=== PATIENT | female | born 1960 | race Caucasian/White ===

== ENCOUNTER → 2017-12-06 14:31 | Outpatient (CLI) | payer OTHER, SELFPAY ==
[2017-12-06 15:58] LABS: Add Manual Diff / Slide Review NO; Basophils Percent Auto 0.3 % (0-2); Eosinophils Percent Auto 2.3 % (2-4); Hematocrit 41.6 % (36-46); Hemoglobin 13.9 g/dL (12.0-16.0); Lymphocytes Percent Auto 26.9 % (25-40); Mean Corpuscular HGB Conc 33.5 % (30-36); Mean Corpuscular Hemoglobin 28.2 PG (26-34); Mean Corpuscular Volume 84.3 fL (80-100); Monocytes Percent Auto 8.2 % (3-14); Neutrophils Absolute Auto 4700 /uL (3000-5900); Neutrophils Percent Auto 62.3 % (50-75); Platelet Count 353 X10^3/uL (150-400); Red Blood Cell Count 4.94 X10^6/uL (4.0-5.2); Red Cell Distribution Width 15.6 % (11.6-14.8); White Blood Cell Count 7.5 X10^3/uL (4.5-11.0)
[2017-12-06 16:22] LABS: Alanine Aminotransferase 30 IU/L (9-52); Albumin 4.1 g/dL (3.5-5.0); Albumin Globulin Ratio 0.9 (1.0-2.8); Alkaline Phosphatase 181 U/L (38-126); Aspartate Aminotransferase 30 IU/L (14-36); BUN Creatinine Ratio 15.7 (6-22); Bilirubin Total 0.6 mg/dL (0.2-1.3); Blood Urea Nitrogen 11 mg/dL (7-17); Calcium 8.6 mg/dL (8.4-10.2); Carbon Dioxide 31 mmol/L (22-32); Chloride 101 mmol/L (98-107); Cholesterol 222 mg/dL (140-199); Estimated Glomerular Filt Rate > 60.0 mL/min (>60); Globulin 4.4 g/dL (1.7-4.1); Glucose 97 mg/dL (70-100); HDL Cholesterol 51 mg/dL (40-60); HEMOLYSIS 18 (0-50); LDL Cholesterol Calculated 147 mg/dL (<100); Potassium 3.6 mmol/L (3.4-5.1); Sodium 144 mmol/L (137-145); Total Protein 8.5 g/dL (6.3-8.2); Triglycerides 122 mg/dL (35-150)
[2017-12-06 16:34] LABS: Vitamin D 25 Hydroxy (D3) 22.7 ng/mL (30.0-100.0)
== END ==
PROVIDERS: Family Provider Family Medicine; PCP Family Medicine; Visit Provider Family Medicine
DX: E03.9 Hypothyroidism, unspecified (principal); E66.01 Morbid (severe) obesity due to excess calories; Z68.41 Body mass index [BMI] 40.0-44.9, adult; K57.32 Diverticulitis of large intestine without perforation or abscess without bleeding; I10 Essential (primary) hypertension; E78.5 Hyperlipidemia, unspecified; E55.9 Vitamin D deficiency, unspecified
CPT/HCPCS: 36415; 80053; 80061; 82306; 84443; 85025

== ENCOUNTER 2018-01-01 10:10 | Emergency (ER) | payer OTHER, SELFPAY ==
--- NOTE | 2018-01-01 10:16 | ED_ITS ---
HPI - General Adult General Chief complaint: Psychiatric Symptoms Stated complaint: mental health eval Time Seen by Provider: 01/01/18 10:11 Source: patient Mode of arrival: other ( police) Limitations: no limitations History of Present Illness HPI narrative: patient is a 57-year-old female brought in by the police after she called the crisis line for suicidal ideations this morning. Patient states that earlier this year she lost her job and since then she has had occasional thoughts of suicide. She states that she has thought of running her car off the road. She states she has been on Zoloft in the past but stopped it for approximately 1 month and then restarted it 3 weeks ago. She states she has been taking it daily for the past 3 weeks. She states that she has daily thoughts of depression. She states that this morning she became more depressed. She states that the thoughts are stemming because since she lost her job she has had several job interviews and job offers but she has turn them all down because she is scared she then looked this morning and found out she had 7 weeks of on appointment left and that made her more depressed. She called the crisis line and while she was on the phone the police arrived. She came willingly. She denied taking any ingestions this morning or trying to hurt herself this morning. Has never tried to hurt herself in the past. Has never been admitted to the hospital in the past. She states that she has anxiety that she hides from others. Related Data Previous Rx's Medication Instructions Recorded cholecalciferol (vitamin D3) 50,000 unit PO QWEEK #12 cap 06/18/17 diazepam [Valium] 10 mg PO Q DAY PRN PRN #10 tab 06/18/17 amlodipine 5 mg tablet 5 mg PO BID #180 tab 12/07/17 furosemide 40 mg tablet 40 mg PO BID #180 tab 12/07/17 levothyroxine 200 mcg tablet 200 mcg PO QAM #90 tab 12/07/17 sertraline 100 mg tablet 150 mg PO SEE INSTRUCTIONS #135 tab 12/07/17 Allergies Allergy/AdvReac Type Severity Reaction Status Date / Time iodine Allergy Severe to Unverified 09/12/17 11:45 contrast dye-congestion, hives lisinopril Allergy Unknown COUGH Unverified 09/12/17 11:45 shellfish derived Allergy Unknown Unverified 09/12/17 11:45 Review of Systems Constitutional Denies fatigue, Denies fever(s) and Denies headache(s) ENT Ears, Nose, Mouth, and Throat: Denies dizziness and Denies headache(s) Cardiovascular Denies chest pain and Denies dyspnea Respiratory Denies dyspnea Gastrointestinal Gastrointestinal: Denies abdominal pain, Denies nausea and Denies vomiting Integumentary/Breasts Denies lesions and Denies rash Neurologic Denies confusion, Denies dizziness and Denies headache(s) Psychiatric Reports anxiety, Denies confusion, Reports depression, Reports hopelessness and Reports suicidal ideation Endocrine Denies fatigue Hematologic/Lymphatic Denies easy bleeding and Denies easy bruising PFSH Medical History Anxiety (Acute) Surgical History History of thyroidectomy Family History Mother Age: 82 Hypertension Social History Smoking Status: Never smoker Comment: reviewed patient's past medical surgical family and social history Exam Initial Vital Signs Initial Vital Signs: Vital Signs Temperature 98.6 F 01/01/18 10:22 Pulse Rate 106 H 01/01/18 10:22 Respiratory Rate 20 01/01/18 10:22 Blood Pressure 186/112 H 01/01/18 10:22 Pulse Oximetry 95 01/01/18 10:22 Const General: cooperative, healthy appearing, comfortable, well developed, well groomed and acute distress Orientation: alert, awake and oriented x3 Resp Effort & Inspection: normal respiratory effort Auscultation: clear to auscultation bilaterally Cardio Palpation: normal PMI Rhythm: regular rhythm Pulses: radial pulses present GI Inspection: non-distended Palpation: soft, No firm and No tender Skin Lesions: no lesions Rashes: no rashes Neuro General: alert, awake and oriented x3 Speech: speech normal Motor: muscle tone normal throughout Sensory Exam: no sensory deficits noted Extrem General: normal to inspection Psych Appearance: grossly normal, well kempt and not disheveled Mood: dysthymic mood, not manic, not labile and No angry Affect: sad Attitude: cooperative Thought Process: normal Thought Content: normal Judgment: judgment good Course Orders Ordered: ED Orders 01/01/18 10:45 Consult to Food Clerk Stat Vital Signs - 8 hr 01/01/18 10:22 Temperature 98.6 F Pulse Rate 106 H Respiratory Rate 20 Blood Pressure 186/112 H Pulse Oximetry 95 Medical Decision Making MDM Narrative Medical decision making narrative: Patient has no signs of trauma or toxic ingestion. She denies current suicidal ideation however I feel that given her situation she is on a decline with regard to her mood. Social work did see the patient here in the emergency department. We were able to get the patient set up with an appointment with her primary doctor later this afternoon. Patient does not inpatient meet involuntary inpatient criteria. Patient does not want to be admitted to the hospital. The professor of social work was also able to get the patient set up with a mental health provider at the beginning of February. She was also given crisis line numbers. She was also given other information for counselors. Patient was given return precautions. She expressed understanding and agreement with plan. Discharge Plan Departure Patient Disposition: Home, Self-Care Clinical Impression: Adjustment disorder, Anxiety Instructions: Depression (Mild to Moderate) (Alternative Therapy), Adjustment Disorder, Can Depression Be Treated Without Medication? Activity Restrictions/Additional Instructions: you have an appointment with your primary doctor this afternoon. Highly recommend that you keep this appointment. You also given information regarding a follow-up with the mental health provider at the beginning of February. I also highly recommend that you keep this appointment. Continue all of your medications as directed. You may return to the emergency department at any time for thoughts of hurting herself or others and I encourage you to do this. Prescriptions: No Action diazepam [Valium] 10 MG tablet 10 mg PO Q DAY PRN PRNQty: 10 RF: 0 cholecalciferol (vitamin D3) 50,000 UNIT capsule 50,000 unit PO QWEEK Qty: 12 RF: 0 levothyroxine 200 mcg tablet 200 mcg PO QAM Qty: 90 RF: 0 furosemide 40 mg tablet 40 mg PO BID Qty: 180 RF: 0 sertraline 100 mg tablet 150 mg PO SEE INSTRUCTIONS Qty: 135 RF: 0 amlodipine [Norvasc] 5 mg tablet 5 mg PO BID Qty: 180 RF: 0
[2018-01-01 10:22] VITALS: BP 186/112; PULSE 106; RESP 20; TEMP 37; O2SAT 95; BMI 46.3
--- NOTE | 2018-01-01 11:06 | PC.NURSE ---
Called [facility] for urgent appt w/ Dr. Zamora for medication evaluation. (Dr. Zamora has been the prescriber for pt's meds.) given pt's number for call back. Will call ED if can call within reasonable time.
[2018-01-01 13:54] VITALS: BP 180/99; PULSE 80; RESP 14; O2SAT 97
--- NOTE | 2018-01-01 16:17 | CM.SWNOTE ---
CESSPOOL CLEANER Note: Received call from ED staff this afternoon requesting consult for mental health. CESSP[employer] CLEANER reviewed notes. Patient brought in by [employer] after she called the crisis line from home indicating that she had suicidal ideations. Patient is a 57yr old female. Primary payor is 1)[facility]. PCP is Dr. Zamora. Patient currently resides in [place] with her Mother/Margarita. Met with patient explained [employer] CLEANER role. Patient reports that she is currently having difficulty with panic attacks/anxiety. Patient also admits to feelings of depression. Patient seeks no outpatient mental health counseling at this time. Patient does take Zoloft and Valium for anxiety. Patient reports that both prescriptions written by PCP/Dr. Zamora. Patient reports that she has seen a counselor once throughout her lifetime. Patient open to seeking help anxiety and depression. Patient reports that she lost her job of 20yr in August of this year. Patient was laid off and believes that her panic attacks have gotten worse. Patient denies current suicidal or homicidal ideations but does admit to having feelings on non-existence on occasion. Last thought was over the weekend. Patient denies having access to any weapons. Patient in hopes to get some assistance with services. ED staff made same day appointment for patient to be seen by Dr. Zamora today at 4:00pm. CESSPO[employer] CLEANER placed call to [facility]. Appointment made for patient to see psychiatrist on Feb.05 in [place]. Appointment with Dr. Epps ph# [phone]. In addition, resources provided to patient to call for outpatient counseling contracted with [facility] in [facility]. Patient reports that she has started that process and expects to be getting return phone call from local counselor Jacinda Kapoor. Patient reports no immediate concerns and or crisis. [employer] CLEANER encouraged patient to discuss her panic attacks/anxiety and depression with MD today. Patient may need medication adjustment. P: Home today. Patient has needed outpatient follow up appointments arranged for both mental health and PCP. Patient denies that she is suicidal or homicidal at this time. Crisis resources provided as well. MINA Rudolph
== END 2018-01-01 13:59 | disposition home or self-care (01) ==
PROVIDERS: Emergency Provider Emergency Medicine; Family Provider Family Medicine; PCP Family Medicine
DX: F43.20 Adjustment disorder, unspecified (principal); F41.9 Anxiety disorder, unspecified
CPT/HCPCS: 99282

== ENCOUNTER → 2018-04-16 09:37 | Outpatient (CLI) | payer OTHER, MEDICAID, SELFPAY ==
[2018-04-16 10:49] LABS: Alanine Aminotransferase 23 IU/L (9-52); Albumin 4.1 g/dL (3.5-5.0); Albumin Globulin Ratio 1.1 (1.0-2.8); Alkaline Phosphatase 176 U/L (38-126); Aspartate Aminotransferase 24 IU/L (14-36); BUN Creatinine Ratio 23.3 (6-22); Bilirubin Total 0.3 mg/dL (0.2-1.3); Blood Urea Nitrogen 14 mg/dL (7-17); Calcium 8.4 mg/dL (8.4-10.2); Carbon Dioxide 30 mmol/L (22-32); Chloride 103 mmol/L (98-107); Cholesterol 173 mg/dL (140-199); Estimated Glomerular Filt Rate > 60.0 mL/min (>60); Globulin 3.9 g/dL (1.7-4.1); Glucose 116 mg/dL (70-100); HDL Cholesterol 45 mg/dL (40-60); HEMOLYSIS < 15 (0-50); LDL Cholesterol Calculated 112 mg/dL (<100); Potassium 3.5 mmol/L (3.4-5.1); Sodium 145 mmol/L (137-145); Triglycerides 79 mg/dL (35-150)
[2018-04-16 10:57] LABS: Free T3, Triiodothyronine Free 3.22 pg/mL (2.77-5.27); Free T4, Direct Thyroxine 1.67 ng/dL (0.78-2.19)
[2018-04-16 11:11] LABS: Thyroid Stimulating Hormone 0.97 uIU/mL (0.47-4.68)
== END ==
PROVIDERS: PCP Family Medicine; Visit Provider Family Medicine
DX: E03.9 Hypothyroidism, unspecified (principal); E78.5 Hyperlipidemia, unspecified; I10 Essential (primary) hypertension
CPT/HCPCS: 36415; 80053; 80061; 84439; 84443; 84481

== ENCOUNTER 2018-05-09 13:16 | Emergency (ER) | payer OTHER, MEDICAID, SELFPAY ==
[2018-05-09 13:30] VITALS: BP 168/113; PULSE 106; RESP 18; TEMP 37.8; O2SAT 96; BMI 48.0
--- NOTE | 2018-05-09 13:46 | DI.RAD.S_ITS ---
PROCEDURE: XR CHEST 2V INDICATIONS: cough new onset a.fib TECHNIQUE: 2 views of the chest were acquired. COMPARISON: [facility], , CHEST 2 VIEW, 12/17/2013, 10:07. [facility], CR, CHEST 2 VIEW, 03/12/2014, 16:57. [facility], CT, ABDOMEN/PELVIS WITHOUT CONTRAS, 10/01/2016, 16:55. FINDINGS: Surgical changes and devices: None. Lungs and pleura: Shallow inspiration. No pleural effusions or pneumothorax. Lungs are clear. Mediastinum: Mediastinal contours are normal. Heart size is mildly increased. Bones and chest wall: No suspicious bony abnormalities. Soft tissues appear unremarkable. IMPRESSION: Mild cardiomegaly. Dictated by: Vanessa Gaming M.D. on 05/09/2018 at 14:56 Approved by: Vanessa Gaming M.D. on 05/09/2018 at 15:05
--- NOTE | 2018-05-09 13:51 | ED_ITS ---
HPI - Arrhythmia/Palpitations General Chief Complaint: Arrhythmia/Palpitations Stated Complaint: Thinks AFIB Time Seen by Provider: 05/09/18 13:27 Source: patient Mode of arrival: ambulatory Limitations: no limitations History of Present Illness HPI narrative: The patient is a 57-year-old presents from walk in clinic for new onset a.fib. She complains of sore throat body aches and cough on going for 2 days. Denies history of a.fib, heart palpitations. She overall feels weak and lethargic. Patient says that she has felt her heart is being abnormal a few times in the past but has just blown off. She really does not have symptoms now she overall just feels sick with head cold throat. Related Data Home Medications Medication Instructions Recorded Confirmed cholecalciferol (vitamin D3) 5,000 units PO DAILY 05/09/18 05/09/18 [Vitamin D3] Previous Rx's Medication Instructions Recorded amlodipine 5 mg tablet 5 mg PO BID #180 tab 04/16/18 diazepam 10 mg tablet 10 mg PO Q DAY PRN PRN #10 tab 04/16/18 furosemide 40 mg tablet 40 mg PO BID #180 tab 04/16/18 levothyroxine 200 mcg tablet 200 mcg PO QAM #30 tab 04/16/18 sertraline 100 mg tablet 150 mg PO DAILY 90 Days #135 tab 04/22/18 metoprolol tartrate 12.5 mg PO BID #30 tab 05/09/18 Allergies Allergy/AdvReac Type Severity Reaction Status Date / Time iodine Allergy Severe to Verified 05/09/18 12:13 contrast dye-congestion, hives lisinopril Allergy Unknown COUGH Verified 05/09/18 12:13 shellfish derived Allergy Unknown Verified 05/09/18 12:13 buspirone AdvReac Intermediate felt Verified 05/09/18 12:13 spaced out bupropion [From Wellbutrin] AdvReac Mild Weird Verified 05/09/18 12:13 feeling Review of Systems Review of Systems All systems reviewed & are unremarkable except as noted in HPI and below Constitutional Reports body ache(s), Reports chills and Reports fever(s) Eyes Denies change in vision, Denies eye discharge, Denies irritation and Denies loss of vision ENT Ears, Nose, Mouth, and Throat: Reports as per HPI, Denies dizziness, Reports nasal congestion, Reports sore throat and Reports throat swelling Cardiovascular Reports as per HPI, Denies dyspnea and Denies dyspnea on exertion Respiratory Denies cough, Denies dyspnea, Denies dyspnea on exertion and Denies wheezing Gastrointestinal Gastrointestinal: Denies abdominal pain, Denies change in bowel habits, Denies diarrhea, Denies nausea and Denies vomiting Integumentary/Breasts Denies pruritus, Denies erythema, Denies rash and Denies wounds Neurologic Denies dizziness and Denies loss of vision Allergic/Immunologic Reports throat swelling and Denies wheezing [facility] Medical History Anxiety (Chronic) Depression (Chronic) Diverticular disease (Chronic) GERD (gastroesophageal reflux disease) (Chronic) Hypertension (Chronic) Hypothyroidism (Chronic) Mitral insufficiency (Chronic) Hyperlipemia (Resolved ~2010) Surgical History History of back surgery (Resolved 07/2015) History of thyroidectomy (1976) Family History Mother Age: 82 Hypertension Father No problems noted. Grandfather Cancer Grandmother No problems noted. Grandfather No problems noted. Grandmother Cancer Sister No problems noted. Social History Smoking Status: Never smoker alcohol intake: never substance use type: does not use Exam Initial Vital Signs Initial Vital Signs: Vital Signs Temperature 100.0 F H 05/09/18 13:30 Pulse Rate 106 H 05/09/18 13:30 Respiratory Rate 18 05/09/18 13:30 Blood Pressure 168/113 H 05/09/18 13:30 Pulse Oximetry 96 05/09/18 13:30 Const General: cooperative and comfortable Nutritional Appearance: overweight Orientation: alert, awake and oriented x3 Eyes General: appearance normal, both eyes and all related structures Neck Neck: normal visual inspection, full ROM, no meningeal signs, supple and lymphadenopathy Chest Chest: normal inspection of the chest Resp Effort & Inspection: normal respiratory effort, able to speak in complete sentences, no respiratory distress and no use of accessory muscles Auscultation: clear to auscultation bilaterally, no rales, no rhonchi and no wheezes Cardio Rate: regular rate Rhythm: abnormal rhythm Heart Sounds: S1 normal and S2 normal Skin General: no rashes or lesions noted, No jaundice and No petechiae Neuro General: alert, oriented x3, gait normal and no focal motor deficits Speech: speech normal Extrem General: full ROM, no clubbing, cyanosis or edema, no pedal edema and no calf tenderness Scores CHADS-VASc Congestive heart failure: no Hypertension: yes Age 75 years or older: no Diabetes mellitus: no Stroke, TIA, or TE: no Vascular disease: no Age 65 to 74 years: no Sex category (female): Female CHADS-VASc Score: 2 Course Orders Ordered: ED Orders 05/09/18 13:25 Complete Blood Count AUTO DIFF Stat Comprehensive Metabolic Panel Stat Lactate (Lactic Acid) Stat Magnesium Stat Thyroid Stimulating Hormone Stat Troponin & CK Cardiac Panel Stat 05/09/18 13:27 B Type Natriuretic Peptide Stat 05/09/18 13:43 Influenza A and B by PCR Rapid Stat 05/09/18 13:44 EKG-12 Lead Stat 05/09/18 13:46 XR chest 2V Stat 05/09/18 13:59 Strep Grp A by PCR Rapid Stat 05/09/18 14:34 Blood Culture Stat 05/09/18 15:41 EKG-12 Lead Stat Discontinued Medications Aspirin (Aspirin Chew) 324 mg PO NOW ONE Stop: 05/09/18 16:03 Last Admin: 05/09/18 16:17 Dose: 324 mg Diltiazem HCl (Cardizem) 10 mg IV NOW ONE Stop: 05/09/18 13:45 Last Admin: 05/09/18 14:13 Dose: 10 mg Sodium Chloride (Normal Saline 0.9%) 1,000 mls @ 150 mls/hr IV CONT MELINDA Last Infusion: 05/09/18 16:41 Dose: 0 mls/hr Admin: 05/09/18 14:13 Dose: 150 mls/hr Vital Signs - 8 hr 05/09/18 13:30 05/09/18 14:59 05/09/18 16:41 Temperature 100.0 F H 99.7 F H Pulse Rate 106 H 90 88 Respiratory Rate 18 14 21 Blood Pressure 168/113 H 111/71 Blood Pressure [Right Wrist] 155/106 H Pulse Oximetry 96 96 94 MDM - Arrhythmia/Palpitations Lab Data Attestation: I reviewed the patient's lab results. Result diagrams: 05/09/18 13:25 05/09/18 13:25 Lab Results 05/09/18 05/09/18 05/09/18 Range/Units 13:25 13:25 13:25 WBC 6.9 (4.5-11.0) X10^3/uL RBC 5.29 H (4.0-5.2) X10^6/uL Hgb 13.4 (12.0-16.0) g/dL Hct 41.7 (36-46) % MCV 78.8 L (80-100) fL MCH 25.3 L (26-34) PG MCHC 32.1 (30-36) % RDW 16.6 H (11.6-14.8) % Plt Count 276 (150-400) X10^3/uL Neut % (Auto) 73.2 (50-75) % Lymph % (Auto) 18.1 L (25-40) % [facility] % (Auto) 6.6 (3-14) % Eos % (Auto) 1.8 L (2-4) % Baso % (Auto) 0.3 (0-2) % Neut # (Auto) 5100 (9855-9841) /uL Sodium 143 (137-145) mmol/L Potassium 4.2 (3.4-5.1) mmol/L Chloride 103 (98-107) mmol/L Carbon Dioxide 30 (22-32) mmol/L BUN 12 (7-17) mg/dL Creatinine 0.70 (0.52-1.04) mg/dL Estimated GFR > 60.0 (>60) mL/min BUN/Creatinine Ratio 17.1 (6-22) Glucose 120 H (70-100) mg/dL Lactate 1.2 (0.7-2.1) mmol/L Calcium 8.1 L (8.4-10.2) mg/dL Magnesium 2.1 (1.6-2.3) mg/dL Total Bilirubin 0.8 (0.2-1.3) mg/dL AST 47 H (14-36) IU/L ALT 35 (9-52) IU/L Alkaline Phosphatase 181 H (38-126) U/L Total Creatine Kinase 60 (30-135) U/L CK-MB (CK-2) TNP CK-MB (CK-2) Rel Index TNP Troponin I < 0.012 (0.01-0.034) ng/mL B-Natriuretic Peptide (<100) Total Protein 8.7 H (6.3-8.2) g/dL Albumin 4.3 (3.5-5.0) g/dL Globulin 4.4 H (1.7-4.1) g/dL Albumin/Globulin Ratio 1.0 (1.0-2.8) TSH (0.47-4.68) uIU/mL Influenza A & B (PCR) (Negative) Group A Strep (PCR) 05/09/18 05/09/18 05/09/18 Range/Units 13:25 13:27 13:43 WBC (4.5-11.0) X10^3/uL RBC (4.0-5.2) X10^6/uL Hgb (12.0-16.0) g/dL Hct (36-46) % MCV (80-100) fL MCH (26-34) PG MCHC (30-36) % RDW (11.6-14.8) % Plt Count (150-400) X10^3/uL Neut % (Auto) (50-75) % Lymph % (Auto) (25-40) % [facility] % (Auto) (3-14) % Eos % (Auto) (2-4) % Baso % (Auto) (0-2) % Neut # (Auto) (5440-0440) /uL Sodium (137-145) mmol/L Potassium (3.4-5.1) mmol/L Chloride (98-107) mmol/L Carbon Dioxide (22-32) mmol/L BUN (7-17) mg/dL Creatinine (0.52-1.04) mg/dL Estimated GFR (>60) mL/min BUN/Creatinine Ratio (6-22) Glucose (70-100) mg/dL Lactate (0.7-2.1) mmol/L Calcium (8.4-10.2) mg/dL Magnesium (1.6-2.3) mg/dL Total Bilirubin (0.2-1.3) mg/dL AST (14-36) IU/L ALT (9-52) IU/L Alkaline Phosphatase (38-126) U/L Total Creatine Kinase (30-135) U/L CK-MB (CK-2) CK-MB (CK-2) Rel Index Troponin I (0.01-0.034) ng/mL B-Natriuretic Peptide 96.0 (<100) Total Protein (6.3-8.2) g/dL Albumin (3.5-5.0) g/dL Globulin (1.7-4.1) g/dL Albumin/Globulin Ratio (1.0-2.8) TSH 0.52 (0.47-4.68) uIU/mL Influenza A & B (PCR) Negative (Negative) Group A Strep (PCR) 05/09/18 Range/Units 13:59 WBC (4.5-11.0) X10^3/uL RBC (4.0-5.2) X10^6/uL Hgb (12.0-16.0) g/dL Hct (36-46) % MCV (80-100) fL MCH (26-34) PG MCHC (30-36) % RDW (11.6-14.8) % Plt Count (150-400) X10^3/uL Neut % (Auto) (50-75) % Lymph % (Auto) (25-40) % [facility] % (Auto) (3-14) % Eos % (Auto) (2-4) % Baso % (Auto) (0-2) % Neut # (Auto) (4489-7849) /uL Sodium (137-145) mmol/L Potassium (3.4-5.1) mmol/L Chloride (98-107) mmol/L Carbon Dioxide (22-32) mmol/L BUN (7-17) mg/dL Creatinine (0.52-1.04) mg/dL Estimated GFR (>60) mL/min BUN/Creatinine Ratio (6-22) Glucose (70-100) mg/dL Lactate (0.7-2.1) mmol/L Calcium (8.4-10.2) mg/dL Magnesium (1.6-2.3) mg/dL Total Bilirubin (0.2-1.3) mg/dL AST (14-36) IU/L ALT (9-52) IU/L Alkaline Phosphatase (38-126) U/L Total Creatine Kinase (30-135) U/L CK-MB (CK-2) CK-MB (CK-2) Rel Index Troponin I (0.01-0.034) ng/mL B-Natriuretic Peptide (<100) Total Protein (6.3-8.2) g/dL Albumin (3.5-5.0) g/dL Globulin (1.7-4.1) g/dL Albumin/Globulin Ratio (1.0-2.8) TSH (0.47-4.68) uIU/mL Influenza A & B (PCR) (Negative) Group A Strep (PCR) Negative Imaging Data Chest x-ray: Radiologist's impression: PROCEDURE: XR CHEST 2V INDICATIONS: cough new onset a.fib TECHNIQUE: 2 views of the chest were acquired. COMPARISON: [facility], , CHEST 2 VIEW, 12/17/2013, 10:07. [facility], CR, CHEST 2 VIEW, 03/12/2014, 16:57. [facility], CT, ABDOMEN/PELVIS WITHOUT CONTRAS, 10/01/2016, 16:55. FINDINGS: Surgical changes and devices: None. Lungs and pleura: Shallow inspiration. No pleural effusions or pneumothorax. Lungs are clear. Mediastinum: Mediastinal contours are normal. Heart size is mildly increased. Bones and chest wall: No suspicious bony abnormalities. Soft tissues appear unremarkable. IMPRESSION: Mild cardiomegaly. Dictated by: Vanessa Gaming M.D. on 05/09/2018 at 14:56 ECG Data Attestation: I personally reviewed and interpreted this ECG as follows: Prior ECG tracings: available for review Interpretation: New onset atrial fibrillation rate [address] depression EKG 2.: AFib rate [address] changes depressions in precordial leads no ST elevations MDM Narrative Medical decision making narrative: TSH is slightly low at 0.5. 1 month ago 0.9. This may or may not be contributing to her AFib. She is completely asymptomatic for her AFib. I will start her on metoprolol to help control her rate is and start her on aspirin. I did discuss risk of stroke with her. She is agreeable to take aspirin. I have called and spoken with Ana Montiel who will help get patient in next week for evaluation of atrial fibrillation. She has cardiomegaly on her x-ray she will likely need echocardiogram and further evaluation. And possible adjustment to her thyroid medication. Discharge Plan Departure Patient Disposition: Home Clinical Impression: Upper respiratory infection, viral, Atrial fibrillation Discharge Date/Time: 05/09/18 16:42 Interventions: ED Discharge Assessment Last Done: 05/09/18 16:41 Instructions: Atrial Fibrillation, DI for Viral Upper Respiratory Infection -- Adult Activity Restrictions/Additional Instructions: *You have been diagnosed with upper respiratory infection, atrial fibrillation *What to do: No of infection or need for antibiotics at this time. Your influenza is negative. You will need further cardiac evaluation and workup. You're primary care provider's office is aware of this and they will follow up with you *Continue to take medications as directed: Faxed to [facility] in [place] -STOP Amlodipine metoprolol 25 mg twice a day Aspirin 81 mg once a day *Follow up with your primary care provider in 2-3 days *Return to ER if you should have worsening fever, increasing shortness of breath heart palpitations chest pain or any new, worsening or concerning symptoms Prescriptions: New metoprolol tartrate 25 mg tablet 12.5 mg PO BID Qty: 30 RF: 0 No Action amlodipine [Norvasc] 5 mg tablet 5 mg PO BID Qty: 180 RF: 0 diazepam [Valium] 10 mg tablet 10 mg PO Q DAY PRN PRN (Reason: anxiety) Qty: 10 RF: 0 furosemide 40 mg tablet 40 mg PO BID Qty: 180 RF: 0 levothyroxine 200 mcg tablet 200 mcg PO QAM Qty: 30 RF: 2 sertraline 100 mg tablet 150 mg PO DAILY 90 Days Qty: 135 RF: 1 cholecalciferol (vitamin D3) [Vitamin D3] 5,000 unit Tablet 5,000 units PO DAILY RF: 0 Referrals: Cary Zamora DO [Primary Care Provider] - Stand Alone Forms: Work Release Note
[2018-05-09 14:10] LABS: Strep Grp A by PCR Rapid Negative
[2018-05-09] MEDS: SODIUM CHLORIDE 0.9% 1,000 ML 150 ML IV (14:13)
[2018-05-09] MEDS: dilTIAZem 5 MG/ML SDV 10 MG IV (14:13)
[2018-05-09 14:19] LABS: Add Manual Diff / Slide Review NO; Basophils Percent Auto 0.3 % (0-2); Eosinophils Percent Auto 1.8 % (2-4); Hematocrit 41.7 % (36-46); Hemoglobin 13.4 g/dL (12.0-16.0); Lymphocytes Percent Auto 18.1 % (25-40); Mean Corpuscular HGB Conc 32.1 % (30-36); Mean Corpuscular Hemoglobin 25.3 PG (26-34); Mean Corpuscular Volume 78.8 fL (80-100); Monocytes Percent Auto 6.6 % (3-14); Neutrophils Absolute Auto 5100 /uL (3000-5900); Neutrophils Percent Auto 73.2 % (50-75); Platelet Count 276 X10^3/uL (150-400); Red Blood Cell Count 5.29 X10^6/uL (4.0-5.2); Red Cell Distribution Width 16.6 % (11.6-14.8); White Blood Cell Count 6.9 X10^3/uL (4.5-11.0)
[2018-05-09 14:27] LABS: Lactate (Lactic Acid) 1.2 mmol/L (0.7-2.1)
[2018-05-09 14:28] LABS: Influenza A and B by PCR Rapid Negative (Negative)
[2018-05-09 14:29] LABS: Alanine Aminotransferase 35 IU/L (9-52); Albumin 4.3 g/dL (3.5-5.0); Alkaline Phosphatase 181 U/L (38-126); Aspartate Aminotransferase 47 IU/L (14-36); BUN Creatinine Ratio 17.1 (6-22); Bilirubin Total 0.8 mg/dL (0.2-1.3); Blood Urea Nitrogen 12 mg/dL (7-17); Calcium 8.1 mg/dL (8.4-10.2); Carbon Dioxide 30 mmol/L (22-32); Chloride 103 mmol/L (98-107); Creatine Kinase 60 U/L (30-135); Estimated Glomerular Filt Rate > 60.0 mL/min (>60); Globulin 4.4 g/dL (1.7-4.1); Glucose 120 mg/dL (70-100); HEMOLYSIS 98 (0-50); Magnesium 2.1 mg/dL (1.6-2.3); Sodium 143 mmol/L (137-145); Total Protein 8.7 g/dL (6.3-8.2)
[2018-05-09 14:31] LABS: Potassium 4.2 mmol/L (3.4-5.1)
[2018-05-09 14:46] LABS: Troponin I < 0.012 ng/mL (0.01-0.034)
[2018-05-09 14:59] VITALS: BP 155/106; PULSE 90; RESP 14; TEMP 37.6; O2SAT 96
[2018-05-09 15:36] LABS: Thyroid Stimulating Hormone 0.52 uIU/mL (0.47-4.68)
[2018-05-09] MEDS: ASPIRIN 81 MG TAB 324 MG PO (16:17)
[2018-05-09 16:41] VITALS: BP 111/71; PULSE 88; RESP 21; O2SAT 94
== END 2018-05-09 16:42 | disposition home or self-care (01) ==
PROVIDERS: Emergency Provider Emergency Medicine; PCP Family Medicine
DX: J06.9 Acute upper respiratory infection, unspecified (principal); I48.91 Unspecified atrial fibrillation
CPT/HCPCS: 36415; 36591; 71046; 80053; 82550; 83605; 83735; 83880; 84443; 84484; 85025; 87040; 87400; 87651; 93005; 93010; 96361; 96374; 99283; 99285

== ENCOUNTER → 2018-05-20 11:58 | Outpatient (CLI) | payer OTHER, MEDICAID, SELFPAY ==
[2018-05-20 13:00] LABS: Prothrombin Time 66.2 SECONDS (10.1-12.7)
[2018-05-20 13:09] LABS: INR 5.5 (0.9-1.3)
== END ==
PROVIDERS: PCP Family Medicine; Visit Provider Family Medicine
DX: I48.91 Unspecified atrial fibrillation (principal)
CPT/HCPCS: 36415; 85610

== ENCOUNTER 2018-06-10 15:32 | Emergency (ER) | payer OTHER, MEDICAID, SELFPAY ==
[2018-06-10 15:37] VITALS: BP 169/89; PULSE 99; RESP 14; TEMP 36.3; O2SAT 97; BMI 48.0
--- NOTE | 2018-06-10 15:42 | DI.RAD.S_ITS ---
PROCEDURE: XR CHEST 1V INDICATIONS: chest pain TECHNIQUE: One view of the chest was acquired. COMPARISON: [facility], , CHEST 2 VIEW, 03/12/2014, 16:57. [facility], , XR CHEST 2V, 05/09/2018, 14:32. FINDINGS: Surgical changes and devices: None. Lungs and pleura: No pleural effusions or pneumothorax. Lungs are clear. Mediastinum: Mediastinal contours appear normal. Heart size is mildly increased. Bones and chest wall: No suspicious bony lesions. Overlying soft tissues appear unremarkable. IMPRESSION: Mild cardiomegaly. Dictated by: Vanessa Gaming M.D. on 06/10/2018 at 16:09 Approved by: Vanessa Gaming M.D. on 06/10/2018 at 16:10
[2018-06-10 16:10] VITALS: BP 127/70; PULSE 87; RESP 17; O2SAT 95
[2018-06-10 16:37] LABS: Add Manual Diff / Slide Review NO; Basophils Percent Auto 0.4 % (0-2); Eosinophils Percent Auto 2.9 % (2-4); Hematocrit 37.9 % (36-46); Hemoglobin 12.3 g/dL (12.0-16.0); Lymphocytes Percent Auto 19.3 % (25-40); Mean Corpuscular HGB Conc 32.6 % (30-36); Mean Corpuscular Hemoglobin 25.6 PG (26-34); Mean Corpuscular Volume 78.4 fL (80-100); Monocytes Percent Auto 6.8 % (3-14); Neutrophils Absolute Auto 5800 /uL (1500-7000); Neutrophils Percent Auto 70.6 % (50-75); Platelet Count 330 X10^3/uL (150-400); Red Blood Cell Count 4.83 X10^6/uL (4.0-5.2); Red Cell Distribution Width 17.4 % (11.6-14.8); White Blood Cell Count 8.3 X10^3/uL (4.5-11.0)
[2018-06-10 16:44] LABS: Prothrombin Time 35.3 SECONDS (10.1-12.7)
[2018-06-10 16:47] LABS: PTT Partial Thromboplastin Tim 48 SECONDS (26.4-36.2)
[2018-06-10 16:50] LABS: Alanine Aminotransferase 17 IU/L (9-52); Albumin Globulin Ratio 0.9 (1.0-2.8); Alkaline Phosphatase 163 U/L (38-126); Aspartate Aminotransferase 22 IU/L (14-36); BUN Creatinine Ratio 18.8 (6-22); Bilirubin Total 0.9 mg/dL (0.2-1.3); Blood Urea Nitrogen 15 mg/dL (7-17); Calcium 8.8 mg/dL (8.4-10.2); Carbon Dioxide 31 mmol/L (22-32); Chloride 100 mmol/L (98-107); Creatine Kinase 57 U/L (30-135); Estimated Glomerular Filt Rate > 60.0 mL/min (>60); Globulin 4.3 g/dL (1.7-4.1); Glucose 175 mg/dL (70-100); HEMOLYSIS < 15 (0-50); Lipase 65 U/L (23-300); Sodium 142 mmol/L (137-145); Total Protein 8.3 g/dL (6.3-8.2)
--- NOTE | 2018-06-10 16:54 | ED_ITS ---
HPI - Chest Pain General Chief Complaint: Chest Pain Stated Complaint: SOB AFIB LEFT SIDE PAIN TIGHTNESS CHEST Time Seen by Provider: 06/10/18 16:51 Source: patient Mode of arrival: ambulatory Limitations: no limitations History of Present Illness HPI narrative: Patient is a 57-year-old female who presents with shortness of breath and chest discomfort ongoing for the last 2-3 days. She gets short of breath worse with exertion she has noted she needed to increase the incline of her bed due to sleeping at night. Says she has had increasing orthopnea. She denies any swelling in her legs. No fever or lower extremity edema. She does have a history of atrial fibrillation and CHF. She has also noted some left shoulder pain worse with certain movements. This is also been ongoing for the last couple of days. She has no numbness or tingling in her hand. MD complaint: chest pain Related Data Home Medications Medication Instructions Recorded Confirmed cholecalciferol (vitamin D3) 5,000 units PO DAILY 05/09/18 06/10/18 [Vitamin D3] levothyroxine 150 mcg PO DAILY 06/10/18 06/10/18 warfarin 2.5 mg PO Q OTHER DAY 06/10/18 06/10/18 warfarin [Coumadin] 5 mg PO Q OTHER DAY 06/10/18 06/10/18 Previous Rx's Medication Instructions Recorded diazepam 10 mg tablet 10 mg PO Q DAY PRN PRN #10 tab 04/16/18 furosemide 40 mg tablet 40 mg PO BID #180 tab 04/16/18 sertraline 100 mg tablet 150 mg PO DAILY 90 Days #135 tab 04/22/18 metoprolol tartrate 12.5 mg PO BID #30 tab 05/09/18 potassium chloride 20 meq PO DAILY #10 cap 06/10/18 Allergies Allergy/AdvReac Type Severity Reaction Status Date / Time iodine Allergy Severe to Verified 06/10/18 15:41 contrast dye-congestion, hives lisinopril Allergy Unknown COUGH Verified 06/10/18 15:41 shellfish derived Allergy Unknown Verified 06/10/18 15:41 buspirone AdvReac Intermediate felt Verified 06/10/18 15:41 spaced out bupropion [From Wellbutrin] AdvReac Mild Weird Verified 06/10/18 15:41 feeling Review of Systems Review of Systems All systems reviewed & are unremarkable except as noted in HPI and below Constitutional Denies chills, Denies fatigue, Denies fever(s), Denies lethargy and Denies weakness Cardiovascular Reports as per HPI Respiratory Reports as per HPI Gastrointestinal Gastrointestinal: Denies abdominal pain, Denies change in bowel habits, Denies diarrhea, Denies nausea and Denies vomiting Genitourinary Denies hematuria, Denies flank pain, Denies urinary incontinence and Denies urinary urgency Musculoskeletal Reports system reviewed and no additional complaints, except as docu Integumentary/Breasts Denies pruritus, Denies erythema, Denies rash and Denies wounds Neurologic Denies weakness Endocrine Denies fatigue and Denies flushing [facility] Social History Smoking Status: Never smoker alcohol intake: never substance use type: does not use Exam Initial Vital Signs Initial Vital Signs: Vital Signs Temperature 97.4 F L 06/10/18 15:37 Pulse Rate 99 H 06/10/18 15:37 Respiratory Rate 14 06/10/18 15:37 Blood Pressure 169/89 H 06/10/18 15:37 Pulse Oximetry 97 06/10/18 15:37 GENERAL: Overweight female alert oriented x3 no acute distress HEENT: Head atraumatic,EOMI, pupils reactive, neck is supple no JVD CARDIOVASCULAR: Regular rate and rhythm without murmurs, rubs or gallops. RESPIRATORY: Breath sounds equal bilaterally, no wheezes rales or rhonchi. Speaks in full sentences without difficulty ABDOMEN: Soft, nontender. Normoactive bowel sounds all 4 quadrants. No guarding or rebound. EXTREMITIES: Normal range of motion, no clubbing or edema. Neurovascularly intact NEUROLOGICAL: Alert and oriented x4.Normal gait and speech. Cranial nerves II through XII grossly intact. SKIN: Warm, dry, no laceration, no petechiae, no rashes or lesions. Course Orders Ordered: ED Orders 06/10/18 15:42 XR chest 1V Stat EKG-12 Lead Stat 06/10/18 16:10 B Type Natriuretic Peptide Stat Complete Blood Count AUTO DIFF Stat Comprehensive Metabolic Panel Stat Lipase Stat Partial Thromboplastin Time Stat Prothrombin Time INR Stat Troponin & CK Cardiac Panel Stat Discontinued Medications Albuterol/Ipratropium (Duoneb) 3 ml INH NOW ONE Stop: 06/10/18 17:36 Last Admin: 06/10/18 17:38 Dose: 3 ml Furosemide (Lasix) 40 mg IV NOW ONE Stop: 06/10/18 18:21 Last Admin: 06/10/18 18:37 Dose: 40 mg Potassium Chloride (Klor-Con M20) 40 meq PO NOW ONE Stop: 06/10/18 17:37 Last Admin: 06/10/18 17:58 Dose: 40 meq Vital Signs - 8 hr 06/10/18 15:37 06/10/18 16:10 06/10/18 17:00 Temperature 97.4 F L Pulse Rate 99 H 87 80 Respiratory Rate 14 17 21 Blood Pressure 169/89 H Blood Pressure [Right Wrist] 127/70 167/107 H Pulse Oximetry 97 95 95 06/10/18 17:39 06/10/18 18:00 06/10/18 18:30 Temperature Pulse Rate 81 85 82 Respiratory Rate 13 24 22 Blood Pressure Blood Pressure [Right Wrist] 110/61 137/106 H Pulse Oximetry 96 93 95 MDM - Chest Pain Lab Data Attestation: I reviewed the patient's lab results. Result diagrams: 06/10/18 16:10 06/10/18 16:10 Lab Results 06/10/18 06/10/18 06/10/18 Range/Units 16:10 16:10 16:10 WBC 8.3 (4.5-11.0) X10^3/uL RBC 4.83 (4.0-5.2) X10^6/uL Hgb 12.3 (12.0-16.0) g/dL Hct 37.9 (36-46) % MCV 78.4 L (80-100) fL MCH 25.6 L (26-34) PG MCHC 32.6 (30-36) % RDW 17.4 H (11.6-14.8) % Plt Count 330 (150-400) X10^3/uL Neut % (Auto) 70.6 (50-75) % Lymph % (Auto) 19.3 L (25-40) % [place] % (Auto) 6.8 (3-14) % Eos % (Auto) 2.9 (2-4) % Baso % (Auto) 0.4 (0-2) % Neut # (Auto) 5800 (3941-8652) /uL PT 35.3 H (10.1-12.7) SECONDS INR 3.0 H (0.9-1.3) APTT 48 H (26.4-36.2) SECONDS Sodium 142 (137-145) mmol/L Potassium 3.0 L (3.4-5.1) mmol/L Chloride 100 (98-107) mmol/L Carbon Dioxide 31 (22-32) mmol/L BUN 15 (7-17) mg/dL Creatinine 0.80 (0.52-1.04) mg/dL Estimated GFR > 60.0 (>60) mL/min BUN/Creatinine Ratio 18.8 (6-22) Glucose 175 H (70-100) mg/dL Calcium 8.8 (8.4-10.2) mg/dL Total Bilirubin 0.9 (0.2-1.3) mg/dL AST 22 (14-36) IU/L ALT 17 (9-52) IU/L Alkaline Phosphatase 163 H (38-126) U/L Total Creatine Kinase 57 (30-135) U/L CK-MB (CK-2) TNP CK-MB (CK-2) Rel Index TNP Troponin I < 0.012 (0.01-0.034) ng/mL B-Natriuretic Peptide (<100) Total Protein 8.3 H (6.3-8.2) g/dL Albumin 4.0 (3.5-5.0) g/dL Globulin 4.3 H (1.7-4.1) g/dL Albumin/Globulin Ratio 0.9 L (1.0-2.8) Lipase 65 (23-300) U/L 06/10/18 Range/Units 16:10 WBC (4.5-11.0) X10^3/uL RBC (4.0-5.2) X10^6/uL Hgb (12.0-16.0) g/dL Hct (36-46) % MCV (80-100) fL MCH (26-34) PG MCHC (30-36) % RDW (11.6-14.8) % Plt Count (150-400) X10^3/uL Neut % (Auto) (50-75) % Lymph % (Auto) (25-40) % [place] % (Auto) (3-14) % Eos % (Auto) (2-4) % Baso % (Auto) (0-2) % Neut # (Auto) (2039-8441) /uL PT (10.1-12.7) SECONDS INR (0.9-1.3) APTT (26.4-36.2) SECONDS Sodium (137-145) mmol/L Potassium (3.4-5.1) mmol/L Chloride (98-107) mmol/L Carbon Dioxide (22-32) mmol/L BUN (7-17) mg/dL Creatinine (0.52-1.04) mg/dL Estimated GFR (>60) mL/min BUN/Creatinine Ratio (6-22) Glucose (70-100) mg/dL Calcium (8.4-10.2) mg/dL Total Bilirubin (0.2-1.3) mg/dL AST (14-36) IU/L ALT (9-52) IU/L Alkaline Phosphatase (38-126) U/L Total Creatine Kinase (30-135) U/L CK-MB (CK-2) CK-MB (CK-2) Rel Index Troponin I (0.01-0.034) ng/mL B-Natriuretic Peptide 251 H (<100) Total Protein (6.3-8.2) g/dL Albumin (3.5-5.0) g/dL Globulin (1.7-4.1) g/dL Albumin/Globulin Ratio (1.0-2.8) Lipase (23-300) U/L Imaging Data Chest x-ray: Radiologist's impression: PROCEDURE: XR CHEST 1V INDICATIONS: chest pain TECHNIQUE: One view of the chest was acquired. COMPARISON: [facility], CHEST 2 VIEW, 03/12/2014, 16:57. [facility], XR CHEST 2V, 05/09/2018, 14:32. FINDINGS: Surgical changes and devices: None. Lungs and pleura: No pleural effusions or pneumothorax. Lungs are clear. Mediastinum: Mediastinal contours appear normal. Heart size is mildly increased. Bones and chest wall: No suspicious bony lesions. Overlying soft tissues appear unremarkable. IMPRESSION: Mild cardiomegaly. Dictated by: Vanessa Gaming M.D. on 06/10/2018 at 16:09 ECG Data Attestation: I personally reviewed and interpreted this ECG as follows: Prior ECG tracings: available for review Interpretation: Atrial fibrillation rate 94 similar to previous EKGs no ST changes MDM Narrative Medical decision making narrative: Patient's BNP is elevated at 255 previously and May 2018. Signs and symptoms consistent with congestive heart failure. She is also noted to have low potassium. Her she is taking Lasix 40 mg twice a day recommend she increase it to 3 times a day for the next few days. I have also given her prescription for potassium supplement while having increased Lasix. She is not hypoxic no significant respiratory distress may be treated as outpatient at this time. Discharge Plan Departure Patient Disposition: Home Clinical Impression: CHF (congestive heart failure), Acute hypokalemia Discharge Date/Time: 06/10/18 18:51 Interventions: ED Discharge Assessment Last Done: 06/10/18 18:50 Instructions: DI for Heart Failure Activity Restrictions/Additional Instructions: *You have been diagnosed with CHF *What to do: You will need to have her potassium recheck with her primary care doctor *Continue to take medications as directed: FAXED TO [facility] IN [place] Increase Lasix to 40 mg 3 times a day for 3 days Potassium 20mEq once a day *Follow up with your primary care provider in 2-3 days *Return to ER if you should have increasing shortness of breath, chest pain, heart palpitation or any new, worsening or concerning symptoms Prescriptions: New potassium chloride 10 mEq capsule, extended release 20 meq PO DAILY Qty: 10 RF: 0 No Action diazepam [Valium] 10 mg tablet 10 mg PO Q DAY PRN PRN (Reason: anxiety) Qty: 10 RF: 0 furosemide 40 mg tablet 40 mg PO BID Qty: 180 RF: 0 sertraline 100 mg tablet 150 mg PO DAILY 90 Days Qty: 135 RF: 1 cholecalciferol (vitamin D3) [Vitamin D3] 5,000 unit Tablet 5,000 units PO DAILY RF: 0 metoprolol tartrate 25 mg tablet 12.5 mg PO BID Qty: 30 RF: 0 levothyroxine 150 mcg tablet 150 mcg PO DAILY RF: 0 warfarin [Coumadin] 5 mg tablet 5 mg PO Q OTHER DAY RF: 0 warfarin 2.5 mg tablet 2.5 mg PO Q OTHER DAY RF: 0
[2018-06-10 17:00] VITALS: BP 167/107; PULSE 80; RESP 21; O2SAT 95
[2018-06-10 17:02] LABS: Troponin I < 0.012 ng/mL (0.01-0.034)
[2018-06-10 17:30] LABS: B Type Natriuretic Peptide 251 (<100)
[2018-06-10] MEDS: ALBUTEROL/IPRATROPIUM 3 ML AMPUL INH (17:38)
[2018-06-10 17:39] VITALS: PULSE 81; RESP 13; O2SAT 96
[2018-06-10] MEDS: POTASSIUM CHLORIDE 20 MEQ TAB 40 MEQ PO (17:58)
[2018-06-10 18:00] VITALS: BP 110/61; PULSE 85; RESP 24; O2SAT 93
[2018-06-10 18:30] VITALS: BP 137/106; PULSE 82; RESP 22; O2SAT 95
[2018-06-10] MEDS: FUROSEMIDE 40 MG/4 ML VIAL IV (18:37)
== END 2018-06-10 18:51 | disposition home or self-care (01) ==
PROVIDERS: Emergency Provider Emergency Medicine; PCP Family Medicine
DX: I50.9 Heart failure, unspecified (principal); E87.6 Hypokalemia
CPT/HCPCS: 71045; 80053; 82550; 83690; 83880; 84484; 85025; 85610; 85730; 93005; 94640; 96374; 99283; 99285; J1940

== ENCOUNTER → 2018-07-03 10:08 | Outpatient (CLI) | payer OTHER, MEDICAID, SELFPAY ==
[2018-07-03 11:49] LABS: Alanine Aminotransferase 26 IU/L (9-52); Albumin 4.3 g/dL (3.5-5.0); Albumin Globulin Ratio 1.1 (1.0-2.8); Alkaline Phosphatase 175 U/L (38-126); Aspartate Aminotransferase 23 IU/L (14-36); BUN Creatinine Ratio 18.8 (6-22); Bilirubin Total 0.7 mg/dL (0.2-1.3); Blood Urea Nitrogen 15 mg/dL (7-17); Carbon Dioxide 34 mmol/L (22-32); Chloride 97 mmol/L (98-107); Estimated Glomerular Filt Rate > 60.0 mL/min (>60); Glucose 122 mg/dL (70-100); HEMOLYSIS < 15 (0-50); Potassium 3.7 mmol/L (3.4-5.1); Sodium 141 mmol/L (137-145); Total Protein 8.3 g/dL (6.3-8.2)
== END ==
PROVIDERS: PCP Family Medicine; Visit Provider Family Medicine
DX: I48.91 Unspecified atrial fibrillation (principal); I50.9 Heart failure, unspecified
CPT/HCPCS: 36415; 80053

== ENCOUNTER → 2018-08-23 15:16 | Outpatient (CLI) | payer OTHER, MEDICAID, SELFPAY ==
[2018-08-23 16:05] LABS: BUN Creatinine Ratio 24.3 (6-22); Blood Urea Nitrogen 17 mg/dL (7-17); Calcium 8.5 mg/dL (8.4-10.2); Carbon Dioxide 30 mmol/L (22-32); Chloride 99 mmol/L (98-107); Estimated Glomerular Filt Rate > 60.0 mL/min (>60); Glucose 104 mg/dL (70-100); HEMOLYSIS < 15 (0-50); Potassium 3.4 mmol/L (3.4-5.1); Sodium 139 mmol/L (137-145)
== END ==
PROVIDERS: PCP Family Medicine; Visit Provider Internal Medicine Cardiovascular Disease
DX: I48.91 Unspecified atrial fibrillation (principal); I48.1 Persistent atrial fibrillation
CPT/HCPCS: 36415; 80048

== ENCOUNTER → 2018-11-15 14:04 | Outpatient (CLI) | payer OTHER, MEDICAID, SELFPAY ==
[2018-11-15 14:52] LABS: Alanine Aminotransferase 18 IU/L (9-52); Albumin 4.1 g/dL (3.5-5.0); Alkaline Phosphatase 190 U/L (38-126); Aspartate Aminotransferase 21 IU/L (14-36); BUN Creatinine Ratio 21.7 (6-22); Bilirubin Total 0.5 mg/dL (0.2-1.3); Blood Urea Nitrogen 13 mg/dL (7-17); Calcium 8.9 mg/dL (8.4-10.2); Carbon Dioxide 32 mmol/L (22-32); Chloride 102 mmol/L (98-107); Cholesterol 157 mg/dL (140-199); Estimated Glomerular Filt Rate > 60.0 mL/min (>60); Glucose 102 mg/dL (70-100); HDL Cholesterol 42 mg/dL (40-60); HEMOLYSIS < 15 (0-50); LDL Cholesterol Calculated 96 mg/dL (<100); Potassium 3.7 mmol/L (3.4-5.1); Sodium 140 mmol/L (137-145); Total Protein 8.1 g/dL (6.3-8.2); Triglycerides 95 mg/dL (35-150)
== END ==
PROVIDERS: PCP Family Medicine; Visit Provider Family Medicine
DX: Z13.220 Encounter for screening for lipoid disorders (principal)
CPT/HCPCS: 36415; 80053; 80061

== ENCOUNTER → 2018-11-22 16:08 | Outpatient (CLI) | payer OTHER, MEDICAID, SELFPAY ==
[2018-11-22 18:30] LABS: Free T3, Triiodothyronine Free 3.38 pg/mL (2.77-5.27)
[2018-11-22 18:44] LABS: Thyroid Stimulating Hormone 0.67 uIU/mL (0.47-4.68)
== END ==
PROVIDERS: PCP Family Medicine; Visit Provider Family Medicine
DX: E03.9 Hypothyroidism, unspecified (principal); E66.01 Morbid (severe) obesity due to excess calories; Z68.41 Body mass index [BMI] 40.0-44.9, adult
CPT/HCPCS: 36415; 84439; 84443; 84481

== ENCOUNTER → 2018-11-29 15:10 | Outpatient (CLI) | payer OTHER, MEDICAID, SELFPAY ==
--- NOTE | 2018-11-29 15:19 | DI.RAD.S_ITS ---
PROCEDURE: XR CHEST 2V INDICATIONS: cough TECHNIQUE: 2 views of the chest were acquired. COMPARISON: [facility], CR, XR CHEST 1V, 06/10/2018, 16:08. FINDINGS: Surgical changes and devices: None. Lungs and pleura: Mildly increased perihilar interstitial markings are present. No lobar consolidation, effusion, or pneumothorax is evident. Mediastinum: Mediastinal contours are normal. Heart size is normal. Bones and chest wall: No suspicious bony abnormalities. Soft tissues appear unremarkable. IMPRESSION: Mildly increased perihilar lung markings may be within normal limits. However, bronchitis or pulmonary edema may also have this appearance. Please correlate clinically. Dictated by: Jono Mata M.D. on 11/29/2018 at 14:49 Approved by: Jono Mata M.D. on 11/29/2018 at 14:50
== END ==
PROVIDERS: PCP Family Medicine; Visit Provider Physician Assistant
DX: R05 Cough (principal)
CPT/HCPCS: 71046

== ENCOUNTER 2019-02-11 17:27 | Emergency (ER) | payer OTHER, MEDICAID, SELFPAY ==
[2019-02-11 17:38] VITALS: BP 177/122; PULSE 82; RESP 16; TEMP 37; O2SAT 97
[2019-02-11 17:54] LABS: Bacteria Urine None Seen; RBC Urine None Seen (0-5/HPF)
[2019-02-11 17:57] LABS: Add Manual Diff / Slide Review NO; Basophils Absolute Auto 0 /uL (0-100); Basophils Percent Auto 0.4 % (0-2); Eosinophils Absolute Auto 200 /uL (0-450); Eosinophils Percent Auto 2.4 % (2-4); Hematocrit 40.6 % (36-46); Hemoglobin 13.3 g/dL (12.0-16.0); Lymphocytes Absolute Auto 2100 /uL (1100-4500); Lymphocytes Percent Auto 24.7 % (25-40); Mean Corpuscular HGB Conc 32.8 % (30-36); Mean Corpuscular Hemoglobin 26.3 PG (26-34); Monocytes Absolute Auto 700 /uL (0-900); Neutrophils Absolute Auto 5400 /uL (1500-7000); Neutrophils Percent Auto 64.5 % (50-75); Platelet Count 336 X10^3/uL (150-400); Red Blood Cell Count 5.08 X10^6/uL (4.0-5.2); Red Cell Distribution Width 17.5 % (11.6-14.8); White Blood Cell Count 8.3 X10^3/uL (4.5-11.0)
[2019-02-11 18:07] LABS: Urine Amphetamines Negative (Negative); Urine Barbiturates Negative (Negative); Urine Benzodiazepines Positive (Negative); Urine Cocaine Negative (Negative); Urine MDMA Negative (Negative); Urine Methadone Negative (Negative); Urine Methamphetamines Negative (Negative); Urine Morphine/Opi cutoff 2000 Negative (Negative); Urine Oxycodone Negative (Negative); Urine Phencyclidine Negative (Negative); Urine Tetrahydrocannabinol Negative (Negative); Urine Tricyclic Antidepressant Negative (Negative)
[2019-02-11 18:09] LABS: Acetaminophen < 10 ug/mL (10-30); Alanine Aminotransferase 23 IU/L (9-52); Albumin 4.3 g/dL (3.5-5.0); Alkaline Phosphatase 209 U/L (38-126); Aspartate Aminotransferase 30 IU/L (14-36); Bilirubin Total 0.7 mg/dL (0.2-1.3); Blood Urea Nitrogen 12 mg/dL (7-17); Calcium 8.9 mg/dL (8.4-10.2); Carbon Dioxide 31 mmol/L (22-32); Chloride 101 mmol/L (98-107); Estimated Glomerular Filt Rate > 60.0 mL/min (>60); Ethanol (ETOH) < 10 mg/dL; Globulin 4.3 g/dL (1.7-4.1); Glucose 95 mg/dL (70-100); HEMOLYSIS < 15 (0-50); Potassium 3.6 mmol/L (3.4-5.1); Salicylate < 1.0 mg/dL (<20); Sodium 141 mmol/L (137-145); Total Protein 8.6 g/dL (6.3-8.2)
[2019-02-11 18:09] LABS: Culture Indicated Urine Cult Not Indicated; Squamous Epithelial Cell Urine 5-10 /HPF (0-5/HPF); Transitional Epi Cells Urine 1-5/HPF (0-5/HPF); WBC Urine 5-10/HPF (0-5/HPF)
[2019-02-11 18:35] LABS: Free T4, Direct Thyroxine 1.44 ng/dL (0.78-2.19)
[2019-02-11 18:49] LABS: Thyroid Stimulating Hormone 2.79 uIU/mL (0.47-4.68)
[2019-02-11 18:50] VITALS: BP 164/100; PULSE 72; RESP 14; O2SAT 95
--- NOTE | 2019-02-11 20:15 | ED.PSYCH ---
HPI - Psych <JUDI Garcia - Last Filed: 02/11/19 22:33> General Chief Complaint: Psychiatric Symptoms Stated Complaint: SI and mood swings Time Seen by Provider: 02/11/19 17:52 Source: patient Mode of arrival: ambulatory Limitations: no limitations History of Present Illness HPI Narrative: This is a 58-year-old female, nonsmoker, who presents to ED alone with anxiety, depression. She had increased in suicidal ideation for last 2 days. She reports is under stress and feeling overwhelmed from her new job. She has been having increase negative thoughts and more depressed. She is afraid not doing well at her new job and disappointing her mother. She felt trapped and made her lives to be over to escape from her current situation. She also had car trouble and purchase new car and had unexpected expenses and monthly car payments. [place], and overdosing with medications but she states I doubt I have balls to to it and reports no active plans. Patient is currently taking Zoloft from 100 mg to 200 mg per her mood and also takes diazepam as needed for anxiety/panic attacks. However this has been making her feel very tired as well. She also has a history of eating disorders. When she was younger she had anorexia but now she cope her stressed with overeating. She is currently not seeing any counselors since her previous counselor not taking her current medical insurance. Her PCP instructed to follow up with psychiatric is to follow up make adjustment on her antidepressant medication but the wait period was about a month she was not able to follow-up at that time. She had tried different medications in the past but he did and work with her mood disorder. She also has history of high blood pressure, AFib and she thinks this was caused due to she was upping her Zoloft dose too much. She reports her [id number] was involuntarily admitted to [facility] and she is afraid this happening to her. She states she is not able to afford losing her job at this time. She has been communicating with her brother which has been helpful. She denies chest pain, breathing difficulty, feeling dizziness at this time. She denies other illicit drug use. Related Data Home Medications Medication Instructions Recorded Confirmed cholecalciferol (vitamin D3) 5,000 units PO DAILY 05/09/18 12/26/18 [Vitamin D3] carvedilol 6.25 mg PO BID 02/11/19 02/11/19 Previous Rx's Medication Instructions Recorded amlodipine 5 mg tablet 5 mg PO BID #180 tab 11/19/18 furosemide 40 mg tablet 40 mg PO BID #180 tab 11/19/18 levothyroxine 150 mcg tablet 150 mcg PO DAILY #90 tab 11/19/18 potassium chloride 10 mEq 10 meq PO DAILY #90 cap 11/19/18 capsule,extended release sertraline 100 mg tablet 150 mg PO DAILY #135 tab 11/19/18 benzonatate 100 mg capsule 100 mg PO BID PRN #30 cap 12/26/18 diazepam 10 mg tablet 10 mg PO Q DAY PRN PRN #10 tab 02/07/19 Allergies Allergy/AdvReac Type Severity Reaction Status Date / Time iodine Allergy Severe to Verified 12/26/18 09:11 contrast dye-congestion, hives lisinopril Allergy Unknown COUGH Verified 12/26/18 09:11 shellfish derived Allergy Unknown Verified 12/26/18 09:11 buspirone AdvReac Intermediate felt Verified 12/26/18 09:11 spaced out bupropion [From Wellbutrin] AdvReac Mild Weird Verified 12/26/18 09:11 feeling Review of Systems <JUDI Garcia - Last Filed: 02/11/19 22:33> Review of Systems ROS Unobtainable: All systems reviewed & are unremarkable except as noted in HPI and below PFSH <JUDI Garcia - Last Filed: 02/11/19 22:33> Medical History Anxiety (Chronic) Depression (Chronic) Diverticular disease (Chronic) GERD (gastroesophageal reflux disease) (Chronic) Hyperlipemia (Resolved ~2010) Hypertension (Chronic) Hypothyroidism (Chronic) Mitral insufficiency (Chronic) Surgical History History of back surgery (Resolved 07/2015) History of thyroidectomy (1976) Family History Mother Age: 83 Hypertension Father No problems noted. Grandfather Cancer Grandmother No problems noted. Grandfather No problems noted. Grandmother Cancer Sister No problems noted. Social History Smoking Status: Never smoker alcohol intake: never substance use type: does not use Family History Mother Age: 83 Hypertension Father No problems noted. Grandfather Cancer Grandmother No problems noted. Grandfather No problems noted. Grandmother Cancer Sister No problems noted. Social History Smoking Status: Never smoker alcohol intake: never substance use type: does not use Exam <JUDI Garcia - Last Filed: 02/11/19 22:33> Narrative Exam Narrative: General appearance: well developed, well nourished, in no acute distress. Head: normocephalic, atraumatic, no scalp lesions, non-tender. Eye: pupil equal, round. EOMI. Nose: nares patent. Oral: mucosa moist. Neck/Thyroid: neck supple, full range of motion, no visible masses. Skin: no suspicious rashes, lesions over visible areas. Warm and dry. Heart: no clubbing, no cyanosis, no edema. Lungs: Breathing even and unlabored. No stridor. No accessory muscles used. Chest: normal shape and expansion. Abdomen: non-obese, non-distended. Neurologic: alert and oriented. Cognitive exam, ASSEMBLER ERECTOR and PNS grossly intact on informal exam. Psych: good eye contact, flat affect, at times tearful, has suicidal ideation, cooperative. Initial Vital Signs Initial Vital Signs: Vital Signs Temperature 98.6 F 02/11/19 17:38 Pulse Rate 82 02/11/19 17:38 Respiratory Rate 16 02/11/19 17:38 Blood Pressure 177/122 H 02/11/19 17:38 Pulse Oximetry 97 02/11/19 17:38 <Radha De La Torre DO - Last Filed: 02/12/19 04:15> Initial Vital Signs Initial Vital Signs: Vital Signs Temperature 98.6 F 02/11/19 17:38 Pulse Rate 82 02/11/19 17:38 Respiratory Rate 16 02/11/19 17:38 Blood Pressure 177/122 H 02/11/19 17:38 Pulse Oximetry 97 02/11/19 17:38 Course <JUDI Garcia - Last Filed: 02/11/19 22:33> Orders Ordered: ED Orders 02/11/19 17:42 Urine Drug Screen, Rapid Stat Urine Microscopic Stat 02/11/19 17:47 Acetaminophen Stat Complete Blood Count AUTO DIFF Stat Comprehensive Metabolic Panel Stat Ethanol (ETOH) Stat Free T4 Free Thyroxine Stat Salicylate Stat Thyroid Stimulating Hormone Stat Vital Signs Vital signs: Vital Signs - 8 hr 02/11/19 20:43 Pulse Rate 80 Respiratory Rate 18 Blood Pressure [Left Arm] 196/124 H Pulse Oximetry 97 <Radha De La Torre DO - Last Filed: 02/12/19 04:15> Orders Ordered: ED Orders 02/11/19 17:42 Urine Drug Screen, Rapid Stat Urine Microscopic Stat 02/11/19 17:47 Acetaminophen Stat Complete Blood Count AUTO DIFF Stat Comprehensive Metabolic Panel Stat Ethanol (ETOH) Stat Free T4 Free Thyroxine Stat Salicylate Stat Thyroid Stimulating Hormone Stat Vital Signs Vital signs: Vital Signs - 8 hr 02/11/19 20:43 Pulse Rate 80 Respiratory Rate 18 Blood Pressure [Left Arm] 196/124 H Pulse Oximetry 97 MDM - Psych <JUDI Garcia - Last Filed: 02/11/19 22:33> Differential Diagnosis Differential diagnosis: Likely suicidal ideation, depression, acute anxiety and other (Situational stress disorder) Medical Records Attestation: I reviewed the patient's medical records. Lab Data Attestation: I reviewed the patient's lab results. Result diagrams: 02/11/19 17:47 02/11/19 17:47 Labs: Lab Results 02/11/19 02/11/19 02/11/19 Range/Units 17:42 17:42 17:47 WBC 8.3 (4.5-11.0) X10^3/uL RBC 5.08 (4.0-5.2) X10^6/uL Hgb 13.3 (12.0-16.0) g/dL Hct 40.6 (36-46) % MCV 80.0 (80-100) fL MCH 26.3 (26-34) PG MCHC 32.8 (30-36) % RDW 17.5 H (11.6-14.8) % Plt Count 336 (150-400) X10^3/uL Neut % (Auto) 64.5 (50-75) % Lymph % (Auto) 24.7 L (25-40) % [place] % (Auto) 8.0 (3-14) % Eos % (Auto) 2.4 (2-4) % Baso % (Auto) 0.4 (0-2) % Neut # (Auto) 5400 (7473-0004) /uL Lymph # (Auto) 2100 (7082-7097) /uL [place] # (Auto) 700 (0-900) /uL Eos # (Auto) 200 (0-450) /uL Baso # (Auto) 0 (0-100) /uL Sodium (137-145) mmol/L Potassium (3.4-5.1) mmol/L Chloride (98-107) mmol/L Carbon Dioxide (22-32) mmol/L BUN (7-17) mg/dL Creatinine (0.52-1.04) mg/dL Estimated GFR (>60) mL/min BUN/Creatinine Ratio (6-22) Glucose (70-100) mg/dL Calcium (8.4-10.2) mg/dL Total Bilirubin (0.2-1.3) mg/dL AST (14-36) IU/L ALT (9-52) IU/L Alkaline Phosphatase (38-126) U/L Total Protein (6.3-8.2) g/dL Albumin (3.5-5.0) g/dL Globulin (1.7-4.1) g/dL Albumin/Globulin Ratio (1.0-2.8) TSH (0.47-4.68) uIU/mL Free T4 (0.78-2.19) ng/dL Urine RBC None seen (0-5/HPF) Urine WBC 5-10/hpf H (0-5/HPF) Ur Squamous Epith Cells 5-10 /hpf H (0-5/HPF) Ur Transition Epith Cell 1-5/hpf (0-5/HPF) Urine Bacteria None seen (None) Ur Culture Indicated? Cult not indicated Salicylates (<20) mg/dL Urine Opiates Screen Negative (Negative) Ur Oxycodone Screen Negative (Negative) Urine Methadone Screen Negative (Negative) Acetaminophen (10-30) ug/mL Ur Barbiturates Screen Negative (Negative) U Tricyclic Antidepress Negative (Negative) Ur Phencyclidine Scrn Negative (Negative) Ur Amphetamines Screen Negative (Negative) U Methamphetamines Scrn Negative (Negative) Ur MDMA Scrn (Ecstasy) Negative (Negative) U Benzodiazepines Scrn Positive H (Negative) Urine Cocaine Screen Negative (Negative) U Marijuana (THC) Screen Negative (Negative) Ethyl Alcohol ( - 10) mg/dL 02/11/19 02/11/19 Range/Units 17:47 17:47 WBC (4.5-11.0) X10^3/uL RBC (4.0-5.2) X10^6/uL Hgb (12.0-16.0) g/dL Hct (36-46) % MCV (80-100) fL MCH (26-34) PG MCHC (30-36) % RDW (11.6-14.8) % Plt Count (150-400) X10^3/uL Neut % (Auto) (50-75) % Lymph % (Auto) (25-40) % [place] % (Auto) (3-14) % Eos % (Auto) (2-4) % Baso % (Auto) (0-2) % Neut # (Auto) (3446-6920) /uL Lymph # (Auto) (1942-3596) /uL [place] # (Auto) (0-900) /uL Eos # (Auto) (0-450) /uL Baso # (Auto) (0-100) /uL Sodium 141 (137-145) mmol/L Potassium 3.6 (3.4-5.1) mmol/L Chloride 101 (98-107) mmol/L Carbon Dioxide 31 (22-32) mmol/L BUN 12 (7-17) mg/dL Creatinine 0.60 (0.52-1.04) mg/dL Estimated GFR > 60.0 (>60) mL/min BUN/Creatinine Ratio 20.0 (6-22) Glucose 95 (70-100) mg/dL Calcium 8.9 (8.4-10.2) mg/dL Total Bilirubin 0.7 (0.2-1.3) mg/dL AST 30 (14-36) IU/L ALT 23 (9-52) IU/L Alkaline Phosphatase 209 H (38-126) U/L Total Protein 8.6 H (6.3-8.2) g/dL Albumin 4.3 (3.5-5.0) g/dL Globulin 4.3 H (1.7-4.1) g/dL Albumin/Globulin Ratio 1.0 (1.0-2.8) TSH 2.79 (0.47-4.68) uIU/mL Free T4 1.44 (0.78-2.19) ng/dL Urine RBC (0-5/HPF) Urine WBC (0-5/HPF) Ur Squamous Epith Cells (0-5/HPF) Ur Transition Epith Cell (0-5/HPF) Urine Bacteria (None) Ur Culture Indicated? Salicylates < 1.0 (<20) mg/dL Urine Opiates Screen (Negative) Ur Oxycodone Screen (Negative) Urine Methadone Screen (Negative) Acetaminophen < 10 L (10-30) ug/mL Ur Barbiturates Screen (Negative) U Tricyclic Antidepress (Negative) Ur Phencyclidine Scrn (Negative) Ur Amphetamines Screen (Negative) U Methamphetamines Scrn (Negative) Ur MDMA Scrn (Ecstasy) (Negative) U Benzodiazepines Scrn (Negative) Urine Cocaine Screen (Negative) U Marijuana (THC) Screen (Negative) Ethyl Alcohol < 10 ( - 10) mg/dL Urine Dip Bedside Urine Glucose 100 mg/dl Bedside Urine Bilirubin + 1 Bedside Urine Ketone - Negative Urine Specific [place] 1.025 Bedside Urine Occult Blood - Negative Bedside Urine pH 6.0 Bedside Urine Protein +/- 15 Bedside Urine Urobilinogen +/- 1mg Bedside Urine Nitrite - Negative Bedside Urine Leukocytes ++ 125 Esterase MDM Narrative Medical decision making narrative: This patient has history of eating disorders, depression, anxiety, panic attacks, suicidal ideation but no suicidal attempts in the past. 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 She has other situational stresses in her life at this time and she has been feeling increased depression and anxiety. She takes daily medication of Zoloft which she has been titrating dose and occasional Valium. Patient came in to ED with suicidal ideation for last 2 days and she was advised by her brother and her primary care physician's office check in to ED. 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 The lab tests were unremarkable. UDS shows benzodiazepine. Patient had flat affect but has been cooperative, contract for safety. During ED stay, patient expressed that she feels and will be safe at home. The [facility] (suicide crisis line) was contacted and provided patient's information. They will be contacting patient tomorrow afternoon and will set up an appointment to meet up with her later tomorrow after her workup hours. Informed the patient to follow up appointment with the [facility] tomorrow and patient agrees with the treatment plan. She contracted with safety and advise to call crisis line the time when she needs to talk to someone and return to ED with recurring suicidal thoughts and when she feels unsafe at home and verbalized understanding. She thanked for the care. No further questions were expressed at this time. Patient also advised to follow up with her primary care physician for elevated blood pressure and verbalized understanding. Patient reports her blood pressure has been always high and as high as 210s over 120s. Patient does not have symptoms at this time due to high blood pressure. <Radha De La Torre, DO - Last Filed: 02/12/19 04:15> Lab Data Attestation: I reviewed the patient's lab results. Labs: Lab Results 02/11/19 02/11/19 02/11/19 Range/Units 17:42 17:42 17:47 WBC 8.3 (4.5-11.0) X10^3/uL RBC 5.08 (4.0-5.2) X10^6/uL Hgb 13.3 (12.0-16.0) g/dL Hct 40.6 (36-46) % MCV 80.0 (80-100) fL MCH 26.3 (26-34) PG MCHC 32.8 (30-36) % RDW 17.5 H (11.6-14.8) % Plt Count 336 (150-400) X10^3/uL Neut % (Auto) 64.5 (50-75) % Lymph % (Auto) 24.7 L (25-40) % [place] % (Auto) 8.0 (3-14) % Eos % (Auto) 2.4 (2-4) % Baso % (Auto) 0.4 (0-2) % Neut # (Auto) 5400 (9026-6419) /uL Lymph # (Auto) 2100 (5820-1843) /uL [place] # (Auto) 700 (0-900) /uL Eos # (Auto) 200 (0-450) /uL Baso # (Auto) 0 (0-100) /uL Sodium (137-145) mmol/L Potassium (3.4-5.1) mmol/L Chloride (98-107) mmol/L Carbon Dioxide (22-32) mmol/L BUN (7-17) mg/dL Creatinine (0.52-1.04) mg/dL Estimated GFR (>60) mL/min BUN/Creatinine Ratio (6-22) Glucose (70-100) mg/dL Calcium (8.4-10.2) mg/dL Total Bilirubin (0.2-1.3) mg/dL AST (14-36) IU/L ALT (9-52) IU/L Alkaline Phosphatase (38-126) U/L Total Protein (6.3-8.2) g/dL Albumin (3.5-5.0) g/dL Globulin (1.7-4.1) g/dL Albumin/Globulin Ratio (1.0-2.8) TSH (0.47-4.68) uIU/mL Free T4 (0.78-2.19) ng/dL Urine RBC None seen (0-5/HPF) Urine WBC 5-10/hpf H (0-5/HPF) Ur Squamous Epith Cells 5-10 /hpf H (0-5/HPF) Ur Transition Epith Cell 1-5/hpf (0-5/HPF) Urine Bacteria None seen (None) Ur Culture Indicated? Cult not indicated Salicylates (<20) mg/dL Urine Opiates Screen Negative (Negative) Ur Oxycodone Screen Negative (Negative) Urine Methadone Screen Negative (Negative) Acetaminophen (10-30) ug/mL Ur Barbiturates Screen Negative (Negative) U Tricyclic Antidepress Negative (Negative) Ur Phencyclidine Scrn Negative (Negative) Ur Amphetamines Screen Negative (Negative) U Methamphetamines Scrn Negative (Negative) Ur MDMA Scrn (Ecstasy) Negative (Negative) U Benzodiazepines Scrn Positive H (Negative) Urine Cocaine Screen Negative (Negative) U Marijuana (THC) Screen Negative (Negative) Ethyl Alcohol ( - 10) mg/dL 02/11/19 02/11/19 Range/Units 17:47 17:47 WBC (4.5-11.0) X10^3/uL RBC (4.0-5.2) X10^6/uL Hgb (12.0-16.0) g/dL Hct (36-46) % MCV (80-100) fL MCH (26-34) PG MCHC (30-36) % RDW (11.6-14.8) % Plt Count (150-400) X10^3/uL Neut % (Auto) (50-75) % Lymph % (Auto) (25-40) % [place] % (Auto) (3-14) % Eos % (Auto) (2-4) % Baso % (Auto) (0-2) % Neut # (Auto) (0265-5124) /uL Lymph # (Auto) (1446-6207) /uL [place] # (Auto) (0-900) /uL Eos # (Auto) (0-450) /uL Baso # (Auto) (0-100) /uL Sodium 141 (137-145) mmol/L Potassium 3.6 (3.4-5.1) mmol/L Chloride 101 (98-107) mmol/L Carbon Dioxide 31 (22-32) mmol/L BUN 12 (7-17) mg/dL Creatinine 0.60 (0.52-1.04) mg/dL Estimated GFR > 60.0 (>60) mL/min BUN/Creatinine Ratio 20.0 (6-22) Glucose 95 (70-100) mg/dL Calcium 8.9 (8.4-10.2) mg/dL Total Bilirubin 0.7 (0.2-1.3) mg/dL AST 30 (14-36) IU/L ALT 23 (9-52) IU/L Alkaline Phosphatase 209 H (38-126) U/L Total Protein 8.6 H (6.3-8.2) g/dL Albumin 4.3 (3.5-5.0) g/dL Globulin 4.3 H (1.7-4.1) g/dL Albumin/Globulin Ratio 1.0 (1.0-2.8) TSH 2.79 (0.47-4.68) uIU/mL Free T4 1.44 (0.78-2.19) ng/dL Urine RBC (0-5/HPF) Urine WBC (0-5/HPF) Ur Squamous Epith Cells (0-5/HPF) Ur Transition Epith Cell (0-5/HPF) Urine Bacteria (None) Ur Culture Indicated? Salicylates < 1.0 (<20) mg/dL Urine Opiates Screen (Negative) Ur Oxycodone Screen (Negative) Urine Methadone Screen (Negative) Acetaminophen < 10 L (10-30) ug/mL Ur Barbiturates Screen (Negative) U Tricyclic Antidepress (Negative) Ur Phencyclidine Scrn (Negative) Ur Amphetamines Screen (Negative) U Methamphetamines Scrn (Negative) Ur MDMA Scrn (Ecstasy) (Negative) U Benzodiazepines Scrn (Negative) Urine Cocaine Screen (Negative) U Marijuana (THC) Screen (Negative) Ethyl Alcohol < 10 ( - 10) mg/dL Urine Dip Bedside Urine Glucose 100 mg/dl Bedside Urine Bilirubin + 1 Bedside Urine Ketone - Negative Urine Specific [place] 1.025 Bedside Urine Occult Blood - Negative Bedside Urine pH 6.0 Bedside Urine Protein +/- 15 Bedside Urine Urobilinogen +/- 1mg Bedside Urine Nitrite - Negative Bedside Urine Leukocytes ++ 125 Esterase MDM Narrative Medical decision making narrative: Case was discussed at length, patient contracts for safety, she feels more comfortable with some resource options in place. Discharge Plan Departure Patient Disposition: Home Clinical Impression: Passive suicidal ideations, Anxiety and depression Discharge Date/Time: 02/11/19 20:53 Instructions: DI for Anxiety -- Adult, DI for Suicidal Ideation-Adult Activity Restrictions/Additional Instructions: You have been diagnosed with [depression, anxiety, suicidal ideation and you contract for safety at this time. Your blood pressure has been elevated while in ED]. What to do: *Take your medications as directed. Please keep the Zolof medication does consistently at this time. You can continue to use diazepam as needed for acute anxiety. Please contact [facility] by calling and speak with a counselor anytime 25/12. Please return to ED if suicidal ideation recurs or you feel unsafe at your living environment. They will contact you tomorrow afternoon by phone call and to set up an appointment. If you do not hear from them tomorrow afternoon please contact [facility] with provided number. *Follow up with your primary care provider in 2-3 days, call for an appointment to address hypertension. Let them know you were seen in the ED and that we asked you to be seen in follow up. *Return to ED if you have any new, worsening, or concerning symptoms, such as [chest pain, breathing difficulty, fainting episode, dizziness, vision change, nausea or vomiting, recurring suicide and does and feeling unsafe at home, any other acute concerns]. Prescriptions: No Action diazepam [Valium] 10 mg tablet 10 mg PO Q DAY PRN PRN (Reason: anxiety) Qty: 10 RF: 0 amlodipine 5 mg tablet 5 mg PO BID Qty: 180 RF: 1 furosemide 40 mg tablet 40 mg PO BID Qty: 180 RF: 1 sertraline 100 mg tablet 150 mg PO DAILY Qty: 135 RF: 1 levothyroxine 150 mcg tablet 150 mcg PO DAILY Qty: 90 RF: 1 potassium chloride 10 mEq capsule, extended release 10 meq PO DAILY Qty: 90 RF: 1 benzonatate 100 mg capsule 100 mg PO BID PRN (Reason: cough) Qty: 30 RF: 0 carvedilol 6.25 mg tablet 6.25 mg PO BID RF: 0 cholecalciferol (vitamin D3) [Vitamin D3] 5,000 unit Tablet 5,000 units PO DAILY RF: 0 Referrals: Cary Zamora DO [Primary Care Provider] -
[2019-02-11 20:43] VITALS: BP 196/124; PULSE 80; RESP 18; O2SAT 97
== END 2019-02-11 20:53 | disposition home or self-care (01) ==
PROVIDERS: Emergency Medicine; Emergency Provider Nurse Practitioner Family; PCP Family Medicine
DX: F41.9 Anxiety disorder, unspecified (principal); F32.9 Major depressive disorder, single episode, unspecified; R45.851 Suicidal ideations
CPT/HCPCS: 36415; 80053; 80305; 80320; 80329; 81003; 81015; 84439; 84443; 85025; 99283; G0480

== ENCOUNTER → 2019-07-15 13:39 | Outpatient (CLI) | payer OTHER, MEDICAID, SELFPAY ==
[2019-07-15 14:16] LABS: Add Manual Diff / Slide Review NO; Basophils Absolute Auto 0 /uL (0-100); Basophils Percent Auto 0.3 % (0-2); Eosinophils Absolute Auto 300 /uL (0-450); Eosinophils Percent Auto 3.8 % (2-4); Hematocrit 41.1 % (36-46); Hemoglobin 13.7 g/dL (12.0-16.0); Lymphocytes Absolute Auto 1600 /uL (1100-4500); Lymphocytes Percent Auto 21.6 % (25-40); Mean Corpuscular HGB Conc 33.2 % (30-36); Mean Corpuscular Volume 81.3 fL (80-100); Monocytes Absolute Auto 500 /uL (0-900); Neutrophils Absolute Auto 5000 /uL (1500-7000); Neutrophils Percent Auto 67.3 % (50-75); Platelet Count 312 X10^3/uL (150-400); Red Blood Cell Count 5.06 X10^6/uL (4.0-5.2); Red Cell Distribution Width 17.1 % (11.6-14.8); White Blood Cell Count 7.5 X10^3/uL (4.5-11.0)
[2019-07-15 14:34] LABS: Alanine Aminotransferase 19 IU/L (<35); Albumin 4.2 g/dL (3.5-5.0); Alkaline Phosphatase 180 U/L (38-126); Aspartate Aminotransferase 26 IU/L (14-36); Bilirubin Total 0.5 mg/dL (0.2-1.3); Blood Urea Nitrogen 14 mg/dL (7-17); Calcium 8.9 mg/dL (8.4-10.2); Carbon Dioxide 35 mmol/L (22-32); Chloride 101 mmol/L (98-107); Cholesterol 208 mg/dL (140-199); Estimated Glomerular Filt Rate > 60.0 mL/min (>60); Globulin 4.2 g/dL (1.7-4.1); Glucose 124 mg/dL (70-100); HDL Cholesterol 48 mg/dL (40-60); HEMOLYSIS < 15 (0-50); LDL Cholesterol Calculated 139 mg/dL (<100); Potassium 3.6 mmol/L (3.4-5.1); Sodium 143 mmol/L (137-145); Total Protein 8.4 g/dL (6.3-8.2); Triglycerides 103 mg/dL (35-150)
[2019-07-15 15:04] LABS: HEMOLYSIS < 15 (0-50); Iron 58 ug/dL (37-170)
[2019-07-15 15:15] LABS: Percent Iron Saturation 14 % (15-50); Total Iron Binding Capacity 413 ug/dL (265-497); Transferrin 350 mg/dL (206-381)
== END ==
PROVIDERS: PCP Family Medicine; Referring Provider Family Medicine; Visit Provider Family Medicine
DX: E03.9 Hypothyroidism, unspecified (principal); I10 Essential (primary) hypertension; F50.89 Other specified eating disorder
CPT/HCPCS: 36415; 80053; 80061; 83540; 83550; 84443; 85025

== ENCOUNTER → 2019-08-05 14:23 | Outpatient (CLI) | payer OTHER, MEDICAID, SELFPAY ==
--- NOTE | 2019-08-05 14:26 | DI.RAD.S_ITS ---
PROCEDURE: XR KNEE RT 3V INDICATIONS: Progressive anterior compartment knee pain TECHNIQUE: 3 views of the knee were acquired. COMPARISON: [facility], , KNEE 3VW (RT), 02/27/2013, 13:59. FINDINGS: Bones: No fractures or dislocations. No suspicious bony lesions. Mild narrowing of the medial and lateral joint spaces. Scattered degenerative subchondral sclerosis and spurring. Mild narrowing of the lateral patellofemoral joint space. Soft tissues: Trace joint effusion IMPRESSION: Mild right knee joint degeneration. No definite interval change Trace joint effusion. If the patient's pain or other symptoms persist, consider further evaluation with MRI Dictated by: Thompson Nguyen M.D. on 08/05/2019 at 17:32 Approved by: Thomspon Nguyen M.D. on 08/05/2019 at 17:35
== END ==
PROVIDERS: PCP Family Medicine; Referring Provider Family Medicine; Visit Provider Family Medicine
DX: M25.561 Pain in right knee (principal); M17.11 Unilateral primary osteoarthritis, right knee
CPT/HCPCS: 73562

== ENCOUNTER → 2019-09-26 15:27 | Outpatient (CLI) | payer OTHER, MEDICAID, SELFPAY ==
[2019-09-26 17:03] LABS: Alanine Aminotransferase 18 IU/L (<35); Albumin 4.4 g/dL (3.5-5.0); Alkaline Phosphatase 190 U/L (38-126); Aspartate Aminotransferase 27 IU/L (14-36); BUN Creatinine Ratio 19.7 (6-22); Bilirubin Total 0.7 mg/dL (0.2-1.3); Blood Urea Nitrogen 14 mg/dL (7-17); Calcium 8.9 mg/dL (8.4-10.2); Carbon Dioxide 30 mmol/L (22-32); Chloride 100 mmol/L (98-107); Estimated Glomerular Filt Rate > 60.0 mL/min (>60); Globulin 4.5 g/dL (1.7-4.1); Glucose 121 mg/dL (70-100); HEMOLYSIS < 15 (0-50); Potassium 3.3 mmol/L (3.4-5.1); Sodium 139 mmol/L (137-145); Total Protein 8.9 g/dL (6.3-8.2)
[2019-09-26 17:18] LABS: Free T3, Triiodothyronine Free 2.96 pg/mL (2.77-5.27)
[2019-09-26 17:19] LABS: Free T4, Direct Thyroxine 1.69 ng/dL (0.78-2.19)
[2019-09-26 17:32] LABS: Thyroid Stimulating Hormone 5.54 uIU/mL (0.47-4.68)
[2019-09-26 19:04] LABS: Vitamin D 25 Hydroxy (D3) 18.9 ng/mL (30.0-100.0)
== END ==
PROVIDERS: PCP Family Medicine; Referring Provider Family Medicine; Visit Provider Family Medicine
DX: E03.9 Hypothyroidism, unspecified (principal); E55.9 Vitamin D deficiency, unspecified; E66.01 Morbid (severe) obesity due to excess calories; I10 Essential (primary) hypertension; R73.9 Hyperglycemia, unspecified; Z68.41 Body mass index [BMI] 40.0-44.9, adult
CPT/HCPCS: 36415; 80053; 82306; 83036; 84439; 84443; 84481

== ENCOUNTER → 2019-10-08 14:06 | Outpatient (CLI) | payer OTHER, MEDICAID, SELFPAY ==
--- NOTE | 2019-10-08 14:08 | DI.RAD.S_ITS ---
PROCEDURE: XR HIP W PEL IF DONE LT 2V INDICATIONS: left hip pain TECHNIQUE: AP pelvis with lateral view(s) of the left hip(s). COMPARISON: [facility], CT, ABDOMEN/PELVIS WITHOUT CONTRAS, 10/01/2016, 16:55. [facility], CR, HIP 2V LEFT, 04/15/2012, 12:51. FINDINGS: Bones: No fractures or dislocations. Pelvic ring appears intact. No suspicious bony lesions. Mild bilateral hip sclerosis and spurring. No definite joint space narrowing Soft tissues: The visualized bowel gas pattern is normal. No suspicious soft tissue calcifications. Urinary catheter noted IMPRESSION: Mild bilateral hip degenerative changes as above Dictated by: Thompson Nguyen M.D. on 10/08/2019 at 15:28 Approved by: Thompson Nguyen M.D. on 10/08/2019 at 15:31
== END ==
PROVIDERS: PCP Family Medicine; Referring Provider Nurse Practitioner Family; Visit Provider Nurse Practitioner Family
DX: M25.552 Pain in left hip (principal)
CPT/HCPCS: 73502

== ENCOUNTER 2019-12-10 12:25 | Emergency (ER) | payer OTHER, MEDICAID, SELFPAY ==
[2019-12-10] VITALS (13 sets, daily range): BP systolic 178–235; BP diastolic 94–113; PULSE 72–98; RESP 12–23; TEMP 36.6; O2SAT 94–99; BMI 49.8
--- NOTE | 2019-12-10 12:40 | ED_ITS ---
HPI - General Adult General Chief complaint: Hypertension Stated complaint: high blood pressure,visual issues,head pressure Time Seen by Provider: 12/10/19 12:27 Source: patient Mode of arrival: Ambulatory Limitations: no limitations History of Present Illness HPI narrative: 59F non smoker with history of morbid obesity and hypertension presents with a chief complaint somewhere between 4 and 10 days of some vague symptoms including headache, the occasional visual spots or floaters and overall fatigue. She denies any focal neurologic findings such as numbness, tingling or weakness. She denies chest pain or shortness of breath. She denies any abdominal pain, nausea or vomiting. Initially she denies any noncompliance with her medications and states she has been taking her amlodipine religiously. Upon further questioning she admits that she has not been taking her furosemide as prescribed. She has been taking her blood pressure lately and noting it has been elevated into the 190s over 110s. She admits that her symptoms seemed to develop after the of her mother and all of the stress associated Onset (ago): day(s) Location: head Quality: aching Pain Consistency: intermittent Relieving factors: none Exacerbating factors: none Associated symptoms: other Treatments prior to arrival: none Related Data Home Medications Medication Instructions Recorded Confirmed cholecalciferol (vitamin D3) 5,000 units PO DAILY 05/09/18 12/10/19 [Vitamin D3] sertraline 100 mg tablet 200 mg PO DAILY tab 07/31/19 12/10/19 naproxen 500 mg tablet 500 mg PO BID PRN tab 10/08/19 12/10/19 Previous Rx's Medication Instructions Recorded potassium chloride 10 mEq 10 meq PO DAILY #90 cap 11/19/18 capsule,extended release furosemide 40 mg tablet 40 mg PO DAILY #90 tab 03/17/19 amlodipine 5 mg tablet 5 mg PO BID #180 tab 10/24/19 levothyroxine 175 mcg tablet See Rx Instructions .ROUTE 11/14/19 .COMPLEX #60 tab clonidine HCl 0.1 mg PO BEDTIME #30 tab 12/10/19 Allergies Allergy/AdvReac Type Severity Reaction Status Date / Time iodine Allergy Severe to Verified 12/10/19 13:18 contrast dye-congestion, hives lisinopril Allergy Unknown COUGH Verified 12/10/19 13:18 shellfish derived Allergy Unknown Verified 12/10/19 13:18 buspirone AdvReac Intermediate felt Verified 12/10/19 13:18 spaced out bupropion [From Wellbutrin] AdvReac Mild Weird Verified 12/10/19 13:18 feeling Review of Systems Constitutional Constitutional: Denies chills, Denies fatigue, Denies fever(s), Denies frequent falls, Reports headache(s), Denies lethargy and Denies weakness Eyes Eyes: Denies change in vision, Denies eye discharge, Reports floaters, Denies irritation and Denies loss of vision ENT Ears, Nose, Mouth, and Throat: Denies change in voice, Denies dizziness, Reports headache(s), Denies neck pain, Denies sore throat and Denies throat swelling Cardiovascular Cardiovascular: Denies chest pain, Denies irregular heart rhythm, Denies lightheadedness, Denies palpitations, Denies dyspnea, Denies dyspnea on exertion and Denies orthopnea Respiratory Respiratory: Denies cough, Denies dyspnea, Denies dyspnea on exertion and Denies wheezing Gastrointestinal Gastrointestinal: Denies abdominal pain, Denies change in bowel habits, Denies diarrhea, Denies nausea and Denies vomiting Musculoskeletal Musculoskeletal: Denies neck pain and Denies numbness Integumentary/Breasts Skin/Breast: Denies pruritus, Denies erythema, Denies rash and Denies wounds Neurologic Neurologic: Denies behavioral changes, Denies confusion, Denies dizziness, Denies frequent falls, Reports headache(s), Denies loss of vision, Denies numbness and Denies weakness Psychiatric Psychiatric: Denies anxiety, Denies behavioral changes, Denies confusion, Denies depression, Denies homicidal ideation and Denies suicidal ideation Endocrine Endocrine: Denies fatigue, Denies flushing and Denies palpitations Hematologic/Lymphatic Hematologic/Lymphatic: Denies easy bruising Allergic/Immunologic Allergic/Immunologic: Denies urticaria, Denies throat swelling and Denies wheezing Patient History Medical History Acute pain of right knee (Acute) Anxiety (Chronic) BMI 50.0-59.9, adult (Acute) Depression (Chronic) Diverticular disease (Chronic) Elevated CO2 level (Acute) Fasting hyperglycemia (Acute) GERD (gastroesophageal reflux disease) (Chronic) Hyperlipemia (Resolved ~2010) Hypertension (Chronic) Hypothyroidism (Chronic) Left hip pain (Acute) Mitral insufficiency (Chronic) Patellar tendinitis (Acute) Vitamin D deficiency (Acute) Surgical History History of back surgery (Resolved 07/2015) History of thyroidectomy (1976) Family History Mother Age: 84 Hypertension Father No problems noted. Grandfather Cancer Grandmother No problems noted. Grandfather No problems noted. Grandmother Cancer Sister No problems noted. Social History Smoking Status: Never smoker alcohol intake: never substance use type: does not use Smoking Status: Never smoker alcohol intake frequency: 0-2 drinks per day Substance Use Type: does not use Exam Narrative Exam Narrative: GENERAL: [59] year old patient appears stated age. Well- nourished, well-developed patient, in mild distress. Anxious HEAD: Atraumatic. Normocephalic. EYES: Pupils equal round and reactive. Extraocular motions intact. No scleral icterus. No injection or drainage. ENT: Nose without bleeding, purulent drainage. Throat without erythema, tonsillar hypertrophy or exudate. Airway patent. NECK: Trachea midline. Non tender CARDIOVASCULAR: Regular rate and rhythm without murmurs, gallops, or rubs. RESPIRATORY: Clear to auscultation. Breath sounds equal bilaterally. No wheezes, rales, or rhonchi. GASTROINTESTINAL: Abdomen soft, non-tender, nondistended. EXTREMITIES: No edema or joint tenderness. BACK: Nontender without deformity or crepitance. No flank tenderness. NEURO: AOx3. SKIN: No rash or erythema of visible areas NIH Stroke Scale 1a. LOC: Patient is alert and keenly responsive (0) 1b. LOC Questions: Patient answers both LOC questions accurately (0) 1c. LOC Commands: Patient performs both tasks correctly (0) 2. Best Gaze: Normal (0) 3. Visual: No visual loss (0) 4. Facial palsy: Normal symmetrical movements (0) 5. Motor arm: No drift (0) 6. Motor leg: No drift (0) 7. Limb ataxia: Absent (0) 8. Sensory: Normal (0) 9. Best language: No aphasia; normal (0) 10. Dysarthria: Normal (0) 11. Extinction and inattention: No abnormality (0) NIHSS: 0 Initial Vital Signs Initial Vital Signs: Vital Signs Temperature 97.9 F 12/10/19 12:34 Pulse Rate 88 12/10/19 12:34 Respiratory Rate 18 12/10/19 12:34 Blood Pressure 184/110 H 12/10/19 12:34 Pulse Oximetry 96 12/10/19 12:34 Course Course Course Narrative: Patient reports multiple allergies or intolerance to various antihypertensives. For this reason, I called her PCP and we discussed a plan moving forward which includes a discussion regarding medical noncompliance and the addition of clonidine. Patient has had her questions answered to her apparent satisfaction and understands the plan moving forward, and is in agreement. Orders Ordered: ED Orders 12/10/19 12:36 EKG-12 Lead Stat 12/10/19 12:48 Complete Blood Count AUTO DIFF Stat Comprehensive Metabolic Panel Stat NT-proBNP (BNP-Adult 18+) Stat Troponin & CK Cardiac Panel Stat Sodium Chloride (Normal Saline 0.9%) 1,000 mls @ 125 mls/hr IV CONT MELINDA Last Infusion: 12/10/19 14:16 Dose: 0 mls/hr Documented by: Admin: 12/10/19 13:09 Dose: 125 mls/hr Documented by: LUIZ Discontinued Medications Hydralazine HCl (Apresoline) 10 mg IV NOW ONE Stop: 12/10/19 12:52 Last Admin: 12/10/19 13:09 Dose: 10 mg Documented by: LUIZ Vital Signs Vital signs: Vital Signs - 8 hr 12/10/19 12:34 12/10/19 13:00 12/10/19 13:07 Temperature 97.9 F Pulse Rate 88 81 78 Respiratory Rate 18 Blood Pressure 184/110 H 183/97 H Pulse Oximetry 96 95 94 12/10/19 13:09 12/10/19 13:15 12/10/19 13:16 Temperature Pulse Rate 78 72 77 Respiratory Rate Blood Pressure 183/97 H 189/94 H Pulse Oximetry 96 96 12/10/19 13:30 12/10/19 13:31 12/10/19 13:45 Temperature Pulse Rate 85 84 84 Respiratory Rate 12 Blood Pressure 202/95 H Pulse Oximetry 97 97 98 12/10/19 13:46 12/10/19 13:49 12/10/19 14:04 Temperature Pulse Rate 83 82 Respiratory Rate Blood Pressure 235/97 H 205/113 H 178/96 H Pulse Oximetry 98 99 12/10/19 14:05 Temperature Pulse Rate 98 H Respiratory Rate 23 Blood Pressure Pulse Oximetry Medical Decision Making Lab Data Result diagrams: 12/10/19 12:48 12/10/19 12:48 Labs: Lab Results 12/10/19 12/10/19 Range/Units 12:48 12:48 WBC 7.1 (4.5-11.0) X10^3/uL RBC 4.65 (4.0-5.2) X10^6/uL Hgb 12.0 (12.0-16.0) g/dL Hct 36.8 (36-46) % MCV 79.1 L (80-100) fL MCH 25.8 L (26-34) PG MCHC 32.6 (30-36) % RDW 15.5 H (11.6-14.8) % Plt Count 294 (150-400) X10^3/uL Neut % (Auto) 67.5 (50-75) % Lymph % (Auto) 18.0 L (25-40) % Sampson % (Auto) 10.0 (3-14) % Eos % (Auto) 4.2 H (2-4) % Baso % (Auto) 0.3 (0-2) % Neut # (Auto) 4800 (1116-4418) /uL Lymph # (Auto) 1300 (5808-5708) /uL Sampson # (Auto) 700 (0-900) /uL Eos # (Auto) 300 (0-450) /uL Baso # (Auto) 0 (0-100) /uL Sodium 137 (137-145) mmol/L Potassium 3.4 (3.4-5.1) mmol/L Chloride 101 (98-107) mmol/L Carbon Dioxide 33 H (22-32) mmol/L BUN 12 (7-17) mg/dL Creatinine 0.58 (0.52-1.04) mg/dL Estimated GFR > 60.0 (>60) mL/min BUN/Creatinine Ratio 20.7 (6-22) Glucose 111 H (70-100) mg/dL Calcium 8.5 (8.4-10.2) mg/dL Total Bilirubin 0.5 (0.2-1.3) mg/dL AST 22 (14-36) IU/L ALT 17 (<35) IU/L Alkaline Phosphatase 153 H (38-126) U/L Total Creatine Kinase 79 (30-135) U/L CK-MB (CK-2) TNP CK-MB (CK-2) Rel Index TNP Troponin I < 0.012 (0.01-0.034) ng/mL NT-Pro-B Natriuret Pep 766 H (<125) pg/mL Total Protein 7.6 (6.3-8.2) g/dL Albumin 3.8 (3.5-5.0) g/dL Globulin 3.8 (1.7-4.1) g/dL Albumin/Globulin Ratio 1.0 (1.0-2.8) Urine Dip Bedside Urine Glucose Negative Bedside Urine Bilirubin - Negative Bedside Urine Ketone - Negative Urine Specific [place] 1.015 Bedside Urine Occult Blood - Negative Bedside Urine pH 7 Bedside Urine Protein - Negative Bedside Urine Urobilinogen - Negative Bedside Urine Nitrite - Negative Bedside Urine Leukocytes - Negative Esterase Point of care testing: Urine Dip Bedside Urine Glucose Negative Bedside Urine Bilirubin - Negative Bedside Urine Ketone - Negative Urine Specific [place] 1.015 Bedside Urine Occult Blood - Negative Bedside Urine pH 7 Bedside Urine Protein - Negative Bedside Urine Urobilinogen - Negative Bedside Urine Nitrite - Negative Bedside Urine Leukocytes - Negative Esterase Discharge Plan Departure Patient Disposition: Home Clinical Impression: Hypertension Qualifiers: Hypertension type: essential hypertension Qualified Code(s): I10 - Essential (primary) hypertension Activity Restrictions/Additional Instructions: *You have been diagnosed with [hypertension] *What to do: *Take medications as directed: Please continue taking your normal medications at previously recommended dosing. You have a new prescription to start after discussion with Dr. Lucio. Please take Clonidine 0.1mg daily for 1 week and then increase to 0.2mg daily. The prescription was sent to [facility] *Follow up with your primary care provider in 5-7 days, call for an appointment. Let them know you were seen in the Emergency Department and that we ask that you be seen in follow up *Return to ER if you should have any new, worsening or concerning symptoms, Prescriptions: New clonidine HCl 0.1 mg tablet 0.1 mg PO BEDTIME Qty: 30 RF: 0 No Action amlodipine 5 mg tablet 5 mg PO BID Qty: 180 RF: 0 levothyroxine 175 mcg tablet See Rx Instructions .ROUTE .COMPLEX Qty: 60 RF: 0 sertraline 100 mg tablet 200 mg PO DAILY RF: 0 naproxen [Naprosyn] 500 mg tablet 500 mg PO BID PRN (Reason: Pain (Scale Score 7-10)) RF: 0 potassium chloride 10 mEq capsule, extended release 10 meq PO DAILY Qty: 90 RF: 1 furosemide 40 mg tablet 40 mg PO DAILY Qty: 90 RF: 1 cholecalciferol (vitamin D3) [Vitamin D3] 5,000 unit Tablet 5,000 units PO DAILY RF: 0 Referrals: Matthew Lucio DO [Primary Care Provider] -
[2019-12-10 12:57] LABS: Add Manual Diff / Slide Review NO; Basophils Absolute Auto 0 /uL (0-100); Basophils Percent Auto 0.3 % (0-2); Eosinophils Absolute Auto 300 /uL (0-450); Eosinophils Percent Auto 4.2 % (2-4); Hematocrit 36.8 % (36-46); Lymphocytes Absolute Auto 1300 /uL (1100-4500); Mean Corpuscular HGB Conc 32.6 % (30-36); Mean Corpuscular Hemoglobin 25.8 PG (26-34); Mean Corpuscular Volume 79.1 fL (80-100); Monocytes Absolute Auto 700 /uL (0-900); Neutrophils Absolute Auto 4800 /uL (1500-7000); Neutrophils Percent Auto 67.5 % (50-75); Platelet Count 294 X10^3/uL (150-400); Red Blood Cell Count 4.65 X10^6/uL (4.0-5.2); Red Cell Distribution Width 15.5 % (11.6-14.8); White Blood Cell Count 7.1 X10^3/uL (4.5-11.0)
[2019-12-10 13:07] LABS: Alanine Aminotransferase 17 IU/L (<35); Albumin 3.8 g/dL (3.5-5.0); Alkaline Phosphatase 153 U/L (38-126); Aspartate Aminotransferase 22 IU/L (14-36); BUN Creatinine Ratio 20.7 (6-22); Bilirubin Total 0.5 mg/dL (0.2-1.3); Blood Urea Nitrogen 12 mg/dL (7-17); Calcium 8.5 mg/dL (8.4-10.2); Carbon Dioxide 33 mmol/L (22-32); Chloride 101 mmol/L (98-107); Creatine Kinase 79 U/L (30-135); Estimated Glomerular Filt Rate > 60.0 mL/min (>60); Globulin 3.8 g/dL (1.7-4.1); Glucose 111 mg/dL (70-100); HEMOLYSIS < 15 (0-50); Potassium 3.4 mmol/L (3.4-5.1); Sodium 137 mmol/L (137-145); Total Protein 7.6 g/dL (6.3-8.2)
[2019-12-10] MEDS: HYDRALAZINE 20 MG/ML VIAL 10 MG IV (13:09)
[2019-12-10] MEDS: SODIUM CHLORIDE 0.9% 1,000 ML 125 ML IV (13:09)
[2019-12-10 13:19] LABS: NT-proBNP (BNP-Adult 18+) 766 pg/mL (<125); Troponin I < 0.012 ng/mL (0.01-0.034)
== END 2019-12-10 14:28 | disposition home or self-care (01) ==
PROVIDERS: Emergency Provider Emergency Medicine; PCP Family Medicine
DX: I10 Essential (primary) hypertension (principal); R51 Headache; E66.01 Morbid (severe) obesity due to excess calories
CPT/HCPCS: 36415; 80053; 81003; 82550; 83880; 84484; 85025; 93005; 93010; 96361; 96374; 99284; J0360

== ENCOUNTER → 2020-03-09 | Outpatient (CLI) | payer OTHER, MEDICAID, SELFPAY | PROVIDERS: PCP Family Medicine; Referring Provider Internal Medicine; Visit Provider Internal Medicine | DX: Z23 Encounter for immunization (principal) | CPT/HCPCS: 90471; 90686 ==

== ENCOUNTER → 2020-03-26 11:23 | Outpatient (CLI) | payer OTHER, MEDICAID, SELFPAY ==
--- NOTE | 2020-03-26 11:25 | DI.RAD.S_ITS ---
PROCEDURE: XR HIP W PEL IF DONE LT 2V INDICATIONS: Chronic, worsening left hip pain TECHNIQUE: AP pelvis with lateral view(s) of the left hip(s). COMPARISON: [facility], , XR HIP W PEL IF DONE LT 2V, 10/08/2019, 14:01. FINDINGS: Bones: No fractures or dislocations. Pelvic ring appears intact. No suspicious bony lesions. Mild bilateral degenerative hip joint space narrowing with areas of small periarticular osteophytes. Subchondral sclerosis is present. Overall, stable compared to prior exam. Soft tissues: The visualized bowel gas pattern is normal. No suspicious soft tissue calcifications. IMPRESSION: Stable mild bilateral hip arthritis. Dictated by: Kelsey Espinal M.D. on 03/26/2020 at 13:56 Approved by: Kelsey Espinal M.D. on 03/26/2020 at 13:56
== END ==
PROVIDERS: PCP Family Medicine; Referring Provider Family Medicine; Visit Provider Family Medicine
DX: M25.552 Pain in left hip (principal); M16.0 Bilateral primary osteoarthritis of hip
CPT/HCPCS: 73502

== ENCOUNTER → 2020-04-06 17:01 | Outpatient (CLI) | payer OTHER, MEDICAID, SELFPAY ==
--- NOTE | 2020-04-06 17:03 | DI.MRI.S_ITS ---
PROCEDURE: MR HIP LT WO/W CON INDICATIONS: Chronic, worsening left hip pain TECHNIQUE: Noncontrast coronal T1 spin echo and STIR through the bony pelvis. Coronal and axial T2 fast spin echo with fat saturation, axial T1 spin echo with fat saturation, sagittal T1 spin echo, and oblique axial T2 fast spin echo with fat saturation through the hip. Post-contrast axial, coronal, and sagittal spin echo with fat saturation through the hip. COMPARISON: None. FINDINGS: Image quality: Excellent. Bones and joints: No suspicious osseous enhancement. Bone marrow of the pelvic ring and proximal femurs show normal signal throughout. No intraosseous lesions or fractures. No avascular necrosis of the femoral heads. The visualized lower lumbar spine appears normally aligned. There is mild hip joint osteoarthritis symmetric bilaterally. Tendons and ligaments: The gluteus medius and minimus tendons appear intact, without associated muscle atrophy. The nearby proximal iliotibial band also appears intact. The iliopsoas tendon appears intact, without adjacent bursal fluid collections or evidence for impingement syndrome. The origin of the hamstring tendon is intact at the ischial tuberosity, as well as the associated sacrotuberous ligament. The straight and reflected heads of the rectus femoris muscle origin appear intact, as well as the conjoint tendon. The ligamentum teres appears intact where visualized. Labrum and cartilage: The acetabular labrum appears intact in the absence of intra-articular contrast. Cartilage surface of the femoral head appears of normal thickness. The alpha angle of the femur is within normal limits at less than 55 degrees. Soft tissues: There is mild asymmetric soft tissue enhancement at the greater trochanteric bursal regions, left greater than right.. Visualized muscles demonstrate normal bulk and internal signal. Quadratus femoris muscle demonstrates no internal edema to suggest ischiofemoral impingement. The proximal sciatic neurovascular bundle appears normal adjacent to the hamstring tendons. No free pelvic fluid. Bladder wall thickness is normal. Genitourinary structures and bowel loops appear normal where visualized. IMPRESSION: No bone marrow bruising or hidden fracture found, no sign of muscular or tendon tear. Note is made of asymmetric greater trochanteric bursal edema on STIR imaging pulse sequence (series 4, image 17), left greater than right. Trochanteric bursitis is the presumed cause. Mild symmetric hip joint osteoarthritis. Dictated by: Mesfin To M.D. on 04/07/2020 at 10:23 Approved by: Mesfin To M.D. on 04/07/2020 at 10:36
== END ==
PROVIDERS: PCP Family Medicine; Referring Provider Family Medicine; Visit Provider Family Medicine
DX: M25.552 Pain in left hip (principal); M16.12 Unilateral primary osteoarthritis, left hip
CPT/HCPCS: 73723

== ENCOUNTER → 2020-06-10 14:05 | Outpatient (CLI) | payer OTHER, MEDICAID, SELFPAY ==
[2020-06-10] MEDS: COVID-19 VACC(MODERNA-1)/PF 100 MCG/0.5 ML VIAL IM (14:11)
== END ==
PROVIDERS: PCP Family Medicine; Visit Provider Internal Medicine
DX: Z23 Encounter for immunization (principal)
CPT/HCPCS: 0011A; 91301

== ENCOUNTER → 2020-06-18 08:40 | Outpatient (CLI) | payer OTHER, MEDICAID, SELFPAY ==
--- NOTE | 2020-06-18 08:41 | DI.RAD.S_ITS ---
PROCEDURE: XR KNEE LT 3V INDICATIONS: Right and left knee pain TECHNIQUE: 3 views of the knee were acquired. COMPARISON: [facility], CR, XR KNEE RT 3V, 08/05/2019, 14:21. FINDINGS: Bones: No fractures or dislocations. No suspicious bony lesions. There is symmetric mild reduction in joint space narrowing, seen at the right and left knee symmetrically. No trauma found. Soft tissues: No joint effusion. No suspicious soft tissue calcifications. IMPRESSION: Mild degenerative osteoarthritis narrowing the joint space is at each knee symmetrically. There is also mild degenerative joint space narrowing at each lateral facet of the patellofemoral joints. Dictated by: Mesfin To M.D. on 06/18/2020 at 12:06 Approved by: Mesfin To M.D. on 06/18/2020 at 12:07
--- NOTE | 2020-06-18 08:41 | DI.RAD.S_ITS ---
PROCEDURE: XR KNEE RT 3V INDICATIONS: Right and left knee pain TECHNIQUE: 3 views of the right knee were acquired. COMPARISON: [facility], , XR KNEE RT 3V, 08/05/2019, 14:21. FINDINGS: Bones: No fractures or dislocations. No suspicious bony lesions. The joint space narrowing at the medial and lateral compartments and the lateral facet of the patellofemoral joint are symmetric with that on the left. Soft tissues: No joint effusion. No suspicious soft tissue calcifications. IMPRESSION: Symmetric knee joint degenerative osteoarthritic joint space narrowing. No trauma found. Dictated by: Mesfin To M.D. on 06/18/2020 at 12:07 Approved by: Mesfin To M.D. on 06/18/2020 at 12:08
== END ==
PROVIDERS: PCP Family Medicine; Referring Provider Family Medicine; Visit Provider Family Medicine
DX: M25.561 Pain in right knee (principal); M25.562 Pain in left knee; M17.0 Bilateral primary osteoarthritis of knee
CPT/HCPCS: 73562

== ENCOUNTER → 2020-07-07 12:10 | Outpatient (CLI) | payer OTHER, MEDICAID, SELFPAY ==
[2020-07-07] MEDS: COVID-19 VACC #2, MRNA(MOD) 100 MCG/0.5 ML VIAL IM (12:16)
== END ==
PROVIDERS: PCP Family Medicine; Visit Provider Internal Medicine
DX: Z23 Encounter for immunization (principal)
CPT/HCPCS: 0012A; 91301

== ENCOUNTER → 2020-08-30 10:23 | Outpatient (CLI) | payer OTHER, MEDICAID, SELFPAY ==
[2020-08-30 11:46] LABS: Influenza A - CEPHEID Flu A NEGATIVE (NEGATIVE); Influenza B - CEPHEID Flu B NEGATIVE (NEGATIVE)
[2020-08-30 11:47] LABS: COVID19 -Nasal RAPID Negative (Negative)
== END ==
PROVIDERS: PCP Family Medicine; Visit Provider Family Medicine
DX: Z20.822 Contact with and (suspected) exposure to COVID-19 (principal); R05 Cough
CPT/HCPCS: 87502; 87635

== ENCOUNTER 2020-10-10 15:25 | Emergency (ER) | payer OTHER, MEDICAID, SELFPAY ==
[2020-10-10 15:46] VITALS: PULSE 108; O2SAT 96
[2020-10-10 15:47] VITALS: BP 186/110; PULSE 116; O2SAT 95
[2020-10-10 16:00] VITALS: BP 185/120; PULSE 98; O2SAT 95
[2020-10-10 16:05] VITALS: BP 180/100; PULSE 104; RESP 16; TEMP 37.7; O2SAT 95; BMI 48.0
--- NOTE | 2020-10-10 16:05 | DI.CT.S_ITS ---
PROCEDURE: CT ABDOMEN PELVIS WO CON INDICATIONS: llq pian with gi bleed TECHNIQUE: Noncontrast 5 mm thick sections acquired from the diaphragms to the symphysis. 5 mm coronal and sagittal reformats were then performed. For radiation dose reduction, the following was used: automated exposure control, adjustment of mA and/or kV according to patient size. No IV contrast was given, secondary to the patient's reported history of a severe iodine allergy. COMPARISON: [facility], CT, ABDOMEN/PELVIS WITHOUT CONTRAST, 04/19/2011, 13:48. [facility], CT, ABDOMEN/PELVIS WITHOUT CONTRAS, 10/01/2016, 16:55. FINDINGS: Image quality: Excellent. ABDOMEN: Lung bases: Lung bases are clear. Heart size is mildly enlarged. Solid organs: Liver is normal in size. Gallbladder demonstrates a gallstone within its lumen, as on series 2, image 29. Pancreas is normal in contours. Spleen is normal in size. There is a stable right adrenal nodule, which measures 21 Hounsfield units and 3 cm on this noncontrast study. No left adrenal nodules. Kidneys are normal in size, without hydronephrosis or nephrolithiasis. Peritoneum and bowel: Moderate wall thickening is seen involving the sigmoid colon, with moderate surrounding inflammatory change. Diverticula formation can be seen within this region. There is milder colonic thickening seen elsewhere more proximally. No focal fluid collections can be seen to suggest abscess. No free air or significant free fluid can be seen. No dilated loops of small bowel are seen. Nodes and vessels: Borderline prominent mesenteric lymph nodes can be seen throughout. No enlarged retroperitoneal lymph nodes are seen. Aorta and inferior vena cava are normal in caliber. Miscellaneous: There is a moderately sized fat containing periumbilical hernia PELVIS: Genitourinary: Bladder wall thickness is normal. This patient is status post hysterectomy. No adnexal masses are seen. Miscellaneous: No inguinal hernias or adenopathy. Bones: No suspicious bony lesions. No vertebral body compression fractures. IMPRESSION: These imaging findings are most compatible with sigmoid diverticulitis. No findings of perforation or abscess can be seen. However, colonic wall thickening can be seen more proximally within the colon and please consider other causes of colitis. Compared to 2017, the extent of colonic involvement is not as severe. Incidental note is made of: Mild cardiomegaly Gallstone Stable right adrenal nodule Fat containing periumbilical hernia Borderline prominent lymph nodes seen throughout the mesentery Hysterectomy Dictated by: Giovanni Stanton M.D. on 10/10/2020 at 16:05 Approved by: Giovanni Stanton M.D. on 10/10/2020 at 16:11
--- NOTE | 2020-10-10 16:08 | ED.GIBLEED ---
HPI - GI Bleed General Chief complaint: Abdominal Pain Stated complaint: states lower GI bleeding, Diarrhea Time Seen by Provider: 10/10/20 15:48 Source: patient Mode of arrival: Ambulatory Limitations: no limitations History of Present Illness HPI Narrative: Patient is a 60-year-old female with history of congestive heart failure, hypertension, hyperlipidemia, hypothyroid diverticular disease presenting today with all left lower quadrant pain ongoing for the last 4 days. She says on evening she actually started having bright red bloody bowel movements. She says since then she has had at least 4-5 daily. She now gets a little dizzy and lightheaded when she stands and she is slightly short of breath. She continues to have some left lower quadrant pain similar to her previous diverticulitis attacks. She denies any nausea or vomiting. She has no chest pain. MD complaint: blood streaked stool Related Data Home Medications Medication Instructions Recorded Confirmed cholecalciferol (vitamin D3) 5,000 units PO DAILY 05/09/18 08/30/20 [Vitamin D3] naproxen 500 mg tablet 500 mg PO BID PRN tab 10/08/19 08/30/20 Previous Rx's Medication Instructions Recorded potassium chloride 10 mEq 10 meq PO DAILY #90 cap 11/19/18 capsule,extended release amlodipine 5 mg tablet See Rx Instructions .ROUTE 03/26/20 .COMPLEX #180 tab clonidine HCl 0.1 mg tablet 0.1 mg PO BEDTIME #30 tab 03/26/20 furosemide 40 mg tablet 40 mg PO DAILY #90 tab 03/26/20 levothyroxine 175 mcg tablet See Rx Instructions .ROUTE 03/26/20 .COMPLEX #90 tab sertraline 100 mg tablet 200 mg PO DAILY #180 tab 03/26/20 tramadol 50 mg tablet 100 mg PO DAILY PRN #20 tab 07/19/20 cephalexin 500 mg capsule 500 mg PO QID #28 cap 08/30/20 ciprofloxacin HCl [Cipro] 500 mg PO BID #20 tab 10/10/20 metronidazole [Flagyl] 500 mg PO Q8H #30 tab 10/10/20 Allergies Allergy/AdvReac Type Severity Reaction Status Date / Time iodine Allergy Severe to Verified 08/30/20 10:19 contrast dye-congestion, hives lisinopril Allergy Unknown COUGH Verified 08/30/20 10:19 shellfish derived Allergy Unknown Verified 08/30/20 10:19 buspirone AdvReac Intermediate felt Verified 08/30/20 10:19 spaced out bupropion [From Wellbutrin] AdvReac Mild Weird Verified 08/30/20 10:19 feeling Review of Systems Review of Systems ROS Unobtainable: All systems reviewed & are unremarkable except as noted in HPI and below Constitutional Constitutional: Denies chills, Denies fever(s), Denies frequent falls, Denies lethargy and Denies weakness Cardiovascular Cardiovascular: Denies chest pain, Denies irregular heart rhythm, Reports lightheadedness (Mild), Denies palpitations, Reports dyspnea on exertion and Denies orthopnea Respiratory Respiratory: Denies chest congestion, Denies cough and Reports dyspnea on exertion Gastrointestinal Gastrointestinal: Reports as per HPI, Reports change in stool character and Denies nausea Musculoskeletal Musculoskeletal: Denies back pain and Denies myalgias Integumentary/Breasts Skin/Breast: Denies pruritus, Denies erythema, Denies rash and Denies wounds Neurologic Neurologic: Denies abnormal speech, Denies frequent falls and Denies weakness Endocrine Endocrine: Denies palpitations Patient History Medical History Abscess Anxiety BMI 50.0-59.9, adult Depression Diverticular disease Elevated CO2 level Fasting hyperglycemia GERD (gastroesophageal reflux disease) Hyperlipemia (~2010) Hypertension Hypothyroidism Left hip pain Mitral insufficiency Osteoarthritis of left knee Osteoarthritis of right knee Patellar tendinitis Retina disorder, left URI (upper respiratory infection) Vitamin D deficiency Surgical History History of back surgery (07/2015) History of thyroidectomy (1976) Family History Mother Age: 85 Hypertension Father No problems noted. Grandfather Cancer Grandmother No problems noted. Grandfather No problems noted. Grandmother Cancer Sister No problems noted. Social History Smoking Status: Never smoker alcohol intake: never substance use type: does not use Smoking Status: Never smoker alcohol intake frequency: 0-2 drinks per day Substance Use Type: does not use Exam Initial Vital Signs Initial Vital Signs: Vital Signs Pulse Rate 108 H 10/10/20 15:46 Pulse Oximetry 96 10/10/20 15:46 GENERAL: Alert 60-year-old female and in no acute distress. HEENT: Head atraumatic,EOMI, pupils reactive, face symmetric, moist mucous membranes CARDIOVASCULAR: Regular rate and rhythm without murmurs, rubs or gallops. RESPIRATORY: Breath sounds equal bilaterally, no wheezes rales or rhonchi. ABDOMEN: Soft, tender left lower quadrant no guarding or rebound small umbilical hernia noted RECTAL: Hemoccult-negative, no hemorrhoids, she does have some skin breakdown between her buttocks. EXTREMITIES: Normal range of motion, no clubbing or edema. Neurovascularly intact NEUROLOGICAL: Alert and oriented x4.Normal gait and speech. Cranial nerves II through XII grossly intact. SKIN: Warm, dry, no laceration, no petechiae, no rashes or lesions. Course Orders Ordered: ED Orders 10/10/20 16:04 Complete Blood Count AUTO DIFF Stat Comprehensive Metabolic Panel Stat Lactate (Lactic Acid) Stat Lipase Stat Partial Thromboplastin Time Stat Prothrombin Time INR Stat Troponin & CK Cardiac Panel Stat Type and Screen Stat 10/10/20 16:05 CT abdomen pelvis wo con Stat 10/10/20 16:06 EKG-12 Lead Stat Sodium Chloride (Normal Saline 0.9%) 1,000 mls @ 150 mls/hr IV CONT MELINDA Last Admin: 10/10/20 16:40 Dose: 150 mls/hr Documented by: MERRITT Discontinued Medications Levofloxacin (Levofloxacin 250 Mg Tablet) 750 mg PO NOW ONE Stop: 10/10/20 17:55 Last Admin: 10/10/20 17:59 Dose: 750 mg Documented by: MERRITT Metronidazole (Metronidazole 500 Mg Tablet) 500 mg PO NOW ONE Stop: 10/10/20 17:55 Last Admin: 10/10/20 17:59 Dose: 500 mg Documented by: MERRITT Vital Signs Vital signs: Vital Signs - 8 hr 10/10/20 15:46 10/10/20 15:47 10/10/20 16:00 Temperature Pulse Rate 108 H 116 H 98 H Respiratory Rate Blood Pressure 186/110 H 185/120 H Pulse Oximetry 96 95 95 10/10/20 16:05 10/10/20 16:30 Temperature 100 F H Pulse Rate 104 H 97 H Respiratory Rate 16 Blood Pressure 180/100 H Pulse Oximetry 95 96 MDM - GI Bleed Lab Data Attestation: I reviewed the patient's lab results. Result diagrams: 10/10/20 16:04 10/10/20 16:04 Labs: Lab Results 10/10/20 10/10/20 10/10/20 Range/Units 16:04 16:04 16:04 WBC 9.9 (4.5-11.0) X10^3/uL RBC 4.47 (4.0-5.2) X10^6/uL Hgb 11.1 L (12.0-16.0) g/dL Hct 33.8 L (36-46) % MCV 75.5 L (80-100) fL MCH 24.9 L (26-34) PG MCHC 33.0 (30-36) % RDW 17.0 H (11.6-14.8) % Plt Count 402 H (150-400) X10^3/uL Neut % (Auto) 66.9 (50-75) % Lymph % (Auto) 14.4 L (25-40) % [place] % (Auto) 14.5 H (3-14) % Eos % (Auto) 4.0 (2-4) % Baso % (Auto) 0.2 (0-2) % Neut # (Auto) 6600 (7222-4693) /uL Lymph # (Auto) 1400 (0753-1910) /uL [place] # (Auto) 1400 H (0-900) /uL Eos # (Auto) 400 (0-450) /uL Baso # (Auto) 0 (0-100) /uL PT 14.5 H (10.1-12.7) SECONDS INR 1.3 (0.9-1.3) APTT 39 H D (26.4-36.2) SECONDS Sodium (137-145) mmol/L Potassium (3.4-5.1) mmol/L Chloride (98-107) mmol/L Carbon Dioxide (22-32) mmol/L BUN (7-17) mg/dL Creatinine (0.52-1.04) mg/dL Estimated GFR (>60) mL/min BUN/Creatinine Ratio (6-22) Glucose (70-100) mg/dL Lactate 1.0 (0.7-2.1) mmol/L Calcium (8.4-10.2) mg/dL Total Bilirubin (0.2-1.3) mg/dL AST (14-36) IU/L ALT (<35) IU/L Alkaline Phosphatase (38-126) U/L Total Creatine Kinase (30-135) U/L CK-MB (CK-2) CK-MB (CK-2) Rel Index Troponin I (0.01-0.034) ng/mL Total Protein (6.3-8.2) g/dL Albumin (3.5-5.0) g/dL Globulin (1.7-4.1) g/dL Albumin/Globulin Ratio (1.0-2.8) Lipase (23-300) U/L Blood Type Antibody Screen 10/10/20 10/10/20 Range/Units 16:04 16:04 WBC (4.5-11.0) X10^3/uL RBC (4.0-5.2) X10^6/uL Hgb (12.0-16.0) g/dL Hct (36-46) % MCV (80-100) fL MCH (26-34) PG MCHC (30-36) % RDW (11.6-14.8) % Plt Count (150-400) X10^3/uL Neut % (Auto) (50-75) % Lymph % (Auto) (25-40) % [place] % (Auto) (3-14) % Eos % (Auto) (2-4) % Baso % (Auto) (0-2) % Neut # (Auto) (8026-1089) /uL Lymph # (Auto) (6414-0994) /uL [place] # (Auto) (0-900) /uL Eos # (Auto) (0-450) /uL Baso # (Auto) (0-100) /uL PT (10.1-12.7) SECONDS INR (0.9-1.3) APTT (26.4-36.2) SECONDS Sodium 138 (137-145) mmol/L Potassium 3.2 L (3.4-5.1) mmol/L Chloride 101 (98-107) mmol/L Carbon Dioxide 31 (22-32) mmol/L BUN 8 (7-17) mg/dL Creatinine 0.83 (0.52-1.04) mg/dL Estimated GFR > 60.0 (>60) mL/min BUN/Creatinine Ratio 9.6 (6-22) Glucose 106 H (70-100) mg/dL Lactate (0.7-2.1) mmol/L Calcium 8.5 (8.4-10.2) mg/dL Total Bilirubin 0.5 (0.2-1.3) mg/dL AST 22 (14-36) IU/L ALT 16 (<35) IU/L Alkaline Phosphatase 118 (38-126) U/L Total Creatine Kinase 90 (30-135) U/L CK-MB (CK-2) TNP CK-MB (CK-2) Rel Index TNP Troponin I < 0.012 (0.01-0.034) ng/mL Total Protein 7.9 (6.3-8.2) g/dL Albumin 3.6 (3.5-5.0) g/dL Globulin 4.3 H (1.7-4.1) g/dL Albumin/Globulin Ratio 0.8 L (1.0-2.8) Lipase 86 (23-300) U/L Blood Type A Positive Antibody Screen Negative Imaging Data CT scan - abdomen/pelvis: Radiologist's Impression: PROCEDURE: CT ABDOMEN PELVIS WO CON INDICATIONS: llq pian with gi bleed TECHNIQUE: Noncontrast 5 mm thick sections acquired from the diaphragms to the symphysis. 5 mm coronal and sagittal reformats were then performed. For radiation dose reduction, the following was used: automated exposure control, adjustment of mA and/or kV according to patient size. No IV contrast was given, secondary to the patient's reported history of a severe iodine allergy. COMPARISON: [facility], CT, ABDOMEN/PELVIS WITHOUT CONTRAST, 04/19/2011, 13:48. [facility], CT, ABDOMEN/PELVIS WITHOUT CONTRAS, 10/01/2016, 16:55. FINDINGS: Image quality: Excellent. ABDOMEN: Lung bases: Lung bases are clear. Heart size is mildly enlarged. Solid organs: Liver is normal in size. Gallbladder demonstrates a gallstone within its lumen, as on series 2, image 29. Pancreas is normal in contours. Spleen is normal in size. There is a stable right adrenal nodule, which measures 21 Hounsfield units and 3 cm on this noncontrast study. No left adrenal nodules. Kidneys are normal in size, without hydronephrosis or nephrolithiasis. Peritoneum and bowel: Moderate wall thickening is seen involving the sigmoid colon, with moderate surrounding inflammatory change. Diverticula formation can be seen within this region. There is milder colonic thickening seen elsewhere more proximally. No focal fluid collections can be seen to suggest abscess. No free air or significant free fluid can be seen. No dilated loops of small bowel are seen. Nodes and vessels: Borderline prominent mesenteric lymph nodes can be seen throughout. No enlarged retroperitoneal lymph nodes are seen. Aorta and inferior vena cava are normal in caliber. Miscellaneous: There is a moderately sized fat containing periumbilical hernia PELVIS: Genitourinary: Bladder wall thickness is normal. This patient is status post hysterectomy. No adnexal masses are seen. Miscellaneous: No inguinal hernias or adenopathy. Bones: No suspicious bony lesions. No vertebral body compression fractures. IMPRESSION: These imaging findings are most compatible with sigmoid diverticulitis. No findings of perforation or abscess can be seen. However, colonic wall thickening can be seen more proximally within the colon and please consider other causes of colitis. Compared to 2017, the extent of colonic involvement is not as severe. Incidental note is made of: Mild cardiomegaly Gallstone Stable right adrenal nodule Fat containing periumbilical hernia Borderline prominent lymph nodes seen throughout the mesentery Hysterectomy Dictated by: Giovanni Stanton M.D. on 10/10/2020 at 16:05 Approved by: Giovanni Stanton M.D. on 10/10/2020 at 16:11 ECG Data Attestation: I personally reviewed and interpreted this ECG as follows: Interpretation: Atrial fibrillation rate [address] changes similar to multiple prior EKGs [facility] Narrative Medical decision making narrative: Patient states that she actually has a known history of atrial fibrillation but is not on any anticoagulation and is supposed to be taking aspirin but has not been. She is guaiac negative her hemoglobin hematocrit are stable and actually appear her baseline despite having multiple bloody bowel been ongoing for days. CT does confirm diverticulitis without perforation. She has no leukocytosis. She has not required anything for pain at this time. Discharge Plan Departure Patient Disposition: Home Clinical Impression: Diverticulitis Instructions: DI for Diverticulitis Activity Restrictions/Additional Instructions: *You have been diagnosed with diverticulitis *What to do: At this time you have been diagnosed with diverticulitis is likely causing some of your diarrhea in likely bloody stools. However your blood work today does not show that you have lost significant amount of blood and you can go home. *Continue to take medications as directed--> SENT TO [facility] [place] Cipro 500 mg twice a day for 10 days Flagyl 500 mg 3 times a day for 10 days Tylenol 1000 mg every 6 hours if needed for [id number] pain Please resume your aspirin to help with stroke prevention from her atrial fibrillation *Follow up with your primary care provider in 2-3 days *Return to ER if you should have increasing abdominal pain, increasing bloody stools, shortness of breath his dizziness lightheadedness or any new, worsening or concerning symptoms Prescriptions: New ciprofloxacin HCl [Cipro] 500 mg tablet 500 mg PO BID Qty: 20 RF: 0 metronidazole [Flagyl] 500 mg tablet 500 mg PO Q8H Qty: 30 RF: 0 No Action tramadol 50 mg tablet 100 mg PO DAILY PRN (Reason: pain) Qty: 20 RF: 0 naproxen [Naprosyn] 500 mg tablet 500 mg PO BID PRN (Reason: Pain (Scale Score 7-10)) RF: 0 triamcinolone acetonide [Kenalog] 40 mg/mL suspension 40 mg intra-articular ONCE Qty: 1 RF: 0 cephalexin 500 mg capsule 500 mg PO QID Qty: 28 RF: 0 potassium chloride 10 mEq capsule, extended release 10 meq PO DAILY Qty: 90 RF: 1 clonidine HCl 0.1 mg tablet 0.1 mg PO BEDTIME Qty: 30 RF: 0 amlodipine 5 mg tablet See Rx Instructions .ROUTE .COMPLEX Qty: 180 RF: 1 furosemide 40 mg tablet 40 mg PO DAILY Qty: 90 RF: 1 levothyroxine 175 mcg tablet See Rx Instructions .ROUTE .COMPLEX Qty: 90 RF: 0 sertraline 100 mg tablet 200 mg PO DAILY Qty: 180 RF: 3 cholecalciferol (vitamin D3) [Vitamin D3] 5,000 unit Tablet 5,000 units PO DAILY RF: 0 Referrals: Flaquito Yee MD [Primary Care Provider] - Stand Alone Forms: Work Release Note
[2020-10-10 16:21] LABS: Add Manual Diff / Slide Review NO; Basophils Absolute Auto 0 /uL (0-100); Basophils Percent Auto 0.2 % (0-2); Eosinophils Absolute Auto 400 /uL (0-450); Hematocrit 33.8 % (36-46); Hemoglobin 11.1 g/dL (12.0-16.0); Lymphocytes Absolute Auto 1400 /uL (1100-4500); Lymphocytes Percent Auto 14.4 % (25-40); Mean Corpuscular Hemoglobin 24.9 PG (26-34); Mean Corpuscular Volume 75.5 fL (80-100); Monocytes Absolute Auto 1400 /uL (0-900); Monocytes Percent Auto 14.5 % (3-14); Neutrophils Absolute Auto 6600 /uL (1500-7000); Neutrophils Percent Auto 66.9 % (50-75); Platelet Count 402 X10^3/uL (150-400); Red Blood Cell Count 4.47 X10^6/uL (4.0-5.2); White Blood Cell Count 9.9 X10^3/uL (4.5-11.0)
[2020-10-10 16:29] LABS: INR 1.3 (0.9-1.3); Prothrombin Time 14.5 SECONDS (10.1-12.7)
[2020-10-10 16:30] VITALS: PULSE 97; O2SAT 96
[2020-10-10 16:32] LABS: PTT Partial Thromboplastin Tim 39 SECONDS (26.4-36.2)
[2020-10-10 16:33] LABS: Alanine Aminotransferase 16 IU/L (<35); Albumin 3.6 g/dL (3.5-5.0); Albumin Globulin Ratio 0.8 (1.0-2.8); Alkaline Phosphatase 118 U/L (38-126); Aspartate Aminotransferase 22 IU/L (14-36); BUN Creatinine Ratio 9.6 (6-22); Bilirubin Total 0.5 mg/dL (0.2-1.3); Blood Urea Nitrogen 8 mg/dL (7-17); Calcium 8.5 mg/dL (8.4-10.2); Carbon Dioxide 31 mmol/L (22-32); Chloride 101 mmol/L (98-107); Creatine Kinase 90 U/L (30-135); Estimated Glomerular Filt Rate > 60.0 mL/min (>60); Globulin 4.3 g/dL (1.7-4.1); Glucose 106 mg/dL (70-100); HEMOLYSIS < 15 (0-50); Lipase 86 U/L (23-300); Potassium 3.2 mmol/L (3.4-5.1); Sodium 138 mmol/L (137-145); Total Protein 7.9 g/dL (6.3-8.2)
[2020-10-10] MEDS: SODIUM CHLORIDE 0.9% 1,000 ML 150 ML IV (16:40)
[2020-10-10 16:44] LABS: Troponin I < 0.012 ng/mL (0.01-0.034)
[2020-10-10] MEDS: levoFLOXacin 250 MG TABLET 750 MG PO (17:59)
[2020-10-10] MEDS: metroNIDAZOLE 500 MG TABLET PO (17:59)
== END 2020-10-10 18:22 | disposition home or self-care (01) ==
PROVIDERS: Emergency Provider Emergency Medicine; PCP Family Medicine
DX: K57.92 Diverticulitis of intestine, part unspecified, without perforation or abscess without bleeding (principal); R06.00 Dyspnea, unspecified
CPT/HCPCS: 36415; 74176; 80053; 82550; 83605; 83690; 84484; 85025; 85610; 85730; 86850; 86900; 86901; 93005; 93010; 96360; 99284; 99285

== ENCOUNTER → 2020-12-10 09:23 | Outpatient (CLI) | payer OTHER, MEDICAID, SELFPAY ==
--- NOTE | 2020-12-10 09:24 | DI.MG.S_ITS ---
BILATERAL DIGITAL DIAGNOSTIC MAMMOGRAM 3D/2D: 12/10/2020 CLINICAL: Right breast lump. Comparison is made to exams dated: 05/22/2016 mammogram - [facility], 11/10/2014 mammogram, and 08/09/2011 mammogram - [facility]. There are scattered fibroglandular elements in both breasts. There is an irregular low density asymmetry with indistinct margins in the right axilla. This correlates as palpated. No other significant masses, calcifications, or other findings are seen in either breast. IMPRESSION: INCOMPLETE: NEEDS ADDITIONAL IMAGING EVALUATION The irregular low density asymmetry in the right axilla is indeterminate. An ultrasound is recommended. Ultrasound will be performed immediately following the current exam. This exam was interpreted at Station ID: [id number]. NOTE: For mammograms, a report in lay terms will be sent to the patient. Approximately 15% of breast malignancies will not be visualized mammographically. In the management of a palpable breast mass, a negative mammogram must not discourage biopsy of a clinically suspicious lesion. Electronically Signed By: Dean Fernando M.D. ddp/:12/10/2020 12:38:41 ACR BI-RADS Category 0: Incomplete [id number]
--- NOTE | 2020-12-10 09:24 | DI.US.S_ITS ---
ULTRASOUND OF RIGHT AXILLA: 12/10/2020 CLINICAL: Palpable right axilla lump. Comparison is made to exams dated: 12/10/2020 mammogram, 05/22/2016 mammogram - [facility], 11/10/2014 mammogram, 08/09/2011 mammogram, 07/31/2011 mammogram - [facility], and 03/16/2010 mammogram - [facility]. Color flow and real-time ultrasound of the right axilla were performed on the areas of interest. There is a 2.5 cm x 0.5 cm x 1.1 cm irregular fluid collection with a thickened wall within the skin of the right axilla. There is a tract extending to the skin. This irregular fluid collection is hypoechoic and isoechoic but of mixed echogenicity with a hyperechoic rim and internal echoes. This correlates as palpated. Color flow imaging demonstrates that there is adjacent vascularity. IMPRESSION: PROBABLY BENIGN The 2.5 cm x 0.5 cm x 1.1 cm irregular fluid collection within the skin has a differential diagnosis of an infected or inflamed sebaceous cyst versus a phlegmon and is probably benign. Clinical correlation and followup are recommended. A follow-up ultrasound in 3 months is also recommended to demonstrate resolution or stability. This exam was interpreted at Station ID: [id number]. Electronically Signed By: Dean razo/:12/10/2020 12:58:38 letter sent: Clinical Evaluation Ultrasound BI-RADS: 3 Probably benign
== END ==
PROVIDERS: PCP Family Medicine; Referring Provider Family Medicine; Visit Provider Family Medicine
DX: R92.8 Other abnormal and inconclusive findings on diagnostic imaging of breast (principal); N63.31 Unspecified lump in axillary tail of the right breast
CPT/HCPCS: 76882; 77066; G0279

== ENCOUNTER → 2020-12-27 10:28 | Outpatient (CLI) | payer OTHER, MEDICAID, SELFPAY ==
[2020-12-27 11:45] LABS: COVID19 -Nasal RAPID Negative (Negative)
== END ==
PROVIDERS: PCP Family Medicine; Visit Provider Physician Assistant
DX: Z01.812 Encounter for preprocedural laboratory examination (principal); Z20.822 Contact with and (suspected) exposure to COVID-19
CPT/HCPCS: 87635

== ENCOUNTER 2021-03-12 19:47 | Emergency (ER) | payer OTHER, MEDICAID, SELFPAY ==
[2021-03-12] VITALS (14 sets, daily range): BP systolic 183–210; BP diastolic 78–97; PULSE 80–99; RESP 14–20; TEMP 36.4; O2SAT 94–100; BMI 48.0
--- NOTE | 2021-03-12 19:56 | ED_ITS ---
HPI - Abdominal Pain General Chief Complaint: Abdominal Pain Stated Complaint: Poss Diverticulitis Time Seen by Provider: 03/12/21 19:50 History of Present Illness HPI narrative: 60-year-old female nonsmoker with history of hypertension, elevated BMI, diverticulitis presents with a chief complaint of gradually worsening left lower quadrant pain over the course of the day. She states her pain is worse with motion and improves with rest. She denies any radiation of her pain. She denies any fever or chills. She has had no nausea or vomiting. She denies any trouble with urination such as frequency, urgency or dysuria. She denies any change in bowel habits such as constipation, diarrhea or blood in her stools. She has had diverticulitis in the past and states this feels quite similar. Related Data Home Medications Medication Instructions Recorded Confirmed cholecalciferol (vitamin D3) 125 5,000 units PO DAILY 05/09/18 11/24/20 mcg (5,000 unit) tablet (Vitamin D3) naproxen 500 mg tablet (Naprosyn) 500 mg PO BID PRN tab 10/08/19 11/24/20 Previous Rx's Medication Instructions Recorded potassium chloride 10 mEq 10 meq PO DAILY #90 cap 11/19/18 capsule,extended release clonidine HCl 0.1 mg tablet 0.1 mg PO BEDTIME #30 tab 03/26/20 furosemide 40 mg tablet 40 mg PO DAILY #90 tab 03/26/20 sertraline 100 mg tablet 200 mg PO DAILY #180 tab 03/26/20 levothyroxine 175 mcg tablet See Rx Instructions .ROUTE 11/03/20 .COMPLEX #90 tab doxycycline hyclate 100 mg capsule 100 mg PO BID #20 cap 12/13/20 amlodipine 5 mg tablet See Rx Instructions .ROUTE 12/27/20 .COMPLEX #180 tab meloxicam 15 mg tablet See Rx Instructions .ROUTE 02/15/21 .COMPLEX #60 tab tramadol 50 mg tablet See Rx Instructions .ROUTE 03/02/21 .COMPLEX #20 tab amoxicillin 875 mg-potassium 1 tab PO BID #20 tab 03/12/21 clavulanate 125 mg tablet (Augmentin) hydrocodone 5 mg-acetaminophen 325 1 tab PO Q4-6H PRN #10 tab 03/12/21 mg tablet ondansetron 4 mg disintegrating 4 mg PO TID-QID PRN #10 tab 03/12/21 tablet Allergies Allergy/AdvReac Type Severity Reaction Status Date / Time iodine Allergy Severe to Verified 11/24/20 16:55 contrast dye-congestion, hives lisinopril Allergy Unknown COUGH Verified 11/24/20 16:55 shellfish derived Allergy Unknown Verified 11/24/20 16:55 buspirone AdvReac Intermediate felt Verified 11/24/20 16:55 spaced out bupropion [From Wellbutrin] AdvReac Mild Weird Verified 11/24/20 16:55 feeling Review of Systems Review of Systems Narrative: GENERAL: Denies chills, fatigue, malaise, fever, sweats. HEENT: Denies sinus pain, ear pain, sore throat, difficulty swallowing, dizziness. RESPIRATORY: Denies dyspnea, cough, wheezing, hemoptysis, sputum. CARDIOVASCULAR: Denies chest pain, palpitations, orthopnea, edema, GASTROINTESTINAL: See HPI : Denies dysuria, frequency, incontinence, hematuria, urinary retention. MUSCULOSKELETAL: denies weakness, joint pain, or bony pain SKIN: Denies rash, skin lesions, or other NEUROLOGIC: Denies weakness, headache, numbness, change in speech, confusion, seizures, incoordination. PSYCHIATRIC: No concerning psychosocial issues. 12 point review of systems is negative except for those stated above Patient History Medical History Abscess Anxiety BMI 50.0-59.9, adult Breast cancer screening Depression Diverticular disease Elevated CO2 level Fasting hyperglycemia GERD (gastroesophageal reflux disease) Hyperlipemia (~2010) Hypertension Hypothyroidism Left hip pain Mitral insufficiency Osteoarthritis of left knee Osteoarthritis of right knee Patellar tendinitis Retina disorder, left URI (upper respiratory infection) Vitamin D deficiency Surgical History History of back surgery (07/2015) History of thyroidectomy (1976) Family History Mother Age: 85 Hypertension Father No problems noted. Grandfather Cancer Grandmother No problems noted. Grandfather No problems noted. Grandmother Cancer Sister No problems noted. Social History Smoking Status: Never smoker alcohol intake: never substance use type: does not use Smoking Status: Never smoker alcohol intake frequency: 0-2 drinks per day Substance Use Type: does not use Exam Narrative Exam Narrative: GENERAL: [60 year old patient appears stated age. Well-developed patient, in mild distress. Obviously uncomfortable, rubbing her left lower quadrant HEAD: Atraumatic. Normocephalic. EYES: Pupils equal round and reactive. Extraocular motions intact. No scleral icterus. No injection or drainage. ENT: Nose without bleeding, purulent drainage. Throat without erythema, tonsillar hypertrophy or exudate. Airway patent. NECK: Trachea midline. Non tender CARDIOVASCULAR: Regular rate and rhythm without murmurs, gallops, or rubs. RESPIRATORY: Clear to auscultation. Breath sounds equal bilaterally. No wheezes, rales, or rhonchi. GASTROINTESTINAL: Abdomen soft, mild tenderness in the left lower quadrant nondistended. No rebound or guarding. Bowel sounds present in all 4 quadrants. Small umbilical hernia noted, easily reducible, without pain, no redness or warmth noted EXTREMITIES: No edema or joint tenderness. BACK: Nontender without deformity or crepitance. No flank tenderness. NEURO: AOx3. SKIN: No rash or erythema of visible areas Initial Vital Signs Initial Vital Signs: Vital Signs Temperature 97.6 F 03/12/21 19:57 Pulse Rate 99 H 03/12/21 19:57 Respiratory Rate 20 03/12/21 19:57 Blood Pressure 193/97 H 03/12/21 19:57 Pulse Oximetry 97 03/12/21 19:57 Course Orders Ordered: ED Orders 03/12/21 19:57 CT kidney ureter bladder (KUB) Stat 03/12/21 20:03 Complete Blood Count AUTO DIFF Stat Comprehensive Metabolic Panel Stat Lipase Stat Discontinued Medications Hydrocodone Bitart/Acetaminophen (Hydrocodone/Acet 5/325 Prepack) 1 bottle MISC SEEINSTR ONE Stop: 03/12/21 22:39 Hydromorphone HCl (Hydromorphone 0.5 Mg Inj) 0.5 mg IV NOW ONE Stop: 03/12/21 20:09 Last Admin: 03/12/21 20:11 Dose: 0.5 mg Documented by: HEATHER Lactated Ringer's (Lactated Ringers) 1,000 mls @ 1,000 mls/hr IV BOLUS ONE Stop: 03/12/21 20:56 Last Admin: 03/12/21 20:08 Dose: 1,000 mls/hr Documented by: HEATHER Ondansetron HCl (Ondansetron 4 Mg/2 Ml Inj) 4 mg IV NOW ONE Stop: 03/12/21 20:24 Last Admin: 03/12/21 20:27 Dose: 4 mg Documented by: SARA Ondansetron HCl (Ondansetron 4 Mg Odt Prepack) 1 bottle MISC SEEINSTR ONE Stop: 03/12/21 22:39 Reevaluation(s) Reevaluation #1: Patient's pain is well controlled, she is tolerating orals. She has been able to ambulate without difficulty. Vital Signs Vital signs: Vital Signs - 8 hr 03/12/21 19:57 03/12/21 20:42 Temperature 97.6 F Pulse Rate 99 H 80 Respiratory Rate 20 14 Blood Pressure 193/97 H 197/83 H Pulse Oximetry 97 99 MDM - Abdominal Pain Lab Data Result diagrams: 03/12/21 20:03 03/12/21 20:03 Labs: Lab Results 03/12/21 03/12/21 Range/Units 20:03 20:03 WBC 9.6 (4.5-11.0) X10^3/uL RBC 4.76 (4.0-5.2) X10^6/uL Hgb 10.4 L (12.0-16.0) g/dL Hct 32.6 L (36-46) % MCV 68.6 L (80-100) fL MCH 21.8 L (26-34) PG MCHC 31.8 (30-36) % RDW 19.8 H (11.6-14.8) % Plt Count 417 H (150-400) X10^3/uL Neut % (Auto) 68.3 (50-75) % Lymph % (Auto) 18.6 L (25-40) % Irwin % (Auto) 9.9 (3-14) % Eos % (Auto) 3.0 (2-4) % Baso % (Auto) 0.2 (0-2) % Neut # (Auto) 6500 (1078-3740) /uL Lymph # (Auto) 1800 (8384-0580) /uL Irwin # (Auto) 900 (0-900) /uL Eos # (Auto) 300 (0-450) /uL Baso # (Auto) 0 (0-100) /uL RBC Morphology Not Reportable Hypochromasia 1+ H Microcytosis 1+ H Sodium 139 (137-145) mmol/L Potassium 3.3 L (3.4-5.1) mmol/L Chloride 99 (98-107) mmol/L Carbon Dioxide 34 H (22-32) mmol/L BUN 14 (7-17) mg/dL Creatinine 0.65 (0.52-1.04) mg/dL Estimated GFR > 60.0 (>60) mL/min BUN/Creatinine Ratio 21.5 (6-22) Glucose 138 H (70-100) mg/dL Calcium 9.1 (8.4-10.2) mg/dL Total Bilirubin 0.5 (0.2-1.3) mg/dL AST 25 (14-36) IU/L ALT 17 (<35) IU/L Alkaline Phosphatase 155 H (38-126) U/L Total Protein 8.6 H (6.3-8.2) g/dL Albumin 4.3 (3.5-5.0) g/dL Globulin 4.3 H (1.7-4.1) g/dL Albumin/Globulin Ratio 1.0 (1.0-2.8) Lipase 69 (23-300) U/L Point of care testing: Urine Dip Bedside Urine Glucose Negative Bedside Urine Bilirubin - Negative Bedside Urine Ketone - Negative Urine Specific Bonneau 1.015 Bedside Urine Occult Blood - Negative Bedside Urine pH 7.5 Bedside Urine Protein - Negative Bedside Urine Urobilinogen - Negative Bedside Urine Nitrite - Negative Bedside Urine Leukocytes - Negative Esterase Imaging Data CT scan - abdomen/pelvis: Radiologist's Impression: Chart Viewer Diagnostics Subcategory All Activity ??:?? All Time ??:?? All Subcategories Filter Laboratory Imaging Microbiology Pathology Blood Bank Tests Cardiovascular Other Specialty DATE TYPE STATUS REF RANGE/AUTHOR Hx Today 19:57 Abdomen/Pelvis CT Signed Mary Chavez 12/10/20 09:24 Mammogram Diagnostic Signed Dean Fernando 12/10/20 09:24 Axilla US Signed Dean Fernando 10/10/20 16:05 Abdomen/Pelvis CT Signed Giovanni Stanton 01/15/21 08:41 Knee X-Ray Signed Mesfin To 06/18/20 08:41 Knee X-Ray Signed eMsfin To 04/06/20 17:03 Hip MRI Signed Mesfin To 03/26/20 11:25 Hip X-Ray Signed Kelsey Espinal 10/08/19 14:08 Hip X-Ray Signed Thompson Nguyen 08/05/19 14:26 Knee X-Ray Signed Thompson Nguyen 11/29/18 15:19 Chest X-Ray Signed Jono Mata 08/07/18 01:00 DI Result CC Echocardiogram 06/10/18 15:42 Chest X-Ray Signed Igancio Gaming 05/09/18 13:46 Chest X-Ray Signed Ignacio Gaming 10/01/16 16:27 Radiology - Historical ? Jacinda Madrid 60, F?1960 MRN#? [id number] REG ER,?Main ED??R05?? 162.56cm 127.006kg BMI: 48.1kg/m? Abdominal Pain Acc#? [id number] Resus Status Not Ordered No Hx Avail Special Indicators No Data to Display Home Meds Not Confirmed Prescription Monitoring Program Total 30 MME/Day Pending Discharge MEDICATIONS (INSTRUCTIONS) LAST TAKEN Active ??amlodipine 5 mg tablet ??See Rx Instructions.ROUTE.COMPLEX#180 tab amoxicillin-pot clavulanate [Augmentin] 1 tabPOBID#20 tab ??cholecalciferol (vitamin D3) [Vitamin D3] ??5,000 unitsPODAILY ??clonidine HCl 0.1 mg tablet ??0.1 mgPOBEDTIME#30 tab ??doxycycline hyclate 100 mg capsule ??100 mgPOBID#20 cap ??furosemide 40 mg tablet ??40 mgPODAILY#90 tab hydrocodone-acetaminophen 1 tabPOQ4-6HPRN#10 tab 30 MME/Day ??Kenalog 40 mg/mL suspension for injection ??40 mgINTRA-ARTICULARONCE#1 mlNS ??levothyroxine 175 mcg tablet ??See Rx Instructions.ROUTE.COMPLEX#90 tab ??meloxicam 15 mg tablet ??See Rx Instructions.ROUTE.COMPLEX#60 tab ??naproxen 500 mg tablet ??500 mgPOBIDPRN?tab On Hold ondansetron 4 mgPOTID-QIDPRN#10 tab ??potassium chloride 10 mEq capsule,extended release ??10 meqPODAILY#90 cap ??sertraline 100 mg tablet ??200 mgPODAILY#180 tab ??tramadol 50 mg tablet ??See Rx Instructions.ROUTE.COMPLEX#20 tab 0 MME/Day Allergies iodine to contrast dye-congestion, hives lisinopril COUGH shellfish derived buspirone felt spaced out bupropion (From Wellbutrin) Weird feeling Problems External Data Available ? ONSET Acute left lower quadrant pain Breast cancer screening Axillary mass Rash URI (upper respiratory infection) Abscess Osteoarthritis of right knee Osteoarthritis of left knee Retina disorder, left BMI 50.0-59.9, adult Left hip pain Patellar tendinitis Vitamin D deficiency Fasting hyperglycemia Elevated CO2 level Pathologic ice eating Paroxysmal A-fib Non-compliant behavior Hypothyroidism Hypertension Depression Anxiety Colitis Diverticulitis large intestine Morbid obesity with body mass index (BMI) of 40.0 to 44.9 in adult 08/08/11 Vital Signs Today 20:42 BP 197/83?H Pulse 80? Resp 14? O2 Sat 99? Delivery Nasal Cannula? Flow Rate 2 L/min? Diagnostics Reports Jacinda Madrid??60??F??1960 ? Allergy/Adv: iodine, lisinopril, shellfish derived, buspirone, bupropion (More??) Close Abdomen/Pelvis CT (Signed) Mary Chavez - 03/12/21 Mammogram Diagnostic (Signed) Dean Fernando - 12/10/20 Axilla US (Signed) Dean Fernando - 12/10/20 Abdomen/Pelvis CT (Signed) Giovanni Stanton - 10/10/20 Knee X-Ray (Signed) Mesfin To - 06/18/20 Knee X-Ray (Signed) Mesfin To - 06/18/20 Hip MRI (Signed) Mesfin To - 04/06/20 Hip X-Ray (Signed) Kelsey Espinal - 03/26/20 Hip X-Ray (Signed) Thompson Nguyen - 10/08/19 Knee X-Ray (Signed) Thompson Nguyen - 08/05/19 Chest X-Ray (Signed) Jono Mata - 11/29/18 DI Result CC 08/07/18 Chest X-Ray (Signed) Ignacio Gaming - 06/10/18 Chest X-Ray (Signed) AmberlyGabe rossjeevan - 05/09/18 Radiology - Historical 10/01/16 Launch?Image [address] [address] [address] Scan Report Signed Patient: Jacinda Madrid MR#: [id number] : 1960 Acct:[id number] Age/Sex: 60 / F Date of Service: 03/12/21 Loc: ED Accession Number: [id number] ?? Procedure: CT kidney ureter bladder (KUB) Ordering Provider: José Antonio Ferrera D.O. PROCEDURE:? CT KIDNEY URETER BLADDER (KUB) ? INDICATIONS:? severe LLQ pain ? TECHNIQUE:? Axial sections were acquired from the lung bases to the pubic symphysis.? Coronal and sagittal reformats were performed.? For radiation dose reduction, the following was used: ?automated exposure control, adjustment of mA and/or kV according to patient size.? ? COMPARISON:? [facility], CT, ABDOMEN/PELVIS WITHOUT CONTRAS, 10/01/2016, 16:55.? [facility], CT, CT ABDOMEN PELVIS WO CON, 10/10/2020, 16:46. ? FINDINGS:? Image quality:? Excellent.? ? Lung bases:? Unremarkable.? ? Heart:? No significant findings. ? URINARY: Right Kidney: ? No stones or hydronephrosis.? Right Ureter:? No hydroureter.? ? Left Kidney: ? No stones or hydronephrosis. Left Ureter:? No hydroureter.? ? Bladder:? Normal wall thickness. No stones. ? ? ? ABDOMEN: Liver:? Unremarkable.? ? Gallbladder:? Unremarkable.? ? Biliary ducts:? Unremarkable.? ? Pancreas:? Unremarkable.? ? Spleen:? Unremarkable.? ? Adrenal Glands:? 3.2 centimeter right adrenal nodule.? Nodule has density stephen surements of 27 Hounsfield units.? Adrenal nodule stable compared to prior exams. ? Stomach and Bowel:? Stomach, small bowel loops, and colon are unremarkable.? Appendix is normal.? Colonic diverticula without evidence of diverticulosis. Peritoneum:? No abnormal intraperitoneal fluid.? No free air.? ? Ventral Wall: ? Fat containing periumbilical hernia. Abdominal Nodes:? No enlarged retroperitoneal or mesenteric lymph nodes.? Vessels:? Aorta and inferior vena cava are normal in size. Scattered a therosclerotic calcifications involving the abdominal and pelvic vasculature. ? PELVIS: Pelvic Organs:? Unremarkable.? ? Pelvic Nodes: Unremarkable. Miscellaneous: No inguinal hernias are seen. ? ? ? Bones:? Spine degenerative disc disease and facet arthropathy. ? IMPRESSION:? ? No renal stone or hydronephrosis. ? ? Dictated by: Mary Chavez MD, PhD on 03/12/2021 at 20:35 ? ? Approved by: Mary Chavez MD, PhD on 03/12/2021 at 20:40 ? MDM Narrative Medical decision making narrative: Multiple etiologies for patient's symptoms considered include, but not limited to: [Bowel obstruction versus kidney stone versus diverticulitis versus other Patient's symptoms improved over duration of stay with above-stated therapies. Findings and discharge diagnosis discussed with patient/family followed by verbalization of understanding Return precautions discussed with patient/family whom verbalize understanding. Pain has been well controlled and patient is tolerating oral hydration. Discharge Plan Departure Patient Disposition: Home Clinical Impression: Acute left lower quadrant pain Instructions: DI for Abdominal Pain-Adult Activity Restrictions/Additional Instructions: *You have been diagnosed with [acute left lower quadrant pain with very reassuring physical exam, labs and a CT scan which demonstrates no significant findings such as bowel obstruction, diverticulitis or kidney stone. Given your s ymptoms and your medical history we will treat you for possible early diverticulitis with antibiotics and pain medications. *What to do: *Please continue to take your regular medications as directed. [x ] New medication prescriptions sent to your pharmacy: [[facility] ] [ ] New medication written as a paper prescription [ ] No new medications given *Please follow up with your primary care provider in 2-3 days, call for an appointment. Let them know you were seen in the Emergency Department and that we ask that you be seen in follow up. We will electronically transmit a record of today's note if your PCP is in our system *If you do not have a primary care provider please contact the [facility] Resource line at [phone]. They will ask some questions about your medical history and help get you set up with a doctor in the community. *Return to Emergency Department if you should have any new, worsening or concerning symptoms, such as [fever greater than 101 F, shaking chills, worsening pain, persistent vomiting or other bothersome symptoms] You have been prescribed a short course of narcotic medications. These are potentially dangerous and addictive medications that should be used carefully. While on these medications you cannot drive or operate heavy machinery. Additionally, you cannot sign legal documents or perform any duties such as this. 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 Please understand that we cannot provide further refills of narcotics or controlled substances through the ED and your pain management will need to be through your Primary Care Provider Prescriptions: New hydrocodone-acetaminophen 5-325 mg tablet 1 tab PO Q4-6H PRN (Reason: pain) Qty: 10 RF: 0 ondansetron 4 mg tablet,disintegrating 4 mg PO TID-QID PRN (Reason: nausea and vomiting) Qty: 10 RF: 0 amoxicillin-pot clavulanate [Augmentin] 875-125 mg tablet 1 tab PO BID Qty: 20 RF: 0 No Action levothyroxine 175 mcg tablet See Rx Instructions .ROUTE .COMPLEX Qty: 90 RF: 2 doxycycline hyclate 100 mg capsule 100 mg PO BID Qty: 20 RF: 0 amlodipine 5 mg tablet See Rx Instructions .ROUTE .COMPLEX Qty: 180 RF: 0 meloxicam 15 mg tablet See Rx Instructions .ROUTE .COMPLEX Qty: 60 RF: 0 tramadol 50 mg tablet See Rx Instructions .ROUTE .COMPLEX Qty: 20 RF: 0 naproxen [Naprosyn] 500 mg tablet 500 mg PO BID PRN (Reason: Pain (Scale Score 7-10)) RF: 0 Hold Instructions: hold while on mobic triamcinolone acetonide [Kenalog] 40 mg/mL suspension 40 mg intra-articular ONCE Qty: 1 RF: 0 potassium chloride 10 mEq capsule, extended release 10 meq PO DAILY Qty: 90 RF: 1 clonidine HCl 0.1 mg tablet 0.1 mg PO BEDTIME Qty: 30 RF: 0 furosemide 40 mg tablet 40 mg PO DAILY Qty: 90 RF: 1 sertraline 100 mg tablet 200 mg PO DAILY Qty: 180 RF: 3 cholecalciferol (vitamin D3) [Vitamin D3] 5,000 unit Tablet 5,000 units PO DAILY RF: 0 Referrals: Flaquito Yee MD [Primary Care Provider] -
--- NOTE | 2021-03-12 19:57 | DI.CT.S_ITS ---
PROCEDURE: CT KIDNEY URETER BLADDER (KUB) INDICATIONS: severe LLQ pain TECHNIQUE: Axial sections were acquired from the lung bases to the pubic symphysis. Coronal and sagittal reformats were performed. For radiation dose reduction, the following was used: automated exposure control, adjustment of mA and/or kV according to patient size. COMPARISON: [facility], CT, ABDOMEN/PELVIS WITHOUT CONTRAS, 10/01/2016, 16:55. [facility], CT, CT ABDOMEN PELVIS WO CON, 10/10/2020, 16:46. FINDINGS: Image quality: Excellent. Lung bases: Unremarkable. Heart: No significant findings. URINARY: Right Kidney: No stones or hydronephrosis. Right Ureter: No hydroureter. Left Kidney: No stones or hydronephrosis. Left Ureter: No hydroureter. Bladder: Normal wall thickness. No stones. ABDOMEN: Liver: Unremarkable. Gallbladder: Unremarkable. Biliary ducts: Unremarkable. Pancreas: Unremarkable. Spleen: Unremarkable. Adrenal Glands: 3.2 centimeter right adrenal nodule. Nodule has density measurements of 27 Hounsfield units. Adrenal nodule stable compared to prior exams. Stomach and Bowel: Stomach, small bowel loops, and colon are unremarkable. Appendix is normal. Colonic diverticula without evidence of diverticulosis. Peritoneum: No abnormal intraperitoneal fluid. No free air. Ventral Wall: Fat containing periumbilical hernia. Abdominal Nodes: No enlarged retroperitoneal or mesenteric lymph nodes. Vessels: Aorta and inferior vena cava are normal in size. Scattered atherosclerotic calcifications involving the abdominal and pelvic vasculature. PELVIS: Pelvic Organs: Unremarkable. Pelvic Nodes: Unremarkable. Miscellaneous: No inguinal hernias are seen. Bones: Spine degenerative disc disease and facet arthropathy. IMPRESSION: No renal stone or hydronephrosis. Dictated by: Mary Chavez MD, PhD on 03/12/2021 at 20:35 Approved by: Mary Chavez MD, PhD on 03/12/2021 at 20:40
[2021-03-12] MEDS: LACTATED RINGERS 1,000 ML 1000 ML IV (20:08)
[2021-03-12 20:11] LABS: Add Manual Diff / Slide Review NO; Basophils Absolute Auto 0 /uL (0-100); Basophils Percent Auto 0.2 % (0-2); Eosinophils Absolute Auto 300 /uL (0-450); Hematocrit 32.6 % (36-46); Hemoglobin 10.4 g/dL (12.0-16.0); Lymphocytes Absolute Auto 1800 /uL (1100-4500); Lymphocytes Percent Auto 18.6 % (25-40); Mean Corpuscular HGB Conc 31.8 % (30-36); Mean Corpuscular Hemoglobin 21.8 PG (26-34); Mean Corpuscular Volume 68.6 fL (80-100); Monocytes Absolute Auto 900 /uL (0-900); Monocytes Percent Auto 9.9 % (3-14); Neutrophils Absolute Auto 6500 /uL (1500-7000); Neutrophils Percent Auto 68.3 % (50-75); Platelet Count 417 X10^3/uL (150-400); Red Blood Cell Count 4.76 X10^6/uL (4.0-5.2); Red Cell Distribution Width 19.8 % (11.6-14.8); White Blood Cell Count 9.6 X10^3/uL (4.5-11.0)
[2021-03-12] MEDS: HYDROMORPHONE 0.5 MG INJ IV (20:11)
[2021-03-12 20:21] LABS: Alanine Aminotransferase 17 IU/L (<35); Albumin 4.3 g/dL (3.5-5.0); Alkaline Phosphatase 155 U/L (38-126); Aspartate Aminotransferase 25 IU/L (14-36); BUN Creatinine Ratio 21.5 (6-22); Bilirubin Total 0.5 mg/dL (0.2-1.3); Blood Urea Nitrogen 14 mg/dL (7-17); Calcium 9.1 mg/dL (8.4-10.2); Carbon Dioxide 34 mmol/L (22-32); Chloride 99 mmol/L (98-107); Estimated Glomerular Filt Rate > 60.0 mL/min (>60); Globulin 4.3 g/dL (1.7-4.1); Glucose 138 mg/dL (70-100); HEMOLYSIS < 15 (0-50); Lipase 69 U/L (23-300); Potassium 3.3 mmol/L (3.4-5.1); Sodium 139 mmol/L (137-145); Total Protein 8.6 g/dL (6.3-8.2)
[2021-03-12 20:24] LABS: Hypochromasia 1+; Microcytosis 1+
[2021-03-12] MEDS: ONDANSETRON 4 MG/2 ML INJ IV (20:27)
[2021-03-12] MEDS: ONDANSETRON 4 MG ODT PREPACK 1 BOTTLE MISC (22:54)
[2021-03-12] MEDS: HYDROCODONE/ACET 5/325 PREPACK 1 BOTTLE MISC (22:54)
== END 2021-03-12 23:03 | disposition home or self-care (01) ==
PROVIDERS: Emergency Provider Emergency Medicine; PCP Family Medicine
DX: R10.32 Left lower quadrant pain (principal)
CPT/HCPCS: 36415; 74176; 80053; 81003; 83690; 85025; 96361; 96374; 96375; 99285; J1170; J2405

== ENCOUNTER 2021-03-13 19:13 | Observation (INO) | payer OTHER, MEDICAID, SELFPAY ==
[2021-03-13] VITALS (8 sets, daily range): BP systolic 115–192; BP diastolic 71–90; PULSE 81–95; RESP 18–24; TEMP 36.5–36.9; O2SAT 87–99; BMI 48.0
[2021-03-13] MEDS: HYDROMORPHONE 0.5 MG INJ IV (19:28)
[2021-03-13] MEDS: SODIUM CHLORIDE 0.9% 1,000 ML 1000 ML IV (19:28)
[2021-03-13] MEDS: methylPREDNISolone 125 MG/2 ML VIAL IV (19:28)
[2021-03-13] MEDS: diphenhydrAMINE 50 MG/ML VIAL 25 MG IV (19:28)
[2021-03-13] MEDS: FAMOTIDINE 20 MG/2 ML VIAL IV (19:29)
[2021-03-13] MEDS: ONDANSETRON 4 MG/2 ML INJ IV (19:29)
[2021-03-13 19:36] LABS: Add Manual Diff / Slide Review NO; Basophils Absolute Auto 0 /uL (0-100); Basophils Percent Auto 0.4 % (0-2); Eosinophils Absolute Auto 200 /uL (0-450); Eosinophils Percent Auto 2.5 % (2-4); Hematocrit 32.9 % (36-46); Hemoglobin 10.2 g/dL (12.0-16.0); Lymphocytes Absolute Auto 1500 /uL (1100-4500); Lymphocytes Percent Auto 17.8 % (25-40); Mean Corpuscular HGB Conc 31.1 % (30-36); Mean Corpuscular Hemoglobin 21.6 PG (26-34); Mean Corpuscular Volume 69.3 fL (80-100); Monocytes Absolute Auto 800 /uL (0-900); Monocytes Percent Auto 9.4 % (3-14); Neutrophils Absolute Auto 6000 /uL (1500-7000); Neutrophils Percent Auto 69.9 % (50-75); Platelet Count 401 X10^3/uL (150-400); Red Blood Cell Count 4.75 X10^6/uL (4.0-5.2); Red Cell Distribution Width 20.1 % (11.6-14.8); White Blood Cell Count 8.6 X10^3/uL (4.5-11.0)
[2021-03-13 19:44] LABS: Alanine Aminotransferase 19 IU/L (<35); Albumin 4.4 g/dL (3.5-5.0); Alkaline Phosphatase 177 U/L (38-126); Aspartate Aminotransferase 26 IU/L (14-36); BUN Creatinine Ratio 14.7 (6-22); Bilirubin Total 0.9 mg/dL (0.2-1.3); Blood Urea Nitrogen 11 mg/dL (7-17); Carbon Dioxide 31 mmol/L (22-32); Chloride 100 mmol/L (98-107); Estimated Glomerular Filt Rate > 60.0 mL/min (>60); Globulin 4.5 g/dL (1.7-4.1); Glucose 130 mg/dL (70-100); HEMOLYSIS < 15 (0-50); Lactate (Lactic Acid) 2.2 mmol/L (0.7-2.1); Potassium 3.4 mmol/L (3.4-5.1); Sodium 141 mmol/L (137-145); Total Protein 8.9 g/dL (6.3-8.2)
--- NOTE | 2021-03-13 19:56 | ED_ITS ---
HPI - Abdominal Pain General Chief Complaint: Abdominal Pain Stated Complaint: Abd. Pain Time Seen by Provider: 03/13/21 19:20 Source: patient Mode of arrival: EMS History of Present Illness HPI narrative: 60-year-old female nonsmoker with history of hypertension, elevated BMI, diverticulitis presents with a chief complaint of gradually wo rsening genralized abdominal pain. She was seen and evaluated yesterday and had a very reassuring exam including labs, response to medications and a CT without IV contrast which was ordered given her reported allergy to contrast. She was diagnosed with probable early diverticulitis and sent home with antibiotics, pain control and antiemetics. She took all the medications today as directed and as the day wore on her symptoms worsened. She took multiple doses of medications to help with her bowel movements and things seem to increase significantly after this point. She is a rather poor historian but suggest that her pain seems to be worse when she moves and improves with rest. She has had no fever or chills. She states that overall she feels much worse than yesterday and her pain is more significant and persistent. Related Data Home Medications Medication Instructions Recorded Confirmed cholecalciferol (vitamin D3) 125 5,000 units PO DAILY 05/09/18 11/24/20 mcg (5,000 unit) tablet (Vitamin D3) naproxen 500 mg tablet (Naprosyn) 500 mg PO BID PRN tab 10/08/19 11/24/20 Previous Rx's Medication Instructions Recorded potassium chloride 10 mEq 10 meq PO DAILY #90 cap 11/19/18 capsule,extended release clonidine HCl 0.1 mg tablet 0.1 mg PO BEDTIME #30 tab 03/26/20 furosemide 40 mg tablet 40 mg PO DAILY #90 tab 03/26/20 sertraline 100 mg tablet 200 mg PO DAILY #180 tab 03/26/20 levothyroxine 175 mcg tablet See Rx Instructions .ROUTE 11/03/20 .COMPLEX #90 tab doxycycline hyclate 100 mg capsule 100 mg PO BID #20 cap 12/13/20 amlodipine 5 mg tablet See Rx Instructions .ROUTE 12/27/20 .COMPLEX #180 tab meloxicam 15 mg tablet See Rx Instructions .ROUTE 02/15/21 .COMPLEX #60 tab tramadol 50 mg tablet See Rx Instructions .ROUTE 03/02/21 .COMPLEX #20 tab amoxicillin 875 mg-potassium 1 tab PO BID #20 tab 03/12/21 clavulanate 125 mg tablet (Augmentin) hydrocodone 5 mg-acetaminophen 325 1 tab PO Q4-6H PRN #10 tab 03/12/21 mg tablet ondansetron 4 mg disintegrating 4 mg PO TID-QID PRN #10 tab 03/12/21 tablet Allergies Allergy/AdvReac Type Severity Reaction Status Date / Time iodine Allergy Severe to Verified 03/13/21 19:19 contrast dye-congestion, hives lisinopril Allergy Unknown COUGH Verified 03/13/21 19:19 shellfish derived Allergy Unknown Verified 03/13/21 19:19 buspirone AdvReac Intermediate felt Verified 03/13/21 19:19 spaced out bupropion [From Wellbutrin] AdvReac Mild Weird Verified 03/13/21 19:19 feeling Review of Systems Review of Systems Narrative: GENERAL: Denies chills, fatigue, malaise, fever, sweats. HEENT: Denies sinus pain, ear pain, sore throat, difficulty swallowing, dizziness. RESPIRATORY: Denies dyspnea, cough, wheezing, hemoptysis, sputum. CARDIOVASCULAR: Denies chest pain, palpitations, orthopnea, edema, GASTROINTESTINAL: See HPI : Denies dysuria, frequency, incontinence, hematuria, urinary retention. MUSCULOSKELETAL: denies weakness, joint pain, or bony pain SKIN: Denies rash, skin lesions, or other NEUROLOGIC: Denies weakness, headache, numbness, change in speech, confusion, seizures, incoordination. PSYCHIATRIC: No concerning psychosocial issues. 12 point review of systems is negative except for those stated above Patient History Medical History Abscess Anxiety BMI 50.0-59.9, adult Breast cancer screening Depression Diverticular disease Elevated CO2 level Fasting hyperglycemia GERD (gastroesophageal reflux disease) Hyperlipemia (~2010) Hypertension Hypothyroidism Left hip pain Mitral insufficiency Osteoarthritis of left knee Osteoarthritis of right knee Patellar tendinitis Retina disorder, left URI (upper respiratory infection) Vitamin D deficiency Surgical History History of back surgery (07/2015) History of thyroidectomy (1976) Family History Mother Age: 85 Hypertension Father No problems noted. Grandfather Cancer Grandmother No problems noted. Grandfather No problems noted. Grandmother Cancer Sister No problems noted. Social History Smoking Status: Never smoker alcohol intake: never substance use type: does not use Smoking Status: Never smoker alcohol intake frequency: 0-2 drinks per day Substance Use Type: does not use Exam Narrative Exam Narrative: GENERAL: [60 year old patient appears stated age. Well-developed patient, obviously in pain, clutching her lower abdomen HEAD: Atraumatic. Normocephalic. EYES: Pupils equal round and reactive. Extraocular motions intact. No scleral icterus. No injection or drainage. ENT: Nose without bleeding, purulent drainage. Throat without erythema, tonsillar hypertrophy or exudate. Airway patent. NECK: Trachea midline. Non tender CARDIOVASCULAR: Regular rate and rhythm without murmurs, gallops, or rubs. RESPIRATORY: Clear to auscultation. Breath sounds equal bilaterally. No wheezes, rales, or rhonchi. GASTROINTESTINAL: Abdomen soft, increased bowel sounds throughout, umbilical hernia present, unable to reduce but nontender without overlying erythema EXTREMITIES: No edema or joint tenderness. BACK: Nontender without deformity or crepitance. No flank tenderness. NEURO: AOx3. SKIN: No rash or erythema of visible areas Initial Vital Signs Initial Vital Signs: Vital Signs Temperature 97.7 F 03/13/21 19:19 Pulse Rate 95 H 03/13/21 19:19 Respiratory Rate 24 03/13/21 19:19 Blood Pressure 115/71 03/13/21 19:19 Pulse Oximetry 98 03/13/21 19:19 Course Course Course Narrative: Sepsis Guideline Compliance It is my opinion that the patient DOES in fact have a likely infectious etiology for meeting Sepsis Criteria. SIRS Criteria: [ 95] HR (1918), [ ] BP (time:), [24 ] RR (1918) , [ ] WBC (time:) Criteria for Severe Sepsis: [x ] Lactate > 2 (1924) [ ] BP < 90 [ ] Creat > 2.0 [ ] T. Bili > 2.0 [ ] No criteria for Severe Sepsis / Septic Shock in ED Time of Severe Sepsis / Septic Shock: [ 1925] Upon meeting sepsis criteria resuscitation according to Best Practice Statements and in accordance with this patient?s safety the following was initiated: Fluids: 30mL/kg of IV crystalloid fluid ordered to be given within the first 1 hour of meeting sepsis criteria. [ ] ABW used [x ] IBW (insert IBW) used due to BMI > 30 Antibiotics: IV antimicrobials be initiated as soon as possible after recognition and within 3 hours Orders Ordered: ED Orders 03/13/21 19:25 Complete Blood Count AUTO DIFF Stat Comprehensive Metabolic Panel Stat Lactate (Lactic Acid) Stat 03/13/21 19:57 CT abdomen pelvis w con Stat 03/13/21 21:13 COVID19 - ADMIT (COMPUTER ASSEMBLER swab/PCR) Stat Acetaminophen (Acetaminophen 325 Mg Tablet) 650 mg PO Q6HR PRN PRN Reason: Fever/Mild Pain (1-3) Al Hydrox/Mg Hydrox/Simethicone (Mag Hydrox/Alum/Simeth 30 Ml Udc) 30 ml PO Q6HR PRN PRN Reason: Dyspepsia Enoxaparin Sodium (Enoxaparin 40 Mg/0.4 Ml Syringe) 40 mg SUBCUT DAILY MELINDA Hydromorphone HCl (Hydromorphone 0.5 Mg Inj) 0.5 mg IV Q6H PRN PRN Reason: Pain, Moderate (4-6) Lactated Ringer's (Lactated Ringers) 1,641 mls @ 547 mls/hr 30 ml/kg infuse over 3 hr (1641 ml) IV NOW ONE Stop: 03/14/21 00:16 Last Admin: 03/13/21 21:45 Dose: 547 mls/hr Documented by: RLAZANI Piperacillin Sod/Tazobactam (Sod 3.375 gm/ Sodium Chloride) 100 mls @ 25 mls/hr IV Q8H MELINDA Magnesium Hydroxide (Magnesium Hydroxide 30 Ml Udc) 30 ml PO DAILY PRN PRN Reason: Constipation Naloxone HCl (Naloxone 0.4 Mg/Ml Vial) 0.2 mg IV Q2MIN PRN PRN Reason: Opiate Reversal Ondansetron HCl (Ondansetron 4 Mg/2 Ml Inj) 4 mg IV Q8HR PRN PRN Reason: Nausea And Vomiting Discontinued Medications Diphenhydramine HCl (Diphenhydramine 50 Mg/Ml Vial) 25 mg IV NOW ONE Stop: 03/13/21 19:13 Last Admin: 03/13/21 19:28 Dose: 25 mg Documented by: RUSTY Famotidine (Famotidine 20 Mg/2 Ml Vial) 20 mg IV NOW ONE Stop: 03/13/21 19:14 Last Admin: 03/13/21 19:29 Dose: 20 mg Documented by: RUSTY Hydromorphone HCl (Hydromorphone 0.5 Mg Inj) 0.5 mg IV NOW ONE Stop: 03/13/21 19:13 Last Admin: 03/13/21 19:28 Dose: 0.5 mg Documented by: RUSTY Sodium Chloride (Normal Saline 0.9%) 1,000 mls @ 1,000 mls/hr IV BOLUS ONE Stop: 03/13/21 20:11 Last Infusion: 03/13/21 21:38 Dose: 0 mls/hr Documented by: Admin: 03/13/21 19:28 Dose: 1,000 mls/hr Documented by: RUSTY Piperacillin Sod/Tazobactam (Sod 4.5 gm/ Sodium Chloride) 100 mls @ 200 mls/hr IV NOW ONE Stop: 03/13/21 21:18 Last Admin: 03/13/21 21:45 Dose: 200 mls/hr Documented by: RUSTY Methylprednisolone (Methylprednisolone 125 Mg/2 Ml Vial) 125 mg IV NOW ONE Stop: 03/13/21 19:13 Last Admin: 03/13/21 19:28 Dose: 125 mg Documented by: RUSTY Ondansetron HCl (Ondansetron 4 Mg/2 Ml Inj) 4 mg IV NOW ONE Stop: 03/13/21 19:13 Last Admin: 03/13/21 19:29 Dose: 4 mg Documented by: RUSTY Consultations Consultation #1: Call to General surgery upon receipt of CT scan. We sure opinion that patient will require hospitalization use of antibiotics, pain control NPO, fluids etc.. Though imaging mentions ischemic colitis in the differential this is unlikely given her lack of risk factors or pain out of proportion on exam. Furthermore, she does have a known umbilical hernia that I am unable to reduce but she does not have any significant pain in this location. Dr. Acosta happy to be involved in consultation, requested admission to hospitalist Vital Signs Vital signs: Vital Signs - 8 hr 03/13/21 19:19 03/13/21 19:31 03/13/21 20:00 Temperature 97.7 F Pulse Rate 95 H 85 Respiratory Rate 24 Blood Pressure 115/71 Pulse Oximetry 98 99 96 03/13/21 20:48 03/13/21 21:00 03/13/21 21:22 Temperature Pulse Rate 90 81 90 Respiratory Rate Blood Pressure 132/75 192/90 H Pulse Oximetry 87 L 94 91 MDM - Abdominal Pain Lab Data Result diagrams: 03/13/21 19:25 03/13/21 19:25 Labs: Lab Results 03/13/21 03/13/21 03/13/21 Range/Units 19:25 19:25 19:25 WBC 8.6 (4.5-11.0) X10^3/uL RBC 4.75 (4.0-5.2) X10^6/uL Hgb 10.2 L (12.0-16.0) g/dL Hct 32.9 L (36-46) % MCV 69.3 L (80-100) fL MCH 21.6 L (26-34) PG MCHC 31.1 (30-36) % RDW 20.1 H (11.6-14.8) % Plt Count 401 H (150-400) X10^3/uL Neut % (Auto) 69.9 (50-75) % Lymph % (Auto) 17.8 L (25-40) % [place] % (Auto) 9.4 (3-14) % Eos % (Auto) 2.5 (2-4) % Baso % (Auto) 0.4 (0-2) % Neut # (Auto) 6000 (8168-4393) /uL Lymph # (Auto) 1500 (2414-8584) /uL [place] # (Auto) 800 (0-900) /uL Eos # (Auto) 200 (0-450) /uL Baso # (Auto) 0 (0-100) /uL RBC Morphology See below Hypochromasia 1+ H Microcytosis 1+ H Sodium 141 (137-145) mmol/L Potassium 3.4 (3.4-5.1) mmol/L Chloride 100 (98-107) mmol/L Carbon Dioxide 31 (22-32) mmol/L BUN 11 (7-17) mg/dL Creatinine 0.75 (0.52-1.04) mg/dL Estimated GFR > 60.0 (>60) mL/min BUN/Creatinine Ratio 14.7 (6-22) Glucose 130 H (70-100) mg/dL Lactate 2.2 H (0.7-2.1) mmol/L Calcium 9.0 (8.4-10.2) mg/dL Total Bilirubin 0.9 (0.2-1.3) mg/dL GGT (12-43) U/L AST 26 (14-36) IU/L ALT 19 (<35) IU/L Alkaline Phosphatase 177 H (38-126) U/L Total Protein 8.9 H (6.3-8.2) g/dL Albumin 4.4 (3.5-5.0) g/dL Globulin 4.5 H (1.7-4.1) g/dL Albumin/Globulin Ratio 1.0 (1.0-2.8) Procalcitonin (<0.5) ng/mL SARS-CoV-2 (PCR) (Negative) 03/13/21 03/13/21 03/13/21 Range/Units 19:25 19:25 21:13 WBC (4.5-11.0) X10^3/uL RBC (4.0-5.2) X10^6/uL Hgb (12.0-16.0) g/dL Hct (36-46) % MCV (80-100) fL MCH (26-34) PG MCHC (30-36) % RDW (11.6-14.8) % Plt Count (150-400) X10^3/uL Neut % (Auto) (50-75) % Lymph % (Auto) (25-40) % [place] % (Auto) (3-14) % Eos % (Auto) (2-4) % Baso % (Auto) (0-2) % Neut # (Auto) (2704-5310) /uL Lymph # (Auto) (6010-1254) /uL [place] # (Auto) (0-900) /uL Eos # (Auto) (0-450) /uL Baso # (Auto) (0-100) /uL RBC Morphology Hypochromasia Microcytosis Sodium (137-145) mmol/L Potassium (3.4-5.1) mmol/L Chloride (98-107) mmol/L Carbon Dioxide (22-32) mmol/L BUN (7-17) mg/dL Creatinine (0.52-1.04) mg/dL Estimated GFR (>60) mL/min BUN/Creatinine Ratio (6-22) Glucose (70-100) mg/dL Lactate (0.7-2.1) mmol/L Calcium (8.4-10.2) mg/dL Total Bilirubin (0.2-1.3) mg/dL GGT 27 (12-43) U/L AST (14-36) IU/L ALT (<35) IU/L Alkaline Phosphatase (38-126) U/L Total Protein (6.3-8.2) g/dL Albumin (3.5-5.0) g/dL Globulin (1.7-4.1) g/dL Albumin/Globulin Ratio (1.0-2.8) Procalcitonin 0.04 (<0.5) ng/mL SARS-CoV-2 (PCR) Negative (Negative) 03/13/21 Range/Units 21:30 WBC (4.5-11.0) X10^3/uL RBC (4.0-5.2) X10^6/uL Hgb (12.0-16.0) g/dL Hct (36-46) % MCV (80-100) fL MCH (26-34) PG MCHC (30-36) % RDW (11.6-14.8) % Plt Count (150-400) X10^3/uL Neut % (Auto) (50-75) % Lymph % (Auto) (25-40) % [place] % (Auto) (3-14) % Eos % (Auto) (2-4) % Baso % (Auto) (0-2) % Neut # (Auto) (6515-0200) /uL Lymph # (Auto) (2354-5686) /uL [place] # (Auto) (0-900) /uL Eos # (Auto) (0-450) /uL Baso # (Auto) (0-100) /uL RBC Morphology Hypochromasia Microcytosis Sodium (137-145) mmol/L Potassium (3.4-5.1) mmol/L Chloride (98-107) mmol/L Carbon Dioxide (22-32) mmol/L BUN (7-17) mg/dL Creatinine (0.52-1.04) mg/dL Estimated GFR (>60) mL/min BUN/Creatinine Ratio (6-22) Glucose (70-100) mg/dL Lactate 0.9 (0.7-2.1) mmol/L Calcium (8.4-10.2) mg/dL Total Bilirubin (0.2-1.3) mg/dL GGT (12-43) U/L AST (14-36) IU/L ALT (<35) IU/L Alkaline Phosphatase (38-126) U/L Total Protein (6.3-8.2) g/dL Albumin (3.5-5.0) g/dL Globulin (1.7-4.1) g/dL Albumin/Globulin Ratio (1.0-2.8) Procalcitonin (<0.5) ng/mL SARS-CoV-2 (PCR) (Negative) Point of care testing: Urine Dip Bedside Urine Glucose Negative Bedside Urine Bilirubin - Negative Bedside Urine Ketone - Negative Urine Specific [place] 1.015 Bedside Urine Occult Blood - Negative Bedside Urine pH 7.5 Bedside Urine Protein - Negative Bedside Urine Urobilinogen - Negative Bedside Urine Nitrite - Negative Bedside Urine Leukocytes - Negative Esterase Imaging Data CT scan - abdomen/pelvis: Radiologist's Impression: Launch?[place] [address] CT Scan Report Signed Patient: Jacinda Madrid MR#: [id number] : 1960 Acct:[id number] Age/Sex: 60 / F Date of Service: 03/13/21 Loc: ED Accession Number: [id number] ?? Procedure: CT abdomen pelvis w con Ordering Provider: José Antonio Ferrera D.O. PROCEDURE:? CT ABDOMEN PELVIS W CON ? INDICATIONS:? significantly worse abdominal pain, N/V, elevated lactate ? TECHNIQUE:? After the administration of intravenous contrast, axial sections acquired from the lung bases to the pubic symphysis.? Coronal and sagittal reformats were performed.? For radiation dose reduction, the following was used:? automated exposure control, adjustment of mA and/or kV according to patient size.? ? COMPARISON:? [facility], CT, CT KIDNEY URETER BLADDER (KUB), 03/12/2021, 2 0:13. ? FINDINGS:? Image quality:? Excellent.? ? Lung bases:? Unremarkable. Heart:? No significant findings. ? ABDOMEN: Liver:? Unremarkable.? ? Gallbladder:? Unremarkable.? ? Biliary ducts:? Unremarkable.? ? Pancreas:? Unremarkable.? ? Spleen:? Unremarkable.? ? Adrenal Glands:? No change in 32 mm diameter right adrenal nodule. Kidneys and Ureters:? Unremarkable.? ? ? Stomach and Bowel:? Stomach is grossly unremarkable.? Multiple mildly thickened small bowel loops within the central and left hemiabdomen.? Normal appendix. Peritoneum:? No abnormal intraperitoneal fluid.? No free air.? ? Ventral Wall: ? No hernias.? Abdominal Nodes:? No retroperitoneal or mesenteric adenopathy by size criteria.? Multiple mildly prominent subcentimeter mesenteric lymph nodes. Vessels:? Aorta and inferior vena cava are normal in size.? ? PELVIS: Pelvic Organs:? Unremarkable.? ? Bladder:? Decompressed Pelvic Nodes: No enlarged lymph nodes.? Miscellaneous: No hernias are seen. ? ? ? Bones:? Unremarkable.? IMPRESSION:? 1. Thickened small bowel loops, consistent with ischemia, infection, or inflammation. 2. Mildly prominent mesenteric lymph nodes, consistent with reactive lymph node enlargement. 3. Normal appendix. 4. Right adrenal nodule, which could be further assessed with nonemergent outpatient follow-up adrenal protocol MRI, if clinically indicated.? ? Dictated by: Clarissa Silverman M.D. on 03/13/2021 at 20:56 ? ? Approved by: Clarissa Silverman M.D. on 03/13/2021 at 20:58 ? Discharge Plan Departure Patient Disposition: Admitted as Observation Clinical Impression: Enteritis Sepsis Qualifiers: Sepsis type: sepsis due to unspecified organism Sepsis acute organ dysfunction status: without acute organ dysfunction Qualified Code(s): A41.9 - Sepsis, unspecified organism Admit Date/Time: 03/13/21 21:35 Admit Provider: Soraya Samson
--- NOTE | 2021-03-13 19:57 | DI.CT.S_ITS ---
PROCEDURE: CT ABDOMEN PELVIS W CON INDICATIONS: significantly worse abdominal pain, N/V, elevated lactate TECHNIQUE: After the administration of intravenous contrast, axial sections acquired from the lung bases to the pubic symphysis. Coronal and sagittal reformats were performed. For radiation dose reduction, the following was used: automated exposure control, adjustment of mA and/or kV according to patient size. COMPARISON: [facility], CT, CT KIDNEY URETER BLADDER (KUB), 03/12/2021, 20:13. FINDINGS: Image quality: Excellent. Lung bases: Unremarkable. Heart: No significant findings. ABDOMEN: Liver: Unremarkable. Gallbladder: Unremarkable. Biliary ducts: Unremarkable. Pancreas: Unremarkable. Spleen: Unremarkable. Adrenal Glands: No change in 32 mm diameter right adrenal nodule. Kidneys and Ureters: Unremarkable. Stomach and Bowel: Stomach is grossly unremarkable. Multiple mildly thickened small bowel loops within the central and left hemiabdomen. Normal appendix. Peritoneum: No abnormal intraperitoneal fluid. No free air. Ventral Wall: No hernias. Abdominal Nodes: No retroperitoneal or mesenteric adenopathy by size criteria. Multiple mildly prominent subcentimeter mesenteric lymph nodes. Vessels: Aorta and inferior vena cava are normal in size. PELVIS: Pelvic Organs: Unremarkable. Bladder: Decompressed Pelvic Nodes: No enlarged lymph nodes. Miscellaneous: No hernias are seen. Bones: Unremarkable. IMPRESSION: 1. Thickened small bowel loops, consistent with ischemia, infection, or inflammation. 2. Mildly prominent mesenteric lymph nodes, consistent with reactive lymph node enlargement. 3. Normal appendix. 4. Right adrenal nodule, which could be further assessed with nonemergent outpatient follow-up adrenal protocol MRI, if clinically indicated. Dictated by: Clarissa Silverman M.D. on 03/13/2021 at 20:56 Approved by: Clarissa Silverman M.D. on 03/13/2021 at 20:58
[2021-03-13 20:57] LABS: Hypochromasia 1+; Microcytosis 1+
--- NOTE | 2021-03-13 21:18 | PC.NURSE ---
Paged Dr Acosta at [phone] He called back at [phone] Ferrera.
--- NOTE | 2021-03-13 21:22 | PC.NURSE ---
called Hospitalist Chapin [facility] for Admit
[2021-03-13 21:27] LABS: Reflexed Lactate in 2 Hours Y
[2021-03-13] MEDS: PIPERACILLIN/TAZO 4.5 GM in SODIUM CHLORIDE 0.9% 100 ML 200 ML IV (21:45)
[2021-03-13] MEDS: LACTATED RINGERS 547 ML IV (21:45)
[2021-03-13 21:53] LABS: Lactate 2HR (Lactic Acid Rflx) 0.9 mmol/L (0.7-2.1)
[2021-03-13 21:58] LABS: Gamma Glutamyl Transpeptidase 27 U/L (12-43)
--- NOTE | 2021-03-13 22:13 | P.HP_ITS ---
History of Present Illness History of Present Illness Date Patient Seen: 03/13/21 Time Patient Seen: 21:56 Chief complaint: Abd. Pain Narrative: Jacinda Madrid is a?60-year-old female nonsmoker with history of atrial fibrillation not on anticoagulation, CHF, hypertension, morbid obesity, hypothyroidism, hyperlipidemia, depression, GERD, and diverticulitis presents with a chief complaint of gradually worsening left lower quadrant pain over the course of the last 2 days.? Patient had presented to the ED yesterday with the onset of the pain and after imaging and workup she was prescribed Augmentin and went home returning today with worsening symptoms and nausea. She states her pain is worse with motion and improves with rest, radiates around to the left side of her back, constant, ache/throbing pain, that continues to increase in severity until medicated in ED.?She has had no vomiting.? She denies any trouble with urination such as frequency, urgency or dysuria.? No history of gallbladder appendix, or liver issues. Although patient notes that in October she had an episode of diverticulitis, and that her symptoms are similar. She denies any change in bowel habits such as constipation, diarrhea or melena. Patient denies chest pain, shortness of breath, recent illness injury or trauma. Patient denies travel, changes in diet, changes in medication, history of hepatitis, or UTI's. Patient does advise that she has atrial fibrillation persistent, but is not coagulated, and congestive heart failure. She notes that her bilateral lower extremity edema has been worsening and now goes all the way up to the upper legs which is been happening for approximately 1 month, a few days ago she increased her Lasix to 80 mg. Upon admit patient's abdominal pain is a 2/10, and unprovoked with physical exam post ED medication. Patient notes that her abdominal pain subsided following urination, antiemetic, and pain medication in ED. Currently patient does not have any nausea, she denies acid reflux symptoms recently. The patient does note over the past 2 days that she has been experiencing a fever of 99.5, nausea, body aches, feeling flushed, and chills. Patient had been noted to be severely hypertensive upon admit to the ED but has improved upon admit to the floor. Admitting blood pressure 115/71, HR 95, RR 24, O2 saturation 98% on room air. Patient has no WBC, HGB 10.2, HCT 32.9, platelets 401. Patient's chemistries are all WNL as are liver enzymes with the exception of alk-phos 177. Patient's lactate is elevated at 2.2 meeting SIRs criteria for SEPSIS, SOFA score:0. Patient's abdomen pelvis CT demonstrated thickened small bowel loops, consistent with ischemia, infection, or inflammation, with mildly prominent mesenteric lymph nodes, consistent with reactive lymph node enlargement, and a normal appendix. Dr. Acosta consulted in ED reviewed chart and imaging, graciously advise he would consult if needed and recommended the patient be admitted for IV antibiotic fluid resuscitation and pain control. Patient admitted for sepsis without septic shock, lower left quadrant abdominal pain of unknown etiology. Patient History Medical History (Updated 03/14/21 @ 00:21 by QUEENIE Ghosh-REBECCA) Abscess Anxiety Atrial fibrillation, persistent BMI 50.0-59.9, adult Breast cancer screening CHF (congestive heart failure) Depression Diverticular disease Elevated CO2 level Fasting hyperglycemia GERD (gastroesophageal reflux disease) Hyperlipemia (~2010) Hypertension Hypothyroidism Left hip pain Mitral insufficiency Osteoarthritis of left knee Osteoarthritis of right knee Patellar tendinitis Retina disorder, left URI (upper respiratory infection) Vitamin D deficiency Surgical History History of back surgery (07/2015) History of thyroidectomy (1976) Family & Social History Family History Mother Age: 85 Hypertension Father No problems noted. Grandfather Cancer Grandmother No problems noted. Grandfather No problems noted. Grandmother Cancer Sister No problems noted. Safety & Behavioral: Feels Safe in Current Yes Environment Been Physically Hurt or No Threatened By a Person Tobacco & Substance use: Smoking Status Never smoker alcohol intake never alcohol intake frequency 0-2 drinks per day Substance Use Type does not use Meds Home Medications and Allergies Home Medications Medication Instructions Recorded Confirmed Type cholecalciferol (vitamin D3) 125 5,000 units PO DAILY 05/09/18 03/14/21 History mcg (5,000 unit) tablet (Vitamin D3) potassium chloride 10 mEq 10 meq PO DAILY #90 cap 11/19/18 03/14/21 Rx capsule,extended release naproxen 500 mg tablet (Naprosyn) 500 mg PO BID PRN tab 10/08/19 03/14/21 History amoxicillin 875 mg-potassium 1 tab PO BID #20 tab 03/12/21 03/14/21 Rx clavulanate 125 mg tablet (Augmentin) ondansetron 4 mg disintegrating 4 mg PO TID-QID PRN #10 tab 03/12/21 03/14/21 Rx tablet amlodipine 5 mg tablet 1 mg PO BID 03/14/21 03/14/21 History furosemide 40 mg tablet 40 mg PO BID 03/14/21 03/14/21 History levothyroxine 175 mcg tablet 175 mcg PO BID 03/14/21 03/14/21 History meloxicam 15 mg tablet See Rx Instructions .ROUTE 03/14/21 03/14/21 History .COMPLEX PRN sertraline 100 mg tablet 150 mg PO DAILY 03/14/21 03/14/21 History tramadol 50 mg tablet See Rx Instructions .ROUTE 03/14/21 03/14/21 History .COMPLEX PRN Allergies Allergy/AdvReac Type Severity Reaction Status Date / Time iodine Allergy Severe to Verified 03/13/21 19:19 contrast dye-congestion, hives lisinopril Allergy Unknown COUGH Verified 03/13/21 19:19 shellfish derived Allergy Unknown Verified 03/13/21 19:19 buspirone AdvReac Intermediate felt Verified 03/13/21 19:19 spaced out bupropion [From Wellbutrin] AdvReac Mild Weird Verified 03/13/21 19:19 feeling Review of Systems Review of Systems Narrative: All 12 point systems reviewed with the patient and are negative except otherwise documented. Exam Vital Signs (past 8 hours): - 03/13/21 19:19 03/13/21 19:31 03/13/21 20:00 Temperature 97.7 F Pulse Rate 95 H 85 Respiratory Rate 24 Blood Pressure 115/71 Pulse Oximetry 98 99 96 03/13/21 20:48 03/13/21 21:00 03/13/21 21:22 Temperature Pulse Rate 90 81 90 Respiratory Rate Blood Pressure 132/75 192/90 H Pulse Oximetry 87 L 94 91 Oxygen Delivery Method Room Air Narrative Exam Narrative: General: Patient is a well-developed, well-nourished delightful morbidly obese female, in no distress at this time. HEENT: Normocephalic, atraumatic, extraocular muscles intact, oral pharynx is clear and mucous membranes are moist. Neck is supple and symmetric, trachea is midline, no adenopathy, no thyroid enlargement, nontender, no masses palpated. Negative for JVD Chest: Normal AP diameter and contour without kyphoscoliosis, no nasal flaring, retractions, or tachypneic labored Lungs: Auscultation of all lung eubanks are clear without adventitious sounds, wheezes, rhonchi, or rales. Cardio: Irregular rate and rhythm without murmur, rubs, or gallops, no carotid bruit, no cardiac pulsations present. Abdomen: Soft nontender, unable to palpate for organomegaly, or masses due to body Habitus. Negative McBurney's, Rovsing, psoas, and Oburator, Patient did have mild pain with OBurator ROM of the left leg in the lower left abd, but not in the right (negative for appendicitis), bowel sounds hyperactive are present in all 4 quadrants without guarding or rebound, no CVA tenderness.-pt was given pain medication in ED. Musculoskeletal: Muscle strength and tone are equal within normal limits, no deformity, crepitus, effusions, cyanosis, or clubbing present. Full range of motion intact radial and pedal pulses are normal. Bilateral whole leg edema non pitting +2. Skin: Warm dry and intact without rashes, ulcerations or petechiae. Neuro: Alert and orientated x3, strength is +5/5 in all extremities, sensation to touch intact, no gross deficits noted of cranial nerves. Psych: Patient has a well-kept appearance, appropriate affect, mental status attitude thought context and judgment are appropriate for age. Objective Labs Result Diagrams: 03/13/21 19:25 03/13/21 19:25 Labs: Laboratory Results - last 24 hr 03/13/21 03/13/21 03/13/21 19:25 19:25 19:25 WBC 8.6 RBC 4.75 Hgb 10.2 L Hct 32.9 L MCV 69.3 L MCH 21.6 L MCHC 31.1 RDW 20.1 H Plt Count 401 H Neut % (Auto) 69.9 Lymph % (Auto) 17.8 L [place] % (Auto) 9.4 Eos % (Auto) 2.5 Baso % (Auto) 0.4 Neut # (Auto) 6000 Lymph # (Auto) 1500 [place] # (Auto) 800 Eos # (Auto) 200 Baso # (Auto) 0 RBC Morphology See below Hypochromasia 1+ H Microcytosis 1+ H Sodium 141 Potassium 3.4 Chloride 100 Carbon Dioxide 31 BUN 11 Creatinine 0.75 Estimated GFR > 60.0 BUN/Creatinine Ratio 14.7 Glucose 130 H Lactate 2.2 H Calcium 9.0 Total Bilirubin 0.9 GGT AST 26 ALT 19 Alkaline Phosphatase 177 H Total Protein 8.9 H Albumin 4.4 Globulin 4.5 H Albumin/Globulin Ratio 1.0 03/13/21 03/13/21 19:25 21:30 WBC RBC Hgb Hct MCV MCH MCHC RDW Plt Count Neut % (Auto) Lymph % (Auto) [place] % (Auto) Eos % (Auto) Baso % (Auto) Neut # (Auto) Lymph # (Auto) [place] # (Auto) Eos # (Auto) Baso # (Auto) RBC Morphology Hypochromasia Microcytosis Sodium Potassium Chloride Carbon Dioxide BUN Creatinine Estimated GFR BUN/Creatinine Ratio Glucose Lactate 0.9 Calcium Total Bilirubin GGT 27 AST ALT Alkaline Phosphatase Total Protein Albumin Globulin Albumin/Globulin Ratio Assessment & Plan Assessment & Plan narrative: Jacinda Madrid is a?60-year-old female nonsmoker wi th history of atrial fibrillation not on anticoagulation, CHF, hypertension, morbid obesity, hypothyroidism, hyperlipidemia, depression, GERD, and diverticulitis presents with a chief complaint of gradually worsening left lower quadrant pain over the course of the last 2 days.? Patient had presented to the ED yesterday with the onset of the pain and after imaging and workup she was prescribed Augmentin and went home returning today with worsening symptoms and nausea. Patient admitted for sepsis without septic shock, lower left quadrant abdominal pain of unknown etiology. 1. Sepsis without septic shock or organ failure,acute, in association with lower left quadrant abdominal pain, acute onset, in the setting of recent diverticulitis, present on admission -SIRS: HR 95, RR 24, Lactate 2.2. no WBC, HGB 10.2, HCT 32.9, platelets 401, alk-phos 177, SOFA score:0. -ABD/Pelvis CT demonstrated thickened small bowel loops, consistent with ischemia, infection, or inflammation, with mildly prominent mesenteric lymph nodes, consistent with reactive lymph node enlargement, and a normal appendix. -ED Consult:Dr. Acosta consulted, reviewed chart and imaging, graciously advise he would consult if needed and recommended the patient be admitted for IV antibiotic fluid resuscitation and pain control. Patient admitted for sepsis without septic shock, lower left quadrant abdominal pain of unknown etiology. -Rule out cholecystitis, bile duct obstruction (cholelithiasis), cholangitis, cholestasis (extra hepatic obstruction or intrahepatic biliary obstruction), biliary colic, microscopic colitis, Ischemic colitis, infectious colitis. Elevated Alk phos w/normal LFT's can be hepatic in origin, r/o chronic cholestatic, infiltrate liver dz. -sepsis fluid resuscitation in ED per protocol-continue with normal saline at 100 cc/hour ( do to complatiability with IV antibiotics) -Zosyn started in ED, Zosyn q.8 hours until blood cultures back -Trend inflamatory markers -labs: trend inflammatory markers Blood culture and urine cultures pending, lipase amylase, procalcitonin, GGT, 5 nucleotidase, triglycerides, BNP. Am:CBC, BMP, Mag -patient NPO except for sips, ice chips, and medication. 2. Persistent chronic atrial fibrillation, in the setting of essential hypertension, hypertensive urgency, with congestive heart failure, acute on chronic, present on admission -patient placed on telemedicine -initial 210/88, 193/97, 182/97-upon admit 115/71 -continue patient's amlodipine, Holding Lasix/K+ evaluate fluid status in the am -patient's medications for blood pressure control may need to be augmented. 3. Hypothyroidism secondary to thyroidectomy, chronic, present on admission -continue patient's levothyroxine 4 Hyperlipidemia, chronic, not present on admission -patient does not require medication management 5. Depression, chronic, present on admission -continue patient's sertraline 6. Morbid obesity as evidence by BMI of 48.1, acute on chronic, present on admission -Consideration will be given for dietary counseling Code status:Full Surrogate decision maker: Brother Tanner Madrid COVID PCR:Negative COVID vaccination: Moderna 07/2020 DVT/VTE prophylaxis:[place] 40 & SCD Disposition: Patient admitted for observation expected length of stay less than 2 midnights I have utilized all available immediate resources to obtain, update, or review the patient's current medications. I confirmed that the patient's advanced care plan is present, Code status is documented and/or surrogate decision maker is listed in the patient's medical record. Time Spent With Patient Critical Care time: I spent a total of [] minutes of critical care time on this patient's care today; this time is exclusive of procedural time.
[2021-03-13 22:14] LABS: COVID19 - ADMIT (NP swab/PCR) Negative (Negative)
[2021-03-13 22:26] LABS: Procalcitonin 0.04 ng/mL (<0.5)
[2021-03-14] VITALS (13 sets, daily range): BP systolic 137–182; BP diastolic 77–104; PULSE 87–98; RESP 18; TEMP 36.6–36.8; O2SAT 93–96; BMI 48.0
[2021-03-14 00:32] LABS: Hemoglobin A1C% w Est Avg Glu 5.9 % (4.0-6.0)
[2021-03-14] MEDS: SODIUM CHLORIDE 0.9% 1,000 ML 100 ML IV ×2 (01:57→18:22)
[2021-03-14] MEDS: AMLODIPINE 5 MG TABLET PO ×3 (01:57→22:08)
[2021-03-14 02:11] LABS: Appearance Urine UA CLEAR; Bilirubin Urine UA NEGATIVE (NEGATIVE); Color Urine UA YELLOW; Glucose Urine UA NEGATIVE (Negative); Ketones Urine UA TRACE (NEGATIVE); Leukocyte Esterase Urine UA NEGATIVE (NEGATIVE); Nitrite Urine UA NEGATIVE (Negative); Occult Blood Urine UA TRACE-LYSED (Negative); Protein Urine UA NEGATIVE (Negative); Urobilinogen Urine UA 0.2 E.U./dL (0.2)
[2021-03-14 02:30] LABS: Bacteria Urine None Seen; Culture Indicated Urine Cult Not Indicated; RBC Urine 0-1/HPF (0-5/HPF); Squamous Epithelial Cell Urine 0-1 /HPF (0-5/HPF); WBC Urine 0-1/HPF (0-5/HPF)
[2021-03-14] MEDS: LEVOTHYROXINE 100 MCG TABLET PO (05:27)
[2021-03-14] MEDS: PIPERACILLIN/TAZO 3.375 GM in SODIUM CHLORIDE 0.9% 100 ML 25 ML IV ×3 (05:27→22:09)
[2021-03-14] MEDS: LEVOTHYROXINE 75 MCG TABLET PO (05:27)
[2021-03-14 05:51] LABS: Add Manual Diff / Slide Review SLIDE REVIEW; Basophils Absolute Auto 0 /uL (0-100); Basophils Percent Auto 0.1 % (0-2); Eosinophils Absolute Auto 0 /uL (0-450); Hematocrit 31.5 % (36-46); Hemoglobin 9.9 g/dL (12.0-16.0); Lymphocytes Absolute Auto 500 /uL (1100-4500); Lymphocytes Percent Auto 5.8 % (25-40); Mean Corpuscular HGB Conc 31.3 % (30-36); Mean Corpuscular Hemoglobin 21.8 PG (26-34); Mean Corpuscular Volume 69.7 fL (80-100); Monocytes Absolute Auto 100 /uL (0-900); Monocytes Percent Auto 1.2 % (3-14); Neutrophils Absolute Auto 8700 /uL (1500-7000); Neutrophils Percent Auto 92.9 % (50-75); Platelet Count 358 X10^3/uL (150-400); Red Blood Cell Count 4.52 X10^6/uL (4.0-5.2); Red Cell Distribution Width 20.4 % (11.6-14.8); White Blood Cell Count 9.4 X10^3/uL (4.5-11.0)
[2021-03-14 05:53] LABS: C-Reactive Protein Quant 4.3 mg/dL (<1.0)
[2021-03-14 06:07] LABS: Amylase 42 U/L (30-110); Lipase 26 U/L (23-300); Procalcitonin 0.05 ng/mL (<0.5); Triglycerides 61 mg/dL (35-150)
[2021-03-14 06:08] LABS: BUN Creatinine Ratio 14.8 (6-22); Blood Urea Nitrogen 9 mg/dL (7-17); Calcium 8.4 mg/dL (8.4-10.2); Carbon Dioxide 31 mmol/L (22-32); Chloride 102 mmol/L (98-107); Estimated Glomerular Filt Rate > 60.0 mL/min (>60); Glucose 189 mg/dL (70-100); HEMOLYSIS < 15 (0-50); Potassium 3.4 mmol/L (3.4-5.1); Sodium 138 mmol/L (137-145)
[2021-03-14 06:17] LABS: NT-proBNP (BNP-Adult 18+) 1000 pg/mL (<125)
[2021-03-14 06:33] LABS: TSH w/ Reflex to FT4 1.05 uIU/mL (0.47-4.68)
[2021-03-14 06:50] LABS: Anisocytosis 2+; Hypochromasia 1+; Microcytosis 1+
--- NOTE | 2021-03-14 07:30 | P.CONS_ITS ---
History of Present Illness Consult details Date Patient Seen: 03/14/21 Time Patient Seen: 07:30 Chief complaint: Abd. Pain Narrative: This is a 60-year-old woman who is admitted to the medical service for acute abdominal pain. She had generalized abdominal pain yesterday no nausea vomiting or diarrhea feels bloated. No blood per rectum. Workup and demonstrates no leukocytosis however neutrophils 93% normal LFTs and procalcitonin. CT abdomen pelvis demonstrates mesenteric adenopathy and thickening and dilation of the small bowel no obstruction. This morning she feels significantly better and has resolution of abdominal pain. Meds Home Medications and Allergies Home Medications Medication Instructions Recorded Confirmed Type cholecalciferol (vitamin D3) 125 5,000 units PO DAILY 05/09/18 03/14/21 History mcg (5,000 unit) tablet (Vitamin D3) potassium chloride 10 mEq 10 meq PO DAILY #90 cap 11/19/18 03/14/21 Rx capsule,extended release naproxen 500 mg tablet (Naprosyn) 500 mg PO BID PRN tab 10/08/19 03/14/21 History amoxicillin 875 mg-potassium 1 tab PO BID #20 tab 03/12/21 03/14/21 Rx clavulanate 125 mg tablet (Augmentin) ondansetron 4 mg disintegrating 4 mg PO TID-QID PRN #10 tab 03/12/21 03/14/21 Rx tablet amlodipine 5 mg tablet 1 mg PO BID 03/14/21 03/14/21 History furosemide 40 mg tablet 40 mg PO BID 03/14/21 03/14/21 History levothyroxine 175 mcg tablet 175 mcg PO QAM 03/14/21 03/14/21 History meloxicam 15 mg tablet See Rx Instructions .ROUTE 03/14/21 03/14/21 History .COMPLEX PRN sertraline 100 mg tablet 150 mg PO DAILY 03/14/21 03/14/21 History tramadol 50 mg tablet See Rx Instructions .ROUTE 03/14/21 03/14/21 History .COMPLEX PRN Allergies Allergy/AdvReac Type Severity Reaction Status Date / Time iodine Allergy Severe to Verified 03/13/21 19:19 contrast dye-congestion, hives lisinopril Allergy Unknown COUGH Verified 03/13/21 19:19 shellfish derived Allergy Unknown Verified 03/13/21 19:19 buspirone AdvReac Intermediate felt Verified 03/13/21 19:19 spaced out bupropion [From Wellbutrin] AdvReac Mild Weird Verified 03/13/21 19:19 feeling Exam Vital Signs (past 8 hours): - 03/14/21 00:15 03/14/21 01:13 03/14/21 01:44 Temperature 97.8 F Pulse Rate 89 Respiratory Rate 18 Blood Pressure 182/97 H Pulse Oximetry 94 95 95 03/14/21 03:33 03/14/21 05:00 03/14/21 05:30 Temperature 98.0 F Pulse Rate Respiratory Rate 18 Blood Pressure 145/99 H Pulse Oximetry 95 96 96 Oxygen Delivery Method Nasal Cannula Oxygen Flow Rate 2 Narrative Exam Narrative: Constitutional-She is oriented to person, place and time. No apparent distress Cardiovascular- regular rate,Mild peripheral edema Pulmonary-unlabored respiratory effort, no audible wheezing Abdominal-soft, non-tender, non-distended Musculoskeletal-no cyanosis or clubbing Neurological-nonfocal, normal strength throughout, Skin-warm and dry Objective Labs Result Diagrams: 03/14/21 05:15 03/14/21 05:15 Labs: Laboratory Results - last 24 hr 03/13/21 03/13/21 03/13/21 19:25 19:25 19:25 WBC 8.6 RBC 4.75 Hgb 10.2 L Hct 32.9 L MCV 69.3 L MCH 21.6 L MCHC 31.1 RDW 20.1 H Plt Count 401 H Neut % (Auto) 69.9 Lymph % (Auto) 17.8 L [place] % (Auto) 9.4 Eos % (Auto) 2.5 Baso % (Auto) 0.4 Neut # (Auto) 6000 Lymph # (Auto) 1500 [place] # (Auto) 800 Eos # (Auto) 200 Baso # (Auto) 0 RBC Morphology See below Hypochromasia 1+ H Anisocytosis Microcytosis 1+ H Sodium 141 Potassium 3.4 Chloride 100 Carbon Dioxide 31 BUN 11 Creatinine 0.75 Estimated GFR > 60.0 BUN/Creatinine Ratio 14.7 Glucose 130 H Hemoglobin A1c Lactate 2.2 H Calcium 9.0 Magnesium Total Bilirubin 0.9 GGT AST 26 ALT 19 Alkaline Phosphatase 177 H C-Reactive Protein NT-Pro-B Natriuret Pep Total Protein 8.9 H Albumin 4.4 Globulin 4.5 H Albumin/Globulin Ratio 1.0 Triglycerides Amylase Lipase Procalcitonin TSH Urine Color Urine Appearance Urine pH Ur Specific [place] Urine Protein Urine Glucose (UA) Urine Ketones Urine Occult Blood Urine Nitrate Urine Bilirubin Urine Urobilinogen Ur Leukocyte Esterase Urine RBC Urine WBC Ur Squamous Epith Cells Urine Bacteria Ur Culture Indicated? SARS-CoV-2 (PCR) 03/13/21 03/13/21 03/13/21 19:25 19:25 19:25 WBC RBC Hgb Hct MCV MCH MCHC RDW Plt Count Neut % (Auto) Lymph % (Auto) [place] % (Auto) Eos % (Auto) Baso % (Auto) Neut # (Auto) Lymph # (Auto) [place] # (Auto) Eos # (Auto) Baso # (Auto) RBC Morphology Hypochromasia Anisocytosis Microcytosis Sodium Potassium Chloride Carbon Dioxide BUN Creatinine Estimated GFR BUN/Creatinine Ratio Glucose Hemoglobin A1c 5.9 Lactate Calcium Magnesium Total Bilirubin GGT 27 AST ALT Alkaline Phosphatase C-Reactive Protein NT-Pro-B Natriuret Pep Total Protein Albumin Globulin Albumin/Globulin Ratio Triglycerides Amylase Lipase Procalcitonin 0.04 TSH Urine Color Urine Appearance Urine pH Ur Specific [place] Urine Protein Urine Glucose (UA) Urine Ketones Urine Occult Blood Urine Nitrate Urine Bilirubin Urine Urobilinogen Ur Leukocyte Esterase Urine RBC Urine WBC Ur Squamous Epith Cells Urine Bacteria Ur Culture Indicated? SARS-CoV-2 (PCR) 03/13/21 03/13/21 03/14/21 21:13 21:30 00:25 WBC RBC Hgb Hct MCV MCH MCHC RDW Plt Count Neut % (Auto) Lymph % (Auto) [place] % (Auto) Eos % (Auto) Baso % (Auto) Neut # (Auto) Lymph # (Auto) [place] # (Auto) Eos # (Auto) Baso # (Auto) RBC Morphology Hypochromasia Anisocytosis Microcytosis Sodium Potassium Chloride Carbon Dioxide BUN Creatinine Estimated GFR BUN/Creatinine Ratio Glucose Hemoglobin A1c Lactate 0.9 Calcium Magnesium Total Bilirubin GGT AST ALT Alkaline Phosphatase C-Reactive Protein NT-Pro-B Natriuret Pep Total Protein Albumin Globulin Albumin/Globulin Ratio Triglycerides Amylase Lipase Procalcitonin TSH Urine Color Yellow Urine Appearance Clear Urine pH 7.0 Ur Specific [place] 1.010 Urine Protein Negative Urine Glucose (UA) Negative Urine Ketones Trace H Urine Occult Blood Trace-lysed Urine Nitrate Negative Urine Bilirubin Negative Urine Urobilinogen 0.2 Ur Leukocyte Esterase Negative Urine RBC 0-1/hpf Urine WBC 0-1/hpf Ur Squamous Epith Cells 0-1 /hpf Urine Bacteria None seen Ur Culture Indicated? Cult not indicated SARS-CoV-2 (PCR) Negative 03/14/21 03/14/21 03/14/21 05:15 05:15 05:15 WBC 9.4 RBC 4.52 Hgb 9.9 L Hct 31.5 L MCV 69.7 L MCH 21.8 L MCHC 31.3 RDW 20.4 H Plt Count 358 Neut % (Auto) 92.9 H D Lymph % (Auto) 5.8 L [place] % (Auto) 1.2 L Eos % (Auto) 0.0 L Baso % (Auto) 0.1 Neut # (Auto) 8700 H Lymph # (Auto) 500 L [place] # (Auto) 100 Eos # (Auto) 0 Baso # (Auto) 0 RBC Morphology See below Hypochromasia 1+ H Anisocytosis 2+ H Microcytosis 1+ H Sodium 138 Potassium 3.4 Chloride 102 Carbon Dioxide 31 BUN 9 Creatinine 0.61 Estimated GFR > 60.0 BUN/Creatinine Ratio 14.8 Glucose 189 H Hemoglobin A1c Lactate Calcium 8.4 Magnesium 2.0 Total Bilirubin GGT AST ALT Alkaline Phosphatase C-Reactive Protein NT-Pro-B Natriuret Pep 1000 H Total Protein Albumin Globulin Albumin/Globulin Ratio Triglycerides Amylase Lipase Procalcitonin TSH Urine Color Urine Appearance Urine pH Ur Specific [place] Urine Protein Urine Glucose (UA) Urine Ketones Urine Occult Blood Urine Nitrate Urine Bilirubin Urine Urobilinogen Ur Leukocyte Esterase Urine RBC Urine WBC Ur Squamous Epith Cells Urine Bacteria Ur Culture Indicated? SARS-CoV-2 (PCR) 03/14/21 03/14/21 03/14/21 05:15 05:15 05:15 WBC RBC Hgb Hct MCV MCH MCHC RDW Plt Count Neut % (Auto) Lymph % (Auto) [place] % (Auto) Eos % (Auto) Baso % (Auto) Neut # (Auto) Lymph # (Auto) [place] # (Auto) Eos # (Auto) Baso # (Auto) RBC Morphology Hypochromasia Anisocytosis Microcytosis Sodium Potassium Chloride Carbon Dioxide BUN Creatinine Estimated GFR BUN/Creatinine Ratio Glucose Hemoglobin A1c Lactate Calcium Magnesium Total Bilirubin GGT AST ALT Alkaline Phosphatase C-Reactive Protein 4.3 H NT-Pro-B Natriuret Pep Total Protein Albumin Globulin Albumin/Globulin Ratio Triglycerides 61 Amylase 42 Lipase 26 D Procalcitonin 0.05 TSH Urine Color Urine Appearance Urine pH Ur Specific [place] Urine Protein Urine Glucose (UA) Urine Ketones Urine Occult Blood Urine Nitrate Urine Bilirubin Urine Urobilinogen Ur Leukocyte Esterase Urine RBC Urine WBC Ur Squamous Epith Cells Urine Bacteria Ur Culture Indicated? SARS-CoV-2 (PCR) 03/14/21 05:15 WBC RBC Hgb Hct MCV MCH MCHC RDW Plt Count Neut % (Auto) Lymph % (Auto) [place] % (Auto) Eos % (Auto) Baso % (Auto) Neut # (Auto) Lymph # (Auto) [place] # (Auto) Eos # (Auto) Baso # (Auto) RBC Morphology Hypochromasia Anisocytosis Microcytosis Sodium Potassium Chloride Carbon Dioxide BUN Creatinine Estimated GFR BUN/Creatinine Ratio Glucose Hemoglobin A1c Lactate Calcium Magnesium Total Bilirubin GGT AST ALT Alkaline Phosphatase C-Reactive Protein NT-Pro-B Natriuret Pep Total Protein Albumin Globulin Albumin/Globulin Ratio Triglycerides Amylase Lipase Procalcitonin TSH 1.05 Urine Color Urine Appearance Urine pH Ur Specific [place] Urine Protein Urine Glucose (UA) Urine Ketones Urine Occult Blood Urine Nitrate Urine Bilirubin Urine Urobilinogen Ur Leukocyte Esterase Urine RBC Urine WBC Ur Squamous Epith Cells Urine Bacteria Ur Culture Indicated? SARS-CoV-2 (PCR) PFSH Medical History Abscess Anxiety Atrial fibrillation, persistent BMI 50.0-59.9, adult Breast cancer screening CHF (congestive heart failure) Depression Diverticular disease Elevated CO2 level Fasting hyperglycemia GERD (gastroesophageal reflux disease) Hyperlipemia (~2010) Hypertension Hypothyroidism Hypothyroidism Left hip pain Mitral insufficiency Osteoarthritis of left knee Osteoarthritis of right knee Patellar tendinitis Retina disorder, left URI (upper respiratory infection) Vitamin D deficiency Surgical History History of back surgery (07/2015) History of thyroidectomy (1976) Family History Mother Age: 85 Hypertension Father No problems noted. Grandfather Cancer Grandmother No problems noted. Grandfather No problems noted. Grandmother Cancer Sister No problems noted. Tobacco & Substance Use Smoking Status: Never smoker alcohol intake: never substance use type: does not use Assessment & Plan Assessment and plan (1) Enteritis: Status: Acute Assessment & Plan narrative: 60-year-old woman admitted to the hospital with acute abdominal pain and enteritis. I reviewed her laboratory studies and imaging. Labs fairly unremarkable. CT demonstrates mesenteric adenopathy and thickened and slightly dilated loops of small bowel. While it is possible that these findings represent mesenteric ischemia this is fairly unlikely given that she has no history of vascular disease/ischemia, nor would this causes mesenteric adenopathy. -Clear liquid diet advance as tolerated Time Spent With Patient Critical Care time: I spent a total of [] minutes of critical care time on this patient's care today; this time is exclusive of procedural time.
[2021-03-14] MEDS: ENOXAPARIN 40 MG/0.4 ML SYRINGE SUBCUT ×2 (09:45→22:08)
[2021-03-14] MEDS: SERTRALINE 50 MG TABLET 150 MG PO (09:45)
--- NOTE | 2021-03-14 12:35 | CM.DANOTE ---
DCP/Assessment: Reviewed chart. Patient is a 60yr old female admitted to [facility] with abdominal pain. PCP is Flaquito Yee. Primary payor is 1)[facility] Healthy Options 2)Medicaid. Met with patient explained CM/SW role. Patient alert and oriented resting in bed at time of visit. Patient reports that she resides alone in [place]. Patient indicates that she is completely I with all ADL's. Shiratent recently diagnosed with diverticulitis which is possibly related to abdominal pain. Patient septic upon admit. Currently patient being treated with IV abx. It is anticipated that patient will remain hospitalized for the next 24-48hrs on IV abx. Patient denies any d/c planning needs. CM team to continue to follow. P: Home when stable. KJS Discharge Planning/Care Management Advanced directive, confirm from FAMILY Start: 03/14/21 00:04 Freq: Q24H Status: Active Protocol: Document 03/14/21 00:04 AUGUST (Rec: 03/14/21 03:40 AUGUST [id number]) Advance Directive, confirm on record Time 01:04 Person contacted Jacinda Puristacy Copy received No CM Discharge Assessment Start: 03/14/21 12:32 Freq: Status: Active Protocol: Document 03/14/21 12:32 KJS (Rec: 03/14/21 12:35 KJS [id number]) Discharge Planning Assessment Assigned Showroom Salesperson MINA Rudolph Contact Information Tanner Madrid (brother) ph# [phone] Advance Directives? No Advance Directives on File No History Provided By Patient,Medical Record Prior Living Arrangements House Household Members none Type of transporation used prior to Drives own vehicle admit Independent with ADL's Yes Is patient alert and oriented? Yes Caregiver for Another No Barriers to Discharge No Discharge Plan Home Transportation Arrangement Patient plans to ask friend or call taxi for ride home. Whiteboard Updated in Patient Room with Yes name and ext. # of Showroom Salesperson Review Status In Process Next Review Type Continued Stay Review
[2021-03-14] MEDS: POTASSIUM CHLORIDE 20 MEQ TAB 40 MEQ PO (13:30)
--- NOTE | 2021-03-14 16:40 | PM.PN.1 ---
Subjective Subjective Date Patient Seen: 03/14/21 Interval history: 60-year-old female admitted to the hospital with acute left lower quadrant abdominal pain. She reports her abdominal pain improved significantly. However she did develop diarrhea. Stool culture and studies have been stent. Her diet was advanced from clear liquid to regular diet which she tolerated. Exam Vital Signs (past 8 hours): - 03/14/21 09:00 03/14/21 11:15 03/14/21 13:00 Temperature 97.8 F Pulse Rate 87 Pulse Rate [Orthostatic Lying] Pulse Rate [Orthostatic Sitting] Pulse Rate [Orthostatic Standing] Respiratory Rate 18 Blood Pressure 157/90 H Blood Pressure [Orthostatic Lying] Blood Pressure [Orthostatic Sitting] Blood Pressure [Orthostatic Standing] Pulse Oximetry 96 93 94 03/14/21 16:26 03/14/21 16:29 Temperature 98.3 F Pulse Rate 98 H Pulse Rate [Orthostatic Lying] 98 H Pulse Rate [Orthostatic Sitting] 98 H Pulse Rate [Orthostatic Standing] 92 H Respiratory Rate 18 Blood Pressure 167/77 H Blood Pressure [Orthostatic Lying] 167/77 H Blood Pressure [Orthostatic Sitting] 169/104 H Blood Pressure [Orthostatic Standing] 137/80 Pulse Oximetry 95 Oxygen Delivery Method Room Air Oxygen Flow Rate 0 Narrative Exam Narrative: Pleasant female lying in bed in no obvious distress Resp Other: Lungs clear to auscultation Cardio Other: Cardiac exam: irregularly irregular and rhythm normal S1-S2 GI Other: Abdomen soft and nontender, no rebound tenderness, no board-like rigidity Extrem Other: Extremities no edema Objective Labs Result Diagrams: 03/14/21 05:15 03/14/21 05:15 Labs: Laboratory Results - last 24 hr 03/13/21 03/13/21 03/13/21 19:25 19:25 19:25 WBC 8.6 RBC 4.75 Hgb 10.2 L Hct 32.9 L MCV 69.3 L MCH 21.6 L MCHC 31.1 RDW 20.1 H Plt Count 401 H Neut % (Auto) 69.9 Lymph % (Auto) 17.8 L [place] % (Auto) 9.4 Eos % (Auto) 2.5 Baso % (Auto) 0.4 Neut # (Auto) 6000 Lymph # (Auto) 1500 [place] # (Auto) 800 Eos # (Auto) 200 Baso # (Auto) 0 RBC Morphology See below Hypochromasia 1+ H Anisocytosis Microcytosis 1+ H Sodium 141 Potassium 3.4 Chloride 100 Carbon Dioxide 31 BUN 11 Creatinine 0.75 Estimated GFR > 60.0 BUN/Creatinine Ratio 14.7 Glucose 130 H Hemoglobin A1c Lactate 2.2 H Calcium 9.0 Magnesium Total Bilirubin 0.9 GGT AST 26 ALT 19 Alkaline Phosphatase 177 H C-Reactive Protein NT-Pro-B Natriuret Pep Total Protein 8.9 H Albumin 4.4 Globulin 4.5 H Albumin/Globulin Ratio 1.0 Triglycerides Amylase Lipase Procalcitonin TSH Urine Color Urine Appearance Urine pH Ur Specific [place] Urine Protein Urine Glucose (UA) Urine Ketones Urine Occult Blood Urine Nitrate Urine Bilirubin Urine Urobilinogen Ur Leukocyte Esterase Urine RBC Urine WBC Ur Squamous Epith Cells Urine Bacteria Ur Culture Indicated? SARS-CoV-2 (PCR) 03/13/21 03/13/21 03/13/21 19:25 19:25 19:25 WBC RBC Hgb Hct MCV MCH MCHC RDW Plt Count Neut % (Auto) Lymph % (Auto) [place] % (Auto) Eos % (Auto) Baso % (Auto) Neut # (Auto) Lymph # (Auto) [place] # (Auto) Eos # (Auto) Baso # (Auto) RBC Morphology Hypochromasia Anisocytosis Microcytosis Sodium Potassium Chloride Carbon Dioxide BUN Creatinine Estimated GFR BUN/Creatinine Ratio Glucose Hemoglobin A1c 5.9 Lactate Calcium Magnesium Total Bilirubin GGT 27 AST ALT Alkaline Phosphatase C-Reactive Protein NT-Pro-B Natriuret Pep Total Protein Albumin Globulin Albumin/Globulin Ratio Triglycerides Amylase Lipase Procalcitonin 0.04 TSH Urine Color Urine Appearance Urine pH Ur Specific [place] Urine Protein Urine Glucose (UA) Urine Ketones Urine Occult Blood Urine Nitrate Urine Bilirubin Urine Urobilinogen Ur Leukocyte Esterase Urine RBC Urine WBC Ur Squamous Epith Cells Urine Bacteria Ur Culture Indicated? SARS-CoV-2 (PCR) 03/13/21 03/13/21 03/14/21 21:13 21:30 00:25 WBC RBC Hgb Hct MCV MCH MCHC RDW Plt Count Neut % (Auto) Lymph % (Auto) [place] % (Auto) Eos % (Auto) Baso % (Auto) Neut # (Auto) Lymph # (Auto) [place] # (Auto) Eos # (Auto) Baso # (Auto) RBC Morphology Hypochromasia Anisocytosis Microcytosis Sodium Potassium Chloride Carbon Dioxide BUN Creatinine Estimated GFR BUN/Creatinine Ratio Glucose Hemoglobin A1c Lactate 0.9 Calcium Magnesium Total Bilirubin GGT AST ALT Alkaline Phosphatase C-Reactive Protein NT-Pro-B Natriuret Pep Total Protein Albumin Globulin Albumin/Globulin Ratio Triglycerides Amylase Lipase Procalcitonin TSH Urine Color Yellow Urine Appearance Clear Urine pH 7.0 Ur Specific [place] 1.010 Urine Protein Negative Urine Glucose (UA) Negative Urine Ketones Trace H Urine Occult Blood Trace-lysed Urine Nitrate Negative Urine Bilirubin Negative Urine Urobilinogen 0.2 Ur Leukocyte Esterase Negative Urine RBC 0-1/hpf Urine WBC 0-1/hpf Ur Squamous Epith Cells 0-1 /hpf Urine Bacteria None seen Ur Culture Indicated? Cult not indicated SARS-CoV-2 (PCR) Negative 03/14/21 03/14/21 03/14/21 05:15 05:15 05:15 WBC 9.4 RBC 4.52 Hgb 9.9 L Hct 31.5 L MCV 69.7 L MCH 21.8 L MCHC 31.3 RDW 20.4 H Plt Count 358 Neut % (Auto) 92.9 H D Lymph % (Auto) 5.8 L [place] % (Auto) 1.2 L Eos % (Auto) 0.0 L Baso % (Auto) 0.1 Neut # (Auto) 8700 H Lymph # (Auto) 500 L [place] # (Auto) 100 Eos # (Auto) 0 Baso # (Auto) 0 RBC Morphology See below Hypochromasia 1+ H Anisocytosis 2+ H Microcytosis 1+ H Sodium 138 Potassium 3.4 Chloride 102 Carbon Dioxide 31 BUN 9 Creatinine 0.61 Estimated GFR > 60.0 BUN/Creatinine Ratio 14.8 Glucose 189 H Hemoglobin A1c Lactate Calcium 8.4 Magnesium 2.0 Total Bilirubin GGT AST ALT Alkaline Phosphatase C-Reactive Protein NT-Pro-B Natriuret Pep 1000 H Total Protein Albumin Globulin Albumin/Globulin Ratio Triglycerides Amylase Lipase Procalcitonin TSH Urine Color Urine Appearance Urine pH Ur Specific [place] Urine Protein Urine Glucose (UA) Urine Ketones Urine Occult Blood Urine Nitrate Urine Bilirubin Urine Urobilinogen Ur Leukocyte Esterase Urine RBC Urine WBC Ur Squamous Epith Cells Urine Bacteria Ur Culture Indicated? SARS-CoV-2 (PCR) 03/14/21 03/14/21 03/14/21 05:15 05:15 05:15 WBC RBC Hgb Hct MCV MCH MCHC RDW Plt Count Neut % (Auto) Lymph % (Auto) [place] % (Auto) Eos % (Auto) Baso % (Auto) Neut # (Auto) Lymph # (Auto) [place] # (Auto) Eos # (Auto) Baso # (Auto) RBC Morphology Hypochromasia Anisocytosis Microcytosis Sodium Potassium Chloride Carbon Dioxide BUN Creatinine Estimated GFR BUN/Creatinine Ratio Glucose Hemoglobin A1c Lactate Calcium Magnesium Total Bilirubin GGT AST ALT Alkaline Phosphatase C-Reactive Protein 4.3 H NT-Pro-B Natriuret Pep Total Protein Albumin Globulin Albumin/Globulin Ratio Triglycerides 61 Amylase 42 Lipase 26 D Procalcitonin 0.05 TSH Urine Color Urine Appearance Urine pH Ur Specific [place] Urine Protein Urine Glucose (UA) Urine Ketones Urine Occult Blood Urine Nitrate Urine Bilirubin Urine Urobilinogen Ur Leukocyte Esterase Urine RBC Urine WBC Ur Squamous Epith Cells Urine Bacteria Ur Culture Indicated? SARS-CoV-2 (PCR) 03/14/21 05:15 WBC RBC Hgb Hct MCV MCH MCHC RDW Plt Count Neut % (Auto) Lymph % (Auto) [place] % (Auto) Eos % (Auto) Baso % (Auto) Neut # (Auto) Lymph # (Auto) [place] # (Auto) Eos # (Auto) Baso # (Auto) RBC Morphology Hypochromasia Anisocytosis Microcytosis Sodium Potassium Chloride Carbon Dioxide BUN Creatinine Estimated GFR BUN/Creatinine Ratio Glucose Hemoglobin A1c Lactate Calcium Magnesium Total Bilirubin GGT AST ALT Alkaline Phosphatase C-Reactive Protein NT-Pro-B Natriuret Pep Total Protein Albumin Globulin Albumin/Globulin Ratio Triglycerides Amylase Lipase Procalcitonin TSH 1.05 Urine Color Urine Appearance Urine pH Ur Specific [place] Urine Protein Urine Glucose (UA) Urine Ketones Urine Occult Blood Urine Nitrate Urine Bilirubin Urine Urobilinogen Ur Leukocyte Esterase Urine RBC Urine WBC Ur Squamous Epith Cells Urine Bacteria Ur Culture Indicated? SARS-CoV-2 (PCR) [facility] Medical History Abscess Anxiety Atrial fibrillation, persistent BMI 50.0-59.9, adult Breast cancer screening CHF (congestive heart failure) Depression Diverticular disease Elevated CO2 level Fasting hyperglycemia GERD (gastroesophageal reflux disease) Hyperlipemia (~2010) Hypertension Hypothyroidism Hypothyroidism Left hip pain Mitral insufficiency Osteoarthritis of left knee Osteoarthritis of right knee Patellar tendinitis Retina disorder, left URI (upper respiratory infection) Vitamin D deficiency Surgical History History of back surgery (07/2015) History of thyroidectomy (1976) Family History Mother Age: 85 Hypertension Father No problems noted. Grandfather Cancer Grandmother No problems noted. Grandfather No problems noted. Grandmother Cancer Sister No problems noted. Social History household members: none Smoking Status: Never smoker alcohol intake: never substance use type: does not use Assessment & Plan Assessment & Plan narrative: Sepsis without septic shock or organ failure,acute, in association with lower left quadrant abdominal pain, acute onset, in the setting of recent diverticulitis, present on admission -SIRS: HR 95, RR 24, Lactate 2.2.? no WBC, HGB 10.2, HCT 32.9, platelets 401, alk-phos 177, SOFA score:0.? -ABD/Pelvis CT demonstrated thickened small bowel loops, consistent with ischemia, infection, or inflammation, with mildly prominent mesenteric lymph nodes, consistent with reactive lymph node enlargement, and a normal appendix.? -ED Consult:Dr. Acosta consulted, -continue Zosyn -since stool for O&P and C diff tox -continue current diet, patient placed on clear liquids and advanced today which she tolerated -await culture results, if C diff will need to adjust antibiotics 2. Persistent chronic atrial fibrillation, in the setting of essential hypertension, hypertensive urgency, with congestive heart failure, acute on chronic, present on admission -patient placed on telemedicine -initial 210/88, 193/97, 182/97-upon admit 115/71 -continue patient's amlodipine, Holding? Lasix/K+ evaluate fluid status in the am -patient's medications for blood pressure control may need to be augmented. 3. Hypothyroidism secondary to thyroidectomy, chronic, present on admission -continue patient's levothyroxine 4 Hyperlipidemia, chronic, not present on admission -patient does not require medication management 5. Depression, chronic, present on admission -continue patient's sertraline 6. Morbid obesity as evidence by BMI of 48.1, acute on chronic, present on admission -Consideration will be given for dietary counseling Time Spent With Patient Critical Care time: I spent a total of [] minutes of critical care time on this patient's care today; this time is exclusive of procedural time.
[2021-03-14 17:28] LABS: Clostridium Difficile Tox PCR Negative for C. diff (Negative)
[2021-03-15 00:55] VITALS: BP 168/95; PULSE 85; RESP 18; TEMP 36.4; O2SAT 94
[2021-03-15 05:00] VITALS: O2SAT 94
[2021-03-15 05:30] VITALS: BP 135/99; BP 141/68; BP 158/85; PULSE 78; PULSE 82; PULSE 88; RESP 18; TEMP 36.2; O2SAT 94
[2021-03-15] MEDS: PIPERACILLIN/TAZO 3.375 GM in SODIUM CHLORIDE 0.9% 100 ML 25 ML IV (05:53)
[2021-03-15] MEDS: LEVOTHYROXINE 75 MCG TABLET PO (05:53)
[2021-03-15] MEDS: LEVOTHYROXINE 100 MCG TABLET PO (05:53)
[2021-03-15] MEDS: SODIUM CHLORIDE 0.9% 1,000 ML 100 ML IV (07:24)
[2021-03-15 07:55] LABS: Add Manual Diff / Slide Review NO; Basophils Absolute Auto 100 /uL (0-100); Basophils Percent Auto 0.6 % (0-2); Eosinophils Absolute Auto 0 /uL (0-450); Eosinophils Percent Auto 0.2 % (2-4); Hematocrit 29.8 % (36-46); Hemoglobin 9.3 g/dL (12.0-16.0); Lymphocytes Absolute Auto 1800 /uL (1100-4500); Lymphocytes Percent Auto 19.4 % (25-40); Mean Corpuscular HGB Conc 31.3 % (30-36); Mean Corpuscular Hemoglobin 22.1 PG (26-34); Mean Corpuscular Volume 70.5 fL (80-100); Monocytes Absolute Auto 700 /uL (0-900); Monocytes Percent Auto 8.1 % (3-14); Neutrophils Absolute Auto 6500 /uL (1500-7000); Neutrophils Percent Auto 71.7 % (50-75); Platelet Count 320 X10^3/uL (150-400); Red Blood Cell Count 4.23 X10^6/uL (4.0-5.2); Red Cell Distribution Width 20.7 % (11.6-14.8); White Blood Cell Count 9.1 X10^3/uL (4.5-11.0)
[2021-03-15 08:12] VITALS: BP 145/78; PULSE 82; RESP 16; TEMP 37; O2SAT 92
[2021-03-15 08:14] VITALS: BP 145/78; BP 160/95; BP 170/107; PULSE 75; PULSE 85; PULSE 86
[2021-03-15 08:15] LABS: BUN Creatinine Ratio 16.9 (6-22); Blood Urea Nitrogen 11 mg/dL (7-17); Calcium 7.9 mg/dL (8.4-10.2); Carbon Dioxide 34 mmol/L (22-32); Chloride 105 mmol/L (98-107); Estimated Glomerular Filt Rate > 60.0 mL/min (>60); Glucose 104 mg/dL (70-100); HEMOLYSIS < 15 (0-50); Potassium 3.1 mmol/L (3.4-5.1); Sodium 140 mmol/L (137-145)
[2021-03-15] MEDS: ENOXAPARIN 40 MG/0.4 ML SYRINGE SUBCUT (08:50)
[2021-03-15] MEDS: AMLODIPINE 5 MG TABLET PO (08:51)
[2021-03-15] MEDS: SERTRALINE 50 MG TABLET 150 MG PO (08:51)
[2021-03-15 09:00] VITALS: O2SAT 92
[2021-03-15 09:09] LABS: Anisocytosis 1+; Hypochromasia 1+
[2021-03-15] MEDS: INFLUENZA VACCINE QIV 0.5 ML SYRINGE IM (11:27)
--- NOTE | 2021-03-15 15:40 | PC.NURSE ---
Late entry for 11:40 Discharge note: IV discontinued and tele d/c'd. Medications reviewed. Reviewed discharge instructions and all belongings went home with patient. Friend driving her home.
== END 2021-03-15 11:40 | disposition home or self-care (01) ==
LOC: ED 19:37 → AC 21:36
PROVIDERS: Admitting Provider Nurse Practitioner Family; Emergency Provider Emergency Medicine; PCP Family Medicine; Visit Provider Nurse Practitioner Family
DX: A41.9 Sepsis, unspecified organism (principal); I16.0 Hypertensive urgency; I11.0 Hypertensive heart disease with heart failure; I50.9 Heart failure, unspecified; I48.20 Chronic atrial fibrillation, unspecified; E66.01 Morbid (severe) obesity due to excess calories; E03.9 Hypothyroidism, unspecified; E78.5 Hyperlipidemia, unspecified; K21.9 Gastro-esophageal reflux disease without esophagitis; F32.9 Major depressive disorder, single episode, unspecified; Z68.42 Body mass index [BMI] 45.0-49.9, adult; Z20.822 Contact with and (suspected) exposure to COVID-19
CPT/HCPCS: 36415; 74177; 80048; 80053; 81001; 81003; 82150; 82977; 83036; 83605; 83690; 83735; 83880; 83915; 84145; 84443; 84478; 85025; 86140; 87493; 87635; 90471; 90656; 94760; 96361; 96366; 96372; 96375; 99224; 99284; C9803; G0378; J1170; J1200; J1650; J2405; J2543; J2930; Q2038; Q9967

== ENCOUNTER → 2022-01-31 12:04 | Outpatient (CLI) | payer OTHER, SELFPAY ==
[2021-03-14 23:21] VITALS: BMI 48.0
[2022-01-31 14:06] LABS: Add Manual Diff / Slide Review NO; Basophils Absolute Auto 0 /uL (0-100); Basophils Percent Auto 0.4 % (0-2); Eosinophils Absolute Auto 200 /uL (0-450); Eosinophils Percent Auto 3.1 % (2-4); Hematocrit 35.1 % (36-46); Hemoglobin 11.3 g/dL (12.0-16.0); Lymphocytes Absolute Auto 1600 /uL (1100-4500); Lymphocytes Percent Auto 20.5 % (25-40); Mean Corpuscular HGB Conc 32.2 % (30-36); Mean Corpuscular Volume 71.6 fL (80-100); Monocytes Absolute Auto 600 /uL (0-900); Monocytes Percent Auto 7.8 % (3-14); Neutrophils Absolute Auto 5200 /uL (1500-7000); Neutrophils Percent Auto 68.2 % (50-75); Platelet Count 386 X10^3/uL (150-400); Red Cell Distribution Width 19.7 % (11.6-14.8); White Blood Cell Count 7.6 X10^3/uL (4.5-11.0)
[2022-01-31 14:49] LABS: Alanine Aminotransferase 17 IU/L (<35); Albumin 3.9 g/dL (3.5-5.0); Alkaline Phosphatase 153 U/L (38-126); Aspartate Aminotransferase 24 IU/L (14-36); BUN Creatinine Ratio 14.6 (6-22); Bilirubin Total 0.8 mg/dL (0.2-1.3); Blood Urea Nitrogen 12 mg/dL (7-17); Calcium 8.7 mg/dL (8.4-10.2); Carbon Dioxide 30 mmol/L (22-32); Chloride 101 mmol/L (98-107); Cholesterol 209 mg/dL (140-199); Estimated Glomerular Filt Rate > 60 mL/min (>60); Globulin 3.9 g/dL (1.7-4.1); Glucose 107 mg/dL (80-110); HDL Cholesterol 53 mg/dL (40-60); HEMOLYSIS < 15 (0-50); LDL Cholesterol Calculated 137 mg/dL (<100); Potassium 3.9 mmol/L (3.4-5.1); Sodium 137 mmol/L (137-145); Total Protein 7.8 g/dL (6.3-8.2); Triglycerides 97 mg/dL (35-150)
[2022-01-31 16:37] LABS: Creatinine Urine Random 254.2 mg/dL
[2022-01-31 16:56] LABS: Microalbumi Creatinin Ratio Ur 91.6 ug/mg CR (<30); Microalbumin Urine Random 23.3 mg/dL (0-1.6)
[2022-01-31 18:21] LABS: Free T4, Direct Thyroxine 1.23 ng/dL (0.78-2.19)
== END ==
PROVIDERS: PCP Family Medicine; Referring Provider Family Medicine; Visit Provider Family Medicine
DX: E03.9 Hypothyroidism, unspecified (principal); E27.8 Other specified disorders of adrenal gland; F32.9 Major depressive disorder, single episode, unspecified; I10 Essential (primary) hypertension; I48.0 Paroxysmal atrial fibrillation; I50.9 Heart failure, unspecified; Z68.43 Body mass index [BMI] 50.0-59.9, adult
CPT/HCPCS: 36415; 80053; 80061; 82043; 82570; 84439; 84443; 85025

== ENCOUNTER → 2022-07-05 14:07 | Outpatient (CLI) | payer OTHER, MEDICAID, SELFPAY ==
[2021-03-14 23:21] VITALS: BMI 48.0
--- NOTE | 2022-07-05 14:08 | DI.NM.S_ITS ---
PROCEDURE: NM JESUS PERF SPECT REST & STR Rest and exercise myocardial perfusion SPECT with gated imaging and ejection fraction RADIOPHARMACEUTICAL: 25.0 mCi Tc-99m sestamibi IV at rest and 25.0 mCi Tc-99m sestamibi IV at peak exercise. A [id number] was performed. INDICATIONS: Afib, chest tightness TECHNIQUE: Radiopharmaceutical was injected at peak stress test, and also at rest. SPECT images were obtained. SPECT myocardial perfusion images were displayed in short axis, horizontal long axis, and vertical long axis views. Gated images were reviewed using [employer] software. COMPARISON: None. CARDIAC STRESS: A standard Gurvinder treadmill exercise tolerance test was performed by the patient under the supervision of an attending staff. The patient exercised for 2 minutes and 33 seconds; functional aerobic impairment (DRU) is +55% on sedentary scale %. Hemodynamic data: There is normal blood pressure and heart rate response to exercise stress. Patient achieved 106% of maximum predicted heart rate at peak exercise. Symptoms: Patient had shortness of breath that was out of proportion to level of exercise achieved. EKG: Rest ECG atrial fibrillation, inferolateral ST abnormality. Exercise ECG atrial fibrillation, 1 to [address] segment depressions leads II, III, aVF, V5 to V6. FINDINGS: Raw data: There is good myocardial labeling by radiotracer. No significant motion artifacts. Yynx-ed-rauqc ratio is 0.39 (normal is less than 0.38 for sestamibi tracer, and less than 0.50 for thallium tracer). Left ventricle function: Gated images demonstrate normal left ventricle wall thickening. No segmental wall motion abnormality. No transient ischemic dilation; TID is 0.98 (normal less than 1.3). The left ventricle resting end-diastolic volume is 101 mL. Left ventricle stress ejection fraction is 71%; normal values are above 45%. Myocardial perfusion: There is normal distribution of activity in the left and right ventricular myocardium. No fixed or reversible perfusion defects. IMPRESSION: No evidence of exercise-induced ischemia on SPECT imaging. Normal left ventricular function. Abnormal baseline and exercise ECG. Accelerated heart rate response with atrial fibrillation and reported episodes of SVT. Patient experienced shortness of breath with minimal exertion. Overall, sensitivity of the test is reduced. Consider cardiology consultation and alternative type of ischemic evaluation. Dictated by: Kim Jules D.O. on 07/06/2022 at 16:55 Approved by: Kim Jules D.O. on 07/06/2022 at 17:08
--- NOTE | 2022-07-06 14:32 | PM.TREADMILL ---
Cardiac Stress Test Report Referral & Results Date Patient Seen: 07/06/22 Requesting provider: Flaquito Yee Indication: Atrial fibrillation Rest ECG: Unremarkable Procedure Note: Today following both written and verbal informed consent the patient was exercised according to a standard Gurvinder protocol patient went for a total of 2 minutes 33 seconds achieving a maximum heart rate of 169 maximum systolic blood pressure of 218. This is approximately 4.6 METS. Exercise was terminated at this point because of severe dyspnea. Patient was also given Cardiolite through a previously started Hep-Lock IV by the diagnostic imaging staff approximately 1 minute prior to the cessation of exercise. At the end of exercise and early recovery there as between 1 and [address] segment changes in the inferior leads with some reciprocal changes in the lateral leads. Early in recovery this rather rapidly returned to baseline but became inverted T-waves in these areas There were bursts of a supraventricular tachycardia versus sinus tachycardia with heart rate in the 160s at times Patient's Function aerobic impairment rates about 55% on the sedentary scale Patient's dyspnea seem to me to be way out of proportion to everything else including changes on ECG as well as her obesity Impression: Patient with ST-T segment changes as above suspicious for ischemia. However patient was quite tachycardic at the time and I wonder if it is related more to her tachycardia than anything else. Please see perfusion imaging report as well, which hopefully will determine whether not there is any actual ischemia or not Please note: Actual ECG tracings can be found in the PACS system.
== END ==
PROVIDERS: PCP Family Medicine; Referring Provider Family Medicine; Visit Provider Family Medicine
DX: R07.89 Other chest pain (principal); I48.19 Other persistent atrial fibrillation; I50.9 Heart failure, unspecified
CPT/HCPCS: 78452; 93016; 93017; 93018; A9502

== ENCOUNTER → 2022-08-24 14:33 | Outpatient (CLI) | payer OTHER, MEDICAID, SELFPAY ==
[2021-03-14 23:21] VITALS: BMI 48.0
[2022-08-24 15:29] LABS: Add Manual Diff / Slide Review NO; Basophils Absolute Auto 0 /uL (0-100); Basophils Percent Auto 0.2 % (0-2); Eosinophils Absolute Auto 300 /uL (0-450); Eosinophils Percent Auto 3.7 % (2-4); Hematocrit 36.8 % (36-46); Hemoglobin 12.1 g/dL (12.0-16.0); Lymphocytes Absolute Auto 1900 /uL (1100-4500); Lymphocytes Percent Auto 22.4 % (25-40); Mean Corpuscular HGB Conc 32.9 % (30-36); Mean Corpuscular Hemoglobin 24.5 PG (26-34); Mean Corpuscular Volume 74.6 fL (80-100); Monocytes Absolute Auto 700 /uL (0-900); Monocytes Percent Auto 8.1 % (3-14); Neutrophils Absolute Auto 5600 /uL (1500-7000); Neutrophils Percent Auto 65.6 % (50-75); Platelet Count 365 X10^3/uL (150-400); Red Blood Cell Count 4.93 X10^6/uL (4.0-5.2); Red Cell Distribution Width 17.5 % (11.6-14.8); White Blood Cell Count 8.6 X10^3/uL (4.5-11.0)
[2022-08-24 15:59] LABS: BUN Creatinine Ratio 19.1 (6-22); Blood Urea Nitrogen 13 mg/dL (7-17); Calcium 8.4 mg/dL (8.4-10.2); Carbon Dioxide 30 mmol/L (22-32); Chloride 99 mmol/L (98-107); Cholesterol 215 mg/dL (140-199); Estimated Glomerular Filt Rate > 60 mL/min (>60); Glucose 130 mg/dL (80-110); HDL Cholesterol 49 mg/dL (40-60); HEMOLYSIS < 15 (0-50); LDL Cholesterol Calculated 146 mg/dL (<100); Potassium 3.4 mmol/L (3.4-5.1); Sodium 138 mmol/L (137-145); Triglycerides 99 mg/dL (35-150)
== END ==
PROVIDERS: PCP Family Medicine; Referring Provider Internal Medicine Cardiovascular Disease; Visit Provider Internal Medicine Cardiovascular Disease
DX: I10 Essential (primary) hypertension (principal)
CPT/HCPCS: 36415; 80048; 80061; 85025

== ENCOUNTER → 2022-09-09 09:01 | Outpatient (CLI) | payer OTHER, MEDICAID, SELFPAY ==
[2021-03-14 23:21] VITALS: BMI 48.0
[2022-09-09 10:02] LABS: HEMOLYSIS < 15 (0-50); Iron 35 ug/dL (37-170)
[2022-09-09 10:03] LABS: Alanine Aminotransferase 19 IU/L (<35); Albumin 3.8 g/dL (3.5-5.0); Albumin Globulin Ratio 0.9 (1.0-2.8); Alkaline Phosphatase 141 U/L (38-126); Aspartate Aminotransferase 23 IU/L (14-36); BUN Creatinine Ratio 23.9 (6-22); Bilirubin Total 0.5 mg/dL (0.2-1.3); Blood Urea Nitrogen 16 mg/dL (7-17); Calcium 8.4 mg/dL (8.4-10.2); Carbon Dioxide 32 mmol/L (22-32); Chloride 102 mmol/L (98-107); Estimated Glomerular Filt Rate > 60 mL/min (>60); Globulin 4.3 g/dL (1.7-4.1); Glucose 137 mg/dL (80-110); HEMOLYSIS < 15 (0-50); Potassium 3.7 mmol/L (3.4-5.1); Sodium 139 mmol/L (137-145); Total Protein 8.1 g/dL (6.3-8.2)
[2022-09-09 10:10] LABS: Creatinine Urine Random 79.4 mg/dL
[2022-09-09 10:13] LABS: Percent Iron Saturation 7 % (15-50); Total Iron Binding Capacity 468 ug/dL (265-497); Transferrin 341 mg/dL (206-381)
[2022-09-09 10:15] LABS: Microalbumi Creatinin Ratio Ur 57.9 ug/mg CR (<30); Microalbumin Urine Random 4.6 mg/dL (0-1.6)
[2022-09-09 10:37] LABS: Ferritin 9 ng/mL (11-264)
[2022-09-10 09:27] LABS: Labcorp Hemoglobin (Hb) A1c 6.2 % (4.8-5.6)
== END ==
PROVIDERS: PCP Family Medicine; Referring Provider Family Medicine; Visit Provider Family Medicine
DX: E03.9 Hypothyroidism, unspecified (principal); I10 Essential (primary) hypertension; I48.19 Other persistent atrial fibrillation; I50.9 Heart failure, unspecified; D64.9 Anemia, unspecified; Z68.43 Body mass index [BMI] 50.0-59.9, adult
CPT/HCPCS: 36415; 80053; 82043; 82570; 82728; 83036; 83540; 83550; 84443

== ENCOUNTER → 2022-10-12 14:53 | Outpatient (CLI) | payer OTHER, MEDICAID, SELFPAY ==
[2021-03-14 23:21] VITALS: BMI 48.0
--- NOTE | 2022-10-12 14:54 | DI.ECHO.S_ITS ---
[facility] +---------+ : : [address] [place] : : : : [id number] : : : : Phone: [phone]+ Echocardiogram Report + + :Name: GABY WARD Study Date: 10/12/2022 Height: 64 in : :[facility] ReadingLocation: Weight: 300 lb : : Gender: Female BSA: 2.3 m2 : :: 1960 Age: 62 yrs BP: 144/98 mmHg: :Reason For Study: OTHER PERSISTENT ATRIAL FIBRILLATION HR: 85 : :Ordering Physician: Kulwant Gamino : :Cristo Performed By: RAMÓN DAMON : + + Interpretation Summary 1) Normal left ventricular thickness, size, wall motion, and systolic function (EF 55-60%). 2) Grossly, normal right ventricular size with low normal function. 3) No significant valvular abnormalities. 4) No prior Echo available for comparison. Procedure: A two-dimensional transthoracic echocardiogram with color flow and Doppler was performed. The study quality was technically difficult. Comparison is made with the echocardiogram of 08/11/2009. Left Ventricle: The left ventricle is normal in size and wall thickness. The ejection fraction is estimated to be 55-60%. Left ventricular systolic function appears normal without focal wall motion abnormalities. Right Ventricle: The right ventricle is not well visualized. The right ventricle is grossly normal size. Right ventricular systolic function is at the lower limits of normal. Atria: Both atria are moderately dilated. There is no Doppler evidence for an interatrial shunt. Mitral Valve: The mitral valve is grossly normal. There is mild mitral regurgitation. Aortic Valve: The aortic valve is not well visualized. There is no aortic valve stenosis. No aortic regurgitation is present. Tricuspid Valve: The tricuspid valve is not well visualized. There is mild tricuspid regurgitation. The right ventricular systolic pressure is estimated to be at least 32 mmHg based on an estimated right atrial pressure of 3 mm Hg. Pulmonic Valve: The pulmonic valve is not well visualized. There is no pulmonic valvular regurgitation. Great Vessels: The aortic root is normal size. The ascending aorta could not be visualized. Pericardium/ Pleura There is a trivial pericardial effusion noted. There is no pleural effusion. MMode/2D Measurements & Calculations LVIDd: 5.1 cm LVOT diam: 1.9 cm LVIDs: 4.3 cm Ao root diam: 3.0 cm FS: 15.6 % IVSd: 1.0 cm LVPWd: 1.2 cm LV duran. diameter/BSA (cm/m^2): 2.2 LV sys. diameter/BSA (cm/m^2): 1.8 LA A2 area: 26.0 cm2 RA long axis: 5.9 cm LA A4 area: 26.9 cm2 RA area: 23.4 cm2 LA length (vol): 6.9 cm RA vol: 79.3 ml LA vol: 86.7 ml RA : 34.1 ml/m2 LA vol index: 37.3 ml/m2 TAPSE: 1.6 cm Doppler Measurements & Calculations Ao V2 max: 175.3 cm/sec LVOT Max Kwasi: 129.5 cm/sec Ao V2 mean: 116.0 cm/sec LV V1 max P.7 mmHg Ao max P.3 mmHg LV V1 VTI: 22.3 cm Ao mean P.2 mmHg ELVIRA(I,D): 1.9 cm2 Ao V2 VTI: 32.7 cm ELVIRA(V,D): 2.1 cm2 sev ratio: 0.68 ELVIRA indexed to BSA (cm^2/m^2): 0.82 MV E max kwasi: 120.4 cm/sec TR max kwasi: 268.2 cm/sec Med Peak E' Kwasi: 8.2 cm/sec TR max P.8 mmHg E/E' med: 14.7 PA V2 max: 103.0 cm/sec Lat Peak E' Kwasi: 12.0 cm/sec PA V2 mean: 74.6 cm/sec E/E' lat: 10.1 PA mean P.4 mmHg E/e' average: 12.4 PA pr(Accel): 46.5 mmHg SV(LVOT): 62.4 ml Reading Physician:05:59 PM
== END ==
PROVIDERS: PCP Family Medicine; Referring Provider Internal Medicine Cardiovascular Disease; Visit Provider Internal Medicine Cardiovascular Disease
DX: I08.1 Rheumatic disorders of both mitral and tricuspid valves (principal); I48.19 Other persistent atrial fibrillation; R06.09 Other forms of dyspnea; I50.9 Heart failure, unspecified; R06.02 Shortness of breath; R07.89 Other chest pain
CPT/HCPCS: 93306

== ENCOUNTER → 2022-10-18 14:47 | Outpatient (CLI) | payer OTHER, MEDICAID, SELFPAY ==
[2021-03-14 23:21] VITALS: BMI 48.0
--- NOTE | 2022-10-18 15:09 | DIET.OUTPTC ---
Dietary Outpatient Consultation Note Consultation Date: 10/18/[address] 62[address] visit for help with weight management. Pt with SOB, heart condition, arthritis in hip and knee, LE edema, fatigue with iron deficiency, feels weight loss would help these conditions. Weight Hx: Pt had anorexia in her 20s and overused thyroid meds causing heart issues. Pts lowest adult weight was 74#. 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 Lost mom 2y ago who she lived with. Has 2 cats and brother she calls on phone. Pt recently started on Lexapro to manage her mood, feels med is helpful and even curbs her appetite some. Food Recall: wakes 5am but doesn't feel rested ice water- craves due to anemia Sn: pretzel rods with pb naps at lunch work ends at 2pm and takes another nap occasionally eats sugar babies or ecuadorean fish (4 each occasion) Sn: cheese stick and meat stick D: meat and cheese, big bowl noodles with butter and salt Then can have a difficult time stopping snacking- 2 doughnuts Nutrition Dx: morbid obesity r/t food and nutrition related knowledge deficits aeb pt BMI 50, pt hx disordered eating, pt with erratic meal timing and composition, pt sedentary and deconditioned. Interventions: 1. Introduced pt to the hunger scale. Educated on basing meal timing and volume on eating when a 3 and stopping when an 8. Pt to analyze when she eats at a 5. Pt to use scale daily to understand her hunger and fullness and behaviors around food. 2. Introduced pt to plate balance. Built a variety of meals using food models and problem solved pts usual intake with ideas to balance. 3. Discussed integrating exercise bit by bit. Pt to walk 5 laps inside her home each day. After a week if this gets easier, pt to increase laps or add steps. Pts ultimate goal is to get back to swimming classes at the pool and use her home stationary bike. 4. Pt would be good candidate for Semaglutide if insurance changes to cover medication. F/u PRN Electronically Signed by: Meagan Greenwood 10/18/22 15:09 Clinical Dietitian [address] [place] [address]
== END ==
PROVIDERS: PCP Family Medicine; Referring Provider Family Medicine; Visit Provider Family Medicine
DX: I10 Essential (primary) hypertension (principal); E66.9 Obesity, unspecified; Z68.43 Body mass index [BMI] 50.0-59.9, adult; Z71.3 Dietary counseling and surveillance
CPT/HCPCS: 97802

== ENCOUNTER 2022-12-31 21:05 | Emergency (ER) | payer OTHER, MEDICAID, SELFPAY ==
[2021-03-14 23:21] VITALS: BMI 48.0
[2022-12-31 21:21] VITALS: BP 192/99; PULSE 80; RESP 29; TEMP 36.7; O2SAT 97; BMI 48.0
[2022-12-31 22:28] LABS: Add Manual Diff / Slide Review NO; Basophils Absolute Auto 0 /uL (0-100); Basophils Percent Auto 0.3 % (0-2); Eosinophils Absolute Auto 300 /uL (0-450); Eosinophils Percent Auto 3.4 % (2-4); Hematocrit 34.8 % (36-46); Hemoglobin 11.5 g/dL (12.0-16.0); Lymphocytes Absolute Auto 2100 /uL (1100-4500); Lymphocytes Percent Auto 25.4 % (25-40); Mean Corpuscular Hemoglobin 23.7 PG (26-34); Mean Corpuscular Volume 71.9 fL (80-100); Monocytes Absolute Auto 900 /uL (0-900); Monocytes Percent Auto 10.7 % (3-14); Neutrophils Absolute Auto 5000 /uL (1500-7000); Neutrophils Percent Auto 60.2 % (50-75); Platelet Count 357 X10^3/uL (150-400); Red Blood Cell Count 4.84 X10^6/uL (4.0-5.2); Red Cell Distribution Width 17.8 % (11.6-14.8); White Blood Cell Count 8.2 X10^3/uL (4.5-11.0)
[2022-12-31 22:30] LABS: Ictotest Urine Negative (Negative)
[2022-12-31 22:38] LABS: UR Morphine/Opiate cutoff 300 Negative (Negative); Ur Creatinine Normal (Normal); Ur Specific Gravity Normal (Normal); Urine Amphetamines Negative (Negative); Urine Barbiturates Negative (Negative); Urine Benzodiazepines Negative (Negative); Urine Cocaine Negative (Negative); Urine MDMA Negative (Negative); Urine Methadone Negative (Negative); Urine Methamphetamines Negative (Negative); Urine Oxycodone Negative (Negative); Urine Phencyclidine Negative (Negative); Urine Tetrahydrocannabinol Negative (Negative); Urine Tricyclic Antidepressant Negative (Negative); Urine pH Normal (Normal)
[2022-12-31 22:40] LABS: Acetaminophen < 10 ug/mL (10-30); Alanine Aminotransferase 29 IU/L (<35); Albumin 3.9 g/dL (3.5-5.0); Alkaline Phosphatase 144 U/L (38-126); Aspartate Aminotransferase 35 IU/L (14-36); BUN Creatinine Ratio 15.1 (6-22); Blood Urea Nitrogen 11 mg/dL (7-17); Calcium 8.5 mg/dL (8.4-10.2); Carbon Dioxide 34 mmol/L (22-32); Chloride 100 mmol/L (98-107); Estimated Glomerular Filt Rate > 60 mL/min (>60); Ethanol (ETOH) < 10 mg/dL; Glucose 101 mg/dL (80-110); HEMOLYSIS < 15 (0-50); Potassium 3.1 mmol/L (3.4-5.1); Salicylate < 1.0 mg/dL (<20); Sodium 139 mmol/L (137-145); Total Protein 7.9 g/dL (6.3-8.2)
--- NOTE | 2022-12-31 22:46 | PC.NURSE ---
Patient pleasant and calm during assessment, she describes having rolling panic attacks, difficulty falling asleep r/t racing thoughts, but that when she does fall asleep she sleeps too much. Patient also expresses dreading everything and dreading being alive. She denies having any plan for suicide but she has vague thoughts of not being alive anymore. She states she does not want to end her life though. Patient is unsure of what her goals are in coming to [facility], she denies wanting inpatient care. She states that she just doesn't know what to do. Patient states she was started on Lexapro in August, instructed to take one daily. Over last 6-7 days, with increased stress from her job and having these racing thoughts and panic attacks, patient states that she started taking 2 tabs of her Lexapro at night and 1 in the AM before going to work. She reports she began doing this for multiple days in the last week, but her symptoms only worsened, so she resumed taking only one daily. Patient denies any alcohol, drug, or nicotine use. Patient resting comfortably in Rm 13, staff completing Q15 minute checks per protocol and safety, door open, lights dimmed for comfort.
[2022-12-31 23:04] LABS: Free T4, Direct Thyroxine 2.33 ng/dL (0.78-2.19)
[2022-12-31 23:19] LABS: Thyroid Stimulating Hormone 0.288 uIU/mL (0.47-4.68)
--- NOTE | 2022-12-31 23:21 | ED.PSYCH ---
HPI - Psych <Radha De La Torre, DO - Last Filed: 01/08/23 07:26> General Chief Complaint: Psychiatric Symptoms Stated Complaint: Mental health Time Seen by Provider: 12/31/22 23:21 Source: patient Mode of arrival: Family Vehicle Limitations: no limitations History of Present Illness HPI Narrative: This is a 62-year-old female with history of atrial fibrillation, hypothyroidism, chronic anemia, depression and anxiety. Patient states she was started on Lexapro in August. She states she was doing well on that medication. She has had anxiety and depression has had what she describes as rolling panic attacks. Patient states she will have difficulty falling asleep due to racing thoughts. When she falls asleep she sleeps too much for too long. Patient states no other recent changes to her medications. She states typically her symptoms are worsened by stressors at work. 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 Patient states she is had symptoms worsened for the last few days. She has some vague feelings of suicidal ideation. She states she would feel better if she just did not wake up. She does not have a specific plan, she does not have intent but does feel like things are not well controlled. She did reach out to her primary care physician who is willing to follow up with her in the next 24 hours. Patient states they did recommend that she be seen by social work she presents here for evaluation after talking with her physician as well as the crisis line. Patient does not have any thoughts of harming others. She denies alcohol, drug or tobacco abuse. Patient states she is not on any other daily medications. She thinks it might be helpful to adjust medications. She does not feel that she would be assisted by inpatient placement but does feel she would likely benefit from talking with our social work msw. Patient does not currently have a counselor. She states there has been some barriers to care because her insurance is through [place] even though she lives here. Related Data Home Medications Medication Instructions Recorded Confirmed cholecalciferol (vitamin D3) 125 5,000 units PO DAILY 05/09/18 01/04/23 mcg (5,000 unit) tablet (Vitamin D3) apixaban 5 mg tablet (Eliquis) 5 mg PO BID 10/05/22 01/04/23 Previous Rx's Medication Instructions Recorded amlodipine 5 mg tablet See Rx Instructions .Route 05/12/22 .COMPLEX #180 tabs Disabled parking permit #1 ea 08/29/22 ferrous sulfate 324 mg (65 mg 324 mg PO DAILY #90 tabs 10/05/22 iron) tablet,delayed release escitalopram oxalate 20 mg tablet 20 mg PO DAILY #90 tabs 01/04/23 (Lexapro) hydroxyzine HCl 10 mg tablet 10 mg PO TID PRN anxiety #30 tabs 01/04/23 levothyroxine 175 mcg tablet 175 mcg PO DAILY #60 tabs 01/04/23 Allergies Allergy/AdvReac Type Severity Reaction Status Date / Time iodine Allergy Severe to Verified 01/04/23 11:33 contrast dye-congestion, hives lisinopril Allergy Unknown COUGH Verified 01/04/23 11:33 shellfish derived Allergy Unknown Verified 01/04/23 11:33 buspirone AdvReac Intermediate felt Verified 01/04/23 11:33 spaced out bupropion [From Wellbutrin] AdvReac Mild Weird Verified 01/04/23 11:33 feeling Review of Systems <Radha De La Torre DO - Last Filed: 01/08/23 07:26> Review of Systems ROS Unobtainable: All systems reviewed & are unremarkable except as noted in HPI and below Patient History <Radha De La Torre DO - Last Filed: 01/08/23 07:26> Medical History Abscess Anxiety Atrial fibrillation, persistent BMI 50.0-59.9, adult Breast cancer screening CHF (congestive heart failure) Depression Diverticular disease Elevated CO2 level Fasting hyperglycemia GERD (gastroesophageal reflux disease) Hyperlipemia (~2010) Hypertension Hypothyroidism Hypothyroidism Left hip pain Mitral insufficiency Morbid obesity with body mass index (BMI) of 40.0 to 44.9 in adult (08/08/11) Osteoarthritis of left knee Osteoarthritis of right knee Paroxysmal A-fib Patellar tendinitis Retina disorder, left Sepsis URI (upper respiratory infection) Vitamin D deficiency Surgical History History of back surgery (07/2015) History of thyroidectomy (1976) Family History Mother Age: 87 Hypertension Father No problems noted. Grandfather Cancer Grandmother No problems noted. Grandfather No problems noted. Grandmother Cancer Sister No problems noted. Social History household members: none Smoking Status: Never smoker alcohol intake: never substance use type: does not use Smoking Status: Never smoker alcohol intake frequency: 0-2 drinks per day Substance Use Type: does not use Exam <Radha De La Torre DO - Last Filed: 01/08/23 07:26> Narrative Exam Narrative: GENERAL: Alert and oriented x three, obese female in mild distress. HEENT: Head normocephalic, atraumatic, EOMI, pupils reactive, face symmetric, moist mucous membranes NECK: Supple, full range of motion CARDIOVASCULAR: Regular rate and rhythm without murmurs, rubs or gallops. RESPIRATORY: Breath sounds equal bilaterally, no wheezes rales or rhonchi. ABDOMEN: Soft, nontender. Normoactive bowel sounds all 4 quadrants. No guarding or rebound, rigidity, no mass : No CVA tenderness EXTREMITIES: Normal range of motion, no clubbing or edema. Neurovascularly intact NEUROLOGICAL: Cranial nerves II through XII grossly intact. Moving all extremities SKIN: Warm, dry, no petechiae, no rashes or lesions. PSYCH: Suicidal ideation but vague thoughts, no intent. No homicidal thoughts. No hallucination. Longstanding depressive thoughts describes anxiety and panic attacks. Initial Vital Signs Initial Vital Signs: Vital Signs Temperature 98.0 F 12/31/22 21:21 Pulse Rate 80 12/31/22 21:21 Respiratory Rate 29 H 12/31/22 21:21 Blood Pressure 192/99 H 12/31/22 21:21 Pulse Oximetry 97 12/31/22 21:21 Oxygen Delivery Method Room Air 12/31/22 21:21 <José Antonio Ferrera DO - Last Filed: 01/01/23 18:35> Initial Vital Signs Initial Vital Signs: Vital Signs Temperature 98.0 F 12/31/22 21:21 Pulse Rate 80 12/31/22 21:21 Respiratory Rate 29 H 12/31/22 21:21 Blood Pressure 192/99 H 12/31/22 21:21 Pulse Oximetry 97 12/31/22 21:21 Oxygen Delivery Method Room Air 12/31/22 21:21 Course <Radha De La Torre DO - Last Filed: 01/08/23 07:26> Orders Ordered: Discontinued Medications Amlodipine Besylate (Amlodipine 5 Mg Tablet) 10 mg PO NOW ONE Stop: 01/01/23 07:49 Last Admin: 01/01/23 08:13 Dose: 10 mg Documented By: SPF Apixaban (Apixaban 5 Mg Tablet) 5 mg PO NOW ONE Stop: 01/01/23 07:49 Last Admin: 01/01/23 08:12 Dose: 5 mg Documented By: SPF Furosemide (Furosemide 40 Mg Tablet) 40 mg PO NOW ONE Stop: 01/01/23 07:49 Last Admin: 01/01/23 08:14 Dose: 40 mg Documented By: SPF Hydroxyzine Pamoate (Hydroxyzine Pamoate 25 Mg Capsule) 50 mg PO NOW ONE Stop: 12/31/22 23:36 Last Admin: 12/31/22 23:55 Dose: 50 mg Documented By: SB Vital Signs Vital signs: Vital Signs - 8 hr 01/01/23 13:03 Pulse Rate 90 Respiratory Rate 16 Blood Pressure 176/103 H Pulse Oximetry 95 Oxygen Delivery Method Room Air <José Antonio Ferrera DO - Last Filed: 01/01/23 18:35> Orders Ordered: Discontinued Medications Amlodipine Besylate (Amlodipine 5 Mg Tablet) 10 mg PO NOW ONE Stop: 01/01/23 07:49 Last Admin: 01/01/23 08:13 Dose: 10 mg Documented By: TINA Apixaban (Apixaban 5 Mg Tablet) 5 mg PO NOW ONE Stop: 01/01/23 07:49 Last Admin: 01/01/23 08:12 Dose: 5 mg Documented By: SPF Furosemide (Furosemide 40 Mg Tablet) 40 mg PO NOW ONE Stop: 01/01/23 07:49 Last Admin: 01/01/23 08:14 Dose: 40 mg Documented By: SPF Hydroxyzine Pamoate (Hydroxyzine Pamoate 25 Mg Capsule) 50 mg PO NOW ONE Stop: 12/31/22 23:36 Last Admin: 12/31/22 23:55 Dose: 50 mg Documented By: SB Vital Signs Vital signs: Vital Signs - 8 hr 01/01/23 13:03 Pulse Rate 90 Respiratory Rate 16 Blood Pressure 176/103 H Pulse Oximetry 95 Oxygen Delivery Method Room Air MDM - Psych <Radha C Mank, DO - Last Filed: 01/08/23 07:26> Lab Data 12/31/22 22:15 12/31/22 22:15 Labs: Lab Results 12/31/22 12/31/22 12/31/22 Range/Units 21:41 21:41 22:15 WBC 8.2 (4.5-11.0) X10^3/uL RBC 4.84 (4.0-5.2) X10^6/uL Hgb 11.5 L (12.0-16.0) g/dL Hct 34.8 L (36-46) % MCV 71.9 L (80-100) fL MCH 23.7 L (26-34) PG MCHC 33.0 (30-36) % RDW 17.8 H (11.6-14.8) % Plt Count 357 (150-400) X10^3/uL Neut % (Auto) 60.2 (50-75) % Lymph % (Auto) 25.4 (25-40) % [place] % (Auto) 10.7 (3-14) % Eos % (Auto) 3.4 (2-4) % Baso % (Auto) 0.3 (0-2) % Neut # (Auto) 5000 (1919-3231) /uL Lymph # (Auto) 2100 (2982-8271) /uL [place] # (Auto) 900 (0-900) /uL Eos # (Auto) 300 (0-450) /uL Baso # (Auto) 0 (0-100) /uL Sodium (137-145) mmol/L Potassium (3.4-5.1) mmol/L Chloride (98-107) mmol/L Carbon Dioxide (22-32) mmol/L BUN (7-17) mg/dL Creatinine (0.52-1.04) mg/dL Estimated GFR (>60) mL/min BUN/Creatinine Ratio (6-22) Glucose (80-110) mg/dL Calcium (8.4-10.2) mg/dL Total Bilirubin (0.2-1.3) mg/dL AST (14-36) IU/L ALT (<35) IU/L Alkaline Phosphatase (38-126) U/L Total Protein (6.3-8.2) g/dL Albumin (3.5-5.0) g/dL Globulin (1.7-4.1) g/dL Albumin/Globulin Ratio (1.0-2.8) TSH (0.47-4.68) uIU/mL Free T4 (0.78-2.19) ng/dL Ur Bilirubin Confirm Negative (Negative) Urine RBC (0-5/HPF) Urine WBC (0-5/HPF) Ur Squamous Epith Cells (0-5/HPF) Urine Bacteria (None) Micro UA Comment Salicylates (<20) mg/dL U Opiates 300ng/mL cut Negative (Negative) Ur Oxycodone Screen Negative (Negative) Urine Methadone Screen Negative (Negative) Acetaminophen (10-30) ug/mL Ur Barbiturates Screen Negative (Negative) U Tricyclic Antidepress Negative (Negative) Ur Phencyclidine Scrn Negative (Negative) Ur Amphetamines Screen Negative (Negative) U Methamphetamines Scrn Negative (Negative) Ur MDMA Scrn (Ecstasy) Negative (Negative) U Benzodiazepines Scrn Negative (Negative) Urine Cocaine Screen Negative (Negative) U Marijuana (THC) Screen Negative (Negative) Ethyl Alcohol ( - 10) mg/dL 12/31/22 12/31/22 12/31/22 Range/Units 22:15 22:15 23:06 WBC (4.5-11.0) X10^3/uL RBC (4.0-5.2) X10^6/uL Hgb (12.0-16.0) g/dL Hct (36-46) % MCV (80-100) fL MCH (26-34) PG MCHC (30-36) % RDW (11.6-14.8) % Plt Count (150-400) X10^3/uL Neut % (Auto) (50-75) % Lymph % (Auto) (25-40) % [place] % (Auto) (3-14) % Eos % (Auto) (2-4) % Baso % (Auto) (0-2) % Neut # (Auto) (9388-5910) /uL Lymph # (Auto) (7860-4203) /uL [place] # (Auto) (0-900) /uL Eos # (Auto) (0-450) /uL Baso # (Auto) (0-100) /uL Sodium 139 (137-145) mmol/L Potassium 3.1 L (3.4-5.1) mmol/L Chloride 100 (98-107) mmol/L Carbon Dioxide 34 H (22-32) mmol/L BUN 11 (7-17) mg/dL Creatinine 0.73 (0.52-1.04) mg/dL Estimated GFR > 60 (>60) mL/min BUN/Creatinine Ratio 15.1 (6-22) Glucose 101 (80-110) mg/dL Calcium 8.5 (8.4-10.2) mg/dL Total Bilirubin 1.0 (0.2-1.3) mg/dL AST 35 (14-36) IU/L ALT 29 (<35) IU/L Alkaline Phosphatase 144 H (38-126) U/L Total Protein 7.9 (6.3-8.2) g/dL Albumin 3.9 (3.5-5.0) g/dL Globulin 4.0 (1.7-4.1) g/dL Albumin/Globulin Ratio 1.0 (1.0-2.8) TSH 0.288 L (0.47-4.68) uIU/mL Free T4 2.33 H (0.78-2.19) ng/dL Ur Bilirubin Confirm (Negative) Urine RBC None seen (0-5/HPF) Urine WBC 1-5/hpf (0-5/HPF) Ur Squamous Epith Cells 1-5 /hpf (0-5/HPF) Urine Bacteria None seen (None) Micro UA Comment * Salicylates < 1.0 (<20) mg/dL U Opiates 300ng/mL cut (Negative) Ur Oxycodone Screen (Negative) Urine Methadone Screen (Negative) Acetaminophen < 10 (10-30) ug/mL Ur Barbiturates Screen (Negative) U Tricyclic Antidepress (Negative) Ur Phencyclidine Scrn (Negative) Ur Amphetamines Screen (Negative) U Methamphetamines Scrn (Negative) Ur MDMA Scrn (Ecstasy) (Negative) U Benzodiazepines Scrn (Negative) Urine Cocaine Screen (Negative) U Marijuana (THC) Screen (Negative) Ethyl Alcohol < 10 ( - 10) mg/dL Urine Dip Bedside Urine Glucose Negative Bedside Urine Bilirubin + 1 Bedside Urine Ketone +/- 5 Urine Specific [place] 1.010 Bedside Urine Occult Blood +/- Bedside Urine pH 7.0 Bedside Urine Protein + 30 Bedside Urine Urobilinogen - Negative Bedside Urine Nitrite - Negative Bedside Urine Leukocytes ++ 125 Esterase MDM Narrative Medical decision making narrative: 62-year-old female with suicidal ideation but fairly vague no intent no specific plan, no homicidal ideation longstanding depression anxiety but worsened recently patient did note she took some extra tablets of Lexapro to see if it would be helpful not all at once but each day for the last several days and found that not helpful. Workup does note that her TSH is low T4 is elevated she is on levothyroxine so she may be needs to decrease her dosage and this may be helpful for symptoms. She is on Lexapro daily and was finding it helpful until recently. She does not have a counselor. She indicates she would like to speak with social work, patient overall contracts for safety it is not seeking inpatient treatment currently and I think she would be appropriate for re-evaluation this morning and potential discharge after meeting with social work. Patient signed out to Dr. Ferrera <José Antonio Ferrera, DO - Last Filed: 01/01/23 18:35> Lab Data Labs: Lab Results 12/31/22 12/31/22 12/31/22 Range/Units 21:41 21:41 22:15 WBC 8.2 (4.5-11.0) X10^3/uL RBC 4.84 (4.0-5.2) X10^6/uL Hgb 11.5 L (12.0-16.0) g/dL Hct 34.8 L (36-46) % MCV 71.9 L (80-100) fL MCH 23.7 L (26-34) PG MCHC 33.0 (30-36) % RDW 17.8 H (11.6-14.8) % Plt Count 357 (150-400) X10^3/uL Neut % (Auto) 60.2 (50-75) % Lymph % (Auto) 25.4 (25-40) % [place] % (Auto) 10.7 (3-14) % Eos % (Auto) 3.4 (2-4) % Baso % (Auto) 0.3 (0-2) % Neut # (Auto) 5000 (6521-4585) /uL Lymph # (Auto) 2100 (5215-8713) /uL [place] # (Auto) 900 (0-900) /uL Eos # (Auto) 300 (0-450) /uL Baso # (Auto) 0 (0-100) /uL Sodium (137-145) mmol/L Potassium (3.4-5.1) mmol/L Chloride (98-107) mmol/L Carbon Dioxide (22-32) mmol/L BUN (7-17) mg/dL Creatinine (0.52-1.04) mg/dL Estimated GFR (>60) mL/min BUN/Creatinine Ratio (6-22) Glucose (80-110) mg/dL Calcium (8.4-10.2) mg/dL Total Bilirubin (0.2-1.3) mg/dL AST (14-36) IU/L ALT (<35) IU/L Alkaline Phosphatase (38-126) U/L Total Protein (6.3-8.2) g/dL Albumin (3.5-5.0) g/dL Globulin (1.7-4.1) g/dL Albumin/Globulin Ratio (1.0-2.8) TSH (0.47-4.68) uIU/mL Free T4 (0.78-2.19) ng/dL Ur Bilirubin Confirm Negative (Negative) Urine RBC (0-5/HPF) Urine WBC (0-5/HPF) Ur Squamous Epith Cells (0-5/HPF) Urine Bacteria (None) Micro UA Comment Salicylates (<20) mg/dL U Opiates 300ng/mL cut Negative (Negative) Ur Oxycodone Screen Negative (Negative) Urine Methadone Screen Negative (Negative) Acetaminophen (10-30) ug/mL Ur Barbiturates Screen Negative (Negative) U Tricyclic Antidepress Negative (Negative) Ur Phencyclidine Scrn Negative (Negative) Ur Amphetamines Screen Negative (Negative) U Methamphetamines Scrn Negative (Negative) Ur MDMA Scrn (Ecstasy) Negative (Negative) U Benzodiazepines Scrn Negative (Negative) Urine Cocaine Screen Negative (Negative) U Marijuana (THC) Screen Negative (Negative) Ethyl Alcohol ( - 10) mg/dL 12/31/22 12/31/22 12/31/22 Range/Units 22:15 22:15 23:06 WBC (4.5-11.0) X10^3/uL RBC (4.0-5.2) X10^6/uL Hgb (12.0-16.0) g/dL Hct (36-46) % MCV (80-100) fL MCH (26-34) PG MCHC (30-36) % RDW (11.6-14.8) % Plt Count (150-400) X10^3/uL Neut % (Auto) (50-75) % Lymph % (Auto) (25-40) % [place] % (Auto) (3-14) % Eos % (Auto) (2-4) % Baso % (Auto) (0-2) % Neut # (Auto) (0159-2095) /uL Lymph # (Auto) (2409-2199) /uL [place] # (Auto) (0-900) /uL Eos # (Auto) (0-450) /uL Baso # (Auto) (0-100) /uL Sodium 139 (137-145) mmol/L Potassium 3.1 L (3.4-5.1) mmol/L Chloride 100 (98-107) mmol/L Carbon Dioxide 34 H (22-32) mmol/L BUN 11 (7-17) mg/dL Creatinine 0.73 (0.52-1.04) mg/dL Estimated GFR > 60 (>60) mL/min BUN/Creatinine Ratio 15.1 (6-22) Glucose 101 (80-110) mg/dL Calcium 8.5 (8.4-10.2) mg/dL Total Bilirubin 1.0 (0.2-1.3) mg/dL AST 35 (14-36) IU/L ALT 29 (<35) IU/L Alkaline Phosphatase 144 H (38-126) U/L Total Protein 7.9 (6.3-8.2) g/dL Albumin 3.9 (3.5-5.0) g/dL Globulin 4.0 (1.7-4.1) g/dL Albumin/Globulin Ratio 1.0 (1.0-2.8) TSH 0.288 L (0.47-4.68) uIU/mL Free T4 2.33 H (0.78-2.19) ng/dL Ur Bilirubin Confirm (Negative) Urine RBC None seen (0-5/HPF) Urine WBC 1-5/hpf (0-5/HPF) Ur Squamous Epith Cells 1-5 /hpf (0-5/HPF) Urine Bacteria None seen (None) Micro UA Comment * Salicylates < 1.0 (<20) mg/dL U Opiates 300ng/mL cut (Negative) Ur Oxycodone Screen (Negative) Urine Methadone Screen (Negative) Acetaminophen < 10 (10-30) ug/mL Ur Barbiturates Screen (Negative) U Tricyclic Antidepress (Negative) Ur Phencyclidine Scrn (Negative) Ur Amphetamines Screen (Negative) U Methamphetamines Scrn (Negative) Ur MDMA Scrn (Ecstasy) (Negative) U Benzodiazepines Scrn (Negative) Urine Cocaine Screen (Negative) U Marijuana (THC) Screen (Negative) Ethyl Alcohol < 10 ( - 10) mg/dL Urine Dip Bedside Urine Glucose Negative Bedside Urine Bilirubin + 1 Bedside Urine Ketone +/- 5 Urine Specific [place] 1.010 Bedside Urine Occult Blood +/- Bedside Urine pH 7.0 Bedside Urine Protein + 30 Bedside Urine Urobilinogen - Negative Bedside Urine Nitrite - Negative Bedside Urine Leukocytes ++ 125 Esterase MDM Narrative Medical decision making narrative: 62-year-old female with suicidal ideation but fairly vague no intent no specific plan, no homicidal ideation longstanding depression anxiety but worsened recently patient did note she took some extra tablets of Lexapro to see if it would be helpful not all at once but each day for the last several days and found that not helpful. Workup does note that her TSH is low T4 is elevated she is on levothyroxine so she may be needs to decrease her dosage and this may be helpful for symptoms. She is on Lexapro daily and was finding it helpful until recently. She does not have a counselor. She indicates she would like to speak with social work, patient overall contracts for safety it is not seeking inpatient treatment currently and I think she would be appropriate for re-evaluation this morning and potential discharge after meeting with social work. Patient signed out to Dr. Ferrera [[id number]] ([place]) Patient received in sign out from [Britt]. I have reviewed the clinical course and performed an independent history and physical exam. Patient doing well, continues to have no suicidal or homicidal ideation. Wishes to see social work Social Work has had extensive discussion, shares opinion she is appropriate for discharge, arrange for an appointment tomorrow morning. Questions answered to her apparent satisfaction, return precautions discussed Discharge Plan Departure Patient Disposition: Home Clinical Impression: Anxiety, Depression Instructions: Depression, DI for Anxiety -- Adult Activity Restrictions/Additional Instructions: Your T4 level is elevated today, I would recommend decreasing your levothyroxine this maybe contributing to your symptoms. Please follow up with your physician for recheck and repeat evaluation or your thyroid levels. *If you feel that you are entering into mental health crisis you have multiple options 1. Return to the ER immediately 2. Call the Crisis Line at [phone] 3. Send an anonymous text by sending the word Lian to [phone] 4. Navigate your web browser to [employer] to engage in anonymous chat with a mental health worker Prescriptions: No Action amlodipine 5 mg tablet See Rx Instructions .ROUTE .COMPLEX Qty: 180 3RF Dose Instruction: TAKE 1 TABLET BY MOUTH TWICE DAILY Rx Instructions: TAKE 1 TABLET BY MOUTH TWICE DAILY Eliquis 5 mg tablet 5 mg PO BID ferrous sulfate 324 mg (65 mg iron) tablet,delayed release (DR/EC) 324 mg PO DAILY Qty: 90 3RF (DME) Disabled parking permit See Rx Instructions .ROUTE .MEDSUPPLY Qty: 1 0RF Rx Instructions: I find this patient to be medically disabled and qualified for disabled parking as indicated, and signed, on the accompanying disabled parking application for individuals. levothyroxine 175 mcg tablet 175 mcg PO DAILY Qty: 60 0RF escitalopram oxalate [Lexapro] 20 mg tablet 20 mg PO DAILY Qty: 90 0RF hydroxyzine HCl 10 mg tablet 10 mg PO TID PRN (Reason: anxiety) Qty: 30 0RF cholecalciferol (vitamin D3) [Vitamin D3] 5,000 unit Tablet 5,000 units PO DAILY Referrals: [facility] [Outside] Flaquito Yee MD [Primary Care Provider] - Stand Alone Forms: Patient Portal/API, Work Release Note
[2022-12-31 23:30] LABS: Bacteria Urine None Seen; RBC Urine None Seen (0-5/HPF); Squamous Epithelial Cell Urine 1-5 /HPF (0-5/HPF); WBC Urine 1-5/HPF (0-5/HPF)
[2022-12-31] MEDS: hydrOXYzine pamoate 25 MG CAPSULE 50 MG PO (23:55)
[2023-01-01 06:49] VITALS: BP 230/102; PULSE 76; TEMP 36.8; O2SAT 95
[2023-01-01] MEDS: APIXABAN 5 MG TABLET PO (08:12)
[2023-01-01] MEDS: AMLODIPINE 5 MG TABLET 10 MG PO (08:13)
[2023-01-01] MEDS: FUROSEMIDE 40 MG TABLET PO (08:14)
--- NOTE | 2023-01-01 12:52 | CM.SWNOTE ---
ED STEAM TENDER Assessment Note Patient is 62 y/o female who presents to ED via POV last night due to concern for Anxiety, panic attacks, Depression and thoughts of not waking up. Patient endorses she has been experiencing panic attacks for the last week and her biggest stressor is work related regarding social situations and the unknown. Patient's PCP is Dr. Yee, patient does not have current MH counselor but states she has had one in the past. STEAM TENDER enters room to meet with patient. Patient presents with flat affect, A/Ox4, dysthymic and states she feels hopeless. Patient presents with poor eye contact and often looking down. Patient denies current SI, patient endorses SI earlier, denied intent or plans to kill self. Patient later stated that she had a thought of taking pills but states that she would never do it and she was worried that she would just wake up feeling worse. Patient denies HI. Patient denies any substance or ETOH use. Patient endorses that she has been experiencing significant social anxiety and panic attacks related to work and dreads going to work. 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 Patient states she does not necessarily feel supported at work and does not have the tools to manage her job. Patient endorses I have an irrational fear of failure. Patient endorses concern for not enjoying life and feeling stuck. Patient endorses concern that she will be struggling financially if she quits her job due to recent home expenses. Patient endorses concern for poor health, poor sleep and states she has not been eating recently. STEAM TENDER discusses things going well for patient. Patient states that she owns her home, and she has good talents and credentials. Patient endorses she has supports but does not want to burden them. Patient states she wants to be happy. Patient endorses she has not been taking lexapro as prescribed and told PCP office about this. Patient endorses last week she took 3 tramadol instead of 1 when she was feeling depressed. STEAM TENDER discusses grounding techniques, finding a new job, and seeing PCP soon. STEAM TENDER discusses looking into seeing a counselor but patient is not interested at this time because she feels as though she is a people pleaser and would not fully divulge information to counselor. STEAM TENDER calls PCP office and schedules PCP f/u for patient for Sunday01/02/23 at 8:30 AM. STEAM TENDER provides patient with list of resources for utility assistance, crisis numbers and list of counselors that take her insurance. Patient requests medical note for work to have a few days off, STEAM TENDER discusses this with ED provider who endorses agreement. Patient endorses that she feels safe to d/c to home, patient is encouraged to take a few days and make a plan for her self to seek out change with her employer and self care prior to going back to work as well as f/u with PCP. It is the opinion of this STEAM TENDER that patient is safe to d/c to home. Patient is not interested in [facility] inpatient hospitalization and is requesting to d/c to home upon d/c. Plan: Patient to f/u with PCP tomorrow, patient to seek out MH resources provided, patient to d/c to home upon medical clearance. Jennifer Duarte, APPLIANCE SERVICE REPRESENTATIVE
[2023-01-01 13:03] VITALS: BP 176/103; PULSE 90; RESP 16; O2SAT 95
== END 2023-01-01 13:32 | disposition home or self-care (01) ==
PROVIDERS: Emergency Medicine; Emergency Provider Emergency Medicine; PCP Family Medicine
DX: R45.851 Suicidal ideations (principal); F41.9 Anxiety disorder, unspecified; F32.A Depression, unspecified
CPT/HCPCS: 36415; 80053; 80305; 80320; 80329; 81003; 81015; 84439; 84443; 85025; 87086; 99284; G0480

== ENCOUNTER 2023-03-06 19:44 | Emergency (ER) | payer OTHER, MEDICAID, SELFPAY ==
[2021-03-14 23:21] VITALS: BMI 48.0
[2023-03-06 19:46] VITALS: BP 212/121; PULSE 83; RESP 18; TEMP 37.1; O2SAT 98; BMI 48.9
--- NOTE | 2023-03-06 19:50 | ED_ITS ---
HPI - General Adult General Chief complaint: Skin/Abscess/Foreign Body Stated complaint: something stuck in throat Time Seen by Provider: 03/06/23 19:48 History of Present Illness HPI narrative: 62-year-old female nonsmoker with history of persistent AFib on anticoagulation presents at the request of her primary care provider's office for evaluation of a foreign body sensation in her throat. She states that she was eating some granola 2 days ago and felt like maybe something had become stuck. She states at 1 point she coughed and a small twig came up. She has been able to get liquids and food down but still has an irritation on the right posterior part of her throat. She called her primary care provider and was sent here for evaluation. She has no fever or chills. She denies runny nose, cough, chest pain or shortness of breath. Related Data Home Medications Medication Instructions Recorded Confirmed cholecalciferol (vitamin D3) 125 5,000 units PO DAILY 05/09/18 01/25/23 mcg (5,000 unit) tablet (Vitamin D3) apixaban 5 mg tablet (Eliquis) 5 mg PO BID 10/05/22 01/25/23 Previous Rx's Medication Instructions Recorded amlodipine 5 mg tablet See Rx Instructions .Route 05/12/22 .COMPLEX #180 tabs Disabled parking permit #1 ea 08/29/22 ferrous sulfate 324 mg (65 mg 324 mg PO DAILY #90 tabs 10/05/22 iron) tablet,delayed release escitalopram oxalate 20 mg tablet 20 mg PO DAILY #90 tabs 01/04/23 (Lexapro) hydroxyzine HCl 10 mg tablet 10 mg PO TID PRN anxiety #30 tabs 01/04/23 levothyroxine 175 mcg tablet 175 mcg PO DAILY #60 tabs 03/02/23 Allergies Allergy/AdvReac Type Severity Reaction Status Date / Time iodine Allergy Severe to Verified 01/25/23 14:02 contrast dye-congestion, hives lisinopril Allergy Unknown COUGH Verified 01/25/23 14:02 shellfish derived Allergy Unknown Verified 01/25/23 14:02 buspirone AdvReac Intermediate felt Verified 01/25/23 14:02 spaced out bupropion [From Wellbutrin] AdvReac Mild Weird Verified 01/25/23 14:02 feeling Review of Systems Review of Systems Narrative: GENERAL: Denies chills, fatigue, malaise, fever, sweats. HEENT: See HPI RESPIRATORY: Denies dyspnea, cough, wheezing, hemoptysis, sputum. CARDIOVASCULAR: Denies chest pain, palpitations, orthopnea, edema, GASTROINTESTINAL: Denies nausea, vomiting, abdominal pain, diarrhea, constipation, melena. : Denies dysuria, frequency, incontinence, hematuria, urinary retention. MUSCULOSKELETAL: denies weakness, joint pain, or bony pain SKIN: Denies rash, skin lesions, or other NEUROLOGIC: Denies weakness, headache, numbness, change in speech, confusion, seizures, incoordination. PSYCHIATRIC: No concerning psychosocial issues. 12 point review of systems is negative except for those stated above Patient History Medical History Abscess Anxiety Atrial fibrillation, persistent BMI 50.0-59.9, adult Breast cancer screening CHF (congestive heart failure) Depression Diverticular disease Elevated CO2 level Fasting hyperglycemia GERD (gastroesophageal reflux disease) Hyperlipemia (~2010) Hypertension Hypothyroidism Hypothyroidism Left hip pain Mitral insufficiency Morbid obesity with body mass index (BMI) of 40.0 to 44.9 in adult (08/08/11) Osteoarthritis of left knee Osteoarthritis of right knee Paroxysmal A-fib Patellar tendinitis Retina disorder, left Sepsis URI (upper respiratory infection) Vitamin D deficiency Surgical History History of back surgery (07/2015) History of thyroidectomy (1976) Family History Mother Age: 87 Hypertension Father No problems noted. Grandfather Cancer Grandmother No problems noted. Grandfather No problems noted. Grandmother Cancer Sister No problems noted. Social History household members: none Smoking Status: Never smoker alcohol intake: never substance use type: does not use Smoking Status: Never smoker alcohol intake frequency: 0-2 drinks per day Substance Use Type: does not use Exam Narrative Exam Narrative: GEN: AOx3 and in mild distress EYES: Pupils are equal, round, and reactive to light and accommodation. Extraoccular muscles are intact bilaterally. There is no subconjunctival hemorrhage or exudate. ENT: No obvious foreign body, airway patent, no tonsillar swelling or obstruction CHEST: Lungs are clear to auscultation bilaterally and free of wheezes, rales, or rhonchi. Heart rate is regular rhythm, there are no murmurs, clicks, rubs, or gallops. There is no chest wall tenderness. ABD: Abdomen is soft and nontender. There is no guarding or rebound. Bowel sounds are normal in all 4 quadrants. There is no mass or organomegaly. EXT: Full painless ROM of all extremities with no loss of sensation or strength. SKIN: Warm, pink, and dry. No erythema or rash Initial Vital Signs Initial Vital Signs: Vital Signs Temperature 98.8 F 03/06/23 19:46 Pulse Rate 83 03/06/23 19:46 Respiratory Rate 18 03/06/23 19:46 Blood Pressure 212/121 H 03/06/23 19:46 Pulse Oximetry 98 03/06/23 19:46 Oxygen Delivery Method Room Air 03/06/23 19:46 Course Orders Ordered: ED Orders 03/06/23 20:03 XR soft tissue neck Stat 03/06/23 20:15 Strep Grp A by PCR Rapid Stat Vital Signs Vital signs: Vital Signs - 8 hr 03/06/23 19:46 03/06/23 20:03 03/06/23 21:03 Temperature 98.8 F Pulse Rate 83 87 76 Respiratory Rate 18 22 20 Blood Pressure 212/121 H 172/96 H Pulse Oximetry 98 93 94 Oxygen Delivery Method Room Air 03/06/23 21:04 03/06/23 21:04 03/06/23 21:30 Temperature Pulse Rate 80 Respiratory Rate 20 Blood Pressure 169/88 H 168/93 H Pulse Oximetry 95 Oxygen Delivery Method 03/06/23 21:30 Temperature Pulse Rate 80 Respiratory Rate 23 Blood Pressure Pulse Oximetry 95 Oxygen Delivery Method Room Air Medical Decision Making Lab Data Labs: Lab Results 03/06/23 Range/Units 20:15 Group A Strep (PCR) Negative (Negative) MDM Narrative Medical decision making narrative: [62] year old patient presents with foreign body sensation in throat Multiple etiologies for patient's symptoms considered including, but not limited to: [retained foreign body vs. edema vs. abrasion vs. other] Prior Charts reviewed in our EMR Primary Historian: patient Imaging reviewed: SOft Tissue neck no evidence of obvious foreign body or perforation, there is some calcification that is most consistent with carotid bulb calcification, if high suspicion recommend outpatient EGD Consultations: Discussed with on-call surgery (Jarred). No indication for immediate intervention. Likely edema vs. abrasion. Recommends calling office tomorrow to schedule outpatient follow-up Patient's history and physical exam are reassuring. She felt an abnormal sensation for the past few days, she is continued to drink and eat without significant difficulty. No fever, no chest pain. Multiple diagnoses considered as noted above. Imaging shows no obvious foreign body or perforation. She has no signs of sepsis, is tolerating orals and appropriate for discharge per my discussion with General surgery. She is given return precautions which include but are not limited to worsening pain, inability to swallow, trouble breathing, fever or other concerning symptoms. Findings and discharge diagnosis discussed with patient/family followed by verbalization of understanding Return precautions discussed with patient/family whom verbalize understanding of diagnosis and plan Discharge Plan Departure Patient Disposition: Home Clinical Impression: Esophageal foreign body Instructions: DI for Foreign Body, Swallowed-Adult Activity Restrictions/Additional Instructions: *You have been diagnosed with [possible esophageal foreign body. As we discussed your history and physical exam are reassuring and there is no significant abnormality on imaging.] *What to do: *Please continue to take your regular medications as directed. [ ] New medication prescriptions sent to your pharmacy: [ ] [ ] New medication written as a paper prescription [ ] No new medications given *Please follow up with Dr. Stern of [facility]. I discussed your case with him christ and he wants you to call the office tomorrow, let them know you were seen in the emergency department and we would like you seen in follow-up.. *If you do not have a primary care provider please contact the [facility] Resource line at [phone]. They will ask some questions about your medical history and help get you set up with a doctor in the community. *Return to Emergency Department if you should have any new, worsening or concerning symptoms, such as [fever greater than 101 F, shaking chills, worsening pain, persistent vomiting or other bothersome symptoms] Prescriptions: No Action amlodipine 5 mg tablet See Rx Instructions .ROUTE .COMPLEX Qty: 180 3RF Dose Instruction: TAKE 1 TABLET BY MOUTH TWICE DAILY Rx Instructions: TAKE 1 TABLET BY MOUTH TWICE DAILY levothyroxine 175 mcg tablet 175 mcg PO DAILY Qty: 60 0RF Eliquis 5 mg tablet 5 mg PO BID ferrous sulfate 324 mg (65 mg iron) tablet,delayed release (DR/EC) 324 mg PO DAILY Qty: 90 3RF (DME) Disabled parking permit See Rx Instructions .ROUTE .MEDSUPPLY Qty: 1 0RF Rx Instructions: I find this patient to be medically disabled and qualified for disabled parking as indicated, and signed, on the accompanying disabled parking application for individuals. escitalopram oxalate [Lexapro] 20 mg tablet 20 mg PO DAILY Qty: 90 0RF hydroxyzine HCl 10 mg tablet 10 mg PO TID PRN (Reason: anxiety) Qty: 30 0RF cholecalciferol (vitamin D3) [Vitamin D3] 5,000 unit Tablet 5,000 units PO DAILY Referrals: Aba Stern MD [Physician] - Flaquito Yee MD [Primary Care Provider] - Stand Alone Forms: Patient Portal/API
[2023-03-06 20:03] VITALS: BP 172/96; PULSE 87; RESP 22; O2SAT 93
--- NOTE | 2023-03-06 20:03 | DI.RAD.S_ITS ---
PROCEDURE: XR SOFT TISSUE NECK INDICATIONS: possible foreign body TECHNIQUE: 2 views of the neck were acquired. COMPARISON: None. FINDINGS: There is some hyperdensities on lateral view projecting in the region of the piriform sinuses. On frontal view, carotid bulb calcifications are seen around the same level. Prevertebral soft tissues are not thickened. Moderate cervical degenerative changes with likely degenerative trace multilevel spondylolisthesis. IMPRESSION: Some hyperdensities are seen the level of C4 on lateral view, possibly corresponding to carotid bulb calcifications on frontal view. This is not certain. If there is high concern, consider endoscopy follow-up. No other obvious radiopaque foreign body identified. Dictated by: Cristóbal Melgar M.D. on 03/06/2023 at 21:31 Approved by: Cristóbal Melgar M.D. on 03/06/2023 at 21:34
[2023-03-06 20:36] LABS: Strep Grp A by PCR Rapid Negative (Negative)
--- NOTE | 2023-03-06 21:01 | PC.NURSE ---
Pt reports feeling something stuck in her throat. states had coughed up something like a small stick a couple of days ago and continues to feel like something is in her throat. states she is able to swallow fluids but swallowing food and pills causes increased pain.
[2023-03-06 21:03] VITALS: PULSE 76; RESP 20; O2SAT 94
[2023-03-06 21:04] VITALS: BP 169/88; PULSE 80; RESP 20; O2SAT 95
[2023-03-06 21:30] VITALS: BP 168/93; PULSE 80; RESP 23; O2SAT 95
== END 2023-03-06 21:56 | disposition home or self-care (01) ==
PROVIDERS: Emergency Provider Emergency Medicine; PCP Family Medicine; Referring Provider Family Medicine
DX: T18.108A Unspecified foreign body in esophagus causing other injury, initial encounter (principal); Z79.01 Long term (current) use of anticoagulants; Z79.899 Other long term (current) drug therapy
CPT/HCPCS: 70360; 87651; 99283

== ENCOUNTER → 2023-03-20 10:51 | Outpatient (CLI) | payer OTHER, MEDICAID, SELFPAY ==
[2021-03-14 23:21] VITALS: BMI 48.0
[2023-03-20 13:03] LABS: Alanine Aminotransferase 18 IU/L (<35); Albumin 4.2 g/dL (3.5-5.0); Alkaline Phosphatase 133 U/L (38-126); Aspartate Aminotransferase 27 IU/L (14-36); BUN Creatinine Ratio 13.8 (6-22); Bilirubin Total 0.8 mg/dL (0.2-1.3); Blood Urea Nitrogen 11 mg/dL (7-17); Calcium 9.1 mg/dL (8.4-10.2); Carbon Dioxide 30 mmol/L (22-32); Chloride 100 mmol/L (98-107); Estimated Glomerular Filt Rate > 60 mL/min (>60); Globulin 4.3 g/dL (1.7-4.1); Glucose 127 mg/dL (80-110); HEMOLYSIS < 15 (0-50); Potassium 3.7 mmol/L (3.4-5.1); Sodium 139 mmol/L (137-145); Total Protein 8.5 g/dL (6.3-8.2)
[2023-03-20 13:53] LABS: Free T4, Direct Thyroxine 0.82 ng/dL (0.78-2.19)
== END ==
PROVIDERS: PCP Family Medicine; Referring Provider Family Medicine; Visit Provider Family Medicine
DX: E05.90 Thyrotoxicosis, unspecified without thyrotoxic crisis or storm (principal); F41.9 Anxiety disorder, unspecified; I48.19 Other persistent atrial fibrillation; I10 Essential (primary) hypertension; E03.9 Hypothyroidism, unspecified
CPT/HCPCS: 36415; 80053; 84439; 84443

== ENCOUNTER → 2023-07-02 17:32 | Outpatient (CLI) | payer OTHER, MEDICAID, SELFPAY ==
[2021-03-14 23:21] VITALS: BMI 48.0
[2023-07-02 18:18] LABS: Alanine Aminotransferase 19 IU/L (<35); Albumin 4.2 g/dL (3.5-5.0); Albumin Globulin Ratio 0.9 (1.0-2.8); Alkaline Phosphatase 133 U/L (38-126); Aspartate Aminotransferase 31 IU/L (14-36); BUN Creatinine Ratio 15.6 (6-22); Blood Urea Nitrogen 10 mg/dL (7-17); Calcium 8.8 mg/dL (8.4-10.2); Carbon Dioxide 28 mmol/L (22-32); Chloride 99 mmol/L (98-107); Estimated Glomerular Filt Rate > 60 mL/min (>60); Globulin 4.5 g/dL (1.7-4.1); Glucose 131 mg/dL (80-110); HEMOLYSIS 27 (0-50); Potassium 3.8 mmol/L (3.4-5.1); Sodium 138 mmol/L (137-145); Total Protein 8.7 g/dL (6.3-8.2)
[2023-07-02 19:05] LABS: Free T4, Direct Thyroxine 1.06 ng/dL (0.78-2.19)
[2023-07-10 16:36] LABS: Albumin 3.4 g/dL (2.9-4.4); Alpha-1-Globulin 0.3 g/dL (0.0-0.4); Alpha-2-Globulin 0.9 g/dL (0.4-1.0); Globulin Total 4.6 g/dL (2.2-3.9)
== END ==
LOC: LAB 17:33
PROVIDERS: PCP Family Medicine; Referring Provider Family Medicine; Visit Provider Family Medicine
DX: E05.90 Thyrotoxicosis, unspecified without thyrotoxic crisis or storm (principal); I10 Essential (primary) hypertension; E03.9 Hypothyroidism, unspecified; F41.9 Anxiety disorder, unspecified
CPT/HCPCS: 36415; 80053; 84155; 84165; 84439; 84443

== ENCOUNTER → 2023-07-06 11:09 | Outpatient (CLI) | payer OTHER, MEDICAID, SELFPAY ==
[2021-03-14 23:21] VITALS: BMI 48.0
[2023-07-10 12:48] LABS: Alpha-1 Globulin, Ur 4.2 % (.); Beta Globulin, Ur 19.8 % (.); Gamma Globulin, Ur 16.7 % (.); M-Spike % Not Observed % (Not Observed); Urine Total Protein 22.4 mg/dL (Not Estab.)
--- NOTE | 2023-07-11 12:12 | PC.NURSE ---
Referral request for [facility] for pt's lab results. This RN called pt to speak to her about it. She states she will wait for [facility] to call her for an appt. Email sent to Yaquelin ENGLAND at [facility] cancer care
== END ==
LOC: LAB 11:10
PROVIDERS: PCP Family Medicine; Referring Provider Family Medicine; Visit Provider Family Medicine
DX: I50.9 Heart failure, unspecified (principal); I10 Essential (primary) hypertension; E03.9 Hypothyroidism, unspecified
CPT/HCPCS: 84156; 84166

== ENCOUNTER → 2023-07-13 16:13 | Outpatient (CLI) | payer OTHER, MEDICAID, SELFPAY ==
[2021-03-14 23:21] VITALS: BMI 48.0
--- NOTE | 2023-07-13 16:15 | DI.RAD.S_ITS ---
PROCEDURE: XR CHEST 2V INDICATIONS: chronic cough TECHNIQUE: 2 views of the chest were acquired. COMPARISON: [facility], CR, XR CHEST 1V, 06/10/2018, 16:08. [facility], CR, XR CHEST 2V, 11/29/2018, 15:25. FINDINGS: Surgical changes and devices: None. Lungs and pleura: Lungs are clear. No pleural effusions or pneumothorax. Mediastinum: Mediastinal contours are normal. Heart size is enlarged as before. Bones and chest wall: No suspicious bony abnormalities. Soft tissues appear unremarkable. IMPRESSION: No source for chronic cough identified radiographically. Dictated by: Anthony Godinez RRA Interpreted: Dakotah Boyd MD on 07/13/2023 at 16:31 Transcribed by: LEÓN on 07/13/2023 at 16:32 Approved by: Dakotah Boyd M.D. on 07/13/2023 at 16:41
== END ==
PROVIDERS: PCP Family Medicine; Referring Provider Family Medicine; Visit Provider Family Medicine
DX: E05.90 Thyrotoxicosis, unspecified without thyrotoxic crisis or storm (principal); R05.9 Cough, unspecified; R07.89 Other chest pain; I50.9 Heart failure, unspecified
CPT/HCPCS: 71046

== ENCOUNTER → 2023-08-21 14:00 | Outpatient (CLI) | payer OTHER, MEDICAID, SELFPAY ==
[2021-03-14 23:21] VITALS: BMI 48.0
--- NOTE | 2023-08-21 14:02 | DI.MG.S_ITS ---
BILATERAL DIGITAL SCREENING MAMMOGRAM 3D/2D WITH CAD: 08/21/2023 CLINICAL: Routine screening. Family history of breast cancer. Comparison is made to exams dated: 12/10/2020 mammogram, 05/22/2016 mammogram - , and 11/10/2014 mammogram - [facility]. Both breasts are almost entirely fatty (category a/<25% glandular tissue). Current study was also evaluated with a Computer Aided Detection (CAD) system. No significant masses, calcifications, or other findings are seen in either breast. There has been no significant interval change. IMPRESSION: NEGATIVE There is no mammographic evidence of malignancy. A 1 year screening mammogram is recommended. Based on the Tyrer Cuzick model (a risk assessment model) the patient's lifetime risk is 5.6% and her 10 year risk is 2.4%. According to the ACR, ACS, and NCCN guidelines, an annual breast MRI exam along with mammogram is recommended if the patient's lifetime risk is 20% or greater. This exam was interpreted at Station ID: [id number]. NOTE: For mammograms, a report in lay terms will be sent to the patient. Approximately 15% of breast malignancies will not be visualized mammographically. In the management of a palpable breast mass, a negative mammogram must not discourage biopsy of a clinically suspicious lesion. Electronically Signed By: Alvarez givens/madiha:08/21/2023 16:40:55 letter sent: Normal Exam ACR BI-RADS Category 1: Negative [id number]
== END ==
PROVIDERS: PCP Family Medicine; Referring Provider Family Medicine; Visit Provider Family Medicine
DX: Z12.31 Encounter for screening mammogram for malignant neoplasm of breast (principal); Z80.3 Family history of malignant neoplasm of breast; R92.313 Mammographic fatty tissue density, bilateral breasts
CPT/HCPCS: 77063; 77067

== ENCOUNTER → 2023-09-27 13:43 | Outpatient (CLI) | payer OTHER, MEDICAID, SELFPAY ==
[2021-03-14 23:21] VITALS: BMI 48.0
--- NOTE | 2023-09-27 13:45 | DI.RAD.S_ITS ---
PROCEDURE: XR CHEST 2V INDICATIONS: shortness of breath TECHNIQUE: 2 views of the chest were acquired. COMPARISON: [facility], CR, XR CHEST 2V, 07/13/2023, 16:24. [facility], CR, XR CHEST 2V, 11/29/2018, 15:25. FINDINGS: Surgical changes and devices: None. Lungs and pleura: Prominent interstitial markings. No focal pulmonary consolidation. No pleural effusions or pneumothorax. Mediastinum: Mediastinal contours are normal. Heart size is enlarged, stable. Bones and chest wall: No suspicious bony abnormalities. Soft tissues appear unremarkable. IMPRESSION: Cardiomegaly with prominent interstitial markings, concerning for pulmonary edema. Atypical infection is also in the differential and clinical correlation is recommended. Dictated by: Edgar Weldon M.D. on 09/27/2023 at 15:03 Approved by: Edgar Weldon M.D. on 09/27/2023 at 15:05
[2023-09-27 14:35] LABS: Add Manual Diff / Slide Review NO; Basophils Absolute Auto 0 /uL (0-100); Basophils Percent Auto 0.6 % (0-2); Eosinophils Absolute Auto 100 /uL (0-450); Eosinophils Percent Auto 2.3 % (2-4); Hematocrit 38.8 % (36-46); Hemoglobin 12.6 g/dL (12.0-16.0); Lymphocytes Absolute Auto 1100 /uL (1100-4500); Lymphocytes Percent Auto 20.6 % (25-40); Mean Corpuscular HGB Conc 32.5 % (30-36); Mean Corpuscular Hemoglobin 25.7 PG (26-34); Mean Corpuscular Volume 79.1 fL (80-100); Monocytes Absolute Auto 700 /uL (0-900); Monocytes Percent Auto 12.3 % (3-14); Neutrophils Absolute Auto 3500 /uL (1500-7000); Neutrophils Percent Auto 64.2 % (50-75); Platelet Count 235 X10^3/uL (150-400); Red Blood Cell Count 4.91 X10^6/uL (4.0-5.2); Red Cell Distribution Width 22.3 % (11.6-14.8); White Blood Cell Count 5.5 X10^3/uL (4.5-11.0)
[2023-09-27 14:50] LABS: Anisocytosis 3+
[2023-09-27 15:02] LABS: HEMOLYSIS < 15 (0-50); Iron 43 ug/dL (37-170)
[2023-09-27 15:03] LABS: Alanine Aminotransferase 18 IU/L (<35); Alkaline Phosphatase 120 U/L (38-126); Aspartate Aminotransferase 34 IU/L (14-36); BUN Creatinine Ratio 16.7 (6-22); Bilirubin Total 0.7 mg/dL (0.2-1.3); Blood Urea Nitrogen 14 mg/dL (7-17); Calcium 8.6 mg/dL (8.4-10.2); Carbon Dioxide 31 mmol/L (22-32); Chloride 100 mmol/L (98-107); Estimated Glomerular Filt Rate > 60 mL/min (>60); Globulin 3.9 g/dL (1.7-4.1); Glucose 120 mg/dL (80-110); HEMOLYSIS < 15 (0-50); Potassium 3.4 mmol/L (3.4-5.1); Sodium 138 mmol/L (137-145); Total Protein 7.9 g/dL (6.3-8.2)
[2023-09-27 15:14] LABS: NT-proBNP (BNP-Adult 18+) 718 pg/mL (<125)
[2023-09-27 15:15] LABS: Percent Iron Saturation 13 % (15-50); Total Iron Binding Capacity 331 ug/dL (265-497); Transferrin 251 mg/dL (206-381)
[2023-09-27 15:39] LABS: Ferritin 207 ng/mL (11-264)
[2023-09-27 16:02] LABS: Free T4, Direct Thyroxine 1.24 ng/dL (0.78-2.19)
== END ==
LOC: LAB 13:44
PROVIDERS: PCP Family Medicine; Referring Provider Family Medicine; Visit Provider Family Medicine
DX: J18.9 Pneumonia, unspecified organism (principal); I50.9 Heart failure, unspecified; E03.9 Hypothyroidism, unspecified; I10 Essential (primary) hypertension; F32.9 Major depressive disorder, single episode, unspecified; F41.9 Anxiety disorder, unspecified; R73.9 Hyperglycemia, unspecified; I48.19 Other persistent atrial fibrillation; R05.9 Cough, unspecified; J06.9 Acute upper respiratory infection, unspecified
CPT/HCPCS: 36415; 71046; 80053; 82728; 83036; 83540; 83550; 83880; 84439; 84443; 85025

== ENCOUNTER 2023-09-29 07:13 | Observation (INO) | payer OTHER, MEDICAID, SELFPAY ==
[2021-03-14 23:21] VITALS: BMI 48.0
[2023-09-29] VITALS (23 sets, daily range): BP systolic 148–210; BP diastolic 74–121; PULSE 80–115; RESP 16–32; TEMP 36.7–37.1; O2SAT 87–96; BMI 49.2
--- NOTE | 2023-09-29 07:21 | DI.RAD.S_ITS ---
PROCEDURE: XR CHEST 1V INDICATIONS: SOB TECHNIQUE: One view of the chest was acquired. COMPARISON: [facility], CR, XR CHEST 2V, 09/27/2023, 13:51. FINDINGS: Surgical changes and devices: Overlying monitoring wires. Lungs and pleura: Mild diffuse interstitial thickening, less prominent compared to the prior exam. No focal consolidation, effusion, or pneumothorax. Mediastinum: Moderate cardiomegaly, stable. Stable mediastinal contour. No significant central venous congestion. Bones and chest wall: No suspicious bony lesions. Overlying soft tissues appear unremarkable. IMPRESSION: Improved central venous congestion and interstitial thickening. Stable cardiomegaly. Dictated by: Idalmis Johnson M.D. on 09/29/2023 at 7:47 Approved by: Idalmis Johnson M.D. on 09/29/2023 at 7:49
[2023-09-29] MEDS: ALBUTEROL 2.5 MG/3 ML NEB (ADULT) INH ×2 (07:30→21:53)
[2023-09-29] MEDS: ALBUTEROL/IPRATROPIUM 3 ML AMPUL INH (07:31)
--- NOTE | 2023-09-29 07:31 | ED_ITS ---
HPI - General Adult General Chief complaint: Shortness of Breath/Dyspnea Stated complaint: pneumonia Time Seen by Provider: 09/29/23 07:14 Source: patient and other Mode of arrival: Wheelchair History of Present Illness HPI narrative: Patient is a 63-year-old female. Has a history of AFib, CHF, hypothyroid who was seen by her primary doctor just a couple days ago. Was diagnosed with pneumonia. Was put on steroids and albuterol but also given Augmentin and doxycycline. There was also some concern with that note that maybe this was CHF. She had been off of her Lasix for a while because she stated that she thought that it was ?too much for my kidneys? primary doctor asked that she take 20 mg a day. She returns to the emergency department today with continued shortness of breath and cough and fatigue. Related Data Home Medications Medication Instructions Recorded Confirmed cholecalciferol (vitamin D3) 125 5,000 units PO DAILY 05/09/18 09/27/23 mcg (5,000 unit) tablet (Vitamin D3) apixaban 5 mg tablet (Eliquis) 5 mg PO BID 10/05/22 09/27/23 Previous Rx's Medication Instructions Recorded Disabled parking permit #1 ea 08/29/22 ferrous sulfate 324 mg (65 mg 324 mg PO DAILY #90 tabs 10/05/22 iron) tablet,delayed release hydroxyzine HCl 10 mg tablet 10 mg PO TID PRN anxiety #30 tabs 01/04/23 nystatin 100,000 unit/gram topical 1 applic topical TID #60 grams 03/26/23 powder levothyroxine 175 mcg tablet See Rx Instructions PO .COMPLEX 07/06/23 #60 tabs levothyroxine 200 mcg tablet 200 mcg PO DAILY #90 tabs 07/06/23 losartan 100 mg tablet 100 mg PO DAILY #90 tabs 07/06/23 amlodipine 5 mg tablet 5 mg PO BID #180 tabs 07/27/23 albuterol sulfate 90 mcg/actuation 2 puff inhalation Q6H PRN 09/27/23 aerosol inhaler shortness of breath or wheezing #8.5 grams amoxicillin 875 mg-potassium 1 tab PO BID #14 tabs 09/27/23 clavulanate 125 mg tablet doxycycline hyclate 100 mg capsule 100 mg PO BID #14 caps 09/27/23 furosemide 20 mg tablet (Lasix) See Rx Instructions PO .COMPLEX 09/27/23 #60 tabs prednisone 20 mg tablet 40 mg (2 x 20 mg) PO DAILY #10 tabs 09/27/23 Allergies Allergy/AdvReac Type Severity Reaction Status Date / Time iodine Allergy Severe to Verified 09/29/23 07:31 contrast dye-congestion, hives lisinopril Allergy Unknown COUGH Verified 09/29/23 07:31 shellfish derived Allergy Unknown Verified 09/29/23 07:31 buspirone AdvReac Intermediate felt Verified 09/29/23 07:31 spaced out duloxetine AdvReac Intermediate Shakiness Verified 09/29/23 07:31 bupropion [From Wellbutrin] AdvReac Mild Weird Verified 09/29/23 07:31 feeling Review of Systems Review of Systems ROS Unobtainable: All systems reviewed & are unremarkable except as noted in HPI and below Patient History Medical History MGUS (monoclonal gammopathy of unknown significance) Hyperglycemia Hypothyroidism CHF (congestive heart failure) Atrial fibrillation, persistent Sepsis Breast cancer screening URI (upper respiratory infection) Abscess Osteoarthritis of right knee Osteoarthritis of left knee Retina disorder, left BMI 50.0-59.9, adult Left hip pain Patellar tendinitis Vitamin D deficiency Fasting hyperglycemia Elevated CO2 level Paroxysmal A-fib Mitral insufficiency Diverticular disease GERD (gastroesophageal reflux disease) Hyperlipemia (~2010) Depression Hypertension Hypothyroidism Anxiety Morbid obesity with body mass index (BMI) of 40.0 to 44.9 in adult (08/08/11) Surgical History History of back surgery (07/2015) History of thyroidectomy (1976) Family History Mother Age: 88 Hypertension Father No problems noted. Grandfather Cancer Grandmother No problems noted. Grandfather No problems noted. Grandmother Cancer Sister No problems noted. Social History household members: none Smoking Status: Never smoker alcohol intake: never substance use type: does not use Smoking Status: Never smoker alcohol intake frequency: 0-2 drinks per day Substance Use Type: does not use Exam Initial Vital Signs Initial Vital Signs: Vital Signs Pulse Rate 93 H 09/29/23 07:21 Pulse Oximetry 96 09/29/23 07:21 Const General: cooperative and well developed [facility] Head: normal to inspection and normocephalic Resp Effort & Inspection: cough, not labored, no respiratory distress and tachypneic Auscultation: rhonchi and wheezes Cardio Rate: tachycardic Rhythm: abnormal rhythm GI Inspection: non-distended Neuro General: patient alert, patient awake, patient oriented x3 and moves all extremities Extrem Other: 1+ bilateral pitting edema Course Orders Ordered: ED Orders 09/29/23 07:21 XR chest 1V Stat 09/29/23 07:25 Complete Blood Count AUTO DIFF Stat Comprehensive Metabolic Panel Stat Lipase Stat NT-proBNP (BNP-Adult 18+) Stat Procalcitonin Stat Troponin & CK Cardiac Panel Stat 09/29/23 07:41 EKG-12 Lead Stat 09/29/23 07:45 Respiratory Panel (Film Array) Stat Discontinued Medications Albuterol (Albuterol 2.5 Mg/3 Ml Neb (Adult)) 2.5 mg INH NOW ONE Stop: 09/29/23 07:27 Last Admin: 09/29/23 07:30 Dose: 2.5 mg Documented By: NL Albuterol/Ipratropium (Albuterol/Ipratropium 3 Ml Ampul) 3 ml INH NOW ONE Stop: 09/29/23 07:27 Last Admin: 09/29/23 07:31 Dose: 3 ml Documented By: MEG Furosemide 60 mg/ Sodium (Chloride) 56 mls @ 112 mls/hr IV NOW ONE Stop: 09/29/23 07:31 Last Infusion: 09/29/23 09:10 Dose: Infused Documented By: Admin: 09/29/23 07:42 Dose: 112 mls/hr Documented By: TC Vital Signs Vital signs: Vital Signs - 8 hr 09/29/23 07:21 09/29/23 07:24 09/29/23 07:24 Temperature Pulse Rate 93 H 93 H Respiratory Rate 27 H Blood Pressure 148/101 H Pulse Oximetry 96 94 Oxygen Delivery Method 09/29/23 07:25 09/29/23 07:25 09/29/23 07:26 Temperature 98.3 F Pulse Rate 94 H 95 H Respiratory Rate 29 H 18 Blood Pressure 210/121 H 178/93 H Pulse Oximetry 92 95 Oxygen Delivery Method Room Air 09/29/23 07:26 09/29/23 07:26 09/29/23 07:27 Temperature Pulse Rate 93 H 95 H Respiratory Rate 26 H 32 H Blood Pressure 177/118 H Pulse Oximetry 94 94 Oxygen Delivery Method 09/29/23 07:27 09/29/23 07:28 09/29/23 07:28 Temperature Pulse Rate 115 H Respiratory Rate 30 H Blood Pressure 182/100 H 178/93 H Pulse Oximetry 95 Oxygen Delivery Method 09/29/23 07:29 09/29/23 07:29 09/29/23 07:30 Temperature Pulse Rate 104 H Respiratory Rate 28 H Blood Pressure 206/97 H 197/87 H Pulse Oximetry 95 Oxygen Delivery Method 09/29/23 07:30 09/29/23 07:30 09/29/23 07:45 Temperature Pulse Rate 94 H 101 H 92 H Respiratory Rate 24 24 26 H Blood Pressure Pulse Oximetry 95 91 93 Oxygen Delivery Method Room Air 09/29/23 07:45 09/29/23 08:00 09/29/23 08:00 Temperature Pulse Rate 94 H Respiratory Rate 25 H Blood Pressure 174/74 H 167/81 H Pulse Oximetry 92 Oxygen Delivery Method 09/29/23 08:15 09/29/23 08:15 09/29/23 08:26 Temperature Pulse Rate 94 H Respiratory Rate 24 Blood Pressure 164/81 H 176/96 H Pulse Oximetry 92 Oxygen Delivery Method 09/29/23 08:26 09/29/23 08:30 09/29/23 08:30 Temperature Pulse Rate 98 H 95 H Respiratory Rate 29 H 29 H Blood Pressure 189/95 H Pulse Oximetry 93 92 Oxygen Delivery Method 09/29/23 08:57 09/29/23 08:57 09/29/23 08:58 Temperature Pulse Rate 97 H 102 H Respiratory Rate 22 20 Blood Pressure 191/92 H Pulse Oximetry 92 88 L Oxygen Delivery Method 09/29/23 09:00 09/29/23 09:05 Temperature Pulse Rate 97 H Respiratory Rate 25 H 28 H Blood Pressure Pulse Oximetry 87 L 87 L Oxygen Delivery Method Room Air Room Air Medical Decision Making Medical Records Medical records reviewed: Yes I reviewed the patient's medical records. Lab Data Lab results reviewed: Yes I reviewed the patient's lab results. 09/29/23 07:25 09/29/23 07:25 Labs: Lab Results 09/29/23 09/29/23 Range/Units 07:25 07:45 WBC 7.0 (4.5-11.0) X10^3/uL RBC 5.16 (4.0-5.2) X10^6/uL Hgb 13.3 (12.0-16.0) g/dL Hct 41.2 (36-46) % MCV 79.8 L (80-100) fL MCH 25.8 L (26-34) PG MCHC 32.3 (30-36) % RDW 22.6 H (11.6-14.8) % Plt Count 271 (150-400) X10^3/uL Neut % (Auto) 70.0 (50-75) % Lymph % (Auto) 22.5 L (25-40) % [place] % (Auto) 7.1 (3-14) % Eos % (Auto) 0.1 L (2-4) % Baso % (Auto) 0.3 (0-2) % Neut # (Auto) 4900 (9096-9928) /uL Lymph # (Auto) 1600 (0095-0199) /uL [place] # (Auto) 500 (0-900) /uL Eos # (Auto) 0 (0-450) /uL Baso # (Auto) 0 (0-100) /uL Nucleated RBCs Cancelled Hypersegmented Neuts Cancelled Hypogranular Neuts Cancelled Reactive Lymphocytes Cancelled Smudge Cells Cancelled Other Cell Type Cancelled Toxic Granulation Cancelled Toxic Vacuolation Cancelled Dohle Bodies Cancelled Noe Rods Cancelled WBC Morphology Comment Cancelled Platelet Estimate Cancelled Clumped Platelets Cancelled Plt Morphology Comment Cancelled RBC Morphology Cancelled Dimorphic RBCs Cancelled Polychromasia Cancelled Hypochromasia Cancelled Poikilocytosis Cancelled Basophilic Stippling Cancelled Anisocytosis Cancelled Microcytosis Cancelled Macrocytosis Cancelled Spherocytes Cancelled Pappenheimer Bodies Cancelled Sickle Cells Cancelled Target Cells Cancelled Tear Drop Cells Cancelled Ovalocytes Cancelled Stomatocytes Cancelled Helmet Cells Cancelled [place] Bodies Cancelled [place] Rings Cancelled Paul Cells Cancelled Acanthocytes (Spur) Cancelled Rouleaux Cancelled Schistocytes Cancelled Sodium 141 (137-145) mmol/L Potassium 3.4 (3.4-5.1) mmol/L Chloride 103 (98-107) mmol/L Carbon Dioxide 30 (22-32) mmol/L BUN 16 (7-17) mg/dL Creatinine 0.61 (0.52-1.04) mg/dL Estimated GFR > 60 (>60) mL/min BUN/Creatinine Ratio 26.2 H (6-22) Glucose 151 H (80-110) mg/dL Calcium 9.4 (8.4-10.2) mg/dL Total Bilirubin 0.5 (0.2-1.3) mg/dL AST 33 (14-36) IU/L ALT 20 (<35) IU/L Alkaline Phosphatase 110 (38-126) U/L Total Creatine Kinase 188 H (30-135) U/L Troponin I < 0.012 (0.01-0.034) ng/mL NT-Pro-B Natriuret Pep 1290 H (<125) pg/mL Total Protein 8.6 H (6.3-8.2) g/dL Albumin 4.3 (3.5-5.0) g/dL Globulin 4.3 H (1.7-4.1) g/dL Albumin/Globulin Ratio 1.0 (1.0-2.8) Lipase 40 (23-300) U/L Procalcitonin 0.05 (<0.5) ng/mL Chlamy pneumoniae PCR Not detected (Not Detect) Adenovirus (PCR) Not detected (Not Detect) B.parapertussis DNA PCR Not detected (Not Detecte) Coronavirus OC43 (PCR) Not detected (Not Detect) Coronavirus HKU1 (PCR) Not detected (Not Detect) Coronavirus 229E (PCR) Not detected (Not Detect) SARS-CoV-2 (PCR) Not detected (Not Detecte) Coronavirus NL63 (PCR) Not detected (Not Detect) Human Metapneumovir PCR Detected H (Not Detect) Influenza Type A (PCR) Not detected (Not Detect) Influenza Type B (PCR) Not detected (Not Detect) M. pneumoniae (PCR) Not detected (Not Detect) Parainfluenza 1 (PCR) Not detected (Not Detect) Parainfluenza 2 (PCR) Not detected (Not Detect) Parainfluenza 3 (PCR) Not detected (Not Detect) Parainfluenza 4 (PCR) Not detected (Not Detect) RSV (PCR) Not detected (Not Detect) Entero/Rhino (PCR) Not detected (Not Detect) Imaging Data Chest x-ray: Radiologist's Impression: PROCEDURE: XR CHEST 1V INDICATIONS: SOB TECHNIQUE: One view of the chest was acquired. COMPARISON: [facility], , XR CHEST 2V, 09/27/2023, 13:51. FINDINGS: Surgical changes and devices: Overlying monitoring wires. Lungs and pleura: Mild diffuse interstitial thickening, less prominent compared to the prior exam. No focal consolidation, effusion, or pneumothorax. Mediastinum: Moderate cardiomegaly, stable. Stable mediastinal contour. No significant central venous congestion. Bones and chest wall: No suspicious bony lesions. Overlying soft tissues appear unremarkable. IMPRESSION: Improved central venous congestion and interstitial thickening. Stable cardiomegaly. ECG Data Attestation: I personally reviewed and interpreted this ECG as follows: Interpretation: Atrial fibrillation Ventricular rate 86 Normal axis Normal QRS No ST T wave changes MDM Narrative Medical decision making narrative: Patient with tachypnea and a fairly significant cough and abnormal lung sounds upon arrival. Her abnormal lung sounds did improve somewhat after the breathing treatment although she still remained quite tachypneic. Her BNP is slightly more elevated today although chest x-ray is improved from earlier. She was given Lasix. She has diuresed. She was positive for human metapneumovirus which I suspect is the underlying cause of her symptoms today. Upon ambulating around the emergency department she became significantly tachypneic, shortness of breath and hypoxic to the mid 80s. This did improve somewhat with sitting and she stated that she felt much better with oxygen by nasal cannula. Given her hypoxia on exertion admission to the hospitalist necessary. Discussed the admission with Dr. Salas who is the hospitalist on-call. Discussed the need for admission with the patient. She expressed understanding and agreement with plan. Discharge Plan Departure Patient Disposition: Admitted As Inpatient Clinical Impression: Human metapneumovirus pneumonia, Hypoxia Admit Date/Time: 09/29/23 09:12 Admit Provider: Silverio Salas
[2023-09-29 07:37] LABS: Add Manual Diff / Slide Review NO; Basophils Absolute Auto 0 /uL (0-100); Basophils Percent Auto 0.3 % (0-2); Eosinophils Absolute Auto 0 /uL (0-450); Eosinophils Percent Auto 0.1 % (2-4); Hematocrit 41.2 % (36-46); Hemoglobin 13.3 g/dL (12.0-16.0); Lymphocytes Absolute Auto 1600 /uL (1100-4500); Lymphocytes Percent Auto 22.5 % (25-40); Mean Corpuscular HGB Conc 32.3 % (30-36); Mean Corpuscular Hemoglobin 25.8 PG (26-34); Mean Corpuscular Volume 79.8 fL (80-100); Monocytes Absolute Auto 500 /uL (0-900); Monocytes Percent Auto 7.1 % (3-14); Neutrophils Absolute Auto 4900 /uL (1500-7000); Platelet Count 271 X10^3/uL (150-400); Red Blood Cell Count 5.16 X10^6/uL (4.0-5.2); Red Cell Distribution Width 22.6 % (11.6-14.8)
[2023-09-29] MEDS: FUROSEMIDE 60 MG in SODIUM CHLORIDE 0.9% 50 ML 112 MG IV (07:42)
[2023-09-29 07:47] LABS: Alanine Aminotransferase 20 IU/L (<35); Albumin 4.3 g/dL (3.5-5.0); Alkaline Phosphatase 110 U/L (38-126); Aspartate Aminotransferase 33 IU/L (14-36); BUN Creatinine Ratio 26.2 (6-22); Bilirubin Total 0.5 mg/dL (0.2-1.3); Blood Urea Nitrogen 16 mg/dL (7-17); Calcium 9.4 mg/dL (8.4-10.2); Carbon Dioxide 30 mmol/L (22-32); Chloride 103 mmol/L (98-107); Creatine Kinase 188 U/L (30-135); Estimated Glomerular Filt Rate > 60 mL/min (>60); Globulin 4.3 g/dL (1.7-4.1); Glucose 151 mg/dL (80-110); HEMOLYSIS < 15 (0-50); Lipase 40 U/L (23-300); Potassium 3.4 mmol/L (3.4-5.1); Sodium 141 mmol/L (137-145); Total Protein 8.6 g/dL (6.3-8.2)
[2023-09-29 07:59] LABS: NT-proBNP (BNP-Adult 18+) 1290 pg/mL (<125); Troponin I < 0.012 ng/mL (0.01-0.034)
[2023-09-29 08:04] LABS: Procalcitonin 0.05 ng/mL (<0.5)
--- NOTE | 2023-09-29 08:12 | RT ---
pt chari myles well, on room air. Pt states asthma induced with exertion
[2023-09-29 08:42] LABS: Adenovirus Not Detected (Not Detect); B. parapertussis Not Detected (Not Detecte); Bordetella pertussis Not Detected (Not Detect); Chlamydophila pneumoniae Not Detected (Not Detect); Coronavirus 229E Not Detected (Not Detect); Coronavirus HKU1 Not Detected (Not Detect); Coronavirus NL 63 Not Detected (Not Detect); Coronavirus OC43 Not Detected (Not Detect); Human Metapneumovirus Detected (Not Detect); Human Rhinovirus/Enterovirus Not Detected (Not Detect); Influenza A Not Detected (Not Detect); Influenza B Not Detected (Not Detect); Mycoplasma pneumoniae Not Detected (Not Detect); Parainfluenza Virus 1 Not Detected (Not Detect); Parainfluenza Virus 2 Not Detected (Not Detect); Parainfluenza Virus 3 Not Detected (Not Detect); Parainfluenza Virus 4 Not Detected (Not Detect); Respiratory Syncytial Virus Not Detected (Not Detect); SARS- CoV-2 Not Detected (Not Detecte)
--- NOTE | 2023-09-29 11:33 | P.HP_ITS ---
History of Present Illness History of Present Illness Date Patient Seen: 09/29/23 Time Patient Seen: 11:15 Chief complaint: pneumonia Narrative: The patient is a 63-year-old female with a history of AFib on anticoagulation, diastolic heart failure, and hypothyroidism who presented several days ago for dyspnea and cough. There was a diagnosis of pneumonia and she was started on oral antibiotics including Augmentin and doxycycline. She also had a component of reactive airways this was started on prednisone at 40 mg a day and albuterol MDI. There is a concern about the possibility of volume overload, she had been no diuretics recently. They had restarted some Lasix several days prior to arrival. She notes having fairly prominent edema of the legs a distantly but nothing recently. She also denied orthopnea, palpitations, or chest pain. Spite of these remedies she has had persistent shortness of breath he has had been coughing up sputum in a variety of different colors including green, yellow, and brown. She presented to the ED today was hypoxemic at 88% room air and had wheezy lungs. She was admitted for possible bacterial pneumonia and reactive airways as well as acute hypoxic respiratory failure. She denies fevers or chills. She does not smoke. She does note a history of possible asthma with exertion and her earlier life. She has no formal diagnosis of asthma. [facility] Medical History MGUS (monoclonal gammopathy of unknown significance) Hyperglycemia Hypothyroidism CHF (congestive heart failure) Atrial fibrillation, persistent Sepsis Breast cancer screening URI (upper respiratory infection) Abscess Osteoarthritis of right knee Osteoarthritis of left knee Retina disorder, left BMI 50.0-59.9, adult Left hip pain Patellar tendinitis Vitamin D deficiency Fasting hyperglycemia Elevated CO2 level Paroxysmal A-fib Mitral insufficiency Diverticular disease GERD (gastroesophageal reflux disease) Hyperlipemia (~2010) Depression Hypertension Hypothyroidism Anxiety Morbid obesity with body mass index (BMI) of 40.0 to 44.9 in adult (08/08/11) Surgical History History of back surgery (07/2015) History of thyroidectomy (1976) Family History Mother Age: 88 Hypertension Father No problems noted. Grandfather Cancer Grandmother No problems noted. Grandfather No problems noted. Grandmother Cancer Sister No problems noted. Social History household members: none Smoking Status: Never smoker alcohol intake: never substance use type: does not use Meds Home Medications and Allergies Home Medications Medication Instructions Recorded Confirmed Type cholecalciferol (vitamin D3) 125 5,000 units PO DAILY 05/09/18 09/27/23 History mcg (5,000 unit) tablet (Vitamin D3) Disabled parking permit #1 ea 08/29/22 09/27/23 Rx apixaban 5 mg tablet (Eliquis) 5 mg PO BID 10/05/22 09/27/23 History ferrous sulfate 324 mg (65 mg 324 mg PO DAILY #90 tabs 10/05/22 09/27/23 Rx iron) tablet,delayed release hydroxyzine HCl 10 mg tablet 10 mg PO TID PRN anxiety #30 tabs 01/04/23 09/27/23 Rx nystatin 100,000 unit/gram topical 1 applic topical TID #60 grams 03/26/23 09/27/23 Rx powder levothyroxine 175 mcg tablet See Rx Instructions PO .COMPLEX 07/06/23 09/27/23 Rx #60 tabs levothyroxine 200 mcg tablet 200 mcg PO DAILY #90 tabs 07/06/23 09/27/23 Rx losartan 100 mg tablet 100 mg PO DAILY #90 tabs 07/06/23 09/27/23 Rx amlodipine 5 mg tablet 5 mg PO BID #180 tabs 07/27/23 09/27/23 Rx albuterol sulfate 90 mcg/actuation 2 puff inhalation Q6H PRN 09/27/23 09/27/23 Rx aerosol inhaler shortness of breath or wheezing #8.5 grams amoxicillin 875 mg-potassium 1 tab PO BID #14 tabs 09/27/23 09/27/23 Rx clavulanate 125 mg tablet doxycycline hyclate 100 mg capsule 100 mg PO BID #14 caps 09/27/23 09/27/23 Rx furosemide 20 mg tablet (Lasix) See Rx Instructions PO .COMPLEX 09/27/23 09/27/23 Rx #60 tabs prednisone 20 mg tablet 40 mg (2 x 20 mg) PO DAILY #10 tabs 09/27/23 09/27/23 Rx Allergies Allergy/AdvReac Type Severity Reaction Status Date / Time iodine Allergy Severe to Verified 09/29/23 07:31 contrast dye-congestion, hives lisinopril Allergy Unknown COUGH Verified 09/29/23 07:31 shellfish derived Allergy Unknown Verified 09/29/23 07:31 buspirone AdvReac Intermediate felt Verified 09/29/23 07:31 spaced out duloxetine AdvReac Intermediate Shakiness Verified 09/29/23 07:31 bupropion [From Wellbutrin] AdvReac Mild Weird Verified 09/29/23 07:31 feeling Review of Systems Review of Systems Narrative: All else reviewed and otherwise unremarkable except as noted in the history and physical. Exam Vital Signs (past 8 hours): - 09/29/23 07:21 09/29/23 07:24 09/29/23 07:24 Temperature Pulse Rate 93 H 93 H Respiratory Rate 27 H Blood Pressure 148/101 H Pulse Oximetry 96 94 Oxygen Delivery Method Oxygen Flow Rate 09/29/23 07:25 09/29/23 07:25 09/29/23 07:26 Temperature 98.3 F Pulse Rate 94 H 95 H Respiratory Rate 29 H 18 Blood Pressure 210/121 H 178/93 H Pulse Oximetry 92 95 Oxygen Delivery Method Room Air Oxygen Flow Rate 09/29/23 07:26 09/29/23 07:26 09/29/23 07:27 Temperature Pulse Rate 93 H 95 H Respiratory Rate 26 H 32 H Blood Pressure 177/118 H Pulse Oximetry 94 94 Oxygen Delivery Method Oxygen Flow Rate 09/29/23 07:27 09/29/23 07:28 09/29/23 07:28 Temperature Pulse Rate 115 H Respiratory Rate 30 H Blood Pressure 182/100 H 178/93 H Pulse Oximetry 95 Oxygen Delivery Method Oxygen Flow Rate 09/29/23 07:29 09/29/23 07:29 09/29/23 07:30 Temperature Pulse Rate 104 H Respiratory Rate 28 H Blood Pressure 206/97 H 197/87 H Pulse Oximetry 95 Oxygen Delivery Method Oxygen Flow Rate 09/29/23 07:30 09/29/23 07:30 09/29/23 07:45 Temperature Pulse Rate 94 H 101 H 92 H Respiratory Rate 24 24 26 H Blood Pressure Pulse Oximetry 95 91 93 Oxygen Delivery Method Room Air Oxygen Flow Rate 09/29/23 07:45 09/29/23 08:00 09/29/23 08:00 Temperature Pulse Rate 94 H Respiratory Rate 25 H Blood Pressure 174/74 H 167/81 H Pulse Oximetry 92 Oxygen Delivery Method Oxygen Flow Rate 09/29/23 08:15 09/29/23 08:15 09/29/23 08:26 Temperature Pulse Rate 94 H Respiratory Rate 24 Blood Pressure 164/81 H 176/96 H Pulse Oximetry 92 Oxygen Delivery Method Oxygen Flow Rate 09/29/23 08:26 09/29/23 08:30 09/29/23 08:30 Temperature Pulse Rate 98 H 95 H Respiratory Rate 29 H 29 H Blood Pressure 189/95 H Pulse Oximetry 93 92 Oxygen Delivery Method Oxygen Flow Rate 09/29/23 08:57 09/29/23 08:57 09/29/23 08:58 Temperature Pulse Rate 97 H 102 H Respiratory Rate 22 20 Blood Pressure 191/92 H Pulse Oximetry 92 88 L Oxygen Delivery Method Oxygen Flow Rate 09/29/23 09:00 09/29/23 09:05 09/29/23 09:50 Temperature 98.3 F Pulse Rate 97 H 99 H Respiratory Rate 25 H 28 H 21 Blood Pressure 162/88 H Pulse Oximetry 87 L 87 L 95 Oxygen Delivery Method Room Air Room Air Nasal Cannula Oxygen Flow Rate 2 09/29/23 10:16 09/29/23 11:13 Temperature 98.8 F Pulse Rate 94 H Respiratory Rate 18 Blood Pressure 157/93 H Pulse Oximetry 96 Oxygen Delivery Method Room Air Oxygen Flow Rate Oxygen Delivery Method Room Air Oxygen Flow Rate 2 Narrative Exam Narrative: NAD, alert and oriented, fluent speech, calm. Normocephalic skull, EOMI, anicteric sclera, symmetric pupils. Oropharynx unremarkable, no droop. Neck supple, midline trachea, no adenopathy. Lungs are notable for diminished breath sounds globally and inspiratory and expiratory wheezing, normal rate and effort. Heart regular, no murmur gallop or rub. Abdomen is soft, non distended and non tender. Extremities are free of edema. Skin is free of rash or lesions. Joints are not swollen or deformed. Judgment appears to be normal. Objective ECG Impression: Atrial fibrillation Ventricular rate 86 Normal axis Normal QRS No ST T wave changes Imaging Chest x-ray: Radiologist's impression: Surgical changes and devices: Overlying monitoring wires. Lungs and pleura: Mild diffuse interstitial thickening, less prominent compared to the prior exam. No focal consolidation, effusion, or pneumothorax. Mediastinum: Moderate cardiomegaly, stable. Stable mediastinal contour. No significant central venous congestion. Bones and chest wall: No suspicious bony lesions. Overlying soft tissues appear unremarkable. IMPRESSION: Improved central venous congestion and interstitial thickening. Stable cardiomegaly. Labs 09/29/23 07:25 09/29/23 07:25 Labs: Laboratory Results - last 24 hr 09/29/23 09/29/23 07:25 07:45 WBC 7.0 RBC 5.16 Hgb 13.3 Hct 41.2 MCV 79.8 L MCH 25.8 L MCHC 32.3 RDW 22.6 H Plt Count 271 Neut % (Auto) 70.0 Lymph % (Auto) 22.5 L [place] % (Auto) 7.1 Eos % (Auto) 0.1 L Baso % (Auto) 0.3 Neut # (Auto) 4900 Lymph # (Auto) 1600 [place] # (Auto) 500 Eos # (Auto) 0 Baso # (Auto) 0 Nucleated RBCs Cancelled Hypersegmented Neuts Cancelled Hypogranular Neuts Cancelled Reactive Lymphocytes Cancelled Smudge Cells Cancelled Other Cell Type Cancelled Toxic Granulation Cancelled Toxic Vacuolation Cancelled Dohle Bodies Cancelled Noe Rods Cancelled WBC Morphology Comment Cancelled Platelet Estimate Cancelled Clumped Platelets Cancelled Plt Morphology Comment Cancelled RBC Morphology Cancelled Dimorphic RBCs Cancelled Polychromasia Cancelled Hypochromasia Cancelled Poikilocytosis Cancelled Basophilic Stippling Cancelled Anisocytosis Cancelled Microcytosis Cancelled Macrocytosis Cancelled Spherocytes Cancelled Pappenheimer Bodies Cancelled Sickle Cells Cancelled Target Cells Cancelled Tear Drop Cells Cancelled Ovalocytes Cancelled Stomatocytes Cancelled Helmet Cells Cancelled Fitzpatrick-Menno Bodies Cancelled Driver Rings Cancelled [place] Cells Cancelled Acanthocytes (Spur) Cancelled Rouleaux Cancelled Schistocytes Cancelled Sodium 141 Potassium 3.4 Chloride 103 Carbon Dioxide 30 BUN 16 Creatinine 0.61 Estimated GFR > 60 BUN/Creatinine Ratio 26.2 H Glucose 151 H Calcium 9.4 Total Bilirubin 0.5 AST 33 ALT 20 Alkaline Phosphatase 110 Total Creatine Kinase 188 H Troponin I < 0.012 NT-Pro-B Natriuret Pep 1290 H Total Protein 8.6 H Albumin 4.3 Globulin 4.3 H Albumin/Globulin Ratio 1.0 Lipase 40 Procalcitonin 0.05 Chlamy pneumoniae PCR Not detected Adenovirus (PCR) Not detected B.parapertussis DNA PCR Not detected Coronavirus OC43 (PCR) Not detected Coronavirus HKU1 (PCR) Not detected Coronavirus 229E (PCR) Not detected SARS-CoV-2 (PCR) Not detected Coronavirus NL63 (PCR) Not detected Human Metapneumovir PCR Detected H Influenza Type A (PCR) Not detected Influenza Type B (PCR) Not detected M. pneumoniae (PCR) Not detected Parainfluenza 1 (PCR) Not detected Parainfluenza 2 (PCR) Not detected Parainfluenza 3 (PCR) Not detected Parainfluenza 4 (PCR) Not detected RSV (PCR) Not detected Entero/Rhino (PCR) Not detected Assessment & Plan Assessment & Plan narrative: 1. Metapneumovirus URI, present on admission and active. 2. Possible secondary bacterial pneumonia, community-acquired pneumonia. Present on admission and active. 3. Reactive airways, present on admission and active. 4. Permanent atrial fibrillation on chronic anticoagulation, stable. 5. Morbid obesity with BMI of 49, present on admission and active. 6. HLD, present on admission and active. 7. Hypertension, present on admission and active. Plan: -droplet isolation -IV ceftriaxone and continue oral doxycycline. -continue prednisone 40 daily and albuterol nebulizer scheduled q.6 hours. -wean O2 as able. -continue chronic medications including apixaban and monitor blood pressure and heart rate. She is full resuscitation, confirmed today. Her estimated length of stay is 1 midnight, appropriate for observation status. Time Spent With Patient Time with patient: 30 to 49 minutes with 50% spent counseling/coordinating care Quality MIPS - Admit I confirm the patient?s Advance Care Plan is present, Code status is documented, Surrogate decision maker is in patient?s record [If Yes, STOP here]: Yes MIPS - Meds 'Current medications' to include all prescriptions, [id number] products, herbals, cannabis/cannabidiol products, and vitamin/mineral/dietary (nutritional) supplements. I have utilized all available resources to obtain, update, or review the patient?s current medications. [If Yes, STOP here]: Yes
[2023-09-29] MEDS: DOXYCYCLINE HYCLATE 100 MG TABLET PO ×2 (13:15→21:29)
[2023-09-29] MEDS: predniSONE 20 MG TABLET 40 MG PO (13:15)
[2023-09-29] MEDS: cefTRIAXone 1,000 MG in SODIUM CHLORIDE 0.9% 100 ML 200 MG IV (13:15)
[2023-09-29] MEDS: guaiFENesin ER 600 MG TAB PO (19:35)
[2023-09-29] MEDS: SODIUM CHLORIDE 0.9% FLUSH 10 ML IV (21:29)
[2023-09-30] VITALS (7 sets, daily range): BP systolic 162–199; BP diastolic 93–113; PULSE 67–85; RESP 16–18; TEMP 36.6; O2SAT 93–97
--- NOTE | 2023-09-30 | PC.NURSE ---
Addendum entered by Alysa Villalta R.N. 09/30/23 00:33: Placed on both droplet and contact precautions as per [facility] policy. Original Note: Patient is alert and oriented but seems very apathetic with responses; affect is flat. Complains of being hot but when offered options she declines and says I should just appreciate the heat since my home is cold. When offered to turn bed into chair position so she can lie in the bed, she declines and states that won't work because I lay on my side. When she complained she couldn't walk much being in the room she was educated to walk in johansen with mask on but she declines stating I don't want to spread my virus. Breath sounds diminished but CTA with RA sat of 93%. Does state she is not as SOB but still feels a little SOB with exertion. Reports she has had looser cough and has brought up some yellow/green sputum. HR irregular (history of afib) and BP is elevated. BP obtained by day PCT was 165/105 and for this shift she was 180/99. Denied nausea. BT present and abdomen is soft. Is independent with mobility and steady on feet. Denied pain. Voiding without dysuria. Fall risk score is moderate; alarm not in use. On droplet precautions per protocol.
[2023-09-30 06:40] LABS: Add Manual Diff / Slide Review NO; Basophils Absolute Auto 0 /uL (0-100); Basophils Percent Auto 0.1 % (0-2); Eosinophils Absolute Auto 0 /uL (0-450); Eosinophils Percent Auto 0.1 % (2-4); Hematocrit 39.9 % (36-46); Hemoglobin 12.9 g/dL (12.0-16.0); Lymphocytes Absolute Auto 1900 /uL (1100-4500); Lymphocytes Percent Auto 22.4 % (25-40); Mean Corpuscular HGB Conc 32.5 % (30-36); Mean Corpuscular Hemoglobin 25.8 PG (26-34); Mean Corpuscular Volume 79.3 fL (80-100); Monocytes Absolute Auto 600 /uL (0-900); Monocytes Percent Auto 6.9 % (3-14); Neutrophils Absolute Auto 5900 /uL (1500-7000); Neutrophils Percent Auto 70.5 % (50-75); Platelet Count 261 X10^3/uL (150-400); Red Blood Cell Count 5.03 X10^6/uL (4.0-5.2); Red Cell Distribution Width 22.1 % (11.6-14.8); White Blood Cell Count 8.3 X10^3/uL (4.5-11.0)
[2023-09-30 06:51] LABS: BUN Creatinine Ratio 37.1 (6-22); Blood Urea Nitrogen 23 mg/dL (7-17); Calcium 9.1 mg/dL (8.4-10.2); Carbon Dioxide 34 mmol/L (22-32); Chloride 100 mmol/L (98-107); Estimated Glomerular Filt Rate > 60 mL/min (>60); Glucose 114 mg/dL (80-110); HEMOLYSIS < 15 (0-50); Potassium 3.1 mmol/L (3.4-5.1); Sodium 141 mmol/L (137-145)
[2023-09-30 07:34] LABS: Anisocytosis 1+
[2023-09-30] MEDS: ALBUTEROL 2.5 MG/3 ML NEB (ADULT) INH ×2 (07:39→13:47)
[2023-09-30] MEDS: predniSONE 20 MG TABLET 40 MG PO (10:04)
[2023-09-30] MEDS: guaiFENesin ER 600 MG TAB PO (10:05)
[2023-09-30] MEDS: DOXYCYCLINE HYCLATE 100 MG TABLET PO (10:05)
[2023-09-30] MEDS: POTASSIUM CHLORIDE 20 MEQ TAB 40 MEQ PO ×2 (10:06→14:37)
[2023-09-30] MEDS: SODIUM CHLORIDE 0.9% FLUSH 10 ML IV (10:08)
--- NOTE | 2023-09-30 11:01 | CM.DANOTE ---
Addendum entered by MINA Trinidad 09/30/23 14:49: ADD: Per , pt stable for discharge home this afternoon and no identified barriers to discharge and to have outpt f/u with PCP. Patient to discharge home via friend vehicle and no further SW needs. BF Original Note: Patient is a 63 yo female who was admitted OBS Status on 09/29/23 for CHF/pneumonia. Pt has [facility] and [facility] for insurance and her PCP is Dr. Flaquito Yee. EMR was reviewed. Per , pt with hx of CHF, failed outpt pneumonia tx and admitted for edema and hypoxic respiratory failure. Pt improving and on room air and may be stable to d/c home today vs tomorrow. SW met bedside with pt and explained role and she confirms she lives in [place] at home alone in a two story house but has a ramp to the front from when her mother was alive and needed w/c access. Pt is independent with ADLs and drives and doesn't use DME for ambulation. Pt states she is feeling much better and is hopeful for discharge home today as she has a couple cats at home and her local friend can provide transport home at d/c. Pt denies any hx of HH or SNF and has been considering DPOA pwk but has not completed any yet. Pt does not anticipate any needs at discharge and preference is home today if stable. Plan: SW to follow closely for plan of discharge home via friend POV today vs tomorrow pending progress. No needs at this time. MINA Trinidad Discharge Planning/Care Management CM Discharge Assessment Start: 09/30/23 10:59 Freq: Status: Active Protocol: Document 09/30/23 10:59 BF (Rec: 09/30/23 11:01 [id number]) Discharge Planning Assessment Assigned Regional Sales Coordinator MINA Townsend DPOA/Assigned Designee Name none Advance Directives? No Advance Directives on File No History Provided By Patient,Medical Record Has Patient been admitted in last 30 No days? Prior Living Arrangements House Household Members none Type of transporation used prior to Drives own vehicle admit Independent with ADL's Yes Is patient alert and oriented? Yes Caregiver for Another No Barriers to Discharge No Discharge Plan Home Transportation Arrangement Patient's friend can provide transport at d/c and lives near [facility] Referrals Initiated None needed Whiteboard Updated in Patient Room with Yes name and ext. # of Regional Sales Coordinator Review Status In Process Please Provide Date Initial DC 09/30/23 Assessment Was Performed Next Review Type Continued Stay Review
--- NOTE | 2023-09-30 11:35 | PC.NURSE ---
Addendum entered by Alexi Shabazz R.N. 09/30/23 16:17: discharge instructions given, Pt readied. Ride waiting at main entrance. Pt escorted to car. IV d/c'd per protocol Tip intact. Original Note: Pt wakes alert and oriented offers no overt c/o. Posterior lung bases wheezy, overall clear but diminished. Up to chair and moving about room. Spoke with Dr. Salas about meds. See new orders.
[2023-09-30] MEDS: ESCITALOPRAM 10 MG TABLET 30 MG PO (12:02)
[2023-09-30] MEDS: cefTRIAXone 1,000 MG in SODIUM CHLORIDE 0.9% 100 ML 200 MG IV (12:02)
[2023-09-30] MEDS: LOSARTAN 50 MG TABLET 100 MG PO (12:03)
[2023-09-30] MEDS: APIXABAN 5 MG TABLET PO (12:03)
[2023-09-30] MEDS: AMLODIPINE 5 MG TABLET PO (12:03)
[2023-09-30] MEDS: LEVOTHYROXINE 75 MCG, LEVOTHYROXINE 100 MCG 175 MCG PO (12:10)
[2023-09-30] MEDS: FUROSEMIDE 40 MG TABLET PO (13:21)
--- NOTE | 2023-09-30 14:22 | P.DS_ITS ---
History of Present Illness History of Present Illness Chief complaint: pneumonia Narrative: The patient is a 63-year-old female with a history of AFib on anticoagulation, diastolic heart failure, and hypothyroidism who presented several days ago for dyspnea and cough. There was a diagnosis of pneumonia and she was started on oral antibiotics including Augmentin and doxycycline. She also had a component of reactive airways this was started on prednisone at 40 mg a day and albuterol MDI. There is a concern about the possibility of volume overload, she had been no diuretics recently. They had restarted some Lasix several days prior to arrival. She notes having fairly prominent edema of the legs a distantly but nothing recently. She also denied orthopnea, palpitations, or chest pain. Spite of these remedies she has had persistent shortness of breath he has had been coughing up sputum in a variety of different colors including green, yellow, and brown. She presented to the ED today was hypoxemic at 88% room air and had wheezy lungs. She was admitted for possible bacterial pneumonia and reactive airways as well as acute hypoxic respiratory failure. She denies fevers or chills. She does not smoke. She does note a history of possible asthma with exertion and her earlier life. She has no formal diagnosis of asthma. Discharge Providers Provider Date of admission: 09/29/23 09:12 Discharge Date: 09/30/23 Primary care physician: Flaquito Yee MD Consults: 09/29/23 11:48 Consult to Dietitian, Adult Routine Comment: Reason For Exam: Has lost weight Discharge provider: Silverio Salas MD Summary Hospital Course Discharge Diagnosis: 1. Metapneumovirus URI, present on admission and active. 2. Possible secondary bacterial pneumonia, community-acquired pneumonia. Present on admission and active. 3. Reactive airways (possible chronic asthma), present on admission and improving. 4. Permanent atrial fibrillation on chronic anticoagulation, stable. 5. Morbid obesity with BMI of 49, present on admission and active. 6. HLD, present on admission and active. 7. Hypertension (poorly controlled), present on admission and active. Hospital Course: She was admitted for the above mentioned problems and initially treated with oral steroids as well as bronchodilators and IV antibiotics. She did feel much better on the 2nd day in the hospital was able to wean off from oxygen. She would minimal wheezing unless she had a forced expiration and which case she would bronchospasm and coughing and wheezing. She did feel improved overall. She does have 2 cats at home and denies allergies to cats. She notes her house has a lot of chronic dust issues. She will return home today and continue the additional 5 days of antibiotic she was prescribed and finish off 3-1/2 more days of steroids at 40 mg a day, prednisone. Status at Discharge Cognitive/behavioral status at discharge: oriented Functional status at discharge: independent ambulation Overall status at discharge: patient is back to baseline Time Spent with Patient Time spent: Greater than 30 minutes Exam Vital Signs (past 8 hours): - 09/30/23 07:00 09/30/23 07:40 09/30/23 08:00 Temperature 97.8 F Pulse Rate 75 68 Respiratory Rate 18 18 Blood Pressure 179/113 H Pulse Oximetry 97 94 97 Oxygen Delivery Method Room Air Room Air Oxygen Flow Rate 0 Fraction of Inspired Oxygen 21 09/30/23 12:03 09/30/23 12:51 09/30/23 13:47 Temperature 97.8 F Pulse Rate 67 67 85 Respiratory Rate 16 Blood Pressure 199/109 H 191/109 H 162/93 H Pulse Oximetry 93 Oxygen Delivery Method Oxygen Flow Rate Fraction of Inspired Oxygen 09/30/23 13:54 Temperature Pulse Rate 78 Respiratory Rate 18 Blood Pressure Pulse Oximetry 95 Oxygen Delivery Method Room Air Oxygen Flow Rate 0 Fraction of Inspired Oxygen 21 Fraction of Inspired Oxygen 21 SaO2/FiO2 Ratio 452 Oxygen Delivery Method Room Air Oxygen Flow Rate 0 Narrative Exam Narrative: NAD, alert and oriented. Fluent speech. Lungs are clear, normal rate and effort. She does have prolonged forced expiration with some wheezing and coughing. Heart is regular, no murmur gallop or rub. Abdomen is soft, non distended. Extremities are free of edema. Objective Imaging Chest x-ray: Radiologist's impression: Chest x-ray: Radiologist's impression: Surgical changes and devices: Overlying monitoring wires. Lungs and pleura: Mild diffuse interstitial thickening, less prominent compared to the prior exam. No focal consolidation, effusion, or pneumothorax. Mediastinum: Moderate cardiomegaly, stable. Stable mediastinal contour. No significant central venous congestion. Bones and chest wall: No suspicious bony lesions. Overlying soft tissues appear unremarkable. IMPRESSION: Improved central venous congestion and interstitial thickening. Stable cardiomegaly. Labs 09/30/23 06:30 09/30/23 06:30 Labs: Laboratory Results - last 24 hr 09/30/23 06:30 WBC 8.3 RBC 5.03 Hgb 12.9 Hct 39.9 MCV 79.3 L MCH 25.8 L MCHC 32.5 RDW 22.1 H Plt Count 261 Neut % (Auto) 70.5 Lymph % (Auto) 22.4 L [place] % (Auto) 6.9 Eos % (Auto) 0.1 L Baso % (Auto) 0.1 Neut # (Auto) 5900 Lymph # (Auto) 1900 [place] # (Auto) 600 Eos # (Auto) 0 Baso # (Auto) 0 RBC Morphology Not Reportable Anisocytosis 1+ H D Sodium 141 Potassium 3.1 L Chloride 100 Carbon Dioxide 34 H BUN 23 H Creatinine 0.62 Estimated GFR > 60 BUN/Creatinine Ratio 37.1 H Glucose 114 H Calcium 9.1 PFSH Medical History MGUS (monoclonal gammopathy of unknown significance) Hyperglycemia Hypothyroidism CHF (congestive heart failure) Atrial fibrillation, persistent Sepsis Breast cancer screening URI (upper respiratory infection) Abscess Osteoarthritis of right knee Osteoarthritis of left knee Retina disorder, left BMI 50.0-59.9, adult Left hip pain Patellar tendinitis Vitamin D deficiency Fasting hyperglycemia Elevated CO2 level Paroxysmal A-fib Mitral insufficiency Diverticular disease GERD (gastroesophageal reflux disease) Hyperlipemia (~2010) Depression Hypertension Hypothyroidism Anxiety Morbid obesity with body mass index (BMI) of 40.0 to 44.9 in adult (08/08/11) Surgical History History of back surgery (07/2015) History of thyroidectomy (1976) Family History Mother Age: 88 Hypertension Father No problems noted. Grandfather Cancer Grandmother No problems noted. Grandfather No problems noted. Grandmother Cancer Sister No problems noted. Social History household members: none Smoking Status: Never smoker alcohol intake: current substance use type: does not use Discharge Assessment & Plan Assessment and Plan Assessment: 1. Metapneumovirus URI, present on admission and active. 2. Possible secondary bacterial pneumonia, community-acquired pneumonia. Present on admission and active. 3. Reactive airways (possible chronic asthma), present on admission and improving. 4. Permanent atrial fibrillation on chronic anticoagulation, stable. 5. Morbid obesity with BMI of 49, present on admission and active. 6. HLD, present on admission and active. 7. Hypertension (poorly controlled), present on admission and active. Plan of Treatment: Discharge home, continue albuterol MDI at home, complete 5 more days of her antibiotics which include Augmentin and doxycycline, complete 3-1/2 more days of prednisone at 40 daily. Please see PCP within the next 5 days if not improving. Discharge Plan Discharge Plan Patient Disposition: Home Discharge orders & Medications Prescriptions: Continued amlodipine 5 mg tablet 5 mg PO BID Qty: 180 3RF Eliquis 5 mg tablet 5 mg PO BID ferrous sulfate 324 mg (65 mg iron) tablet,delayed release (DR/EC) 324 mg PO DAILY Qty: 90 3RF nystatin 100,000 unit/gram powder 1 applic topical TID Qty: 60 1RF amoxicillin-pot clavulanate 875-125 mg tablet 1 tab PO BID Qty: 14 0RF doxycycline hyclate 100 mg capsule 100 mg PO BID Qty: 14 0RF prednisone 20 mg tablet 40 mg PO DAILY Qty: 10 0RF albuterol sulfate 90 mcg/actuation HFA aerosol inhaler 2 puff inhalation Q6H PRN (Reason: shortness of breath or wheezing) Qty: 8.5 1RF furosemide [Lasix] 20 mg tablet See Rx Instructions PO .COMPLEX Qty: 60 0RF Rx Instructions: Take 1 tab orally daily for 7 days then take as needed for shortness of breath or weight gain of 3 lb or more. (DME) Disabled parking permit See Rx Instructions .ROUTE .MEDSUPPLY Qty: 1 0RF Rx Instructions: I find this patient to be medically disabled and qualified for disabled parking as indicated, and signed, on the accompanying disabled parking application for individuals. hydroxyzine HCl 10 mg tablet 10 mg PO TID PRN (Reason: anxiety) Qty: 30 0RF levothyroxine 200 mcg tablet 200 mcg PO DAILY Qty: 90 1RF Rx Instructions: t1 tab daily sunday through Sunday. levothyroxine 175 mcg tablet See Rx Instructions PO .COMPLEX Qty: 60 1RF Rx Instructions: T1 tab po Sunday and Sunday losartan 100 mg tablet 100 mg PO DAILY Qty: 90 3RF escitalopram oxalate 20 mg tablet 30 mg PO DAILY cholecalciferol (vitamin D3) [Vitamin D3] 5,000 unit Tablet 5,000 units PO DAILY Medication counseling provided by Pharmacist: No Follow up/Referrals: Flaquito Yee MD [Primary Care Provider] - Discharge Health Status Multidrug resistant organism: No MDRO Diet/Activity/Treatments Diet: Low-sodium Activity: As tolerated. Skin/Wound/Dressing Care Report to your healthcare provider any signs of infection, such as:: chills, fever Visit Report/Discharge Packet Instructions: DI for Asthma -- Adult, Isolation Precautions, Human Metapneumovirus Infection Stand Alone Forms: Patient Portal/API Discharge Data Primary Care Provider: Flaquito Yee
== END 2023-09-30 15:32 | disposition home or self-care (01) ==
LOC: ED 09:04 → AC 15:35
PROVIDERS: Admitting Provider Hospitalist; Emergency Provider Emergency Medicine; PCP Family Medicine; Referring Provider Emergency Medicine; Visit Provider Hospitalist
DX: J12.3 Human metapneumovirus pneumonia (principal); J06.9 Acute upper respiratory infection, unspecified; E66.01 Morbid (severe) obesity due to excess calories; Z68.42 Body mass index [BMI] 45.0-49.9, adult; I48.21 Permanent atrial fibrillation; I11.0 Hypertensive heart disease with heart failure; I50.30 Unspecified diastolic (congestive) heart failure; Z11.52 Encounter for screening for COVID-19
CPT/HCPCS: 36415; 71045; 71046; 80048; 80053; 82550; 82728; 83036; 83540; 83550; 83690; 83880; 84145; 84439; 84443; 84484; 85025; 87633; 93005; 94640; 96365; 96367; 99284; G0378; J0696; J1940; J7613

== ENCOUNTER 2023-11-20 04:26 | Emergency (ER) | payer OTHER, MEDICAID, SELFPAY ==
[2023-09-29 09:15] VITALS: BMI 49.2
[2023-11-20 04:33] VITALS: BP 190/121; PULSE 106; RESP 20; TEMP 36.7; O2SAT 96; BMI 49.8
--- NOTE | 2023-11-20 04:38 | ED_ITS ---
HPI - General Adult General Chief complaint: Abdominal Pain Stated complaint: back and abd pain Time Seen by Provider: 11/20/23 04:34 Source: patient Mode of arrival: Ambulatory History of Present Illness HPI narrative: 63-year-old woman with a history of diastolic congestive heart failure, atrial fibrillation anticoagulated on Eliquis, depression, hypertension, hypothyroidism hospitalized at the end of [facility] for bacterial pneumonia with asthma exacerbation and hypoxic respiratory failure. Patient presents today complaining of 24 hours of dysuria, urine that ?smells like? right flank pain radiating around to her umbilicus. She states she has had ureteral stones as well as diverticulitis and feels like both of those. She has not describing fevers, wheeze, dyspnea. No palpitations or headache. She has not had new sexual partners recently, no concerns for sexually transmitted infection she has not complaining of low pelvic pain or any vaginal discharge. She states that the abdominal pain has been so intense that she has been vomiting. She did take her amlodipine and losartan however vomited them back up shortly thereafter. Related Data Home Medications Medication Instructions Recorded Confirmed cholecalciferol (vitamin D3) 125 5,000 units PO DAILY 05/09/18 10/11/23 mcg (5,000 unit) tablet (Vitamin D3) apixaban 5 mg tablet (Eliquis) 5 mg PO BID 10/05/22 10/11/23 escitalopram oxalate 20 mg tablet 30 mg PO DAILY 09/29/23 10/11/23 Previous Rx's Medication Instructions Recorded Disabled parking permit #1 ea 08/29/22 ferrous sulfate 324 mg (65 mg 324 mg PO DAILY #90 tabs 10/05/22 iron) tablet,delayed release hydroxyzine HCl 10 mg tablet 10 mg PO TID PRN anxiety #30 tabs 01/04/23 nystatin 100,000 unit/gram topical 1 applic topical TID #60 grams 03/26/23 powder levothyroxine 175 mcg tablet See Rx Instructions PO .COMPLEX 07/06/23 #60 tabs levothyroxine 200 mcg tablet 200 mcg PO DAILY #90 tabs 07/06/23 losartan 100 mg tablet 100 mg PO DAILY #90 tabs 07/06/23 amlodipine 5 mg tablet 5 mg PO BID #180 tabs 07/27/23 albuterol sulfate 90 mcg/actuation 2 puff inhalation Q6H PRN 09/27/23 aerosol inhaler shortness of breath or wheezing #8.5 grams furosemide 20 mg tablet (Lasix) See Rx Instructions PO .COMPLEX 09/27/23 #60 tabs prednisone 10 mg tablet See Rx Instructions .Route 10/04/23 .COMPLEX #31 tabs prednisone 5 mg tablet 5 mg PO DAILY #4 tabs 10/04/23 amoxicillin 875 mg-potassium 1 tab PO BID #20 tabs 11/20/23 clavulanate 125 mg tablet ondansetron 4 mg disintegrating 4 mg PO Q8H PRN nausea and 11/20/23 tablet vomiting #12 tabs Allergies Allergy/AdvReac Type Severity Reaction Status Date / Time iodine Allergy Severe to Verified 10/11/23 10:33 contrast dye-congestion, hives lisinopril Allergy Unknown COUGH Verified 10/11/23 10:33 shellfish derived Allergy Unknown Verified 10/11/23 10:33 buspirone AdvReac Intermediate felt Verified 10/11/23 10:33 spaced out duloxetine AdvReac Intermediate Shakiness Verified 10/11/23 10:33 bupropion [From Wellbutrin] AdvReac Mild Weird Verified 10/11/23 10:33 feeling Review of Systems Review of Systems Narrative: Pertinent positive and negative findings as per HPI Patient History Medical History MGUS (monoclonal gammopathy of unknown significance) Hyperglycemia Hypothyroidism CHF (congestive heart failure) Atrial fibrillation, persistent Sepsis Breast cancer screening URI (upper respiratory infection) Abscess Osteoarthritis of right knee Osteoarthritis of left knee Retina disorder, left BMI 50.0-59.9, adult Left hip pain Patellar tendinitis Vitamin D deficiency Fasting hyperglycemia Elevated CO2 level Paroxysmal A-fib Mitral insufficiency Diverticular disease GERD (gastroesophageal reflux disease) Hyperlipemia (~2010) Depression Hypertension Hypothyroidism Anxiety Morbid obesity with body mass index (BMI) of 40.0 to 44.9 in adult (08/08/11) Surgical History History of back surgery (07/2015) History of thyroidectomy (1976) Family History Mother Age: 88 Hypertension Father No problems noted. Grandfather Cancer Grandmother No problems noted. Grandfather No problems noted. Grandmother Cancer Sister No problems noted. Social History household members: none Smoking Status: Never smoker alcohol intake: current substance use type: does not use Smoking Status: Never smoker alcohol intake frequency: holidays/special occasions only Substance Use Type: does not use Exam Initial Vital Signs Initial Vital Signs: Vital Signs Temperature 98.1 F 11/20/23 04:33 Pulse Rate 106 H 11/20/23 04:33 Respiratory Rate 20 11/20/23 04:33 Blood Pressure 190/121 H 11/20/23 04:33 Pulse Oximetry 96 11/20/23 04:33 Oxygen Delivery Method Room Air 11/20/23 04:33 General: Chronically ill-appearing, BMI of 50, dry mucous membranes, anxious and having difficulty finding a comfortable position HEENT: Dry mucous membranes, normal sclera with reactive pupils, Respiratory: Lungs are clear to auscultation, no wheezing no rales no rhonchi. Full and symmetrical air movement Cardiac: Regular rate and rhythm no murmurs no bruits Abdomen: Soft, mild tenderness from the right flank through to the umbilicus without rebound or guarding. No skin changes associated with that Skin: Warm and dry, no rashes Neurologic: Grossly neurologically intact with no obvious asymmetries or abnormalities Extremities: No trauma, 1+ bilateral lower extremity edema. Psych: Cooperative, fluent speech Course Orders Ordered: Discontinued Medications Amlodipine Besylate (Amlodipine 5 Mg Tablet) 5 mg PO NOW ONE Stop: 11/20/23 06:17 Last Admin: 11/20/23 06:44 Dose: 5 mg Documented By: GALDINO Apixaban (Apixaban 5 Mg Tablet) 5 mg PO NOW ONE Stop: 11/20/23 06:17 Last Admin: 11/20/23 06:45 Dose: 5 mg Documented By: GALDINO Hydromorphone HCl (Hydromorphone 0.5 Mg Inj) 0.5 mg IV Q15MIN PRN PRN Reason: Pain, Last Admin: 11/20/23 04:57 Dose: 0.5 mg Documented By: GALDINO Sodium Chloride (Normal Saline 0.9%) 1,000 mls @ 1,000 mls/hr IV BOLUS ONE Stop: 11/20/23 05:50 Last Infusion: 11/20/23 06:06 Dose: Infused Documented By: Admin: 11/20/23 04:58 Dose: 1,000 mls/hr Documented By: GALDINO Ceftriaxone Sodium 2,000 mg/ (Sodium Chloride) 100 mls @ 200 mls/hr IV NOW ONE Stop: 11/20/23 06:10 Last Infusion: 11/20/23 06:45 Dose: Infused Documented By: Admin: 11/20/23 06:12 Dose: 200 mls/hr Documented By: GALDINO Losartan Potassium (Losartan 50 Mg Tablet) 100 mg PO NOW ONE Stop: 11/20/23 06:17 Last Admin: 11/20/23 06:45 Dose: 100 mg Documented By: GALDINO Ondansetron HCl (Ondansetron 4 Mg/2 Ml Inj) 4 mg IV NOW ONE Stop: 11/20/23 04:52 Last Admin: 11/20/23 04:57 Dose: 4 mg Documented By: GALDINO Vital Signs Vital signs: Vital Signs - 8 hr 11/20/23 04:33 11/20/23 05:36 Temperature 98.1 F Pulse Rate 106 H 91 H Respiratory Rate 20 18 Blood Pressure 190/121 H 153/94 H Pulse Oximetry 96 98 Oxygen Delivery Method Room Air Nasal Cannula Oxygen Flow Rate 2 Medical Decision Making Lab Data 11/20/23 04:45 11/20/23 04:45 Labs: Lab Results 11/20/23 11/20/23 Range/Units 04:45 05:40 WBC 14.7 H (4.5-11.0) X10^3/uL RBC 5.27 H (4.0-5.2) X10^6/uL Hgb 14.7 (12.0-16.0) g/dL Hct 44.0 (36-46) % MCV 83.4 (80-100) fL MCH 27.8 (26-34) PG MCHC 33.3 (30-36) % RDW 20.1 H (11.6-14.8) % Plt Count 306 (150-400) X10^3/uL Neut % (Auto) 82.2 H (50-75) % Lymph % (Auto) 9.8 L (25-40) % Colbert % (Auto) 7.0 (3-14) % Eos % (Auto) 0.7 L (2-4) % Baso % (Auto) 0.3 (0-2) % Neut # (Auto) 74624 H (9583-7975) /uL Lymph # (Auto) 1400 (9940-5941) /uL Colbert # (Auto) 1000 H (0-900) /uL Eos # (Auto) 100 (0-450) /uL Baso # (Auto) 0 (0-100) /uL Platelet Estimate Adequate on smear RBC Morphology See below Anisocytosis 1+ H Microcytosis 1+ H Sodium 138 (137-145) mmol/L Potassium 3.5 (3.4-5.1) mmol/L Chloride 102 (98-107) mmol/L Carbon Dioxide 29 (22-32) mmol/L BUN 8 (7-17) mg/dL Creatinine 0.57 (0.52-1.04) mg/dL Estimated GFR > 60 (>60) mL/min BUN/Creatinine Ratio 14.0 (6-22) Glucose 163 H (80-110) mg/dL Lactate 1.8 (0.7-2.1) mmol/L Calcium 8.5 (8.4-10.2) mg/dL Magnesium 1.9 (1.6-2.3) mg/dL Total Bilirubin 1.1 (0.2-1.3) mg/dL AST 25 (14-36) IU/L ALT 22 (<35) IU/L Alkaline Phosphatase 149 H (38-126) U/L Troponin I < 0.012 (0.01-0.034) ng/mL NT-Pro-B Natriuret Pep 1100 H (<125) pg/mL Total Protein 8.5 H (6.3-8.2) g/dL Albumin 4.4 (3.5-5.0) g/dL Globulin 4.1 (1.7-4.1) g/dL Albumin/Globulin Ratio 1.1 (1.0-2.8) Lipase 48 (23-300) U/L Urine Color Yellow Urine Appearance Cloudy Urine pH 6.5 (4.5-8.0) Ur Specific [place] 1.020 (1.000-1.035) Urine Protein 2+ H (Negative) Urine Glucose (UA) Negative (Negative) g/dL Urine Ketones Trace H (NEGATIVE) Urine Occult Blood 2+ H (Negative) Urine Nitrate Positive H (Negative) Urine Bilirubin Negative (NEGATIVE) Urine Urobilinogen 0.2 (0.2) E.U./dL Ur Leukocyte Esterase 2+ H (NEGATIVE) Urine RBC 5-10/hpf H (0-5/HPF) Urine WBC 30-100/hpf H (0-5/HPF) Ur Squamous Epith Cells 1-5 /hpf (0-5/HPF) Urine Bacteria Many (>30) H (None) Ur Culture Indicated? Specimen cultured Vol Urine Centrifuged 10ml (spun) Urine Dip Bedside Urine Glucose Negative Bedside Urine Bilirubin - Negative Bedside Urine Ketone +/- 5 Urine Specific [place] 1.020 Bedside Urine Occult Blood +++ Bedside Urine pH 6.0 Bedside Urine Protein ++ 100 Bedside Urine Urobilinogen - Negative Bedside Urine Nitrite + Positive Bedside Urine Leukocytes +++ 500 Esterase Point of care testing: Urine Dip Bedside Urine Glucose Negative Bedside Urine Bilirubin - Negative Bedside Urine Ketone +/- 5 Urine Specific [place] 1.020 Bedside Urine Occult Blood +++ Bedside Urine pH 6.0 Bedside Urine Protein ++ 100 Bedside Urine Urobilinogen - Negative Bedside Urine Nitrite + Positive Bedside Urine Leukocytes +++ 500 Esterase MDM Narrative Medical decision making narrative: CC: Flank/abdominal pain so severe she is having vomiting and becoming dehydrated for 24 hours Complicating co-morbidities: BMI of 50, history of congestive heart failure, hypothyroidism, hypertension Data collected from: patient Social determinants of health that may influence the patients condition: Medical records reviewed: Discharge summary from September 29 and [facility] practice follow up for that same hospital visit are both reviewed Differential considered: UTI, pyelonephritis, ureteral/kidney stone, infection associated with kidney stone, appendicitis, bowel obstruction Exam documented above, pertinent findings include: Patient certainly seems quite uncomfortable but does not have an acute abdomen. No wheezing appreciated minimal lower extremity edema Lab Test results independently reviewed as above. Pertinent findings: CBC is notable for a white count of 14.7 with left shift. H and H is unremarkable platelets are appropriate Chemistries show normal creatinine and electrolytes. Glucose slightly elevated at 163, alk-phos is minimally elevated with normal bili AST and ALT ProBNP is 1100 Lipase is within normal limits lactate is 1.8 Urine has blood, white cells, leukocyte esterase and nitrites as well as ketones. Back to area are present. Consistent with cystitis Imaging studies independently reviewed: CT KUB shows right mild hydroureteronephrosis without evidence of radiopaque stone. This could be a recently passed stone or consistent with pyelonephritis. This is consistent with mild bladder wall thickening suggesting cystitis. There is an incidental right adrenal lesion likely a myelolipoma which patient was already aware of. No other abnormalities appreciated. Treatments: Given elevated white count Re-evaluations: Pain is almost entirely relieved at this point. She has had half a mg of Dilaudid only. Discussion: 63-year-old woman presents with right flank pain dysuria [place] [id number] without significant tachycardia or hypotension to suggest developing sepsis. Urine does appear to be infected ceftriaxone [address] scan shows mild hydronephrosis but no evidence of obstructing stone. Bladder wall is also thickened consistent with cystitis/pyelonephritis. Patient is able to eat and drink at this point. The nausea has resolved. Blood pressure remains moderately elevated we will give her her morning amlodipine apixaban and losartan. At this point I do not think that hospital admission is going to be required but will complete 10 days of Augmentin to treat presumed pyelonephritis. In looking back through prior urine cultures, 3 or available and none of them have actually grown out any bacteria to suggest alternate direction for antibiotic choices. Discharge Plan Departure Patient Disposition: Home Clinical Impression: Pyelonephritis Instructions: DI for Kidney Infection Activity Restrictions/Additional Instructions: Thank you for coming in today It does look like you had a bladder infection that has now spread into your right kidney. There is no evidence of a kidney stone or obvious obstruction. No appendicitis no diverticulitis and no bowel obstruction appreciated on CT scan Your blood work does suggest infection but does not suggest overwhelming sepsis. You were given 2 g of IV ceftriaxone in the emergency department and I am going to give you 10 additional days of Augmentin an oral antibiotic to take to treat your kidney infection. I am also going to give you a prescription for nausea medications should you have persistent nausea. Now that the infection is being treated Tylenol should be adequate for pain control at this point. Prescription for antibiotics as well as the anti nausea medicine has been electronically transmitted to [facility] for you to parts picker later today You have been given your morning amlodipine, losartan and apixaban to make sure that your blood pressure was coming down. It was beginning to trend down as your pain was better controlled Your urine has been cultured and if the culture suggests we need a different antibiotic you will be contacted. I would recommend scheduling a follow up appointment with your primary care physician about a week and half to coincide with the completion of the antibiotics to make sure that you are continuing to improve and feel back to your baseline. Prescriptions: New amoxicillin-pot clavulanate 875-125 mg tablet 1 tab PO BID Qty: 20 0RF ondansetron 4 mg tablet,disintegrating 4 mg PO Q8H PRN (Reason: nausea and vomiting) Qty: 12 0RF No Action amlodipine 5 mg tablet 5 mg PO BID Qty: 180 3RF prednisone 10 mg tablet See Rx Instructions .ROUTE .COMPLEX Qty: 31 0RF Rx Instructions: Prednisone taper instructions: Take 4 tabs (40 mg) for 3 days, 3 tabs (30 mg) for 3 days, 2 tabs (20 mg) for 3 days, 1 tab (10 mg) for 4 days then take the 5mg tablets; prednisone 5 mg tablet 5 mg PO DAILY Qty: 4 0RF Rx Instructions: Take after completing the 10mg tablets Eliquis 5 mg tablet 5 mg PO BID ferrous sulfate 324 mg (65 mg iron) tablet,delayed release (DR/EC) 324 mg PO DAILY Qty: 90 3RF nystatin 100,000 unit/gram powder 1 applic topical TID Qty: 60 1RF albuterol sulfate 90 mcg/actuation HFA aerosol inhaler 2 puff inhalation Q6H PRN (Reason: shortness of breath or wheezing) Qty: 8.5 1RF furosemide [Lasix] 20 mg tablet See Rx Instructions PO .COMPLEX Qty: 60 0RF Rx Instructions: Take 1 tab orally daily for 7 days then take as needed for shortness of breath or weight gain of 3 lb or more. (DME) Disabled parking permit See Rx Instructions .ROUTE .MEDSUPPLY Qty: 1 0RF Rx Instructions: I find this patient to be medically disabled and qualified for disabled parking as indicated, and signed, on the accompanying disabled parking application for individuals. hydroxyzine HCl 10 mg tablet 10 mg PO TID PRN (Reason: anxiety) Qty: 30 0RF levothyroxine 200 mcg tablet 200 mcg PO DAILY Qty: 90 1RF Rx Instructions: t1 tab daily sunday through Sunday. levothyroxine 175 mcg tablet See Rx Instructions PO .COMPLEX Qty: 60 1RF Rx Instructions: T1 tab po Sunday and Sunday losartan 100 mg tablet 100 mg PO DAILY Qty: 90 3RF escitalopram oxalate 20 mg tablet 30 mg PO DAILY cholecalciferol (vitamin D3) [Vitamin D3] 5,000 unit Tablet 5,000 units PO DAILY Referrals: Flaquito Yee MD [Primary Care Provider] - Stand Alone Forms: Patient Portal/API
--- NOTE | 2023-11-20 04:53 | DI.CT.S_ITS ---
PROCEDURE: CT KIDNEY URETER BLADDER (KUB) INDICATIONS: Right flank pain TECHNIQUE: Axial sections were acquired from the lung bases to the pubic symphysis. Coronal and sagittal reformats were performed. For radiation dose reduction, the following was used: automated exposure control, adjustment of mA and/or kV according to patient size. COMPARISON: [facility], CT, CT ABDOMEN PELVIS W CON, 03/13/2021, 20:42. [facility], CT, CT KIDNEY URETER BLADDER (KUB), 03/12/2021, 20:13. FINDINGS: Image quality: Diagnostic Lower chest: Unremarkable lung bases. Mildly patulous distal esophagus. Biatrial enlargement. Liver: Solid organs not well evaluated without IV contrast. No contour deforming mass Gallbladder and biliary system: Unremarkable, nondilated. There is a duodenal diverticulum adjacent to the ampulla. Pancreas: No ductal dilation Spleen: Nonenlarged Adrenals: Stable 3 centimeter right adrenal nodule with a small focus of macroscopic fat at the inferior aspect, possibly a myelolipoma or myelolipoma composite lesion. Consider follow-up if there is any other history of primary malignancy. Kidneys: Mild right hydroureteronephrosis. There is mild surrounding fat stranding. No calcified obstructing stone is seen. No contour deforming mass Vessels and lymph nodes: No abdominal aortic aneurysm. No pathologic lymph nodes by size criteria. Bowel and peritoneum: No evidence of small bowel obstruction. No pathologic ascites or drainable abscess. There are colonic diverticula. Mild wall thickening of the sigmoid colon, possibly chronic diverticular disease, consider age-appropriate colonoscopy correlation Body wall: Unremarkable Pelvis: Mild wall thickening and perivesicular fat stranding of the bladder. Reproductive organs are not well evaluated on noncontrast CT, overall unremarkable Bones: Degenerative changes, no acute or suspicious abnormality. IMPRESSION: Mild right hydroureteronephrosis. Mild inflammatory fat stranding around the right ureter and bladder. No calcified stone is seen. A recently passed stone is possible. Correlate urinalysis for superimposed infection. Other findings as above, likely stable/incidental. Agree with prelim report Dictated by: Cristóbal Melgar M.D. on 11/20/2023 at 8:03 Approved by: Crisótbal Melgar M.D. on 11/20/2023 at 8:09
[2023-11-20] MEDS: ONDANSETRON 4 MG/2 ML INJ IV (04:57)
[2023-11-20] MEDS: HYDROMORPHONE 0.5 MG INJ IV (04:57)
[2023-11-20] MEDS: SODIUM CHLORIDE 0.9% 1,000 ML 1000 ML IV (04:58)
[2023-11-20 05:02] LABS: Add Manual Diff / Slide Review NO; Basophils Absolute Auto 0 /uL (0-100); Basophils Percent Auto 0.3 % (0-2); Eosinophils Absolute Auto 100 /uL (0-450); Eosinophils Percent Auto 0.7 % (2-4); Hemoglobin 14.7 g/dL (12.0-16.0); Lymphocytes Absolute Auto 1400 /uL (1100-4500); Lymphocytes Percent Auto 9.8 % (25-40); Mean Corpuscular HGB Conc 33.3 % (30-36); Mean Corpuscular Hemoglobin 27.8 PG (26-34); Mean Corpuscular Volume 83.4 fL (80-100); Monocytes Absolute Auto 1000 /uL (0-900); Neutrophils Absolute Auto 12100 /uL (1500-7000); Neutrophils Percent Auto 82.2 % (50-75); Platelet Count 306 X10^3/uL (150-400); Red Blood Cell Count 5.27 X10^6/uL (4.0-5.2); Red Cell Distribution Width 20.1 % (11.6-14.8); White Blood Cell Count 14.7 X10^3/uL (4.5-11.0)
[2023-11-20 05:08] LABS: Alanine Aminotransferase 22 IU/L (<35); Albumin 4.4 g/dL (3.5-5.0); Albumin Globulin Ratio 1.1 (1.0-2.8); Alkaline Phosphatase 149 U/L (38-126); Aspartate Aminotransferase 25 IU/L (14-36); Bilirubin Total 1.1 mg/dL (0.2-1.3); Blood Urea Nitrogen 8 mg/dL (7-17); Calcium 8.5 mg/dL (8.4-10.2); Carbon Dioxide 29 mmol/L (22-32); Chloride 102 mmol/L (98-107); Estimated Glomerular Filt Rate > 60 mL/min (>60); Globulin 4.1 g/dL (1.7-4.1); Glucose 163 mg/dL (80-110); HEMOLYSIS < 15 (0-50); Lactate (Lactic Acid) 1.8 mmol/L (0.7-2.1); Lipase 48 U/L (23-300); Magnesium 1.9 mg/dL (1.6-2.3); Potassium 3.5 mmol/L (3.4-5.1); Sodium 138 mmol/L (137-145); Total Protein 8.5 g/dL (6.3-8.2)
[2023-11-20 05:19] LABS: NT-proBNP (BNP-Adult 18+) 1100 pg/mL (<125); Troponin I < 0.012 ng/mL (0.01-0.034)
--- NOTE | 2023-11-20 05:21 | PC.NURSE ---
Pt placed on 2L after desat to 80s while attempting to sleep. No distress noted in pt. CHANA Becerra notified. Pt sat increase to 97%. O2 tolerated appropriately.
[2023-11-20 05:36] VITALS: BP 153/94; PULSE 91; RESP 18; O2SAT 98
[2023-11-20 05:37] LABS: Anisocytosis 1+; Microcytosis 1+; Platelet Estimate Adequate on smear
[2023-11-20 06:01] LABS: Bilirubin Urine UA NEGATIVE (NEGATIVE); Color Urine UA YELLOW; Glucose Urine UA NEGATIVE (Negative); Ketones Urine UA TRACE (NEGATIVE); Leukocyte Esterase Urine UA 2+ (NEGATIVE); Nitrite Urine UA POSITIVE (Negative); Occult Blood Urine UA 2+ (Negative); Protein Urine UA 2+ (Negative); Urobilinogen Urine UA 0.2 E.U./dL (0.2)
[2023-11-20 06:02] LABS: Appearance Urine UA Cloudy; pH Urine UA 6.5 (4.5-8.0)
[2023-11-20 06:03] LABS: Bacteria Urine Many (>30); Culture Indicated Urine Specimen Cultured; RBC Urine 5-10/HPF (0-5/HPF); Squamous Epithelial Cell Urine 1-5 /HPF (0-5/HPF); Urine Volume 10mL (spun); WBC Urine 30-100/HPF (0-5/HPF)
[2023-11-20] MEDS: cefTRIAXone 2,000 MG in SODIUM CHLORIDE 0.9% 100 ML 200 MG IV (06:12)
[2023-11-20] MEDS: AMLODIPINE 5 MG TABLET PO (06:44)
[2023-11-20] MEDS: LOSARTAN 50 MG TABLET 100 MG PO (06:45)
[2023-11-20] MEDS: APIXABAN 5 MG TABLET PO (06:45)
[2023-11-20 07:06] VITALS: BP 150/90; PULSE 90; RESP 18; O2SAT 97
== END 2023-11-20 07:09 | disposition home or self-care (01) ==
PROVIDERS: Emergency Provider Emergency Medicine; PCP Family Medicine
DX: N12 Tubulo-interstitial nephritis, not specified as acute or chronic (principal)
CPT/HCPCS: 36415; 74176; 80053; 81001; 81003; 83605; 83690; 83735; 83880; 84484; 85025; 87077; 87086; 87186; 96365; 96375; 99284; J0696; J1170; J2405

== ENCOUNTER → 2024-02-01 09:01 | Outpatient (CLI) | payer OTHER, SELFPAY ==
[2023-09-29 09:15] VITALS: BMI 49.2
--- NOTE | 2024-02-01 09:05 | DI.RAD.S_ITS ---
PROCEDURE: XR KNEE RT 1TO2V INDICATIONS: PAIN TECHNIQUE: 2 views of the knee were acquired. COMPARISON: [facility], CR, XR KNEE LT 3V, 06/18/2020, 8:57. FINDINGS: Bones: No fractures or dislocations. Moderate tricompartmental osteoarthritis is seen more notably in medial femoral tibial compartment. No suspicious bony lesions. Soft tissues: No joint effusion. No suspicious soft tissue calcifications. IMPRESSION: Moderate tricompartmental osteoarthritis more notably in medial femoral tibial compartment. No fracture or dislocation. No significant joint effusion. Dictated by: Suleiman Marquze M.D. on 02/01/2024 at 11:29 Approved by: Suleiman Marquez M.D. on 02/01/2024 at 11:30
--- NOTE | 2024-02-01 09:05 | DI.RAD.S_ITS ---
PROCEDURE: XR KNEE LT 1TO2V INDICATIONS: PAIN TECHNIQUE: 2 views of the knee were acquired. COMPARISON: [facility], , XR KNEE LT 3V, 06/18/2020, 8:57. FINDINGS: Bones: No fractures or dislocations. [id number] tricompartmental osteoarthritis in left knee is seen most notably in medial femoral tibial compartment. Finding has slightly progressed compared to previous study in 2020. No suspicious bony lesions. Soft tissues: No joint effusion. No suspicious soft tissue calcifications. IMPRESSION: [id number] tricompartmental osteoarthritis in left knee slightly worsened since 2020 study. No fracture or dislocation. No significant joint effusion. Dictated by: Suleiman Marquez M.D. on 02/01/2024 at 11:29 Approved by: Suleiman Marquez M.D. on 02/01/2024 at 11:29
--- NOTE | 2024-02-01 09:06 | DI.RAD.S_ITS ---
PROCEDURE: XR HIP W PEL IF DONE LT 2V INDICATIONS: PAIN TECHNIQUE: AP pelvis with lateral view(s) of the left hip(s). COMPARISON: [facility], , XR HIP W PEL IF DONE LT 2V, 03/26/2020, 11:28. FINDINGS: Bones: No fractures or dislocations. Moderate bilateral hip joint osteoarthritis is seen worsened compared to 2019 study. No evidence of avascular necrosis of femoral head. Pelvic ring appears intact. No suspicious bony lesions. Soft tissues: The visualized bowel gas pattern is normal. No suspicious soft tissue calcifications. IMPRESSION: Moderate bilateral hip joint osteoarthritis worsened since 2019 study. No fracture or dislocation. No evidence of avascular necrosis. Dictated by: Suleiman Marquez M.D. on 02/01/2024 at 11:31 Approved by: Suleiman Marquez M.D. on 02/01/2024 at 11:32
== END ==
PROVIDERS: PCP Family Medicine; Referring Provider Internal Medicine Cardiovascular Disease; Visit Provider Internal Medicine Cardiovascular Disease
DX: M16.0 Bilateral primary osteoarthritis of hip (principal); M17.0 Bilateral primary osteoarthritis of knee; M25.559 Pain in unspecified hip; M25.569 Pain in unspecified knee
CPT/HCPCS: 73502; 73560

== ENCOUNTER → 2024-11-11 09:44 | Outpatient (CLI) | payer OTHER, SELFPAY ==
[2023-09-29 09:15] VITALS: BMI 49.2
== END ==
LOC: LAB 09:44
PROVIDERS: PCP Family Medicine; Visit Provider Chiropractor
DX: R30.0 Dysuria (principal)
CPT/HCPCS: 87086

== ENCOUNTER → 2025-04-06 12:22 | Outpatient (CLI) | payer OTHER, SELFPAY ==
[2023-09-29 09:15] VITALS: BMI 49.2
--- NOTE | 2025-04-06 12:24 | DI.CT.S_ITS ---
PROCEDURE: CT CHEST ABD PEL WO CON INDICATIONS: pulmonary nodule, mesenteric lymphadenopathy, ?blddr fistula TECHNIQUE: After the administration of oral contrast, 5 mm thick sections acquired from the lung apices to the symphysis pubis. 5 mm thick coronal and sagittal reformats acquired, with additional 7 mm coronal MIP reformats through the lungs. For radiation dose reduction, the following was used: automated exposure control, adjustment of mA and/or kV according to patient size. COMPARISON: [facility], CT, CT ABDOMEN WITHOUT CONTRAST, 04/26/2024, 11:04. [facility], CR, XR RETROGRADE UROGRAPHY, 03/25/2025, 8:14. [facility], CT, CT KUB, 03/19/2025, 11:48. FINDINGS: Image quality: Diagnostic Lungs and pleura: Multiple nodules are seen in the right lower lung Similar to 03/19/2025, subpleural region nodule measures up to 1.4 cm. Persistent opacity with volume loss also seen in the medial portion of the left lower lobe measuring 3.1 cm. These appear larger than 2023 Centrilobular ground-glass nodules are seen in the right upper lung. No pleural effusions. Mediastinum, heart, and esophagus: Cardiomegaly. Distended main pulmonary artery measuring 3.[address] appearance of the esophagus. No enlarged lymph nodes by size criteria Chest wall and thyroid: Unremarkable Liver: No contour deforming mass. Solid organs are not well assessed without IV contrast Gallbladder and biliary system: Unremarkable, nondilated. Pancreas: No ductal dilation. Small duodenal diverticulum adjacent to the ampulla Spleen: Nonenlarged Adrenals: No discrete left nodule. Right-sided nodule is present with focal fat, similar to prior measuring 3 cm. Close attention on follow-up recommended, given presence of lung nodules. 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 No hydronephrosis. Vessels and lymph nodes: No abdominal aortic aneurysm. Mild aortoiliac atherosclerotic calcifications. No enlarged lymph nodes by size criteria. Bowel and peritoneum: No bowel obstruction. No drainable abscess or ascites. Colonic diverticula with wall thickening. There is surrounding inflammatory changes and prominent lymph nodes Possible tracts versus scarring is seen adjacent to the undersurface of the sigmoid colon with the dome of the bladder. Body wall: Moderate fat containing umbilical hernia. Pelvis: Under distended urinary bladder. Edematous fat stranding is seen around the bladder. There is wall thickening at the dome. Reproductive organs are unremarkable on limited CT evaluation Bones: No aggressive appearing osseous abnormality. There are degenerative changes. Similar subtle sclerosis L2. IMPRESSION: Bilateral lower lung nodules and opacities compared to 03/19/2025, larger than 2024. These are indeterminate for malignancy. Ill-defined centrilobular ground-glass nodules seen in the right upper lung, probably infectious/inflammatory. Short interval follow-up CT with contrast, PET-CT, and/or sampling recommended. Edematous fat stranding seen around the sigmoid colon and urinary bladder, with associated wall thickening, particularly at the bladder dome. There is a possible tract versus scarring seen between the 2 structures. Correlate colonoscopy, cystoscopy to assess for any underlying lesion and urinalysis for infection. If further imaging is needed, pelvic MRI or CT with rectal contrast could be pursued. There are prominent indeterminate lymph nodes surrounding this sigmoid colon. Cardiomegaly. Distended main pulmonary artery. This can be seen with high pulmonary pressures. Other findings above. Dictated by: Cristóbal Melgar M.D. on 04/07/2025 at 7:23 Approved by: Cristóbal Melgar M.D. on 04/07/2025 at 7:36
[2025-04-06 13:00] LABS: Hemoglobin A1C% w Est Avg Glu 7.2 % (4.0-6.0)
[2025-04-06 13:01] LABS: Add Manual Diff / Slide Review NO; Hematocrit 42.7 % (36-46); Hemoglobin 14.2 g/dL (12.0-16.0); Lymphocytes Absolute Auto 1700 /uL (1100-4500); Mean Corpuscular HGB Conc 33.3 % (30-36); Mean Corpuscular Hemoglobin 28.9 PG (26-34); Mean Corpuscular Volume 86.7 fL (80-100); Platelet Count 403 X10^3/uL (150-400)
[2025-04-06 13:08] LABS: Alanine Aminotransferase 26 IU/L (<35); Albumin 4.1 g/dL (3.5-5.0); Albumin Globulin Ratio 1.1 (1.0-2.8); Alkaline Phosphatase 125 U/L (38-126); Blood Urea Nitrogen 11 mg/dL (7-17); Calcium 8.7 mg/dL (8.4-10.2); Carbon Dioxide 33 mmol/L (22-32); Chloride 98 mmol/L (98-107); Estimated Glomerular Filt Rate > 60 mL/min (>60); Globulin 3.9 g/dL (1.7-4.1); Glucose 143 mg/dL (70-99); HEMOLYSIS < 15 (0-50); Potassium 3.7 mmol/L (3.4-5.1); Sodium 141 mmol/L (137-145); Total Protein 8.0 g/dL (6.3-8.2)
[2025-04-06 13:36] LABS: TSH w/ Reflex to FT4 3.71 uIU/mL (0.47-4.68)
[2025-04-06 18:24] LABS: Appearance Urine UA CLEAR; Bilirubin Urine UA NEGATIVE (NEGATIVE); Color Urine UA YELLOW; Glucose Urine UA NEGATIVE (Negative); Ketones Urine UA NEGATIVE (NEGATIVE); Leukocyte Esterase Urine UA NEGATIVE (NEGATIVE); Occult Blood Urine UA NEGATIVE (Negative); Protein Urine UA NEGATIVE (Negative); Specific Gravity Urine UA 1.010 (1.000-1.035); Urobilinogen Urine UA 0.2 E.U./dL (0.2)
[2025-04-06 18:35] LABS: pH Urine UA 6.5 (4.5-8.0)
[2025-04-06 18:36] LABS: Nitrite Urine UA NEGATIVE (Negative)
[2025-04-06 18:37] LABS: Culture Indicated Urine Cult Not Indicated
== END ==
PROVIDERS: PCP Family Medicine; Referring Provider Family Medicine; Visit Provider Family Medicine
DX: N32.2 Vesical fistula, not elsewhere classified (principal); R91.8 Other nonspecific abnormal finding of lung field; K42.9 Umbilical hernia without obstruction or gangrene; K57.10 Diverticulosis of small intestine without perforation or abscess without bleeding; K57.32 Diverticulitis of large intestine without perforation or abscess without bleeding; I51.7 Cardiomegaly; R59.0 Localized enlarged lymph nodes; I10 Essential (primary) hypertension; E03.9 Hypothyroidism, unspecified; R73.01 Impaired fasting glucose; R30.0 Dysuria
CPT/HCPCS: 36415; 71250; 74176; 80053; 81001; 83036; 84443; 85025